=== PATIENT | female | born 1990 | race Caucasian/White ===

== ENCOUNTER 2023-05-24 08:53 | Inpatient (IN) ==
[2023-05-24] MEDS ORDERED: LIDOCAINE 1% LOCAL 20 ML VIAL INFIL PRN (09:55)
[2023-05-24] MEDS ORDERED: OXYTOCIN 30 UNITS/NSS 30 UNITS/500 ML BAG IV PRN (09:55)
[2023-05-24] MEDS ORDERED: Patient's ALLERGY Info needs ENTERED SCH (10:15)
[2023-05-24 10:44] LABS: Alanine Aminotransferase 51 U/L (7-52); Albumin Globulin Ratio 1.1 (0.9-2); Albumin Level 3.3 gm/dl (3.4-5.0); Alkaline Phosphatase 175 U/L (34-104); Anion Gap 9 (3-11); Aspartate Aminotransferase 60 U/L (13-39); BUN Creatinine Ratio 18.3 (10-20); Bilirubin Direct 0.2 mg/dl (0-0.2); Bilirubin,Total 1.2 mg/dl (0.2-1.0); Blood Urea Nitrogen 11 mg/dl (6-23); Calcium 8.8 mg/dl (8.6-10.3); Carbon Dioxide 21 mmol/L (21-32); Chloride 107 mmol/L (98-107); Est GFR (African American) 139.8 ml/min; Est GFR (Non-African American) 120.6 ml/min; Globulin 2.9 gm/dl (2.5-4.0); Glucose 72 mg/dl (70-99(Fasting)); Lactate Dehydrogenase 288 U/L (86-244); Potassium 3.5 mmol/L (3.5-5.1); Sodium 137 mmol/L (136-145); Total Protein 6.2 gm/dl (6.0-8.3); Uric Acid 9.3 mg/dl (2.6-7.2)
[2023-05-24 10:58] LABS: Hematocrit (blood only) 34.4 % (37.0-47.0); Hemoglobin 11.7 g/dl (12.0-16.0); Mean Corpuscular Hemoglobin 30.7 pg (25.0-34.0); Mean Corpuscular Volume 90.3 fL (80.0-100.0); Mean Platelet Volume 11.8 fL (9.4-12.4); Platelet Count 99 K/uL (130-400); Platelet Estimate Decreased (Normal); RDW Coefficient of Variation 15.1 % (11.5-14.5); RDW Standard Deviation 49.1 fL (36.4-46.3); Red Blood Count 3.81 M/uL (4.20-5.40); White Blood Count 8.18 K/ul (4.8-10.8)
[2023-05-24 11:17] LABS: Total Protein Urine Random 91.8 mg/dl (0-11.9)
[2023-05-24 11:23] LABS: Creatinine Urine Random 57.8 mg/dl; Protein Creatinine Ratio Urine 1.6 (0-0.2)
[2023-05-24] MEDS ORDERED: LABETALOL HCL IV 5 MG/ML 20ML IV STA (12:06)
[2023-05-24] MEDS ORDERED: MAG SULFATE 6GM BOLUS FROM BAG IV ONE (12:06)
[2023-05-24] MEDS ORDERED: LABETALOL HCL IV 5 MG/ML 20ML IV ONE (12:06)
--- NOTE | 2023-05-24 12:24 | History & Physical Report ---
Date of Service May 24, 2023 Assessment & Plan (1) Pre-eclampsia during in third trimester, antepartum: Plan: Start Magnesium Labetalol Cervidil for cervical ripening Admission and Anticipated Discharge Date Admission Date: May 24, 2023 History of Present Illness Chief Complaint: elevated blood pressure in office Primary Care Provider: Kelechi Vega MD 32 F P0000 at 37.3 weeks found to have elevated BP today in office for a routine visit and sent to L&D for evaluation. BP remains high and patient meets criteria for pre-eclampsia with sever features. Patient denies headache, visual changes, nausea or vomitting, RUQ pain or any other features. She has 1+ lower extremity edema. GBS is negative. Allergies Allergy/AdvReac Type Severity Reaction Status Date / Time No Known Allergies Allergy Unverified 05/24/23 12:13 Patient History Medical History (Updated 05/24/23 @ 12:23 by Ubaldo Shin MD) Pre-eclampsia during in third trimester, antepartum Social History Smoking Status: Never smoker Second Hand Exposure: No; Do You Dip or Chew Tobacco: No; Tobacco Cessation Education Requested by Patient: No Hx Alcohol Use: No Hx Substance Use: No Preferred Language: Turkish Communication Ability: Effective [employer] Tender Required: No Beliefs That Will Affect Care: None marital status: Current Living Situation: Spouse Other Information That Helps Us Care for You: No Feels Safe at Home: Yes Safety Concerns: Feels Safe At This Time Assistive Devices: Glasses OB History primip ACCESS ASSOC History neg Review of Systems All systems reviewed & are unremarkable except as noted in HPI & below Physical Exam Constitutional: WD/WN, vitals as above Eyes: PERRL, conjunctivae normal, anicteric sclerae Respiratory: normal respiratory effort, lungs clear to auscultation Cardiovascular: Rate/Rhythm: regular rate and regular rhythm Gastrointestinal (Abdomen): normal bowel sounds, soft, nontender, no hepatosplenomegaly Musculoskeletal: Extremities: extremities normal to inspection (+1 lower extremity edema noted) Skin: no rashes, warm and dry Neurologic: patellar DTR's 2+ bilat, sensation intact Psychiatric: A+Ox3, euthymic affect Genitourinary: no vaginal lesions, no adnexal mass OB Exam Abdomen: + fundal height and + vertex Manual OB Exam: + cervical dilation, + cervical effacement 50% and + station high OB Exam Monitor Tracing: + external FHT monitor used, + external uterine monitor used, + category I and + normal FHT variability Results & Data Vital Signs (Past 12 Hours) Vital Signs Temp Pulse Resp BP 05/24/23 12:03 77 170/97 H 05/24/23 10:20 84 161/99 H 05/24/23 10:19 85 167/101 H 05/24/23 10:00 94 H 134/80 05/24/23 09:39 89 136/89 05/24/23 09:30 36.5 C 89 16 136/89 Laboratory Results Laboratory Results - last 72 hr 05/24/23 05/24/23 09:35 10:03 WBC 8.18 RBC 3.81 L Hgb 11.7 L Hct 34.4 L MCV 90.3 MCH 30.7 MCHC 34.0 RDW Std Deviation 49.1 H RDW Coeff of Sander 15.1 H Plt Count 99 L MPV 11.8 Platelet Estimate Decreased L Sodium 137 Potassium 3.5 Chloride 107 Carbon Dioxide 21 Anion Gap 9 BUN 11 Creatinine 0.60 Est Cr Clr Drug Dosing Not Reportable Est GFR ( Amer) 139.8 Est GFR (Non-Af Amer) 120.6 BUN/Creatinine Ratio 18.3 Glucose 72 Uric Acid 9.3 H Calcium 8.8 Total Bilirubin 1.2 H Direct Bilirubin 0.2 AST 60 H ALT 51 Alkaline Phosphatase 175 H Lactate Dehydrogenase 288 H Total Protein 6.2 Albumin 3.3 L Globulin 2.9 Albumin/Globulin Ratio 1.1 Ur Random Creatinine 57.8 U Random Total Protein 91.8 H Protein/Creatinin Ratio 1.6 H Code Status & VTE Plan VTE Prophylaxis Plan VTE Prophylaxis will be ordered: Yes Monitoring External Monitor Cat 1
[2023-05-24] MEDS: LACTATED RINGER'S 1,000 ML IV PRN ×2 (12:25→22:58)
[2023-05-24] MEDS: MAGNESIUM SULFATE / WTR 40 GM/1,000 ML BAG IV SCH (12:33)
[2023-05-24] MEDS ORDERED: DINOPROSTONE 10 MG INSERT PV ONE (12:43)
--- NOTE | 2023-05-24 13:05 | Labor Progress Brief Note ---
Date of Service May 24, 2023 Assessment & Plan Admission and Anticipated Discharge Date Admission Date: May 24, 2023 Physical Exam Genitourinary: OB Exam Monitor Tracing: + external FHT monitor used, + external uterine monitor used, + category I and + normal FHT variability Cervidil 10 mg placed. BP now 142/91 Results & Data Vital Signs (Past 12 Hours) Vital Signs Temp Pulse Resp BP 05/24/23 12:52 109 H 142/91 H 05/24/23 12:35 106 H 149/89 H 05/24/23 12:24 86 149/85 H 05/24/23 12:16 77 170/97 H 05/24/23 12:14 82 137/78 05/24/23 12:03 77 170/97 H 05/24/23 10:20 84 161/99 H 05/24/23 10:19 85 167/101 H 05/24/23 10:00 94 H 134/80 05/24/23 09:39 89 136/89 05/24/23 09:30 36.5 C 89 16 136/89
[2023-05-24] MEDS ORDERED: SODIUM CHLORIDE 0.9% 250 ML IV PRN (15:14)
[2023-05-24] MEDS: ACETAMINOPHEN 325 MG TAB PO PRN ×2 (17:53→22:57)
[2023-05-25] MEDS: miSOPROStoL 50 MCG TAB PO SCH ×2 (02:00→07:10)
[2023-05-25] MEDS: MAGNESIUM SULFATE / WTR 40 GM/1,000 ML BAG IV SCH (02:05)
[2023-05-25] MEDS: ACETAMINOPHEN 325 MG TAB PO PRN ×2 (06:22→11:53)
[2023-05-25 06:32] LABS: Albumin Globulin Ratio 1.1 (0.9-2); Albumin Level 3.2 gm/dl (3.4-5.0); BUN Creatinine Ratio 15.6 (10-20); Bilirubin Direct 0.1 mg/dl (0-0.2); Bilirubin,Total 0.8 mg/dl (0.2-1.0); Calcium 7.4 mg/dl (8.6-10.3); Creatinine Clr Calc Pharmacy 138.4 ml/min; Est GFR (African American) 136.8 ml/min; Est GFR (Non-African American) 118.1 ml/min; Globulin 2.9 gm/dl (2.5-4.0); Potassium 3.4 mmol/L (3.5-5.1); Total Protein 6.1 gm/dl (6.0-8.3); Uric Acid 9.7 mg/dl (2.6-7.2)
[2023-05-25 06:44] LABS: Basophils # (auto) 0.03 K/uL (0.00-0.20); Basophils % (auto) 0.4 %; Eosinophils # (auto) 0.04 K/uL (0.00-0.50); Eosinophils % (auto) 0.5 %; Hematocrit (blood only) 34.3 % (37.0-47.0); Hemoglobin 11.6 g/dl (12.0-16.0); Immature Granulocytes # (auto) 0.43 K/uL (0.01-0.20); Immature Granulocytes % (auto) 5.4 %; Lymphocytes # (auto) 1.63 K/uL (1.20-3.40); Lymphocytes % (auto) 20.5 %; Mean Corpuscular Hemoglobin 30.6 pg (25.0-34.0); Mean Corpuscular Hgb Conc 33.8 g/dL (32.0-36.0); Mean Corpuscular Volume 90.5 fL (80.0-100.0); Mean Platelet Volume 11.6 fL (9.4-12.4); Monocytes % (auto) 6.3 %; Neutrophils # (auto) 5.31 K/uL (1.40-6.50); Neutrophils % (auto) 66.9 %; Nucleated RBC # (auto) 0.03 K/uL (0.00-0.12); Nucleated RBC % (auto) 0.4 %; Platelet Count 99 K/uL (130-400); RDW Coefficient of Variation 15.1 % (11.5-14.5); RDW Standard Deviation 49.5 fL (36.4-46.3); Red Blood Count 3.79 M/uL (4.20-5.40); White Blood Count 7.94 K/ul (4.8-10.8)
--- NOTE | 2023-05-25 08:53 | Obstetrical Progress Note ---
Date of Service May 25, 2023 Assessment & Plan Admission and Anticipated Discharge Date Admission Date: May 24, 2023 Subjective Patient is seen and examined. She was admitted yesterday by Dr. Shin for preeclampsia with severe features, received Cervidil for cervical ripening and then 2 doses of p.o. Cytotec, the last 1 was at 7:30 AM this morning. She feels mild cramping off and on, no contractions, leakage of fluid, vaginal bleeding. She reports good movements. She has headache since yesterday, it has been mild pain level is 3 out of 10. No change in her vision, no epigastric or right upper quadrant pain, no vomiting but she has been feeling nauseous. Her has been uncomplicated until yesterday, GBS negative. She was given 1 dose of IV labetalol yesterday and her blood pressures were normal after that, they started to increase this morning, plan to start p.o. labetalol twice daily. She has been on IV magnesium for seizure prophylaxis. Vaginal exam, cervix is closed, thick, firm, anterior, head is at -2 station, heart rate category 1, [place] showing mild irregular contractions, patient does not feel them. Labs are stable with low platelets at 99K, same since yesterday, liver enzymes are within normal limits. Lab Results 05/24/23 05/24/23 05/24/23 Range/Units 09:35 10:03 16:56 WBC 8.18 (4.8-10.8) K/ul RBC 3.81 L (4.20-5.40) M/uL Hgb 11.7 L (12.0-16.0) g/dl Hct 34.4 L (37.0-47.0) % MCV 90.3 (80.0-100.0) fL MCH 30.7 (25.0-34.0) pg MCHC 34.0 (32.0-36.0) g/dL RDW Std Deviation 49.1 H (36.4-46.3) fL RDW Coeff of Sander 15.1 H (11.5-14.5) % Plt Count 99 L (130-400) K/uL MPV 11.8 (9.4-12.4) fL Immature Gran % (Auto) % Neut % (Auto) % Lymph % (Auto) % [place] % (Auto) % Eos % (Auto) % Baso % (Auto) % Neut # (Auto) (1.40-6.50) K/uL Lymph # (Auto) (1.20-3.40) K/uL [place] # (Auto) (0.11-0.59) K/uL Eos # (Auto) (0.00-0.50) K/uL Baso # (Auto) (0.00-0.20) K/uL Immature Gran # (Auto) (0.01-0.20) K/uL Absolute Nucleated RBC (0.00-0.12) K/uL Nucleated RBC % (auto) % Platelet Estimate Decreased L (Normal) Sodium 137 (136-145) mmol/L Potassium 3.5 (3.5-5.1) mmol/L Chloride 107 (98-107) mmol/L Carbon Dioxide 21 (21-32) mmol/L Anion Gap 9 (3-11) BUN 11 (6-23) mg/dl Creatinine 0.60 (0.6-1.2) mg/dl Est Cr Clr Drug Dosing Not Reportable Est GFR ( Amer) 139.8 ml/min Est GFR (Non-Af Amer) 120.6 ml/min BUN/Creatinine Ratio 18.3 (10-20) Glucose 72 (70-99(Fasting)) mg/dl Uric Acid 9.3 H (2.6-7.2) mg/dl Calcium 8.8 (8.6-10.3) mg/dl Magnesium (Sulf Ther) 5.3 (4.0-8.0) mg/dL Total Bilirubin 1.2 H (0.2-1.0) mg/dl Direct Bilirubin 0.2 (0-0.2) mg/dl AST 60 H (13-39) U/L ALT 51 (7-52) U/L Alkaline Phosphatase 175 H (34-104) U/L Lactate Dehydrogenase 288 H (86-244) U/L Total Protein 6.2 (6.0-8.3) gm/dl Albumin 3.3 L (3.4-5.0) gm/dl Globulin 2.9 (2.5-4.0) gm/dl Albumin/Globulin Ratio 1.1 (0.9-2) Ur Random Creatinine 57.8 mg/dl U Random Total Protein 91.8 H (0-11.9) mg/dl Protein/Creatinin Ratio 1.6 H (0-0.2) Blood Type A Positive Antibody Screen NEGATIVE Crossmatch See Detail 05/25/23 Range/Units 05:46 WBC 7.94 (4.8-10.8) K/ul RBC 3.79 L (4.20-5.40) M/uL Hgb 11.6 L (12.0-16.0) g/dl Hct 34.3 L (37.0-47.0) % MCV 90.5 (80.0-100.0) fL MCH 30.6 (25.0-34.0) pg MCHC 33.8 (32.0-36.0) g/dL RDW Std Deviation 49.5 H (36.4-46.3) fL RDW Coeff of Sander 15.1 H (11.5-14.5) % Plt Count 99 L (130-400) K/uL MPV 11.6 (9.4-12.4) fL Immature Gran % (Auto) 5.4 % Neut % (Auto) 66.9 % Lymph % (Auto) 20.5 % [place] % (Auto) 6.3 % Eos % (Auto) 0.5 % Baso % (Auto) 0.4 % Neut # (Auto) 5.31 (1.40-6.50) K/uL Lymph # (Auto) 1.63 (1.20-3.40) K/uL [place] # (Auto) 0.50 (0.11-0.59) K/uL Eos # (Auto) 0.04 (0.00-0.50) K/uL Baso # (Auto) 0.03 (0.00-0.20) K/uL Immature Gran # (Auto) 0.43 H (0.01-0.20) K/uL Absolute Nucleated RBC 0.03 (0.00-0.12) K/uL Nucleated RBC % (auto) 0.4 % Platelet Estimate (Normal) Sodium 135 L (136-145) mmol/L Potassium 3.4 L (3.5-5.1) mmol/L Chloride 105 (98-107) mmol/L Carbon Dioxide 21 (21-32) mmol/L Anion Gap 9 (3-11) BUN 10 (6-23) mg/dl Creatinine 0.64 (0.6-1.2) mg/dl Est Cr Clr Drug Dosing 138.4 Est GFR ( Amer) 136.8 ml/min Est GFR (Non-Af Amer) 118.1 ml/min BUN/Creatinine Ratio 15.6 (10-20) Glucose 84 (70-99(Fasting)) mg/dl Uric Acid 9.7 H (2.6-7.2) mg/dl Calcium 7.4 L (8.6-10.3) mg/dl Magnesium (Sulf Ther) (4.0-8.0) mg/dL Total Bilirubin 0.8 (0.2-1.0) mg/dl Direct Bilirubin 0.1 (0-0.2) mg/dl AST 39 (13-39) U/L ALT 38 (7-52) U/L Alkaline Phosphatase 196 H (34-104) U/L Lactate Dehydrogenase 255 H (86-244) U/L Total Protein 6.1 (6.0-8.3) gm/dl Albumin 3.2 L (3.4-5.0) gm/dl Globulin 2.9 (2.5-4.0) gm/dl Albumin/Globulin Ratio 1.1 (0.9-2) Ur Random Creatinine mg/dl U Random Total Protein (0-11.9) mg/dl Protein/Creatinin Ratio (0-0.2) Blood Type Antibody Screen Crossmatch Plan to continue cervical ripening, repeat labs, ultrasound for growth [place], Discussed the findings with the patient and informed to continue with cervical ripening as long as blood pressures are stable and labs are stable. Understands there might be a need for urgent delivery via if laboratory findings gets worse or blood pressures become unstable. All questions were answered. Results & Data Vital Signs (Past 12 Hours) Vital Signs Temp Pulse Resp BP Pulse Ox 05/25/23 08:45 96 H 95 05/25/23 08:40 97 H 96 05/25/23 08:35 93 H 97 05/25/23 08:33 91 H 168/89 H 05/25/23 08:30 94 H 95 05/25/23 08:25 107 H 96 05/25/23 08:20 95 H 95 05/25/23 08:15 95 H 95 05/25/23 08:10 90 95 05/25/23 08:05 98 H 97 05/25/23 08:00 93 H 95 05/25/23 07:55 92 H 95 05/25/23 07:50 94 H 96 05/25/23 07:45 97 H 95 05/25/23 07:40 104 H 96 05/25/23 07:35 101 H 94 05/25/23 07:30 98 H 95 05/25/23 07:25 92 H 94 05/25/23 07:20 99 H 96 05/25/23 07:15 97 H 95 05/25/23 07:10 100 H 96 05/25/23 07:05 101 H 96 05/25/23 07:04 18 05/25/23 07:00 111 H 96 05/25/23 06:55 101 H 96 05/25/23 06:50 105 H 96 05/25/23 06:45 103 H 91 05/25/23 06:40 99 H 93 05/25/23 06:35 98 H 91 05/25/23 06:33 100 H 151/87 H 05/25/23 06:30 18 05/25/23 06:30 104 H 93 05/25/23 06:25 101 H 93 05/25/23 06:20 110 H 94 05/25/23 06:15 105 H 95 05/25/23 06:10 99 H 92 05/25/23 06:05 98 H 92 05/25/23 06:00 115 H 96 05/25/23 05:55 103 H 94 05/25/23 05:50 104 H 94 05/25/23 05:45 100 H 92 05/25/23 05:40 124 H 93 05/25/23 05:35 102 H 93 05/25/23 05:33 102 H 124/68 05/25/23 05:30 18 05/25/23 05:30 101 H 93 05/25/23 05:25 102 H 92 05/25/23 05:20 99 H 94 05/25/23 05:15 102 H 92 05/25/23 05:10 98 H 94 05/25/23 05:05 104 H 91 05/25/23 05:00 99 H 92 05/25/23 04:55 99 H 93 05/25/23 04:50 104 H 94 05/25/23 04:45 118 H 94 05/25/23 04:40 100 H 94 05/25/23 04:35 96 H 95 05/25/23 04:32 103 H 142/83 H 05/25/23 04:30 99 H 142/83 H 95 05/25/23 04:25 95 H 94 05/25/23 04:20 98 H 93 05/25/23 04:15 99 H 93 05/25/23 04:10 99 H 94 05/25/23 04:05 101 H 94 05/25/23 04:00 100 H 95 05/25/23 03:55 103 H 96 05/25/23 03:50 114 H 96 05/25/23 03:45 96 H 95 05/25/23 03:40 97 H 94 05/25/23 03:35 108 H 97 05/25/23 03:34 103 H 208/107 H 05/25/23 03:30 18 05/25/23 03:30 95 H 96 05/25/23 03:25 95 H 95 05/25/23 03:20 93 H 94 05/25/23 03:15 94 H 94 05/25/23 03:10 95 H 95 05/25/23 03:05 99 H 96 05/25/23 03:00 18 05/25/23 03:00 113 H 98 05/25/23 02:55 90 95 05/25/23 02:50 89 98 05/25/23 02:45 87 97 05/25/23 02:40 90 96 05/25/23 02:35 94 H 98 05/25/23 02:32 97 H 129/70 05/25/23 02:30 90 94 05/25/23 02:25 98 H 95 05/25/23 02:20 96 H 94 05/25/23 02:15 96 H 95 05/25/23 02:10 97 H 95 05/25/23 02:05 100 H 96 05/25/23 02:00 18 05/25/23 02:00 103 H 97 05/25/23 01:55 91 H 94 05/25/23 01:50 99 H 95 05/25/23 01:45 104 H 95 05/25/23 01:40 104 H 97 05/25/23 01:35 98 H 94 05/25/23 01:33 94 H 126/69 05/25/23 01:30 93 H 96 05/25/23 01:25 97 H 95 05/25/23 01:20 94 H 96 05/25/23 01:15 98 H 96 05/25/23 01:10 100 H 96 05/25/23 01:05 104 H 96 05/25/23 01:00 18 05/25/23 01:00 95 H 97 05/25/23 00:55 94 H 95 05/25/23 00:50 100 H 95 05/25/23 00:45 107 H 97 05/25/23 00:40 97 H 96 05/25/23 00:35 108 H 96 05/25/23 00:33 108 H 136/90 05/25/23 00:30 102 H 94 05/25/23 00:25 107 H 95 05/25/23 00:20 119 H 96 05/25/23 00:15 97 H 94 05/25/23 00:10 99 H 94 05/25/23 00:05 99 H 95 05/25/23 00:00 18 05/25/23 00:00 96 H 94 05/24/23 23:55 94 H 94 05/24/23 23:50 96 H 94 05/24/23 23:45 95 H 94 05/24/23 23:40 93 H 94 05/24/23 23:35 95 H 96 05/24/23 23:32 99 H 133/84 05/24/23 23:30 105 H 97 05/24/23 23:25 94 H 94 05/24/23 23:20 101 H 94 05/24/23 23:15 110 H 95 05/24/23 23:10 104 H 96 05/24/23 23:05 99 H 96 05/24/23 23:00 36.9 C 18 05/24/23 23:00 104 H 96 05/24/23 22:55 104 H 96 05/24/23 22:50 101 H 95 05/24/23 22:45 99 H 93 05/24/23 22:40 97 H 94 05/24/23 22:35 103 H 96 05/24/23 22:32 100 H 121/68 05/24/23 22:30 95 H 95 05/24/23 22:25 101 H 96 05/24/23 22:20 98 H 95 05/24/23 22:15 104 H 94 05/24/23 22:10 98 H 95 05/24/23 22:05 107 H 95 05/24/23 22:00 18 05/24/23 22:00 105 H 97 05/24/23 21:55 115 H 97 05/24/23 21:50 98 H 94 05/24/23 21:45 99 H 95 05/24/23 21:40 106 H 95 05/24/23 21:35 97 H 94 05/24/23 21:33 102 H 120/62 05/24/23 21:30 96 H 93 05/24/23 21:25 95 H 94 05/24/23 21:20 99 H 95 05/24/23 21:15 103 H 94 05/24/23 21:10 99 H 94 05/24/23 21:05 97 H 94 05/24/23 21:00 18 05/24/23 21:00 104 H 95 05/24/23 20:55 96 H 96 05/24/23 20:50 99 H 95
[2023-05-25] MEDS: LABETALOL HCL 100 MG TAB PO SCH ×2 (09:06→21:11)
[2023-05-25] MEDS ORDERED: LABETALOL HCL IV 5 MG/ML 20ML IV STA (09:37)
--- NOTE | 2023-05-25 09:53 | Obstetrical Progress Note ---
Date of Service May 25, 2023 Assessment & Plan Admission and Anticipated Discharge Date Admission Date: May 24, 2023 Subjective I was called that her blood pressures have increased. Per her nurse she has been nervous and crying due to her family history. Her biological mom soon after she had the patient, Brinda, with . 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 This makes the patient nervous and anxious if she will need a for delivery of her child. The patient has seen cardiology in 2016 with normal echocardiogram as well as during this . She has seen Dr. Parish at [facility] cardiology on December 27 and her exam and echocardiogram were within normal limits. Patient was recommended to follow-up in 5 years. Patient denies chest pain, shortness of breath. We discussed the findings again and safest route of delivery for her and the baby in details. Patient seems more relaxed now and smiling. Patient denies history of any anxiety or depression. I offered her consultation from psychiatry department here at the hospital but she declines. Plan to give her IV labetalol and continue to monitor closely. Results & Data Vital Signs (Past 12 Hours) Vital Signs Temp Pulse Resp BP Pulse Ox 05/25/23 09:45 93 H 93 05/25/23 09:40 93 H 93 05/25/23 09:36 98 H 182/107 H 05/25/23 09:35 95 H 95 05/25/23 09:30 97 H 94 05/25/23 09:25 96 H 94 05/25/23 09:20 95 H 178/100 H 91 05/25/23 09:19 108 H 242/138 H 05/25/23 09:15 93 H 94 05/25/23 09:13 94 H 181/107 H 05/25/23 09:10 93 H 92 05/25/23 09:07 93 H 190/108 H 05/25/23 09:05 91 H 92 05/25/23 09:00 93 H 94 05/25/23 08:55 91 H 94 05/25/23 08:50 94 H 95 05/25/23 08:45 96 H 95 05/25/23 08:40 97 H 96 05/25/23 08:35 93 H 97 05/25/23 08:33 91 H 168/89 H 05/25/23 08:30 94 H 95 05/25/23 08:25 107 H 96 05/25/23 08:20 95 H 95 05/25/23 08:15 95 H 95 05/25/23 08:10 90 95 05/25/23 08:05 98 H 97 05/25/23 08:00 93 H 95 05/25/23 07:55 92 H 95 05/25/23 07:50 94 H 96 05/25/23 07:45 97 H 95 05/25/23 07:40 104 H 96 05/25/23 07:35 101 H 94 05/25/23 07:30 98 H 95 05/25/23 07:25 92 H 94 05/25/23 07:20 99 H 96 05/25/23 07:15 97 H 95 05/25/23 07:10 100 H 96 05/25/23 07:05 101 H 96 05/25/23 07:04 18 05/25/23 07:00 111 H 96 05/25/23 06:55 101 H 96 05/25/23 06:50 105 H 96 05/25/23 06:45 103 H 91 05/25/23 06:40 99 H 93 05/25/23 06:35 98 H 91 05/25/23 06:33 100 H 151/87 H 05/25/23 06:30 18 05/25/23 06:30 104 H 93 05/25/23 06:25 101 H 93 05/25/23 06:20 110 H 94 05/25/23 06:15 105 H 95 05/25/23 06:10 99 H 92 05/25/23 06:05 98 H 92 05/25/23 06:00 115 H 96 05/25/23 05:55 103 H 94 05/25/23 05:50 104 H 94 05/25/23 05:45 100 H 92 05/25/23 05:40 124 H 93 05/25/23 05:35 102 H 93 05/25/23 05:33 102 H 124/68 05/25/23 05:30 18 05/25/23 05:30 101 H 93 05/25/23 05:25 102 H 92 05/25/23 05:20 99 H 94 05/25/23 05:15 102 H 92 05/25/23 05:10 98 H 94 05/25/23 05:05 104 H 91 05/25/23 05:00 99 H 92 05/25/23 04:55 99 H 93 05/25/23 04:50 104 H 94 05/25/23 04:45 118 H 94 05/25/23 04:40 100 H 94 05/25/23 04:35 96 H 95 05/25/23 04:32 103 H 142/83 H 05/25/23 04:30 99 H 142/83 H 95 05/25/23 04:25 95 H 94 05/25/23 04:20 98 H 93 05/25/23 04:15 99 H 93 05/25/23 04:10 99 H 94 05/25/23 04:05 101 H 94 05/25/23 04:00 100 H 95 05/25/23 03:55 103 H 96 05/25/23 03:50 114 H 96 05/25/23 03:45 96 H 95 05/25/23 03:40 97 H 94 05/25/23 03:35 108 H 97 05/25/23 03:34 103 H 208/107 H 05/25/23 03:30 18 05/25/23 03:30 95 H 96 05/25/23 03:25 95 H 95 05/25/23 03:20 93 H 94 05/25/23 03:15 94 H 94 05/25/23 03:10 95 H 95 05/25/23 03:05 99 H 96 05/25/23 03:00 18 05/25/23 03:00 113 H 98 05/25/23 02:55 90 95 05/25/23 02:50 89 98 05/25/23 02:45 87 97 05/25/23 02:40 90 96 05/25/23 02:35 94 H 98 05/25/23 02:32 97 H 129/70 05/25/23 02:30 90 94 05/25/23 02:25 98 H 95 05/25/23 02:20 96 H 94 05/25/23 02:15 96 H 95 05/25/23 02:10 97 H 95 05/25/23 02:05 100 H 96 05/25/23 02:00 18 05/25/23 02:00 103 H 97 05/25/23 01:55 91 H 94 05/25/23 01:50 99 H 95 05/25/23 01:45 104 H 95 05/25/23 01:40 104 H 97 05/25/23 01:35 98 H 94 05/25/23 01:33 94 H 126/69 05/25/23 01:30 93 H 96 05/25/23 01:25 97 H 95 05/25/23 01:20 94 H 96 05/25/23 01:15 98 H 96 05/25/23 01:10 100 H 96 05/25/23 01:05 104 H 96 05/25/23 01:00 18 05/25/23 01:00 95 H 97 05/25/23 00:55 94 H 95 05/25/23 00:50 100 H 95 05/25/23 00:45 107 H 97 05/25/23 00:40 97 H 96 05/25/23 00:35 108 H 96 05/25/23 00:33 108 H 136/90 05/25/23 00:30 102 H 94 05/25/23 00:25 107 H 95 05/25/23 00:20 119 H 96 05/25/23 00:15 97 H 94 05/25/23 00:10 99 H 94 05/25/23 00:05 99 H 95 05/25/23 00:00 18 05/25/23 00:00 96 H 94 05/24/23 23:55 94 H 94 05/24/23 23:50 96 H 94 05/24/23 23:45 95 H 94 05/24/23 23:40 93 H 94 05/24/23 23:35 95 H 96 05/24/23 23:32 99 H 133/84 05/24/23 23:30 105 H 97 05/24/23 23:25 94 H 94 05/24/23 23:20 101 H 94 05/24/23 23:15 110 H 95 05/24/23 23:10 104 H 96 05/24/23 23:05 99 H 96 05/24/23 23:00 36.9 C 18 05/24/23 23:00 104 H 96 05/24/23 22:55 104 H 96 05/24/23 22:50 101 H 95 05/24/23 22:45 99 H 93 05/24/23 22:40 97 H 94 05/24/23 22:35 103 H 96 05/24/23 22:32 100 H 121/68 05/24/23 22:30 95 H 95 05/24/23 22:25 101 H 96 05/24/23 22:20 98 H 95 05/24/23 22:15 104 H 94 05/24/23 22:10 98 H 95 05/24/23 22:05 107 H 95 05/24/23 22:00 18 05/24/23 22:00 105 H 97 05/24/23 21:55 115 H 97 05/24/23 21:50 98 H 94
[2023-05-25] MEDS ORDERED: BUTORPHANOL TARTRATE 1 MG/ML VIAL IV PRN (10:34)
[2023-05-25] MEDS: hydrALAZINE 10 MG TAB PO SCH (10:44)
[2023-05-25] MEDS ORDERED: miSOPROStoL 25 MCG TAB SL SCH (11:00)
--- NOTE | 2023-05-25 11:05 | Ultrasound Report ---
ULTRASOUND OBSTETRICAL LIMITED CLINICAL HISTORY: Preeclampsia. Estimation of weights. COMPARISON STUDY: No priors. FINDINGS: Real-time, grayscale and color Doppler sonography of the fetus and gravid uterus is perform ed. There is a single live intrauterine gestation with a heart rate of 121 bpm. Position is cephalic. The placenta is anterior and normal as imaged. The amniotic fluid index measures 4.65 cm, with the l argest pocket of fluid measuring 2.51 cm. Abdominal circumference measures 35.80 cm corresponding to an estimated age of 39 weeks 5 days. Head circumference measures 33.31 cm corresponding to an estimated age of 38 weeks 0 days. Femoral length measures 7.40 cm corresponding to an estimated age of 37 weeks 6 days. Biparietal diameter measures 9.58 cm corresponding to an estimated age of 39 weeks 1 day. The cumulative estimation of dates is 38 weeks 1 day +/-2 weeks 5 days. Estimated weight is 3457 g +/-519 g. IMPRESSION: 1. There is a single-live intrauterine gestation as detailed above. 2. Note that this does not constitute a dedicated anatomic scan. Dictated: 05/25/2023 10:41 AM Transcribed: 05/25/2023 11:02 AM Alonzo [id number] [email or web address] Electronically signed by: Barry Wilson M.D. 05/25/2023 11:03 AM
[2023-05-25] MEDS: LACTATED RINGER'S 1,000 ML IV PRN (11:50)
[2023-05-25 13:15] LABS: Hematocrit (blood only) 34.5 % (37.0-47.0); Hemoglobin 11.5 g/dl (12.0-16.0); Mean Corpuscular Hemoglobin 30.4 pg (25.0-34.0); Mean Corpuscular Hgb Conc 33.3 g/dL (32.0-36.0); Mean Corpuscular Volume 91.3 fL (80.0-100.0); Nucleated RBC # (auto) 0.02 K/uL (0.00-0.12); Nucleated RBC % (auto) 0.2 %; Platelet Count 94 K/uL (130-400); RDW Coefficient of Variation 15.1 % (11.5-14.5); RDW Standard Deviation 49.7 fL (36.4-46.3); Red Blood Count 3.78 M/uL (4.20-5.40); White Blood Count 8.83 K/ul (4.8-10.8)
[2023-05-25 13:37] LABS: Albumin Globulin Ratio 1.1 (0.9-2); Albumin Level 3.4 gm/dl (3.4-5.0); Bilirubin,Total 0.8 mg/dl (0.2-1.0); Calcium 7.3 mg/dl (8.6-10.3); Creatinine Clr Calc Pharmacy 128.4 ml/min; Est GFR (African American) 133.5 ml/min; Est GFR (Non-African American) 115.2 ml/min; Globulin 3.1 gm/dl (2.5-4.0); Potassium 3.3 mmol/L (3.5-5.1); Total Protein 6.5 gm/dl (6.0-8.3)
[2023-05-25] MEDS ORDERED: DEXAMETHASONE SOD INJ 4 MG/ML VIAL IV STA (13:37)
[2023-05-25] MEDS ORDERED: POTASSIUM CHLORIDE / WTR 10 MEQ/100 ML PLCT IV ONE (13:39)
[2023-05-25 13:51] LABS: Basophils # (auto) 0.04 K/uL (0.00-0.20); Basophils % (auto) 0.5 %; Eosinophils # (auto) 0.03 K/uL (0.00-0.50); Eosinophils % (auto) 0.3 %; Immature Granulocytes # (auto) 0.45 K/uL (0.01-0.20); Immature Granulocytes % (auto) 5.1 %; Lymphocytes # (auto) 1.52 K/uL (1.20-3.40); Lymphocytes % (auto) 17.2 %; Monocytes # (auto) 0.57 K/uL (0.11-0.59); Monocytes % (auto) 6.5 %; Neutrophils # (auto) 6.22 K/uL (1.40-6.50); Neutrophils % (auto) 70.4 %; Polychromasia 1+
[2023-05-25] MEDS ORDERED: dexAMETHasone 6 MG in SYRINGE 0 ML IV ONE (14:00)
[2023-05-25] MEDS ORDERED: CITRIC ACID/SODIUM CITRATE 15 ML UDC ONE (14:02)
--- NOTE | 2023-05-25 14:03 | Obstetrical Progress Note ---
Date of Service May 25, 2023 Assessment & Plan Admission and Anticipated Discharge Date Admission Date: May 24, 2023 Subjective Patient is reevaluated. She has received 3rd dose of Cytotec, no contractions, no cramping. HOOD is still mild, not worse Discussed repeat labs Platelets trending down , now 94 K, LFT's WNL Discussed the case with MFM and they recommended Csection Patient agreed with recommendations. Patient understands C section is a major surgery, with risks including but not limited to bleeding , infection, injury to surrounding organs like bowels, bladder, ureters, adhesions, scarring, wound infection, blood cloths in legs/ lungs, longer recovery. All questions were answered. She signed an informed consent. Results & Data Vital Signs (Past 12 Hours) Vital Signs Temp Pulse Resp BP Pulse Ox 05/25/23 13:57 90 93 05/25/23 13:52 96 H 157/84 H 05/25/23 13:51 98 H 98 05/25/23 13:46 84 97 05/25/23 13:41 84 97 05/25/23 13:37 81 143/83 H 05/25/23 13:36 86 96 05/25/23 13:31 91 H 96 05/25/23 13:26 88 95 05/25/23 13:22 88 153/92 H 05/25/23 13:21 92 H 96 05/25/23 13:16 86 94 05/25/23 13:11 86 96 05/25/23 13:08 88 140/88 05/25/23 13:06 92 H 97 05/25/23 13:01 89 97 05/25/23 12:56 88 94 05/25/23 12:54 88 159/95 H 05/25/23 12:51 96 H 93 05/25/23 12:46 86 96 05/25/23 12:41 87 95 05/25/23 12:37 90 134/87 05/25/23 12:36 92 H 94 05/25/23 12:31 89 97 05/25/23 12:26 85 96 05/25/23 12:23 91 H 139/90 05/25/23 12:21 93 H 97 05/25/23 12:16 87 94 05/25/23 12:11 88 94 05/25/23 12:07 87 146/94 H 05/25/23 12:06 88 94 05/25/23 12:01 97 H 97 05/25/23 11:56 90 96 05/25/23 11:52 36.7 C 93 H 17 141/90 H 05/25/23 11:51 96 H 96 05/25/23 11:46 89 96 05/25/23 11:41 90 95 05/25/23 11:37 89 141/90 H 05/25/23 11:36 94 H 93 05/25/23 11:31 85 95 05/25/23 11:26 89 96 05/25/23 11:21 90 147/89 H 95 05/25/23 11:16 85 94 05/25/23 11:11 86 95 05/25/23 11:08 84 140/90 05/25/23 11:06 91 H 94 05/25/23 11:01 86 95 05/25/23 10:56 84 94 05/25/23 10:52 86 146/90 H 05/25/23 10:51 93 H 95 05/25/23 10:46 85 94 05/25/23 10:41 87 92 05/25/23 10:38 93 H 94 05/25/23 10:37 86 140/82 05/25/23 10:36 95 H 92 05/25/23 10:31 88 92 05/25/23 10:26 86 91 05/25/23 10:22 89 163/93 H 05/25/23 10:21 90 86 L 05/25/23 10:05 92 05/25/23 10:05 90 05/25/23 10:05 89 156/92 H 05/25/23 10:01 93 H 167/98 H 05/25/23 10:00 91 H 90 05/25/23 09:55 88 145/93 H 91 05/25/23 09:50 93 H 92 05/25/23 09:45 93 H 93 05/25/23 09:40 93 H 93 05/25/23 09:36 98 H 182/107 H 05/25/23 09:35 95 H 95 05/25/23 09:30 97 H 94 05/25/23 09:25 96 H 94 05/25/23 09:20 95 H 178/100 H 91 05/25/23 09:19 108 H 242/138 H 05/25/23 09:15 93 H 94 05/25/23 09:13 94 H 181/107 H 05/25/23 09:10 93 H 92 05/25/23 09:07 93 H 190/108 H 05/25/23 09:05 91 H 92 05/25/23 09:00 93 H 94 05/25/23 08:55 91 H 94 05/25/23 08:50 94 H 95 05/25/23 08:45 96 H 95 05/25/23 08:40 97 H 96 05/25/23 08:35 93 H 97 05/25/23 08:33 91 H 168/89 H 05/25/23 08:30 94 H 95 05/25/23 08:25 107 H 96 05/25/23 08:20 95 H 95 05/25/23 08:15 95 H 95 05/25/23 08:10 90 95 05/25/23 08:05 98 H 97 05/25/23 08:00 93 H 95 05/25/23 07:55 92 H 95 05/25/23 07:50 94 H 96 05/25/23 07:45 97 H 95 05/25/23 07:40 104 H 96 05/25/23 07:35 101 H 94 05/25/23 07:30 98 H 95 05/25/23 07:25 92 H 94 05/25/23 07:20 99 H 96 05/25/23 07:15 97 H 95 05/25/23 07:10 100 H 96 05/25/23 07:05 101 H 96 05/25/23 07:04 18 05/25/23 07:00 111 H 96 05/25/23 06:55 101 H 96 05/25/23 06:50 105 H 96 05/25/23 06:45 103 H 91 05/25/23 06:40 99 H 93 05/25/23 06:35 98 H 91 05/25/23 06:33 100 H 151/87 H 05/25/23 06:30 18 05/25/23 06:30 104 H 93 05/25/23 06:25 101 H 93 05/25/23 06:20 110 H 94 05/25/23 06:15 105 H 95 05/25/23 06:10 99 H 92 05/25/23 06:05 98 H 92 05/25/23 06:00 115 H 96 05/25/23 05:55 103 H 94 05/25/23 05:50 104 H 94 05/25/23 05:45 100 H 92 05/25/23 05:40 124 H 93 05/25/23 05:35 102 H 93 05/25/23 05:33 102 H 124/68 05/25/23 05:30 18 05/25/23 05:30 101 H 93 05/25/23 05:25 102 H 92 05/25/23 05:20 99 H 94 05/25/23 05:15 102 H 92 05/25/23 05:10 98 H 94 05/25/23 05:05 104 H 91 05/25/23 05:00 99 H 92 05/25/23 04:55 99 H 93 05/25/23 04:50 104 H 94 05/25/23 04:45 118 H 94 05/25/23 04:40 100 H 94 05/25/23 04:35 96 H 95 05/25/23 04:32 103 H 142/83 H 05/25/23 04:30 99 H 142/83 H 95 05/25/23 04:25 95 H 94 05/25/23 04:20 98 H 93 05/25/23 04:15 99 H 93 05/25/23 04:10 99 H 94 05/25/23 04:05 101 H 94 05/25/23 04:00 100 H 95 05/25/23 03:55 103 H 96 05/25/23 03:50 114 H 96 05/25/23 03:45 96 H 95 05/25/23 03:40 97 H 94 05/25/23 03:35 108 H 97 05/25/23 03:34 103 H 208/107 H 05/25/23 03:30 18 05/25/23 03:30 95 H 96 05/25/23 03:25 95 H 95 05/25/23 03:20 93 H 94 05/25/23 03:15 94 H 94 05/25/23 03:10 95 H 95 05/25/23 03:05 99 H 96 05/25/23 03:00 18 05/25/23 03:00 113 H 98 05/25/23 02:55 90 95 05/25/23 02:50 89 98 05/25/23 02:45 87 97 05/25/23 02:40 90 96 05/25/23 02:35 94 H 98 05/25/23 02:32 97 H 129/70 05/25/23 02:30 90 94 05/25/23 02:25 98 H 95 05/25/23 02:20 96 H 94 05/25/23 02:15 96 H 95 05/25/23 02:10 97 H 95 05/25/23 02:05 100 H 96
[2023-05-25] MEDS ORDERED: ceFAZolin 2000MG 2,000 MG/15 ML SYR IV ONE (14:15)
[2023-05-25] MEDS ORDERED: diphenhydrAMINE 50 MG/ML VIAL IV PRN (14:38)
[2023-05-25] MEDS ORDERED: NALOXONE HCL 1 MG in SODIUM CHLORIDE 0.9% 1,000 ML IV PRN (14:38)
[2023-05-25] MEDS ORDERED: ONDANSETRON INJ 2 MG/ML 2 ML VIAL IV PRN ×2 (14:38→16:14)
[2023-05-25] MEDS ORDERED: KETOROLAC 30 MG/ML VIAL IV PRN (14:38)
[2023-05-25] MEDS ORDERED: NALOXONE HCL 0.08 MG in SYRINGE 1.8 ML IV PRN (14:38)
[2023-05-25] MEDS ORDERED: ATROPINE SULFATE 0.1 MG/ML 10ML SYR IV PRN (14:38)
[2023-05-25] MEDS ORDERED: NALOXONE HCL 0.4 MG/1 ML VIAL/CARP IV PRN (14:38)
[2023-05-25] MEDS ORDERED: MEPERIDINE HCL 25 MG/ML CARP/VIAL IV PRN (14:38)
[2023-05-25] MEDS ORDERED: NALBUPHINE HCL 5 MG in SYRINGE 0 ML IV PRN (14:38)
[2023-05-25] MEDS ORDERED: PROMETHAZINE HCL 6.25 MG in SODIUM CHLORIDE 0.9% 50 ML IV PRN (14:38)
[2023-05-25] MEDS ORDERED: LACTATED RINGER'S 500 ML IV PRN (14:38)
[2023-05-25] MEDS ORDERED: MoRPHine SULFATE PF 1 MG/ML 10 ML AMP/VIAL INT SPINAL ONE (14:38)
[2023-05-25] MEDS ORDERED: HYDROmorphone INJ 0.5 MG/0.5 ML SYR IV PRN (14:38)
[2023-05-25] MEDS ORDERED: MoRPHine SULFATE 2 MG/ML CARP IV PRN (14:38)
[2023-05-25] MEDS ORDERED: ePHEDrine sulfate 50 MG/ML AMP IV PRN ×2 (14:38)
--- NOTE | 2023-05-25 14:38 | Anesthesiology Consultation ---
Date of Service May 25, 2023 Assessment & Plan Chart Review Chart Review: Acceptable Risk for Surgery and Patient NOT seen in Pre Admission Testing Consults Requested none ASA ASA3 Proposed Anesthesia Anesthesia Type: Spinal Risk / Benefits Reviewed With: PT / POA / Parent / Guardian, Accepts Plan and Informed Consent Obtained History Height/Weight Height: 5 ft 4 in Weight: 91.626 kg Allergies Allergy/AdvReac Type Severity Reaction Status Date / Time No Known Allergies Allergy Verified 05/24/23 19:08 Medications Home Medications Medication Instructions Recorded Confirmed Last Taken cetirizine 10 mg tablet (Zyrtec) 10 mg PO DAILY 05/24/23 05/24/23 1 Day Ago ~05/23/23 vit no.95-ferrous 1 tab PO DAILY 05/24/23 05/24/23 1 Day Ago fumarate 28 mg-folic acid 800 mcg ~05/23/23 tablet () Active Medications Generic Name Dose Route Start Last Admin Trade Name Freq PRN Reason Stop Dose Admin Acetaminophen 650 mg 05/24/23 17:34 05/25/23 11:53 Acetaminophen 325 Mg Tab PO 06/23/23 17:33 650 mg Q4H PRN Administration Headache or Pain Hydralazine HCl 10 mg 05/25/23 10:45 05/25/23 10:44 Hydralazine 10 Mg Tab PO 06/24/23 10:44 10 mg BID MALINDA Administration Lactated Ringer's 1,000 mls @ 75 mls/hr 05/24/23 09:55 05/25/23 11:50 Lr IV 05/26/23 09:54 75 mls/hr .[id number] PRN Administration L&D Protocol Protocol Magnesium Sulfate 40 gm in 1,000 mls @ 25 mls/hr 05/24/23 12:15 05/25/23 06:58 Magnesium Sulfate / Wtr IV 06/23/23 12:14 50 mls/hr .Q24H MALINDA Infusion Labetalol HCl 100 mg 05/25/23 08:35 05/25/23 09:06 Labetalol Hcl 100 Mg Tab PO 06/24/23 08:34 100 mg BID MALINDA Administration Misoprostol 25 mcg 05/25/23 11:00 05/25/23 11:50 Misoprostol 25 Mcg Tab SL 06/24/23 10:59 25 mcg Q4H MALINDA Administration Past Medical History Medical History (Updated 05/24/23 @ 19:08 by Erin Tapia RN) Dermatographism Migraine aura, persistent Raynaud phenomenon Anxiety ADHD Anemia Pre-eclampsia during in third trimester, antepartum Exercise / Class Metabolic Activity II 4-5 Yardwork/Stairs/Walk up hill Past Family History Family History (Updated 05/24/23 @ 19:05 by Erin Tapia RN) Father Diabetes Mother Cardiac aneurysm Past Anesthesia History No Hx of Anesthesia Complications and No Family Hx of Anesthesia Complications History of PONV No Hx of PONV and No Hx of Motion Sickness Social History Smoking Status: Never smoker Do You Dip or Chew Tobacco: No Hx Alcohol Use: No Hx Substance Use: No substance use type: does not use Physical Exam Vital Signs Last Vital Signs Temp 36.7 C 05/25/23 11:52 Pulse 88 05/25/23 14:23 Resp 17 05/25/23 11:52 BP 135/89 05/25/23 14:23 Pulse Ox 96 05/25/23 14:17 ENMT Mouth: no dentition abnormality Thyromental Distance: > or= 3.5 Finger Breadths Mallampati Class: II Neck normal visual inspection Respiratory normal respiratory effort Auscultation: lungs clear to auscultation bilaterally Cardiovascular Rate/Rhythm: regular rate and regular rhythm Psychiatric Orientation: alert Testing Laboratory Results 05/25/23 12:43 05/25/23 12:43 Blood Type A Positive 05/24/23 10:03 Antibody Screen NEGATIVE 05/24/23 10:03
[2023-05-25] MEDS ORDERED: DC INTRASPINAL MORPHINE SCH (14:45)
[2023-05-25] MEDS ORDERED: NO NARCOTICS OR SEDATIVES SCH (14:45)
[2023-05-25] MEDS ORDERED: SODIUM CHLORIDE 0.9% 1,000 ML IV SCH (14:45)
[2023-05-25] MEDS ORDERED: MoRPHine SULFATE PF 1 MG/ML 10 ML AMP/VIAL ONE (15:02)
[2023-05-25 15:45] LABS: Fibrinogen 473 mg/dl (184-400); INR 0.8 (0.9-1.1); Partial Thromboplastin Time 26.8 Seconds (21.0-31.0); Prothrombin Time 9.3 Seconds (9.0-12.0)
[2023-05-25] MEDS ORDERED: DIPHTHER/TETAN/PERTUS Vaccine (Tdap, Adol/Adult) 0.5mL IM ONE (16:14)
[2023-05-25] MEDS ORDERED: BENZOCAINE 20% SPRY 85 APPLN/85 GM CAN EXT PRN (16:14)
[2023-05-25] MEDS ORDERED: SENNA 8.6 MG TAB PO PRN (16:14)
[2023-05-25] MEDS ORDERED: HYDROCORTISONE ACETATE 25 MG SUPP PR PRN (16:14)
[2023-05-25] MEDS ORDERED: OXYTOCIN 20 UNITS in LACTATED RINGER'S 1,000 ML IV SCH (16:15)
[2023-05-25] MEDS ORDERED: ACETAMINOPHEN 1,000 MG/100 ML VIAL IV PRN (16:19)
[2023-05-25] MEDS ORDERED: PHENYLEPHRINE 100MCG/ML 5ML SYR ONE (16:20)
[2023-05-25] MEDS ORDERED: ONDANSETRON INJ 2 MG/ML 2 ML VIAL ONE (16:20)
[2023-05-25] MEDS ORDERED: OXYTOCIN 10 UNITS/ML VIAL ONE (16:20)
--- NOTE | 2023-05-25 16:48 | Operative Report ---
Post Operative Report Pre & Post Diagnosis Operation Date: 05/25/23 14:00 <No data on this case meets the specified criteria> I identified the patient and participated in the time-out.: Yes Procedure Operation Date: 05/25/23 14:00 Actual Procedures p Primary Low Transverse Section in LD - Hillary Guzman MD Surgeon Hillary Guzman MD Glass Carrier CAROL Aaron Estimated Blood Loss 600 Findings Consistent with Post-Op Diagnosis Baby was a viable male infant delivered in cephalic presentation at 1520 8 PM, Apgars 8/9, weight is 3322 gr. Maternal findings, normal uterus, fallopian tubes and ovaries. Fluids 1200 ml LR Specimens Placenta Drains Sidhu: 100 ml clear urine Anesthesia Type Spinal Complications none Disposition Accompanied Patient To Recovery: Yes Indications 32-year-old G1, P0 at 37 weeks and 4 days of gestation admitted yesterday for preeclampsia with severe features, on IV magnesium sulfate for seizure prophyla xis, status post cervical ripening agents for Cervidil and 3 doses of p.o. Cytotec, unfavorable cervix, remote from delivery, worsening thrombocytopenia. Description of Procedure Patient was taken to operating room where a spinal anesthesia was given without difficulty. She was placed in dorsal supine position with a leftward tilt. She was prepared and draped in usual sterile fashion. A financial skin incision was made and carried through to the underlying layer of fascia with the Bovie. Fascia was incised in the midline and incision was extended laterally with the help of Kitchen scissors. Then the upper aspect of the fascial incision was grasped with 2 Lilliana clamps elevated the underlying rectus muscles were dissected off sharply with Kitchen scissors. Same thing was done on the lower incision. Then the muscles were in the midline, peritoneum was identified grasped with 2 pickups and entered sharply with Metzenbaum scissors. Peritoneal incision was extended superior and inferiorly with good visualization of the bladder. The bladder blade was inserted. Vesicouterine peritoneum was identified, grasped with pickups and entered sharply with Metzenbaum scissors, bladder flap was created digitally and bladder blade was reinserted. Uterus was incised in transverse fashion, incision was extended laterally with our appendage scissors, membranes were ruptured and clear fluid was obtained. Baby head was delivered difficulty, followed by shoulders without faculty. Mouth and nose were suctioned there was dried on the field. The cord was clamped times and cut. Then the infant was handed off to the pediatric team with Dr Aguirre. Then the placenta was delivered manually as intact and complete. Uterus was externalized and cleared of all clots and debris's. Uterine incision was repaired with 0 Vicryl in a running locked fashion, second umbricating layer was placed with the same suture in running locked fashion. Excellent hemostasis achieved. There were oozing parts superior to the incision those are covered with Kelechi powder and Gelfoam to prevent further oozing and they were hemostatic. Cul-de-sac and the pelvis was irrigated with warm normal saline and suctioned. Uterus was returned to the abdomen, the incision and the the sites were checked to be hemostatic again. Parietal peritoneum was reapproximated with 3-0 Vicryl in a running fashion and the muscles were reapproximated in the same suture in a running fashion. All of the fascia and rectus muscles were hemostatic. Rectus fascia was donato pproximated with 0 Vicryl starting from both corners meeting in the midline. Subcuticular fat tissue was brought together with 2-0 Vicryl in a running fashion, skin was closed with 4-0 Monocryl in a subcuticular cuticular fashion. The mom and baby tolerated procedure well. Sponge needle instrument count was correct x3. No complications happened, I was present during whole procedure. My first assistant manager was needed for retraction, hemostasis and aid during delivery of infant I attest to the content of the Intraoperative Record and any orders documented therein. Any exceptions are noted below.
--- NOTE | 2023-05-25 17:38 | Anesthesiology Progress Note ---
Date of Service May 25, 2023 Anesthesia Post Procedure Vital Signs Vital Signs: Temp Pulse Resp BP Pulse Ox 05/25/23 17:37 68 84 L 05/25/23 17:35 63 97 05/25/23 17:33 75 140/78 05/25/23 17:30 70 99 05/25/23 17:25 62 99 05/25/23 17:23 71 130/63 05/25/23 17:20 73 96 05/25/23 17:15 69 92 05/25/23 17:12 81 129/82 05/25/23 17:10 79 98 05/25/23 17:05 98 05/25/23 17:05 75 05/25/23 17:05 68 128/71 05/25/23 17:00 70 93 05/25/23 16:55 74 100 05/25/23 16:52 71 05/25/23 16:52 72 117/59 L 78 L 05/25/23 16:50 79 96 05/25/23 16:45 85 98 05/25/23 16:42 69 107/62 05/25/23 16:40 76 98 05/25/23 16:35 75 98 05/25/23 16:30 36.4 C L 17 05/25/23 16:30 68 102/62 93 05/25/23 14:53 93 H 149/83 H 05/25/23 14:37 92 H 140/95 05/25/23 14:23 88 135/89 05/25/23 14:17 88 96 05/25/23 14:12 87 98 05/25/23 14:07 89 149/94 H 95 05/25/23 14:02 88 97 05/25/23 13:57 90 93 05/25/23 13:52 96 H 157/84 H 05/25/23 13:51 98 H 98 05/25/23 13:46 84 97 05/25/23 13:41 84 97 05/25/23 13:37 81 143/83 H 05/25/23 13:36 86 96 05/25/23 13:31 91 H 96 05/25/23 13:26 88 95 05/25/23 13:22 88 153/92 H 05/25/23 13:21 92 H 96 05/25/23 13:16 86 94 05/25/23 13:11 86 96 05/25/23 13:08 88 140/88 05/25/23 13:06 92 H 97 05/25/23 13:01 89 97 05/25/23 12:56 88 94 05/25/23 12:54 88 159/95 H 05/25/23 12:51 96 H 93 05/25/23 12:46 86 96 05/25/23 12:41 87 95 05/25/23 12:37 90 134/87 05/25/23 12:36 92 H 94 05/25/23 12:31 89 97 05/25/23 12:26 85 96 05/25/23 12:23 91 H 139/90 05/25/23 12:21 93 H 97 05/25/23 12:16 87 94 05/25/23 12:11 88 94 05/25/23 12:07 87 146/94 H 05/25/23 12:06 88 94 05/25/23 12:01 97 H 97 05/25/23 11:56 90 96 05/25/23 11:52 36.7 C 93 H 17 141/90 H 05/25/23 11:51 96 H 96 05/25/23 11:46 89 96 05/25/23 11:41 90 95 05/25/23 11:37 89 141/90 H 05/25/23 11:36 94 H 93 05/25/23 11:31 85 95 05/25/23 11:26 89 96 05/25/23 11:21 90 147/89 H 95 05/25/23 11:16 85 94 05/25/23 11:11 86 95 05/25/23 11:08 84 140/90 05/25/23 11:06 91 H 94 05/25/23 11:01 86 95 05/25/23 10:56 84 94 05/25/23 10:52 86 146/90 H 05/25/23 10:51 93 H 95 05/25/23 10:46 85 94 05/25/23 10:41 87 92 05/25/23 10:38 93 H 94 05/25/23 10:37 86 140/82 05/25/23 10:36 95 H 92 05/25/23 10:31 88 92 05/25/23 10:26 86 91 11/09/23 10:22 89 163/93 H 11/09/23 10:21 90 86 L 05/25/23 10:05 92 05/25/23 10:05 90 05/25/23 10:05 89 156/92 H 05/25/23 10:01 93 H 167/98 H 05/25/23 10:00 91 H 90 05/25/23 09:55 88 145/93 H 91 05/25/23 09:50 93 H 92 05/25/23 09:45 93 H 93 05/25/23 09:40 93 H 93 05/25/23 09:36 98 H 182/107 H 05/25/23 09:35 95 H 95 05/25/23 09:30 97 H 94 05/25/23 09:25 96 H 94 05/25/23 09:20 95 H 178/100 H 91 05/25/23 09:19 108 H 242/138 H 05/25/23 09:15 93 H 94 05/25/23 09:13 94 H 181/107 H 05/25/23 09:10 93 H 92 05/25/23 09:07 93 H 190/108 H 05/25/23 09:05 91 H 92 05/25/23 09:00 93 H 94 05/25/23 08:55 91 H 94 05/25/23 08:50 94 H 95 05/25/23 08:45 96 H 95 05/25/23 08:40 97 H 96 05/25/23 08:35 93 H 97 05/25/23 08:33 91 H 168/89 H 05/25/23 08:30 94 H 95 05/25/23 08:25 107 H 96 05/25/23 08:20 95 H 95 05/25/23 08:15 95 H 95 05/25/23 08:10 90 95 05/25/23 08:05 98 H 97 05/25/23 08:00 93 H 95 05/25/23 07:55 92 H 95 05/25/23 07:50 94 H 96 05/25/23 07:45 97 H 95 05/25/23 07:40 104 H 96 05/25/23 07:35 101 H 94 05/25/23 07:30 98 H 95 05/25/23 07:25 92 H 94 05/25/23 07:20 99 H 96 05/25/23 07:15 97 H 95 05/25/23 07:10 100 H 96 05/25/23 07:05 101 H 96 05/25/23 07:04 18 05/25/23 07:00 111 H 96 05/25/23 06:55 101 H 96 05/25/23 06:50 105 H 96 05/25/23 06:45 103 H 91 05/25/23 06:40 99 H 93 05/25/23 06:35 98 H 91 05/25/23 06:33 100 H 151/87 H 05/25/23 06:30 18 05/25/23 06:30 104 H 93 05/25/23 06:25 101 H 93 05/25/23 06:20 110 H 94 05/25/23 06:15 105 H 95 05/25/23 06:10 99 H 92 05/25/23 06:05 98 H 92 05/25/23 06:00 115 H 96 05/25/23 05:55 103 H 94 05/25/23 05:50 104 H 94 05/25/23 05:45 100 H 92 05/25/23 05:40 124 H 93 05/25/23 05:35 102 H 93 05/25/23 05:33 102 H 124/68 05/25/23 05:30 18 05/25/23 05:30 101 H 93 05/25/23 05:25 102 H 92 05/25/23 05:20 99 H 94 05/25/23 05:15 102 H 92 05/25/23 05:10 98 H 94 05/25/23 05:05 104 H 91 05/25/23 05:00 99 H 92 05/25/23 04:55 99 H 93 05/25/23 04:50 104 H 94 05/25/23 04:45 118 H 94 05/25/23 04:40 100 H 94 05/25/23 04:35 96 H 95 05/25/23 04:32 103 H 142/83 H 05/25/23 04:30 99 H 142/83 H 95 05/25/23 04:25 95 H 94 05/25/23 04:20 98 H 93 05/25/23 04:15 99 H 93 05/25/23 04:10 99 H 94 05/25/23 04:05 101 H 94 05/25/23 04:00 100 H 95 05/25/23 03:55 103 H 96 05/25/23 03:50 114 H 96 05/25/23 03:45 96 H 95 05/25/23 03:40 97 H 94 05/25/23 03:35 108 H 97 05/25/23 03:34 103 H 208/107 H 05/25/23 03:30 18 05/25/23 03:30 95 H 96 05/25/23 03:25 95 H 95 05/25/23 03:20 93 H 94 05/25/23 03:15 94 H 94 05/25/23 03:10 95 H 95 05/25/23 03:05 99 H 96 05/25/23 03:00 18 05/25/23 03:00 113 H 98 05/25/23 02:55 90 95 05/25/23 02:50 89 98 05/25/23 02:45 87 97 05/25/23 02:40 90 96 05/25/23 02:35 94 H 98 05/25/23 02:32 97 H 129/70 05/25/23 02:30 90 94 05/25/23 02:25 98 H 95 05/25/23 02:20 96 H 94 05/25/23 02:15 96 H 95 05/25/23 02:10 97 H 95 05/25/23 02:05 100 H 96 05/25/23 02:00 18 05/25/23 02:00 103 H 97 05/25/23 01:55 91 H 94 05/25/23 01:50 99 H 95 05/25/23 01:45 104 H 95 05/25/23 01:40 104 H 97 05/25/23 01:35 98 H 94 05/25/23 01:33 94 H 126/69 05/25/23 01:30 93 H 96 05/25/23 01:25 97 H 95 05/25/23 01:20 94 H 96 05/25/23 01:15 98 H 96 05/25/23 01:10 100 H 96 05/25/23 01:05 104 H 96 05/25/23 01:00 18 05/25/23 01:00 95 H 97 05/25/23 00:55 94 H 95 05/25/23 00:50 100 H 95 05/25/23 00:45 107 H 97 05/25/23 00:40 97 H 96 05/25/23 00:35 108 H 96 05/25/23 00:33 108 H 136/90 05/25/23 00:30 102 H 94 05/25/23 00:25 107 H 95 05/25/23 00:20 119 H 96 05/25/23 00:15 97 H 94 05/25/23 00:10 99 H 94 05/25/23 00:05 99 H 95 05/25/23 00:00 18 05/25/23 00:00 96 H 94 05/24/23 23:55 94 H 94 05/24/23 23:50 96 H 94 05/24/23 23:45 95 H 94 05/24/23 23:40 93 H 94 05/24/23 23:35 95 H 96 05/24/23 23:32 99 H 133/84 05/24/23 23:30 105 H 97 05/24/23 23:25 94 H 94 05/24/23 23:20 101 H 94 05/24/23 23:15 110 H 95 05/24/23 23:10 104 H 96 05/24/23 23:05 99 H 96 05/24/23 23:00 36.9 C 18 05/24/23 23:00 104 H 96 05/24/23 22:55 104 H 96 05/24/23 22:50 101 H 95 05/24/23 22:45 99 H 93 05/24/23 22:40 97 H 94 05/24/23 22:35 103 H 96 05/24/23 22:32 100 H 121/68 05/24/23 22:30 95 H 95 05/24/23 22:25 101 H 96 05/24/23 22:20 98 H 95 05/24/23 22:15 104 H 94 05/24/23 22:10 98 H 95 05/24/23 22:05 107 H 95 05/24/23 22:00 18 05/24/23 22:00 105 H 97 05/24/23 21:55 115 H 97 05/24/23 21:50 98 H 94 05/24/23 21:45 99 H 95 05/24/23 21:40 106 H 95 05/24/23 21:35 97 H 94 05/24/23 21:33 102 H 120/62 05/24/23 21:30 96 H 93 05/24/23 21:25 95 H 94 05/24/23 21:20 99 H 95 05/24/23 21:15 103 H 94 05/24/23 21:10 99 H 94 05/24/23 21:05 97 H 94 05/24/23 21:00 18 05/24/23 21:00 104 H 95 05/24/23 20:55 96 H 96 05/24/23 20:50 99 H 95 05/24/23 20:45 108 H 95 05/24/23 20:40 105 H 96 05/24/23 20:35 99 H 97 05/24/23 20:30 95 H 95 05/24/23 20:25 96 H 94 05/24/23 20:20 98 H 94 05/24/23 20:15 95 H 94 05/24/23 20:10 94 H 95 05/24/23 20:05 103 H 96 05/24/23 20:04 100 H 139/87 05/24/23 20:01 18 05/24/23 20:01 18 05/24/23 19:34 96 H 143/92 H 05/24/23 19:10 36.9 C 18 05/24/23 18:32 92 H 137/85 Transfer of Care Handoff Completed per policy Notes Mental Status: alert / awake / arousable Nausea / Vomiting: adequately controlled Pain: adequately controlled Airway Patency, RR, SpO2: stable & adequate BP & HR: stable & adequate Hydration State: stable & adequate Neuraxial Anesthesia: was administered and sensory block is resolving Anesthetic Complications: no major complications apparent and Pt Satisfied with anesthetic care
--- NOTE | 2023-05-25 17:49 | Obstetrical Progress Note ---
Date of Service May 25, 2023 Assessment & Plan Admission and Anticipated Discharge Date Admission Date: May 24, 2023 Subjective Postop check Patient is seen and examined Feels well, no complaints HOOD is gone since she had the baby Pain is under control with meds No CP/ SOB/ Dizziness/ N&V/ VB/ Leg pain Explained about the surgery and findings Vital Signs Height Weight Body Mass Index Blood Pressure Temperature Pulse Rate Respiratory Rate 5 ft 4 in 91.626 kg 34.7 140/78 36.4 C L 69 17 05/25/23 14:38 05/25/23 14:38 05/24/23 09:30 05/25/23 17:33 05/25/23 16:30 05/25/23 17:45 05/25/23 16:30 Pulse Oximetry 99 05/25/23 17:45 AP: 32 yo female s/p Primary CS for worsening t. penia, preeclampsia with severe features, remote from delivery , pod#0 VSS Afebrile doing well Continue to monitor closely Continue with antihypertensive meds,IV Magnesium for 24 hours Results & Data Vital Signs (Past 12 Hours) Vital Signs Temp Pulse Resp BP Pulse Ox 05/25/23 17:40 66 100 05/25/23 17:37 68 84 L 05/25/23 17:35 63 97 05/25/23 17:33 75 140/78 05/25/23 17:30 70 99 05/25/23 17:25 62 99 05/25/23 17:23 71 130/63 05/25/23 17:20 73 96 05/25/23 17:15 69 92 05/25/23 17:12 81 129/82 05/25/23 17:10 79 98 05/25/23 17:05 98 05/25/23 17:05 75 05/25/23 17:05 68 128/71 05/25/23 17:00 70 93 05/25/23 16:55 74 100 05/25/23 16:52 71 05/25/23 16:52 72 117/59 L 78 L 05/25/23 16:50 79 96 05/25/23 16:45 85 98 05/25/23 16:42 69 107/62 05/25/23 16:40 76 98 05/25/23 16:35 75 98 05/25/23 16:30 36.4 C L 17 05/25/23 16:30 68 102/62 93 05/25/23 14:53 93 H 149/83 H 05/25/23 14:37 92 H 140/95 05/25/23 14:23 88 135/89 05/25/23 14:17 88 96 05/25/23 14:12 87 98 05/25/23 14:07 89 149/94 H 95 05/25/23 14:02 88 97 05/25/23 13:57 90 93 05/25/23 13:52 96 H 157/84 H 05/25/23 13:51 98 H 98 05/25/23 13:46 84 97 05/25/23 13:41 84 97 05/25/23 13:37 81 143/83 H 05/25/23 13:36 86 96 05/25/23 13:31 91 H 96 05/25/23 13:26 88 95 05/25/23 13:22 88 153/92 H 05/25/23 13:21 92 H 96 05/25/23 13:16 86 94 05/25/23 13:11 86 96 05/25/23 13:08 88 140/88 05/25/23 13:06 92 H 97 05/25/23 13:01 89 97 05/25/23 12:56 88 94 05/25/23 12:54 88 159/95 H 05/25/23 12:51 96 H 93 05/25/23 12:46 86 96 05/25/23 12:41 87 95 05/25/23 12:37 90 134/87 05/25/23 12:36 92 H 94 05/25/23 12:31 89 97 05/25/23 12:26 85 96 05/25/23 12:23 91 H 139/90 05/25/23 12:21 93 H 97 05/25/23 12:16 87 94 05/25/23 12:11 88 94 05/25/23 12:07 87 146/94 H 05/25/23 12:06 88 94 05/25/23 12:01 97 H 97 05/25/23 11:56 90 96 05/25/23 11:52 36.7 C 93 H 17 141/90 H 05/25/23 11:51 96 H 96 05/25/23 11:46 89 96 05/25/23 11:41 90 95 05/25/23 11:37 89 141/90 H 05/25/23 11:36 94 H 93 05/25/23 11:31 85 95 05/25/23 11:26 89 96 05/25/23 11:21 90 147/89 H 95 05/25/23 11:16 85 94 05/25/23 11:11 86 95 05/25/23 11:08 84 140/90 05/25/23 11:06 91 H 94 05/25/23 11:01 86 95 05/25/23 10:56 84 94 05/25/23 10:52 86 146/90 H 05/25/23 10:51 93 H 95 05/25/23 10:46 85 94 05/25/23 10:41 87 92 05/25/23 10:38 93 H 94 05/25/23 10:37 86 140/82 05/25/23 10:36 95 H 92 05/25/23 10:31 88 92 05/25/23 10:26 86 91 05/25/23 10:22 89 163/93 H 05/25/23 10:21 90 86 L 05/25/23 10:05 92 05/25/23 10:05 90 05/25/23 10:05 89 156/92 H 05/25/23 10:01 93 H 167/98 H 05/25/23 10:00 91 H 90 05/25/23 09:55 88 145/93 H 91 05/25/23 09:50 93 H 92 05/25/23 09:45 93 H 93 05/25/23 09:40 93 H 93 05/25/23 09:36 98 H 182/107 H 05/25/23 09:35 95 H 95 05/25/23 09:30 97 H 94 05/25/23 09:25 96 H 94 05/25/23 09:20 95 H 178/100 H 91 05/25/23 09:19 108 H 242/138 H 05/25/23 09:15 93 H 94 05/25/23 09:13 94 H 181/107 H 05/25/23 09:10 93 H 92 05/25/23 09:07 93 H 190/108 H 05/25/23 09:05 91 H 92 05/25/23 09:00 93 H 94 05/25/23 08:55 91 H 94 05/25/23 08:50 94 H 95 05/25/23 08:45 96 H 95 05/25/23 08:40 97 H 96 05/25/23 08:35 93 H 97 05/25/23 08:33 91 H 168/89 H 05/25/23 08:30 94 H 95 05/25/23 08:25 107 H 96 05/25/23 08:20 95 H 95 05/25/23 08:15 95 H 95 05/25/23 08:10 90 95 05/25/23 08:05 98 H 97 05/25/23 08:00 93 H 95 05/25/23 07:55 92 H 95 05/25/23 07:50 94 H 96 05/25/23 07:45 97 H 95 05/25/23 07:40 104 H 96 05/25/23 07:35 101 H 94 05/25/23 07:30 98 H 95 05/25/23 07:25 92 H 94 05/25/23 07:20 99 H 96 05/25/23 07:15 97 H 95 05/25/23 07:10 100 H 96 05/25/23 07:05 101 H 96 05/25/23 07:04 18 05/25/23 07:00 111 H 96 05/25/23 06:55 101 H 96 05/25/23 06:50 105 H 96 05/25/23 06:45 103 H 91 05/25/23 06:40 99 H 93 05/25/23 06:35 98 H 91 05/25/23 06:33 100 H 151/87 H 05/25/23 06:30 18 05/25/23 06:30 104 H 93 05/25/23 06:25 101 H 93 05/25/23 06:20 110 H 94 05/25/23 06:15 105 H 95 05/25/23 06:10 99 H 92 05/25/23 06:05 98 H 92 05/25/23 06:00 115 H 96 05/25/23 05:55 103 H 94 05/25/23 05:50 104 H 94
[2023-05-25 20:20] LABS: Albumin Globulin Ratio 1.1 (0.9-2); Albumin Level 3.2 gm/dl (3.4-5.0); BUN Creatinine Ratio 15.2 (10-20); Bilirubin,Total 0.6 mg/dl (0.2-1.0); Calcium 6.7 mg/dl (8.6-10.3); Creatinine Clr Calc Pharmacy 134.2 ml/min; Est GFR (African American) 135.5 ml/min; Est GFR (Non-African American) 116.9 ml/min; Globulin 2.8 gm/dl (2.5-4.0); Magnesium Therapeutic L&D Only 5.8 mg/dL (4.0-8.0)
[2023-05-25 20:22] LABS: Basophils # (auto) 0.02 K/uL (0.00-0.20); Basophils % (auto) 0.2 %; Eosinophils # (auto) 0.01 K/uL (0.00-0.50); Eosinophils % (auto) 0.1 %; Hematocrit (blood only) 32.7 % (37.0-47.0); Hemoglobin 10.9 g/dl (12.0-16.0); Immature Granulocytes # (auto) 0.35 K/uL (0.01-0.20); Immature Granulocytes % (auto) 2.9 %; Lymphocytes # (auto) 1.19 K/uL (1.20-3.40); Lymphocytes % (auto) 9.9 %; Mean Corpuscular Hemoglobin 30.8 pg (25.0-34.0); Mean Corpuscular Hgb Conc 33.3 g/dL (32.0-36.0); Mean Corpuscular Volume 92.4 fL (80.0-100.0); Mean Platelet Volume 12.2 fL (9.4-12.4); Monocytes # (auto) 0.34 K/uL (0.11-0.59); Monocytes % (auto) 2.8 %; Neutrophils # (auto) 10.11 K/uL (1.40-6.50); Neutrophils % (auto) 84.1 %; Nucleated RBC # (auto) 0.02 K/uL (0.00-0.12); Nucleated RBC % (auto) 0.2 %; Platelet Count 108 K/uL (130-400); RDW Coefficient of Variation 14.9 % (11.5-14.5); RDW Standard Deviation 50.3 fL (36.4-46.3); Red Blood Count 3.54 M/uL (4.20-5.40); White Blood Count 12.02 K/ul (4.8-10.8)
[2023-05-25] MEDS: SIMETHICONE 80 MG CHEW PO SCH (22:06)
[2023-05-25] MEDS: DOCUSATE SODIUM 100 MG CAP PO SCH (22:06)
[2023-05-26] MEDS: MAGNESIUM SULFATE / WTR 40 GM/1,000 ML BAG IV SCH (02:31)
[2023-05-26 06:37] LABS: Basophils # (auto) 0.01 K/uL (0.00-0.20); Basophils % (auto) 0.1 %; Hematocrit (blood only) 27.4 % (37.0-47.0); Hemoglobin 9.1 g/dl (12.0-16.0); Immature Granulocytes # (auto) 0.31 K/uL (0.01-0.20); Immature Granulocytes % (auto) 2.6 %; Lymphocytes # (auto) 1.78 K/uL (1.20-3.40); Mean Corpuscular Hemoglobin 30.1 pg (25.0-34.0); Mean Corpuscular Hgb Conc 33.2 g/dL (32.0-36.0); Mean Corpuscular Volume 90.7 fL (80.0-100.0); Monocytes % (auto) 6.8 %; Neutrophils # (auto) 8.94 K/uL (1.40-6.50); Neutrophils % (auto) 75.5 %; Nucleated RBC # (auto) 0.02 K/uL (0.00-0.12); Nucleated RBC % (auto) 0.2 %; Platelet Count 105 K/uL (130-400); RDW Coefficient of Variation 15.2 % (11.5-14.5); Red Blood Count 3.02 M/uL (4.20-5.40); White Blood Count 11.84 K/ul (4.8-10.8)
[2023-05-26 06:44] LABS: Albumin Globulin Ratio 1.1 (0.9-2); Albumin Level 2.7 gm/dl (3.4-5.0); BUN Creatinine Ratio 17.2 (10-20); Bilirubin,Total 0.5 mg/dl (0.2-1.0); Calcium 6.7 mg/dl (8.6-10.3); Creatinine Clr Calc Pharmacy 138.4 ml/min; Est GFR (African American) 136.8 ml/min; Est GFR (Non-African American) 118.1 ml/min; Globulin 2.4 gm/dl (2.5-4.0); Potassium 3.9 mmol/L (3.5-5.1); Total Protein 5.1 gm/dl (6.0-8.3)
[2023-05-26] MEDS: hydrALAZINE 10 MG TAB PO SCH (06:51)
[2023-05-26] MEDS: LABETALOL HCL 100 MG TAB PO SCH (08:08)
[2023-05-26] MEDS: SIMETHICONE 80 MG CHEW PO SCH ×5 (08:09→21:22)
[2023-05-26] MEDS: DOCUSATE SODIUM 100 MG CAP PO SCH ×2 (08:15→21:22)
[2023-05-26] MEDS: FERROUS SULFATE 325 MG TAB PO SCH (08:15)
[2023-05-26] MEDS: PRENATAL VITAMIN 1 TAB PO SCH (08:15)
[2023-05-26] MEDS: LACTATED RINGER'S 1,000 ML IV SCH (08:37)
[2023-05-26] MEDS ORDERED: diphenhydrAMINE 50 MG/ML VIAL IV PRN (08:39)
[2023-05-26] MEDS ORDERED: MEPERIDINE HCL 50 MG/ML CARP IV PRN (08:39)
[2023-05-26] MEDS ORDERED: diphenhydrAMINE Capsule 25 MG CAP PO PRN (08:39)
[2023-05-26] MEDS ORDERED: PROMETHAZINE HCL 25 MG in SODIUM CHLORIDE 0.9% 50 ML IV PRN (08:39)
[2023-05-26] MEDS: NIFEdipine EXTENDED REL 30 MG TABCR PO SCH (08:54)
--- NOTE | 2023-05-26 09:14 | Obstetrical Progress Note ---
Date of Service May 26, 2023 Assessment & Plan (1) Normal course: Continue magnesium sulfate for 24 hours postdelivery. Adequate urine output, no signs or symptoms of mag toxicity. Repeat labs 12 hours from the last labs and daily after that Stop labetalol and hydralazine, and plan for nifedipine 30 mg extended release daily. Explained the reasoning to patient at his it is more efficacious at at preventing readmission rate for preeclampsia versus labetalol. She is agreeable to nifedipine daily Patient voiced her understanding and agreement with the plan. All questions were answered in the room Subjective Voiding: sorto catheter in place Passing Gas:: Yes Diet Tolerance:: clear liquids Lochia:: Small Feeding Type:: bottle feeding Doing well in bed at this time patient doing well in bed at this time, denies any shortness of breath, chest pain, headache or blurry vision. States the headache resolved after delivery. No other complaints at this time Physical Exam Constitutional WD/WN, vitals as above Respiratory normal respiratory effort, lungs clear to auscultation Cardiovascular RRR, no murmur, no edema Gastrointestinal (Abdomen) normal bowel sounds, soft, nontender, no hepatosplenomegaly Incision clean and dry and covered with bandage Neurologic 2+ DTRs Results & Data Vital Signs (Past 12 Hours) Vital Signs Temp Pulse Pulse Resp BP BP Pulse Ox 05/26/23 09:08 79 96 05/26/23 09:02 70 128/79 05/26/23 09:00 20 99 05/26/23 09:00 20 05/26/23 09:00 20 05/26/23 08:58 75 99 05/26/23 08:48 69 94 05/26/23 08:38 72 93 05/26/23 08:28 76 97 05/26/23 08:18 77 97 05/26/23 08:08 77 95 05/26/23 08:02 76 121/77 05/26/23 08:00 20 95 05/26/23 08:00 20 05/26/23 07:58 74 95 05/26/23 07:48 73 95 05/26/23 07:38 74 95 05/26/23 07:30 20 98 05/26/23 07:30 20 05/26/23 07:30 36.9 C 80 20 109/73 98 05/26/23 07:28 80 98 05/26/23 07:19 82 85 L 05/26/23 07:18 79 97 05/26/23 07:08 70 96 05/26/23 07:07 72 109/73 05/26/23 06:58 71 94 05/26/23 06:48 74 95 05/26/23 06:38 76 96 05/26/23 06:28 74 97 05/26/23 06:18 75 96 05/26/23 06:08 71 93 05/26/23 06:07 69 106/65 05/26/23 05:58 77 94 05/26/23 05:57 18 05/26/23 05:48 78 93 05/26/23 05:38 76 92 05/26/23 05:28 74 92 05/26/23 05:18 73 93 05/26/23 05:15 18 05/26/23 05:08 74 92 05/26/23 05:07 74 109/67 05/26/23 04:58 72 92 05/26/23 04:48 69 91 05/26/23 04:38 69 93 05/26/23 04:28 75 92 05/26/23 04:18 72 95 05/26/23 04:15 05/26/23 04:15 18 05/26/23 04:08 73 95 05/26/23 04:07 73 135/79 05/26/23 03:58 75 97 05/26/23 03:48 75 98 05/26/23 03:38 66 93 05/26/23 03:28 74 97 05/26/23 03:18 67 94 05/26/23 03:16 98 05/26/23 03:15 36.9 C 18 05/26/23 03:08 91 H 99 05/26/23 03:07 85 145/75 H 05/26/23 02:58 70 96 05/26/23 02:48 68 96 05/26/23 02:38 67 98 05/26/23 02:30 97 05/26/23 02:30 16 05/26/23 02:28 82 98 05/26/23 02:18 69 98 05/26/23 02:08 71 96 05/26/23 02:07 72 118/78 05/26/23 01:58 70 95 05/26/23 01:48 67 97 05/26/23 01:38 69 95 05/26/23 01:30 16 05/26/23 01:28 72 96 05/26/23 01:18 70 96 05/26/23 01:08 68 95 05/26/23 01:07 65 124/75 05/26/23 00:58 66 95 05/26/23 00:48 67 95 05/26/23 00:38 66 96 05/26/23 00:30 18 05/26/23 00:28 73 93 05/26/23 00:18 66 94 05/26/23 00:08 70 95 05/26/23 00:07 67 129/78 05/26/23 00:01 94 05/25/23 23:58 94 05/25/23 23:58 67 05/25/23 23:48 89 L 05/25/23 23:48 71 05/25/23 23:35 87 L 05/25/23 23:35 67 05/25/23 23:30 18 05/25/23 23:30 96 05/25/23 23:30 74 05/25/23 23:29 86 L 05/25/23 23:29 74 05/25/23 23:25 88 L 05/25/23 23:25 70 05/25/23 23:20 87 L 05/25/23 23:20 80 05/25/23 23:15 87 L 05/25/23 23:15 79 05/25/23 23:10 90 05/25/23 23:10 70 05/25/23 23:07 73 05/25/23 23:07 125/76 05/25/23 23:05 89 L 05/25/23 23:05 76 05/25/23 23:00 89 L 05/25/23 23:00 71 05/25/23 22:55 88 L 05/25/23 22:55 70 05/25/23 22:55 87 L 05/25/23 22:55 72 05/25/23 22:50 87 L 05/25/23 22:50 71 05/25/23 22:49 87 L 05/25/23 22:49 73 05/25/23 22:45 87 L 05/25/23 22:45 71 05/25/23 22:44 87 L 05/25/23 22:44 71 05/25/23 22:40 88 L 05/25/23 22:40 70 05/25/23 22:38 87 L 05/25/23 22:38 69 05/25/23 22:35 88 L 05/25/23 22:35 72 05/25/23 22:33 36.5 C 18 05/25/23 22:33 87 L 05/25/23 22:33 71 05/25/23 22:30 88 L 05/25/23 22:30 69 05/25/23 22:27 87 L 05/25/23 22:27 68 05/25/23 22:25 86 L 05/25/23 22:25 69 05/25/23 22:22 87 L 05/25/23 22:22 70 05/25/23 22:20 86 L 05/25/23 22:20 70 05/25/23 22:16 87 L 05/25/23 22:16 69 05/25/23 22:15 87 L 05/25/23 22:15 69 05/25/23 22:10 89 L 05/25/23 22:10 70 05/25/23 22:07 86 L 05/25/23 22:07 69 05/25/23 22:07 131/82 05/25/23 22:05 91 05/25/23 22:05 67 05/25/23 22:02 85 L 05/25/23 22:02 69 05/25/23 22:00 92 05/25/23 22:00 67 05/25/23 21:56 86 L 05/25/23 21:56 75 05/25/23 21:55 91 05/25/23 21:55 73 05/25/23 21:50 95 05/25/23 21:50 84 05/25/23 21:45 93 05/25/23 21:45 80 05/25/23 21:43 87 L 05/25/23 21:43 66 05/25/23 21:40 87 L 05/25/23 21:40 69 05/25/23 21:37 86 L 05/25/23 21:37 67 05/25/23 21:35 93 05/25/23 21:35 91 H 05/25/23 21:30 85 L 05/25/23 21:30 74 05/25/23 21:25 87 L 05/25/23 21:25 71 05/25/23 21:20 85 L 05/25/23 21:20 68 05/25/23 21:15 18 05/25/23 21:15 92 05/25/23 21:15 77 O2 Del Method O2 Flow Rate 05/26/23 09:08 05/26/23 09:02 05/26/23 09:00 05/26/23 09:00 05/26/23 09:00 05/26/23 08:58 05/26/23 08:48 05/26/23 08:38 05/26/23 08:28 05/26/23 08:18 05/26/23 08:08 05/26/23 08:02 05/26/23 08:00 05/26/23 08:00 05/26/23 07:58 05/26/23 07:48 05/26/23 07:38 05/26/23 07:30 05/26/23 07:30 05/26/23 07:30 Room Air 05/26/23 07:28 05/26/23 07:19 05/26/23 07:18 05/26/23 07:08 05/26/23 07:07 05/26/23 06:58 05/26/23 06:48 05/26/23 06:38 05/26/23 06:28 05/26/23 06:18 05/26/23 06:08 05/26/23 06:07 05/26/23 05:58 05/26/23 05:57 05/26/23 05:48 05/26/23 05:38 05/26/23 05:28 05/26/23 05:18 05/26/23 05:15 05/26/23 05:08 05/26/23 05:07 05/26/23 04:58 05/26/23 04:48 05/26/23 04:38 05/26/23 04:28 05/26/23 04:18 05/26/23 04:15 Room Air 05/26/23 04:15 05/26/23 04:08 05/26/23 04:07 05/26/23 03:58 05/26/23 03:48 05/26/23 03:38 05/26/23 03:28 05/26/23 03:18 05/26/23 03:16 Non-rebreather 1 05/26/23 03:15 05/26/23 03:08 05/26/23 03:07 05/26/23 02:58 05/26/23 02:48 05/26/23 02:38 05/26/23 02:30 Non-rebreather 2 05/26/23 02:30 05/26/23 02:28 05/26/23 02:18 05/26/23 02:08 05/26/23 02:07 05/26/23 01:58 05/26/23 01:48 05/26/23 01:38 05/26/23 01:30 05/26/23 01:28 05/26/23 01:18 05/26/23 01:08 05/26/23 01:07 05/26/23 00:58 05/26/23 00:48 05/26/23 00:38 05/26/23 00:30 05/26/23 00:28 05/26/23 00:18 05/26/23 00:08 05/26/23 00:07 05/26/23 00:01 Nasal Cannula 5 05/25/23 23:58 05/25/23 23:58 05/25/23 23:48 05/25/23 23:48 05/25/23 23:35 05/25/23 23:35 05/25/23 23:30 05/25/23 23:30 05/25/23 23:30 05/25/23 23:29 05/25/23 23:29 05/25/23 23:25 05/25/23 23:25 05/25/23 23:20 05/25/23 23:20 05/25/23 23:15 05/25/23 23:15 05/25/23 23:10 05/25/23 23:10 05/25/23 23:07 05/25/23 23:07 05/25/23 23:05 05/25/23 23:05 05/25/23 23:00 05/25/23 23:00 05/25/23 22:55 05/25/23 22:55 05/25/23 22:55 05/25/23 22:55 05/25/23 22:50 05/25/23 22:50 05/25/23 22:49 05/25/23 22:49 05/25/23 22:45 05/25/23 22:45 05/25/23 22:44 05/25/23 22:44 05/25/23 22:40 05/25/23 22:40 05/25/23 22:38 05/25/23 22:38 05/25/23 22:35 05/25/23 22:35 05/25/23 22:33 05/25/23 22:33 05/25/23 22:33 05/25/23 22:30 05/25/23 22:30 05/25/23 22:27 05/25/23 22:27 05/25/23 22:25 05/25/23 22:25 05/25/23 22:22 05/25/23 22:22 05/25/23 22:20 05/25/23 22:20 05/25/23 22:16 05/25/23 22:16 05/25/23 22:15 05/25/23 22:15 05/25/23 22:10 05/25/23 22:10 05/25/23 22:07 05/25/23 22:07 05/25/23 22:07 05/25/23 22:05 05/25/23 22:05 05/25/23 22:02 05/25/23 22:02 05/25/23 22:00 05/25/23 22:00 05/25/23 21:56 05/25/23 21:56 05/25/23 21:55 05/25/23 21:55 05/25/23 21:50 05/25/23 21:50 05/25/23 21:45 05/25/23 21:45 05/25/23 21:43 05/25/23 21:43 05/25/23 21:40 05/25/23 21:40 05/25/23 21:37 05/25/23 21:37 05/25/23 21:35 05/25/23 21:35 05/25/23 21:30 05/25/23 21:30 05/25/23 21:25 05/25/23 21:25 05/25/23 21:20 05/25/23 21:20 05/25/23 21:15 05/25/23 21:15 05/25/23 21:15 Laboratory Results Laboratory Results WBC 11.84 K/ul (4.8-10.8) H 05/26/23 05:58 RBC 3.02 M/uL (4.20-5.40) L 05/26/23 05:58 Hgb 9.1 g/dl (12.0-16.0) L 05/26/23 05:58 Hct 27.4 % (37.0-47.0) L 05/26/23 05:58 MCV 90.7 fL (80.0-100.0) 05/26/23 05:58 MCH 30.1 pg (25.0-34.0) 05/26/23 05:58 MCHC 33.2 g/dL (32.0-36.0) 05/26/23 05:58 RDW Std Deviation 50.0 fL (36.4-46.3) H 05/26/23 05:58 RDW Coeff of Sander 15.2 % (11.5-14.5) H 05/26/23 05:58 Plt Count 105 K/uL (130-400) L 05/26/23 05:58 MPV 12.0 fL (9.4-12.4) 05/26/23 05:58 Immature Gran % (Auto) 2.6 % 05/26/23 05:58 Neut % (Auto) 75.5 % 05/26/23 05:58 Lymph % (Auto) 15.0 % 05/26/23 05:58 [place] % (Auto) 6.8 % 05/26/23 05:58 Eos % (Auto) 0.0 % 05/26/23 05:58 Baso % (Auto) 0.1 % 05/26/23 05:58 Neut # (Auto) 8.94 K/uL (1.40-6.50) H 05/26/23 05:58 Lymph # (Auto) 1.78 K/uL (1.20-3.40) 05/26/23 05:58 [place] # (Auto) 0.80 K/uL (0.11-0.59) H 05/26/23 05:58 Eos # (Auto) 0.00 K/uL (0.00-0.50) 05/26/23 05:58 Baso # (Auto) 0.01 K/uL (0.00-0.20) 05/26/23 05:58 Immature Gran # (Auto) 0.31 K/uL (0.01-0.20) H 05/26/23 05:58 Absolute Nucleated RBC 0.02 K/uL (0.00-0.12) 05/26/23 05:58 Nucleated RBC % (auto) 0.2 % 05/26/23 05:58 Platelet Estimate Decreased (Normal) L 05/24/23 10:03 Polychromasia 1+ 05/25/23 12:43 PT 9.3 Seconds (9.0-12.0) 05/25/23 14:38 INR 0.8 (0.9-1.1) L 05/25/23 14:38 APTT 26.8 Seconds (21.0-31.0) 05/25/23 14:38 PTT Ratio 1.0 05/25/23 14:38 Fibrinogen 473 mg/dl (184-400) H 05/25/23 14:38 Sodium 133 mmol/L (136-145) L 05/26/23 05:58 Potassium 3.9 mmol/L (3.5-5.1) 05/26/23 05:58 Chloride 104 mmol/L (98-107) 05/26/23 05:58 Carbon Dioxide 24 mmol/L (21-32) 05/26/23 05:58 Anion Gap 5 (3-11) 05/26/23 05:58 BUN 11 mg/dl (6-23) 05/26/23 05:58 Creatinine 0.64 mg/dl (0.6-1.2) 05/26/23 05:58 Est Cr Clr Drug Dosing 138.4 ml/min 05/26/23 05:58 Est GFR ( Amer) 136.8 ml/min 05/26/23 05:58 Est GFR (Non-Af Amer) 118.1 ml/min 05/26/23 05:58 BUN/Creatinine Ratio 17.2 (10-20) 05/26/23 05:58 Glucose 95 mg/dl (70-99(Fasting)) 05/26/23 05:58 Uric Acid 9.7 mg/dl (2.6-7.2) H 05/25/23 05:46 Calcium 6.7 mg/dl (8.6-10.3) L 05/26/23 05:58 Magnesium (Sulf Ther) 5.8 mg/dL (4.0-8.0) 05/25/23 19:47 Total Bilirubin 0.5 mg/dl (0.2-1.0) 05/26/23 05:58 Direct Bilirubin 0.1 mg/dl (0-0.2) 05/25/23 05:46 AST 26 U/L (13-39) 05/26/23 05:58 ALT 22 U/L (7-52) 05/26/23 05:58 Alkaline Phosphatase 151 U/L (34-104) H 05/26/23 05:58 Lactate Dehydrogenase 255 U/L (86-244) H 05/25/23 05:46 Total Protein 5.1 gm/dl (6.0-8.3) L 05/26/23 05:58 Albumin 2.7 gm/dl (3.4-5.0) L 05/26/23 05:58 Globulin 2.4 gm/dl (2.5-4.0) L 05/26/23 05:58 Albumin/Globulin Ratio 1.1 (0.9-2) 05/26/23 05:58 Ur Random Creatinine 57.8 mg/dl 05/24/23 09:35 U Random Total Protein 91.8 mg/dl (0-11.9) H 05/24/23 09:35 Protein/Creatinin Ratio 1.6 (0-0.2) H 05/24/23 09:35 Blood Type A Positive 05/24/23 10:03 Antibody Screen NEGATIVE 05/24/23 10:03 Crossmatch See Detail 05/24/23 10:03 Impressions Obstetrics Ultrasound 05/25/23 08:54 ULTRASOUND OBSTETRICAL LIMITED CLINICAL HISTORY: Preeclampsia. Estimation of weights. COMPARISON STUDY: No priors. FINDINGS: Real-time, grayscale and color Doppler sonography of the fetus and gravid uterus is performed. There is a single live intrauterine gestation with a heart rate of 121 bpm. Position is cephalic. The placenta is anterior and normal as imaged. The amniotic fluid index measures 4.65 cm, with the largest pocket of fluid measuring 2.51 cm. Abdominal circumference measures 35.80 cm corresponding to an estimated age of 39 weeks 5 days. Head circumference measures 33.31 cm corresponding to an estimated age of 38 weeks 0 days. Femoral length measures 7.40 cm corresponding to an estimated age of 37 weeks 6 days. Biparietal diameter measures 9.58 cm corresponding to an estimated age of 39 weeks 1 day. The cumulative estimation of dates is 38 weeks 1 day +/-2 weeks 5 days. Estimated weight is 3457 g +/-519 g. IMPRESSION: 1. There is a single-live intrauterine gestation as detailed above. 2. Note that this does not constitute a dedicated anatomic scan. Dictated: 05/25/2023 10:41 AM Transcribed: 05/25/2023 11:02 AM [facility] [id number] [email or web address] Electronically signed by: Barry Wilson M.D. 05/25/2023 11:03 AM
[2023-05-26] MEDS ORDERED: Nursing to Pharmacy Communication SCH (11:30)
[2023-05-26 18:06] LABS: Basophils # (auto) 0.03 K/uL (0.00-0.20); Basophils % (auto) 0.3 %; Eosinophils # (auto) 0.03 K/uL (0.00-0.50); Eosinophils % (auto) 0.3 %; Hematocrit (blood only) 28.2 % (37.0-47.0); Hemoglobin 9.4 g/dl (12.0-16.0); Immature Granulocytes # (auto) 0.25 K/uL (0.01-0.20); Immature Granulocytes % (auto) 2.1 %; Lymphocytes # (auto) 2.21 K/uL (1.20-3.40); Lymphocytes % (auto) 18.5 %; Mean Corpuscular Hemoglobin 30.6 pg (25.0-34.0); Mean Corpuscular Hgb Conc 33.3 g/dL (32.0-36.0); Mean Corpuscular Volume 91.9 fL (80.0-100.0); Mean Platelet Volume 11.8 fL (9.4-12.4); Monocytes # (auto) 0.96 K/uL (0.11-0.59); Monocytes % (auto) 8.1 %; Neutrophils # (auto) 8.44 K/uL (1.40-6.50); Neutrophils % (auto) 70.7 %; Nucleated RBC # (auto) 0.02 K/uL (0.00-0.12); Nucleated RBC % (auto) 0.2 %; Platelet Count 142 K/uL (130-400); RDW Coefficient of Variation 15.7 % (11.5-14.5); RDW Standard Deviation 51.5 fL (36.4-46.3); Red Blood Count 3.07 M/uL (4.20-5.40); White Blood Count 11.92 K/ul (4.8-10.8)
[2023-05-26 18:16] LABS: Albumin Globulin Ratio 1.2 (0.9-2); Albumin Level 2.9 gm/dl (3.4-5.0); BUN Creatinine Ratio 14.3 (10-20); Bilirubin,Total 0.5 mg/dl (0.2-1.0); Creatinine Clr Calc Pharmacy 126.5 ml/min; Est GFR (African American) 132.9 ml/min; Est GFR (Non-African American) 114.6 ml/min; Globulin 2.5 gm/dl (2.5-4.0); Potassium 3.9 mmol/L (3.5-5.1); Total Protein 5.4 gm/dl (6.0-8.3)
[2023-05-26] MEDS: BUTALBITAL/ACETAMIN/CAFFEINE TAB PO PRN (18:31)
[2023-05-26] MEDS ORDERED: bisacodyL 5 MG TABEC PO SCH (20:00)
[2023-05-26] MEDS: oxyCODONE/ACETAMINOPHEN 5mg/325mg TAB PO PRN (22:31)
[2023-05-27] MEDS: oxyCODONE/ACETAMINOPHEN 5mg/325mg TAB PO PRN ×2 (02:08→08:46)
[2023-05-27 06:40] LABS: Basophils # (auto) 0.02 K/uL (0.00-0.20); Basophils % (auto) 0.2 %; Eosinophils # (auto) 0.06 K/uL (0.00-0.50); Eosinophils % (auto) 0.5 %; Hematocrit (blood only) 27.1 % (37.0-47.0); Immature Granulocytes % (auto) 2.6 %; Lymphocytes # (auto) 2.41 K/uL (1.20-3.40); Lymphocytes % (auto) 20.7 %; Mean Corpuscular Hemoglobin 30.8 pg (25.0-34.0); Mean Corpuscular Hgb Conc 33.2 g/dL (32.0-36.0); Mean Corpuscular Volume 92.8 fL (80.0-100.0); Mean Platelet Volume 11.1 fL (9.4-12.4); Monocytes # (auto) 0.93 K/uL (0.11-0.59); Neutrophils # (auto) 7.95 K/uL (1.40-6.50); Nucleated RBC # (auto) 0.02 K/uL (0.00-0.12); Nucleated RBC % (auto) 0.2 %; Platelet Count 165 K/uL (130-400); RDW Coefficient of Variation 15.9 % (11.5-14.5); RDW Standard Deviation 53.1 fL (36.4-46.3); Red Blood Count 2.92 M/uL (4.20-5.40); White Blood Count 11.67 K/ul (4.8-10.8)
[2023-05-27 07:02] LABS: Albumin Globulin Ratio 1.1 (0.9-2); Albumin Level 2.8 gm/dl (3.4-5.0); BUN Creatinine Ratio 15.6 (10-20); Bilirubin,Total 0.5 mg/dl (0.2-1.0); Calcium 7.6 mg/dl (8.6-10.3); Creatinine Clr Calc Pharmacy 138.4 ml/min; Est GFR (African American) 136.8 ml/min; Est GFR (Non-African American) 118.1 ml/min; Globulin 2.5 gm/dl (2.5-4.0); Potassium 3.7 mmol/L (3.5-5.1); Total Protein 5.3 gm/dl (6.0-8.3)
[2023-05-27] MEDS: PRENATAL VITAMIN 1 TAB PO SCH (08:46)
[2023-05-27] MEDS: FERROUS SULFATE 325 MG TAB PO SCH (08:46)
[2023-05-27] MEDS: DOCUSATE SODIUM 100 MG CAP PO SCH ×2 (08:46→21:12)
[2023-05-27] MEDS: SIMETHICONE 80 MG CHEW PO SCH ×4 (08:46→21:12)
--- NOTE | 2023-05-27 09:41 | Obstetrical Progress Note ---
Date of Service May 27, 2023 Assessment & Plan (1) delivery delivered: POD #2 preeclampsia off Mg and doing well Improved labs Pt wishes to be discharged home Results & Data Vital Signs (Past 12 Hours) Vital Signs Temp Pulse Resp BP Pulse Ox O2 Del Method 05/27/23 07:35 36.6 C 84 18 137/85 100 Room Air 05/27/23 04:15 87 149/81 H 05/27/23 00:15 37.0 C 84 18 131/79 Room Air
[2023-05-27] MEDS: NIFEdipine EXTENDED REL 30 MG TABCR PO SCH (10:41)
[2023-05-27] MEDS: BUTALBITAL/ACETAMIN/CAFFEINE TAB PO PRN ×2 (10:58→18:57)
[2023-05-27] MEDS ORDERED: bisacodyL 10 MG SUPP PR PRN (16:15)
[2023-05-27] MEDS ORDERED: PROPRANOLOL HCL 20 MG TAB PO STA (16:54)
[2023-05-27] MEDS: MAGNESIUM SULFATE / WTR 40 GM/1,000 ML BAG IV SCH (18:53)
[2023-05-28] MEDS: PRENATAL VITAMIN 1 TAB PO SCH (07:33)
[2023-05-28] MEDS: DOCUSATE SODIUM 100 MG CAP PO SCH ×2 (07:33→20:35)
[2023-05-28] MEDS: PROPRANOLOL HCL 20 MG TAB PO SCH (07:34)
[2023-05-28] MEDS: FERROUS SULFATE 325 MG TAB PO SCH (07:34)
[2023-05-28] MEDS: SIMETHICONE 80 MG CHEW PO SCH ×4 (07:34→20:34)
[2023-05-28] MEDS: oxyCODONE/ACETAMINOPHEN 5mg/325mg TAB PO PRN (07:38)
[2023-05-28 08:08] LABS: Basophils # (auto) 0.05 K/uL (0.00-0.20); Basophils % (auto) 0.4 %; Eosinophils # (auto) 0.08 K/uL (0.00-0.50); Eosinophils % (auto) 0.6 %; Hematocrit (blood only) 32.2 % (37.0-47.0); Hemoglobin 10.7 g/dl (12.0-16.0); Immature Granulocytes # (auto) 0.34 K/uL (0.01-0.20); Immature Granulocytes % (auto) 2.5 %; Lymphocytes # (auto) 2.55 K/uL (1.20-3.40); Lymphocytes % (auto) 18.8 %; Mean Corpuscular Hemoglobin 30.3 pg (25.0-34.0); Mean Corpuscular Hgb Conc 33.2 g/dL (32.0-36.0); Mean Corpuscular Volume 91.2 fL (80.0-100.0); Monocytes # (auto) 0.92 K/uL (0.11-0.59); Monocytes % (auto) 6.8 %; Neutrophils # (auto) 9.65 K/uL (1.40-6.50); Neutrophils % (auto) 70.9 %; Nucleated RBC # (auto) 0.05 K/uL (0.00-0.12); Nucleated RBC % (auto) 0.4 %; Platelet Count 253 K/uL (130-400); RDW Coefficient of Variation 15.8 % (11.5-14.5); RDW Standard Deviation 51.4 fL (36.4-46.3); Red Blood Count 3.53 M/uL (4.20-5.40); White Blood Count 13.59 K/ul (4.8-10.8)
[2023-05-28 09:01] LABS: Albumin Level 3.5 gm/dl (3.4-5.0); Bilirubin,Total 0.6 mg/dl (0.2-1.0); Calcium 9.3 mg/dl (8.6-10.3); Potassium 3.8 mmol/L (3.5-5.1)
[2023-05-28 09:24] LABS: Albumin Globulin Ratio 1.1 (0.9-2); BUN Creatinine Ratio 14.5 (10-20); Est GFR (African American) 143.8 ml/min; Est GFR (Non-African American) 124.1 ml/min; Globulin 3.2 gm/dl (2.5-4.0); Total Protein 6.7 gm/dl (6.0-8.3)
--- NOTE | 2023-05-28 10:43 | Obstetrical Progress Note ---
Date of Service May 28, 2023 Assessment & Plan (1) delivery delivered: POD #3 Pt doing well s/p c/sec and Gest HTN Migraines improved on propranolol Elevated LFT this AM repeat lab in PM Physical Exam Constitutional WD/WN, vitals as above Eyes PERRL, conjunctivae normal, anicteric sclerae ENMT external ear and nose normal, oropharynx normal Neck trachea midline, no thyromegaly Respiratory normal respiratory effort, lungs clear to auscultation Cardiovascular RRR, no murmur, no edema Chest (Breasts) normal inspection/palpation of breasts Gastrointestinal (Abdomen) normal bowel sounds, soft, nontender, no hepatosplenomegaly Musculoskeletal no cyanosis or clubbing, extremities motor strength 5/5 Skin + incision (Incision clean,dry and intact) Neurologic patellar DTR's 2+ bilat, sensation intact Psychiatric A+Ox3, euthymic affect Genitourinary no vaginal lesions, no adnexal mass Lymphatic no cervical or axillary lymphadenopathy Results & Data Vital Signs (Past 12 Hours) Vital Signs Temp Pulse Pulse Resp BP BP Pulse Ox 05/28/23 09:48 137/84 05/28/23 07:30 36.6 C 85 18 155/84 H 93 05/28/23 04:34 36.7 C 70 18 133/87 96 05/28/23 00:44 36.9 C 90 18 141/88 H 95 O2 Del Method 05/28/23 09:48 05/28/23 07:30 Room Air 05/28/23 04:34 Room Air 05/28/23 00:44 Room Air
[2023-05-28 12:48] LABS: Albumin Globulin Ratio 1.1 (0.9-2); Albumin Level 3.3 gm/dl (3.4-5.0); BUN Creatinine Ratio 13.4 (10-20); Bilirubin,Total 0.5 mg/dl (0.2-1.0); Calcium 9.2 mg/dl (8.6-10.3); Creatinine Clr Calc Pharmacy 132.2 ml/min; Est GFR (African American) 134.8 ml/min; Est GFR (Non-African American) 116.3 ml/min; Globulin 2.9 gm/dl (2.5-4.0); Potassium 3.9 mmol/L (3.5-5.1); Total Protein 6.2 gm/dl (6.0-8.3)
[2023-05-28 14:27] LABS: Basophils # (auto) 0.04 K/uL (0.00-0.20); Basophils % (auto) 0.3 %; Eosinophils # (auto) 0.11 K/uL (0.00-0.50); Eosinophils % (auto) 0.7 %; Hematocrit (blood only) 31.7 % (37.0-47.0); Hemoglobin 10.4 g/dl (12.0-16.0); Immature Granulocytes # (auto) 0.32 K/uL (0.01-0.20); Immature Granulocytes % (auto) 2.1 %; Lymphocytes # (auto) 2.95 K/uL (1.20-3.40); Lymphocytes % (auto) 19.8 %; Mean Corpuscular Hemoglobin 30.2 pg (25.0-34.0); Mean Corpuscular Hgb Conc 32.8 g/dL (32.0-36.0); Mean Corpuscular Volume 92.2 fL (80.0-100.0); Mean Platelet Volume 10.5 fL (9.4-12.4); Monocytes # (auto) 1.18 K/uL (0.11-0.59); Monocytes % (auto) 7.9 %; Neutrophils # (auto) 10.29 K/uL (1.40-6.50); Neutrophils % (auto) 69.2 %; Nucleated RBC # (auto) 0.06 K/uL (0.00-0.12); Nucleated RBC % (auto) 0.4 %; Platelet Count 252 K/uL (130-400); RDW Coefficient of Variation 15.8 % (11.5-14.5); RDW Standard Deviation 51.8 fL (36.4-46.3); Red Blood Count 3.44 M/uL (4.20-5.40); White Blood Count 14.89 K/ul (4.8-10.8)
[2023-05-28 14:32] LABS: Uric Acid 9.6 mg/dl (2.6-7.2)
--- OUTSIDE RECORDS SUMMARY | 2023-05-28 14:46 | External Medical Summary | Summary of Care ---
Author Name Unknown Organization [facility] Address [address] [place] [address] Phone [phone] Care Team Providers Care Investigator Cash Shortage Name Role Phone Kelechi Vega MD Primary Care Provide r Reason for Visit * Reason Comments Return Visit Encounter Details Date Type Department Care Team (Late st Contact Info) Description 05/10/2023 8:15 AM EDT Office Visit Gynecology/Obstetric s [facility] [address] [place] [address] Siobhan Duenas CRNP [address] [place] [address] Supervision of high-risk , unspecified trimester*; Family history of aneurysm; Family history of spina bifida; History of migraine during ; Antepartum anemia complicating Allergies No known active allergiesdocumented as of this encounter (statuses as of 05/10/2023) Medications Medication Sig Dispensed Refills Start Date End Date Status 28-0.8 MG Oral Tablet Take by mouth. 0 Active Cetirizine HCl 10 MG Oral Tablet Take 1 Tablet by mouth in the morning. 0 Active Vitron-C 65-125 MG Oral Tablet (Iron-Vitamin C 65-125 mg per tab) Take 1 Tablet by mouth in the morning and 1 Tablet before bedtime. 60 Tablet 3 03/15/2023 Active Additional Information Patient not taking.Reported on 05/10/2023 documented as of this encounter (statuses as of 05/10/2023) Active Problems Problem Noted Date Diagnosed Date Antepartum anemia complicating 023 Overview: Iron infusions Iron deficiency anemia 04/18/2023 Supervision of high-risk , unspecified trimester 11/02/2022 Last Assessment & Plan: Reassured patient that all visualized anatomy appears normal. EFW at 91%ile, but dating accurate/appropriate. Fluid appropriate for gestational age. Family history of aneurysm 11/02/2022 Overview: Pt's mother had cardiac aneurysm, shortly after childbirth Last Assessment & Plan: S/p Cardiology visit on 12/28/22. Echo being updated and then further imaging pending those results. Also met with genetics and patient may consider cardiogenetics referral for additional information. Family history of spina bifida 11/02/2022 Overview: FOB's sister Last Assessment & Plan: S/p consultation with genetics. Declined MSAFP screen. 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 Migraine headache with aura 08/28/2013 Raynaud phenomenon 08/28/2013 ADHD (attention deficit hyperactivity disorder) Estimated Date of Delivery Comme nts Yes 06/11/2023 Based on last me nstrual period of 09/04/2022 documented as of this encounter (statuses as of 05/10/2023) Immunizations Name Administration Dates Next Due COVID-19 mRNA, LNP-s, No Pre serve, 2-Dose Series (Pfizer) 08/17/2021,07/27/2021 HIB PRP-T, 4 dose (ActHib) 07/13/1992,,02/14/1991,12/13 HPV Vaccine, 4-Valent 06/01/2007,01/29/2007,05/03/2007 Hep A - Hepatitis A (ped/ado le, 1-18 Yrs) 06/01/2007,11/22/2006 Hepatitis B, 0-19 yrs 05/19/1998,12/23/1997,04/03/1998 MMR - Measles/Mumps/Rubella Vaccine 11/12/1997,1 08/02/1991 Meningococcal Conjugate Vacc ine (Menactra/Menveo) 11/22/2006 OPV - Polio Virus Vaccine (Oral) 996,06/02/1992,02/14/1991,12/13 TDAP (age 10 and older)(Boostrix) 2022,02/08/2018,12/10/1995,06/02,05/02/1991,02/14/1991,1990 TDAP (age 11 and older)(Adacel) 11/22/2006 documented as of this encounter Social History Tobacco Use Types Packs/Day Years Used Date Smoking Tobacco: Never Smokeless Tobacco: Never Alcohol Use Standard Drinks/Week Comments No 0 (1 standard drink = 0.6 oz pur e alcohol) PHQ-2 Answer Date Recorded PHQ-2 Score 0 04/29/2020 Hunger Vital Sign Answer Date Recorded Within the past 12 months, y ou worried that your food would run out before you got the money to buy more. Never true 10/18/19 23 Within the past 12 months, t he food you bought just didn't last and you didn't have money to get more. Never true 10/17/2022 [place] Depression Scale Answer Date Recorded [place] Depression Scale Total 1 05/10/2023 The thought of harming myself has occurred to me . Never 05/10/2023 Estimated Date of Delivery Comme nts Yes 06/11/2023 Based on last me nstrual period of 09/04/2022 Sex and Gender Information Value Date Recorded Sex Assigned at Female 10/17/2022 8:48 PM EDT Gender Identity Female 10/17/2022 8:48 PM EDT Sexual Orientation Straight 10/17/2022 8: 48 PM EDT Job Start Date Occupation Industry Not on file Not on file Not on file documented as of this encounter Last Filed Vital Signs Vital Sign Reading Time Taken Comments Blood Pressure 122/80 05/10/2023 8:15 AM EDT Pulse - - Temperature - - Respiratory Rate - - Oxygen Saturation - - Inhaled Oxygen Concentration - - Weight 91.8 kg (202 lb 6.4 oz) 05/10/2023 8:15 A M EDT Height 162.6 cm (5' 4") 05/10/2023 8:15 AM EDT Body Mass Index 34.74 05/10/2023 8:15 AM EDT documented in this encounter Progress Notes * FATOU Evasn - 05/10/2023 8:48 AM EDT 35w3d No concerns. Baby moving well. No contractions, bleeding, or LOF. GBS next week. FATOU Evans * Nadege Diggs LPN - 05/10/2023 8:24 AM EDT 35w3d Pt denies any concerns. documented in this encounter Plan of Treatment Upcoming Encounters Date Type Department Care Team (Late st Contact Info) Description 05/12/2023 9:00 AM EDT Hem/Onc Treatment Hematology/Oncology Treatment, [place] [address] [place] [address] [place], Chair 10 Hem Onc [address] [place] [address] 05/16/2023 8:15 AM EDT Office Visit Gynecology[facility]stetrics [facility] [place] [address] Siobhan Duenas CRNP [address] [place] [address] 05/16/2023 9:45 AM EDT Pharmacy Pharmacy, [place] [address] [place] [address] Clinic, [place] [address] [place] [address] 05/24/2023 8:00 AM EST Office Visit Gynecology/Obstetrics [facility] [address] [place] [address] Siobhan Duenas CRNP [address] [place] [address] 05/31/2023 8:00 AM EST Office Visit Gynecology/Obstetrics [facility] [address] [place] [address] Siobhan Duenas CRNP [address] [place] [address] 06/07/2023 8:00 AM EST Office Visit Gynecology/Obstetrics [facility] [address] [place] [address] Siobhan Duenas CRNP [address] [place] [address] 06/14/2023 10:30 AM EST Office Visit Gynecology/Obstetrics [facility] [address] [place] [address] Siobhan Duenas CRNP [address] [place] [address] Health Maintenance Due Date Last Done Comments Depression Screening 04/29/2021 04/29/2020 COVID-19 Vaccine ( season) 2023 08/17/2021, 07/27/2021 Influenza Vaccine (FLU shot) (#1) 2023 Pap Smear 11/02/2025 11/02/2022, 02/2018, 04/06/2015, Additional history exists Cervical Cancer Screening 11/03/2027 HPV/Co-Test 11/03/2027 11/02/2022 DTaP,Tdap,and Td Vaccines (4 - Td or Tdap) 03/30/2033 03/30/2023, 02/08/2018, 11/22/2006, Additional history exists Hepatitis B Completed 05/19/1998, 03/1998, 11/12/1997 MENINGOCOCCAL (MENACTRA/MENVEO) Completed 11/22/2006 GARDASIL-HPV IMMUNIZATION SERIES Completed 06/01/2007, 01/29/2007, 11/22/2006 Pneumococcal Vaccine: Pediatrics (0 to 5 Years) and At-Risk Patients (6 to 64 Years) Aged Out No longer eligible based on patient's age to complete this topic documented as of this encounter Medical Devices Not on filedocumented as of this encounter Visit Diagnoses Diagnosis Supervision of high-risk , unspecified trimester- Primary Family history of aneurysm Family history of other condition Family history of spina bifida Family history of congenital anomalies History of migraine during Supervision of other high-risk Antepartum anemia complicating Anemia, antepartum documented in this encounter Care Teams Investigator Cash Shortage Relationship Specialty Start Date End Date Kelechi Vega MD [address] [place] [address] [place] [address] PCP - General Family Medicine 12/28/22 documented as of this encounter
--- OUTSIDE RECORDS SUMMARY | 2023-05-28 14:46 | External Medical Summary | Summary of Care ---
Author Name Unknown Organization [facility] Address [address] [place] [address] Phone [phone] Care Team Providers Care Deckhand Oyster Dredge Name Role Phone Kelechi Vega MD Primary Care Provide r Reason for Visit * Reason Comments Return Visit Encounter Details Date Type Department Care Team (Late st Contact Info) Description 05/10/2023 8:15 AM EDT Office Visit Gynecology/Obstetric s [facility] [address] [place] [address] Siobhan Duenas CRNP [address] [place] [address] Supervision of high-risk , unspecified trimester*; Family [...] money to get more. Never true 10/17/2022 [place] Depression Scale Answer Date Recorded [place] Depression Scale Total 1 05/10/2023 The thought [...] in this encounter Progress Notes * FATOU Evans - 05/10/2023 8:48 AM EDT 35w3d No concerns. Baby moving well. No contractions, bleeding, or LOF. GBS next week. FATOU Evans * Nadege Diggs LPN - 05/10/2023 8:24 AM EDT 35w3d Pt denies any concerns. documented in this encounter Plan of Treatment Upcoming Encounters Date Type Department Care Team (Late st Contact Info) Description 05/12/2023 9:00 AM EDT Hem/Onc Treatment Hematology/Oncology Treatment, [place] [address] [place] [address] [place], Chair 10 Hem Onc [address] [place] [address] 05/16/2023 8:15 AM EDT Office Visit Gynecology[facility]stetrics [facility] [place] [address] Siobhan Duenas CRNP [address] [place] [address] 05/16/2023 9:45 AM EDT Pharmacy Pharmacy, [place] [address] [place] [address] Clinic, [place] [address] [place] [address] 05/24/2023 8:00 AM EST Office Visit Gynecology/Obstetrics [facility] [address] [place] [address] Siobhan Duenas CRNP [address] [place] [address] 05/31/2023 8:00 AM EST Office Visit Gynecology/Obstetrics [facility] [address] [place] [address] Siobhan Duenas CRNP [address] [place] [address] 06/07/2023 8:00 AM EST Office Visit Gynecology/Obstetrics [facility] [address] [place] [address] Siobhan Duenas CRNP [address] [place] [address] 06/14/2023 10:30 AM EST Office Visit Gynecology/Obstetrics [facility] [address] [place] [address] Siobhan Duenas CRNP [address] [place] [address] Health Maintenance Due Date Last Done Comments [...] antepartum documented in this encounter Care Teams Deckhand Oyster Dredge Relationship Specialty Start Date End Date Kelechi Vega MD [address] [place] [address] [place] [address] PCP - General Family Medicine 12/28/22 documented as of this encounter
--- OUTSIDE RECORDS SUMMARY | 2023-05-28 14:46 | External Medical Summary | Summary of Care ---
Author Name Unknown Organization [facility] Address [address] [place] [address] Phone [phone] Care Team Providers Care Public Administration Teacher Name Role Phone Kelechi Vega MD Primary Care Provide r Reason for Visit * Reason Comments Infusion Venofer 07/19 Encounter Details Date Type Department Care Team Description 04/28/2023 Hem/Onc Treatment Hematology/Oncology Treatment, [place] [address] [place] [id number] [place], Chair 10 Hem Onc [facility] [address] [place] [address] Iron deficiency anemia, unspecified iron deficiency anemia type* Allergies No known active allergiesdocumented as of this encounter (statuses as of 04/28/2023) Medications Medication Sig Dispensed Refills Start Date [...] before bedtime. 60 Tablet 3 03/15/2023 Active documented as of this encounter (statuses as of 04/28/2023) Active Problems Problem Noted Date Iron deficiency anemia 04/18/2023 Supervision of high-risk , unsp ecified trimester 11/02/2022 Last Assessment & Plan: Reassured [...] additional information. Family history of spina bifida Overview: FOB's sister Last Assessment & Plan: S/p consultation with genetics. Declined MSAFP screen. 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 Migraine headache with aura 08/28/2013 Raynaud phenomenon 08/28/2013 ADHD (attention deficit hyperactivity di sorder) Estimated Date of Delivery Comme nts Yes 06/11/2023 Based on last me nstrual period of 09/04/2022 documented as of this encounter (statuses as of 04/28/2023) Immunizations Name Administration Dates Next Due COVID-19 mRNA, LNP-s, No Pre serve, 2-Dose Series (Pfizer) 08/17/2021,07/27/2021 HIB PRP-T, 4 dose (ActHib) 07/13/1992,,02/14/1991,12/13 HPV Vaccine, 4-Valent 06/01/2007,01/29/2007,0503/2007 Hep A - Hepatitis A (ped/ado le, 1-18 Yrs) 06/01/2007,11/22/2006 Hepatitis B, 0-19 yrs 05/19/1998,12/23/1997,10/16 MMR - Measles/Mumps/Rubella Vaccine 11/12/1997,1 08/02/1991 Meningococcal [...] drink = 0.6 oz pur e alcohol) Food Insecurity Answer Date Recorded Within the past 12 months, y ou worried that your food would run out before you got money to buy more. Never true 10/18/2022 Within the past 12 months, t he food you bought just didn't last and you didn't have money to get more. Never true 10/18/2022 Estimated Date of Delivery Comme nts Yes 06/11/2023 Based on last me nstrual period of 09/04/2022 Sex Assigned at Date Recorded Female 10/17/2022 8:48 PM E DT Job Start Date Occupation Industry Not on file Not on file Not on file documented as of this encounter Last Filed Vital Signs Vital Sign Reading Time Taken Comments Blood Pressure 134/89 04/28/2023 9:48 AM EDT Pulse 88 04/28/2023 9:48 AM EDT Temperature 37.1 C (98.7 F) 04/28/2023 9:48 AM ED T Respiratory Rate 18 04/28/2023 9:48 AM EDT Oxygen Saturation 97% 04/28/2023 9:48 AM EDT Inhaled Oxygen Concentration - - Weight - - Height - - Body Mass Index - - documented in this encounter Nursing Notes * America Wooten LPN - 04/28/2023 9:49 AM EDT 0930: Chair 6. Pt arrived for Venofer 07/19 infusion. PIV in RFA. Pt tolerated well. VSS. No complaints at this time. 1108: Pt tolerated Venofer infusion well. PIV removed intact. Pt to return in one week. Discharged in stable condition. documented in this encounter Plan of Treatment Upcoming Encounters Date Type Specialty Care Team Description 05/02/2023 Pharmacy Pharmacy Clinic, [place] [address] [place] [address] 05/05/2023 Hem/Onc Treatment Hematology Oncology [place], Chair 4 Hem Onc [address] [facility] [address] 05/10/2023 Office Visit Gynecology Obstetrics Siobhan Duenas CRNP [address] [place] [address] 05/12/2023 Hem/Onc Treatment Hematology Oncology [place], Chair 10 Hem Onc [address] [place] [address] 05/16/2023 Office Visit Gynecology Obstetrics Siobhan Duenas CRNP [address] [place] [address] 05/24/2023 Office Visit Gynecology Obstetrics Siobhan Duenas CRNP [address] [place] [address] 05/31/2023 Office Visit Gynecology Obstetrics Siobhan Duenas CRNP [address] [place] [address] 06/07/2023 Office Visit Gynecology Obstetrics Siobhan Duenas CRNP [address] [place] [address] 06/14/2023 Office Visit Gynecology Obstetrics Siobhan Duenas CRNP [address] [place] [address] Health Maintenance Due Date Last Done Comments [...] as of this encounter Visit Diagnoses Diagnosis Iron deficiency anemia, unspecified iron deficiency anemia type- Primary documented in this encounter Administered Medications Active Administered Medications - up to 3 most recent administrations Medication Order MAR Action Action Date Dose Rate Site diphenhydrAMINE (Benadryl) inj 50 mg 50 mg, IV Push, ONCE PRN Other, Hypersensitivity Reaction, Starting on Mon04/28/23 at 0933, Until 04/29/23 at 0932, For 24 hours EPINEPHrine 1 MG/ML inj 0.3 mg 0.3 mg, Intramuscular, ONCE PRN Other, Hypersensitivity Reaction or Anaphylaxis, Starting on Mon04/28/23 at 0933, Until 04/29/23 at 0932, For 24 hours hEParin 100 UNIT/ML Lock Flush inj 500 Units 500 Units (5 mL), IV Lock, PRN Other, IV Flush, Starting on Mon04/28/23 at 0933, Until 04/29/23 at 0932, For 24 hours, Do not flush if lock, PICC, or central line not in place; IV infusing or unable to flush. Hydrocortisone Sod Suc (PF) (Solu-Cortef) inj 100 mg 100 mg, IV Push, ONCE PRN Other, Hypersensitivity Reaction, Starting on Mon04/28/23 at 0933, Until 04/29/23 at 0932, For 24 hours NSS infusion 500 mL, Intravenous, at 50 mL/hr, CONTINUOUS, Starting on Mon04/28/23 at 1045, Until Mon04/28/23 at 2044 Start Infusion 04/28/2023 9:33 AM EDT 500 mL 50 mL/hr oxygen GAS Inhalation, OXYGEN, First dose on Mon04/28/23 at 1015, Until Discontinued, Device/Managed by: Low Flow Device, Goal SPO2 (%): 91-95, Starting Device: Nasal Cannula, Inital Flow Rate (LPM): 2, Lowest Support: Nasal Cannula: Flow 0-6 LPM. Titrate up/down by 1 LPM., Higher Support: Non-Rebreather (NRB) Mask: Minimum of 10 LPM. Titrate to maintain bag inflation., Titration Interval: Q2 minutes and as needed., Notify Provider: For sudden DECREASE in resting SPO2 to less than 85% and when escalating delivery device. sodium chloride 0.9 % flush central line 10 mL 10 mL, IV Push, PRN Other, IV Flush, Starting on Mon04/28/23 at 0933, Until 04/29/23 at 0932, For 24 hours, Do not flush if lock, PICC, or central line not in place; IV infusing or unable to flush. Inactive Administered Medications - up to 3 most recent administrations Medication Order MAR Action Action Date Dose Rate Site Iron Sucrose (Venofer) 300 mg in NSS 250 mL ivpb 300 mg, IV Piggyback, ONCE, 1 dose, On Mon04/28/23 at 1115, Administer over 90 Minutes Start Infusion 04/28/2023 9:33 AM EDT 300 mg 166.67 mL/hr documented in this encounter Care Teams Public Administration Teacher Relationship Specialty Start Date End Date Kelechi Vega MD [address] [place] [address] [place] [address] PCP - General Family Medicine 12/28/22 documented as of this encounter
--- OUTSIDE RECORDS SUMMARY | 2023-05-28 14:46 | External Medical Summary | Summary of Care ---
Author Name Unknown Organization [facility] Address [address] [place] [address] Phone [phone] Care Team Providers Care Newspaper Inserter Name Role Phone Kelechi Vega MD Primary Care Provide r Reason for Visit * Reason Onset Date Comments Anemia Follow-Up 05/02/2023 Encounter Details Date Type Department Care Team Description 05/02/2023 Pharmacy Pharmacy, [place] [address] [place] [address] Clinic, [place] [address] [place] [address] Iron deficiency anemia, unspecified iron deficiency anemia type* Allergies No known active allergiesdocumented as of this encounter (statuses as of 05/02/2023) Medications Medication Sig Dispensed Refills Start Date [...] as of this encounter (statuses as of 05/02/2023) Active Problems Problem Noted Date Iron deficiency [...] as of this encounter (statuses as of 05/02/2023) Immunizations Name Administration Dates Next Due COVID-19 [...] on file documented as of this encounter Progress Notes * Diana Billy RPh - 05/02/2023 9:18 AM EDT Patient received first dose of Venofer 300 mg x 3 repletion series on 04/28 and appeared to have tolerated it without issue. Next scheduled: 05/05 Scheduled to be completed: 05/12 GA: 34w2d Estimated Date of Delivery: 06/11/23 Follow-up after completion of series to ensure all doses are administered prior to delivery. Anemia Clinic will continue to follow. Thank you for allowing us to participate in the care of thispatient. Thanks, Diana Billy RPh Clinical Pharmacist 05/02/2023 9:18 AM documented in this encounter Plan of Treatment Upcoming Encounters Date Type Specialty Care Team Description 05/05/2023 Hem/Onc Treatment Hematology Oncology [place], Chair 4 Hem Onc Scen[address] [facility], [place] [address] 05/10/2023 Office Visit Gynecology Obstetrics Siobhan Duenas CRNP [address] [place] [address] 05/12/2023 Hem/Onc Treatment Hematology Oncology [place], Chair 10 Hem Onc [address] [facility] [address] 05/16/2023 Office Visit Gynecology Obstetrics Siobhan Duenas CRNP [address] [place] [address] 05/16/2023 Pharmacy [facility] [id number] 05/24/2023 Office Visit Gynecology Obstetrics Siobhan Duenas CRNP [address] [place] [address] 05/31/2023 Office Visit Gynecology Obstetrics Siobhan Duenas CRNP [address] [place] [address] 06/07/2023 Office Visit Gynecology Obstetrics Siobhan Duenas CRNP [address] [place] [address] 06/14/2023 Office Visit Gynecology Obstetrics Siobhan Duenas CRNP [address] [place] [address] Health Maintenance Due Date Last Done Comments Depression Screening 04/29/2021 04/29/2020 COVID-19 Vaccine (3 2022-24 season) 2023 08/17/2021, 07/27/2021 Influenza Vaccine (FLU [...] anemia type- Primary documented in this encounter Care Teams Newspaper Inserter Relationship Specialty Start Date End Date Kelechi Vega MD [address] [place] [address] [place] [address] PCP - General Family Medicine 12/28/22 documented as of this encounter
--- OUTSIDE RECORDS SUMMARY | 2023-05-28 14:46 | External Medical Summary | Summary of Care ---
Author Name Unknown Organization [facility] Address [address] [place] [address] Phone [phone] Care Team Providers Care Director Of Exhibits Name Role Phone Kelechi Vega MD Primary Care Provide r Reason for Visit * Reason Comments Infusion Venofer 2/3 Encounter Details Date Type Department Care Team Description 05/05/2023 Hem/Onc Treatment Hematology/Oncology Treatment, [place] [address] [place] [address] [place], Chair 4 Hem Onc [facility] [address] [place] [address] Iron deficiency anemia, unspecified iron deficiency anemia type* Allergies No known active allergiesdocumented as of this encounter (statuses as of 05/05/2023) Medications Medication Sig Dispensed Refills Start Date [...] as of this encounter (statuses as of 05/05/2023) Active Problems Problem Noted Date Antepartum anemia complicating 05/03/2023 Overview: Iron infusions Iron deficiency anemia 04/18/2023 [...] as of this encounter (statuses as of 05/05/2023) Immunizations Name Administration Dates Next Due COVID-19 mRNA, LNP-s, No Pre serve, 2-Dose Series (Pfizer) 08/17/2021,07/27/2021 HIB PRP-T, 4 dose (ActHib) 07/13/1992,,02/14/1991,12/13 HPV Vaccine, 4-Valent 06/01/2007,01/29/2007,03/2007 Hep A - Hepatitis A (ped/ado le, [...] Sign Reading Time Taken Comments Blood Pressure 137/95 05/05/2023 8:30 AM EDT Pulse 75 05/05/2023 8:30 AM EDT Temperature 36.3 C (97.3 F) 05/05/2023 8:30 AM ED T Respiratory Rate 14 05/05/2023 8:30 AM EDT Oxygen Saturation 98% 05/05/2023 8:30 AM EDT Inhaled Oxygen Concentration - - Weight - - Height - - Body Mass Index - - documented in this encounter Nursing Notes * Anu Vuong, RN - 05/05/2023 10:29 AM EDT Chair 6 Pt here for venofer 2/3. No complaints. States she pedro first infusion well but has not noticed improvement in anemia symptoms. Safety and Risk for Injury Patient will remain free from injury. Ensure appropriate safety devices are available. Provide and maintain safe environment. Goals: Patient will remain free from injury. Possible barriers to meeting goals: ambulation with IV pole Stability of the patient: Moderately stable - low risk of patient condition declining or worsening Summary regarding today's goals: Met: pt without injury during treatment today Pt tolerated venofer infusion well. No complaints. Discharged in stable condition. documented in this encounter Plan of Treatment Upcoming Encounters Date Type Specialty Care Team Description 05/10/2023 Office Visit Gynecology Obstetrics Siobhan Duenas CRNP [address] [place] [address] 05/12/2023 Hem/Onc Treatment Hematology Oncology [place], Chair 10 Hem Onc [place] [address] [place] [address] 05/16/2023 Office Visit Gynecology Siobhan Link CRNP [address] [place] [address] 05/16/2023 Pharmacy Pharmacy Clinic, [address] [address] 05/24/2023 Office Visit Gynecology Siobhan Link CRNP [address] [place] [address] 05/31/2023 Office Visit Gynecology Siobhan Link CRNP [address] [place] [address] 06/07/2023 Office Visit Gynecology Siobhan Link CRNP [address] [place] [address] 06/14/2023 Office Visit Gynecology Siobhan Link CRNP [address] [address] Health Maintenance Due Date Last Done Comments Depression Screening 04/29/2021 04/29/2020 COVID-19 Vaccine (3 - 2022-24 season) 2023 08/17/2021, 07/27/2021 Influenza Vaccine [...] ONCE PRN Other, Hypersensitivity Reaction, Starting on Mon05/05/23 at 0849, Until 05/06/23 at 0848, For 24 hours EPINEPHrine 1 MG/ML inj 0.3 mg 0.3 mg, Intramuscular, ONCE PRN Other, Hypersensitivity Reaction or Anaphylaxis, Starting on Mon05/05/23 at 0849, Until 05/06/23 at 0848, For 24 hours hEParin 100 UNIT/ML Lock Flush inj 500 Units 500 Units (5 mL), IV Lock, PRN Other, IV Flush, Starting on Mon05/05/23 at 0849, Until 05/06/23 at 0848, For 24 hours, Do not flush if lock, PICC, or central line not in place; IV infusing or unable to flush. Hydrocortisone Sod Suc (PF) (Solu-Cortef) inj 100 mg 100 mg, IV Push, ONCE PRN Other, Hypersensitivity Reaction, Starting on Mon05/05/23 at 0849, Until 05/06/23 at 0848, For 24 hours NSS infusion 500 mL, Intravenous, at 50 mL/hr, CONTINUOUS, Starting on Mon05/05/23 at 1000, Until Mon05/05/23 at 1959 Start Infusion 05/05/2023 8:45 AM EDT 500 mL 50 mL/hr oxygen GAS Inhalation, OXYGEN, First dose on Mon05/05/23 at 0930, Until Discontinued, Device/Managed by: Low Flow Device, [...] Push, PRN Other, IV Flush, Starting on Mon05/05/23 at 0849, Until 05/06/23 at 0848, For 24 hours, Do not flush if lock, PICC, or central line not in place; IV infusing or unable to flush. Inactive Administered Medications - up to 3 most recent administrations Medication Order MAR Action Action Date Dose Rate Site Iron Sucrose (Venofer) 300 mg in NSS 250 mL ivpb 300 mg, IV Piggyback, ONCE, 1 dose, On Mon05/05/23 at 1030, Administer over 90 Minutes Start Infusion 05/05/2023 8:50 AM EDT 300 mg 166.67 mL/hr documented in this encounter Care Teams Director Of Exhibits Relationship Specialty Start Date End Date Kelechi Vega MD [address] [place] [address] [place] [address] PCP - General Family Medicine 12/28/22 documented as of this encounter
--- OUTSIDE RECORDS SUMMARY | 2023-05-28 14:46 | External Medical Summary | Summary of Care ---
Author Name Unknown Organization [facility] Address [address] [place] [address] Phone [phone] Care Team Providers Care Seam Stayer Name Role Phone Kelechi Vega MD Primary Care Provide r Encounter Details Date Type Department Care Team (Late st Contact Info) Description 05/10/2023 Telephone [facility] [address] [facility] [place] [address] Siobhan Duenas CRNP [address] [facility] [place] [address] Allergies No known active allergiesdocumented as of [...] money to get more. Never true 10/17/2022 [place] Depression Scale Answer Date Recorded [place] Depression Scale Total 1 05/10/2023 The thought [...] on file documented as of this encounter Miscellaneous Notes * Telephone Encounter - Nadege Diggs LPN - 05/10/2023 11:41 AM EDT FMLA forms signed by provider, placed on [employer]'s desk. documented in this encounter Plan of Treatment Upcoming Encounters Date Type Department Care Team (Late st Contact Info) Description 05/12/2023 9:00 AM EDT Hem/Onc Treatment Hematology/Oncology Treatment, [place] [address] [place] [address] [place], Chair 10 Hem Onc [place] [address] [place] [address] 05/16/2023 8:15 AM EDT Office Visit Gynecology/Obstetrics [facility] [place] [address] [place] [address] Siobhan Duenas CRNP [address] [place] [address] 05/16/2023 9:45 AM EDT Pharmacy Pharmacy, [address] [id number] Clinic, [place] [address] [place] [address] 05/24/2023 8:00 AM EST Office Visit Gynecology/Obstetrics [facility] [address] [place] [address] Siobhan Duenas CRNP [address] [place] [address] 05/31/2023 8:00 AM EST Office Visit Gynecology/Obstetrics [facility] [address] [place] [address] Siobhan Duenas CRNP [address] [place] [address] 06/07/2023 8:00 AM EST Office Visit Gynecology/Obstetrics [facility] [address] [place] [address] Siobhan Duenas CRNP [address] [place] [address] 06/14/2023 10:30 AM EST Office [facility] [address] [place] [address] Siobhan Duenas CRNP [address] [place] [address] Health Maintenance Due Date Last Done Comments [...] Not on filedocumented as of this encounter Care Teams Seam Stayer Relationship Specialty Start Date End Date Kelechi Vega MD [address] [place] [address] [place] [address] PCP - General Family Medicine 12/28/22 documented as of this encounter
--- OUTSIDE RECORDS SUMMARY | 2023-05-28 14:46 | External Medical Summary | Summary of Care ---
Author Name Unknown Organization [facility] Address [address] [place] [address] Phone [phone] Care Team Providers Care Job Service Specialist Name Role Phone Kelechi Vega MD Primary Care Provide r Reason for Visit * Reason Comments Return Visit Encounter Details Date Type Department Care Team (Late st Contact Info) Description 05/16/2023 8:15 AM EDT Office Visit Gynecology/Obstetric s [facility] [place] [address] [place] [address] Siobhan Duenas CRNP [address] [place] [address] Supervision of high-risk , unspecified trimester*; Family history of aneurysm; Family history of spina bifida; History of migraine during ; Antepartum anemia complicating Allergies No known active allergiesdocumented as of this encounter (statuses as of 05/16/2023) Medications Medication Sig Dispensed Refills Start Date [...] as of this encounter (statuses as of 05/16/2023) Active Problems Problem Noted Date Diagnosed Date [...] as of this encounter (statuses as of 05/16/2023) Immunizations Name Administration Dates Next Due COVID-19 [...] money to get more. Never true 10/17/2022 [place] Depression Scale Answer Date Recorded [place] Depression Scale Total 1 05/10/2023 The thought [...] Sign Reading Time Taken Comments Blood Pressure 114/62 05/16/2023 8:10 AM EDT Pulse - - Temperature - - Respiratory Rate - - Oxygen Saturation - - Inhaled Oxygen Concentration - - Weight 92.1 kg (203 lb) 05/16/2023 8:10 AM EDT Height 162.6 cm (5' 4") 05/16/2023 8:10 AM EDT Body Mass Index 34.84 05/16/2023 8:10 AM EDT documented in this encounter Progress Notes * Siobhan Duenas CRNP - 05/16/2023 8:23 AM EDT 36w2d Complaints: none Feeling well overall. Good FM. No contractions, bleeding, or LOF. GBS today. Patient Services Technician Documentation Provider requested fuel pilot engineer. Name of fuel pilot engineer: FATOU Howe * Genna Garcia LPN - 05/16/2023 8:10 AM EDT 36w2d Needs gbs today documented in this encounter Plan of Treatment Upcoming Encounters Date Type Department Care Team (Late st Contact Info) Description 05/16/2023 10:00 AM EDT Pharmacy Pharmacy, [place] [address] [place] [address] [facility], [place] [address] [place] [address] 05/24/2023 8:00 AM EST Office Visit Gynecology/Obstetrics [facility] [address] [facility] [address] Siobhan Duenas CRNP [address] [place] [address] 05/31/2023 8:00 AM EST Office Visit Gynecology/Obstetrics [facility] [address] [place] [address] Siobhan Duenas CRNP [address] [place] [address] 06/07/2023 8:00 AM EST Office Visit Gynecology/Obstetrics [facility] [address] [facility] [place], [place] [address] Siobhan Duenas CRNP [address] [place] [address] 06/14/2023 10:30 AM EST Office Visit Gynecology/Obstetrics [facility] [address] [place] [address] Siobhan Duenas CRNP [address] [place] [address] Pending Results Name Type Priority Associated Diagnoses Date /Time GROUP B STREP CULTURE/PCR Lab Routine Supervision of high-risk , unspecified trimester 05/16/2023 8:27 AM EDT Scheduled Orders Name Type Priority Associated Diagnoses Orde r Schedule GROUP B STREP CULTURE/PCR Lab Routine Supervision of high-risk , unspecified trimester Expected: 05/16/2023, Expires: 05/16/2024 Health Maintenance Due Date Last Done Comments [...] antepartum documented in this encounter Care Teams Job Service Specialist Relationship Specialty Start Date End Date Kelechi Vega MD [address] [place] [address] [place] [phone] PCP - General Family Medicine 12/28/22 documented as of this encounter
--- OUTSIDE RECORDS SUMMARY | 2023-05-28 14:46 | External Medical Summary | Summary of Care ---
Author Name Unknown Organization [facility] Address [address] [place] [address] Phone [phone] Care Team Providers Care Design Painter Name Role Phone Kelechi Vega MD Primary Care Provide r Reason for Visit * Reason Comments Return Visit Encounter Details Date Type Department Care Team Description 04/26/2023 Office Visit Gynecology/Obstetrics [facility] [address] [place] [address] Siobhan Duenas CRNP [address] [facility] [place] [address] Supervision of high-risk , unspecified trimester*; Family history of aneurysm; Family history of spina bifida; History of migraine during ; Antepartum anemia complicating Allergies No known active allergiesdocumented as of this encounter (statuses as of 05/03/2023) Medications Medication Sig Dispensed Refills Start Date [...] as of this encounter (statuses as of 05/03/2023) Active Problems Problem Noted Date Antepartum anemia [...] as of this encounter (statuses as of 05/03/2023) Immunizations Name Administration Dates Next Due COVID-19 mRNA, LNP-s, No Pre serve, 2-Dose Series (Pfizer) 08/17/2021,07/27/2021 HIB PRP-T, 4 dose (ActHib) 07/13/1992,,02/14/1991,12/13 HPV Vaccine, 4-Valent 06/01/2007,01/29/2007,050 03/2007 Hep A - Hepatitis A (ped/ado le, [...] Sign Reading Time Taken Comments Blood Pressure 110/80 04/26/2023 8:08 AM EDT Pulse - - Temperature - - Respiratory Rate - - Oxygen Saturation - - Inhaled Oxygen Concentration - - Weight 91.4 kg (201 lb 9.6 oz) 04/26/2023 8:08 A M EDT Height 162.6 cm (5' 4") 04/26/2023 8:08 AM EDT Body Mass Index 34.6 04/26/2023 8:08 AM EDT documented in this encounter Progress Notes * FATOU Evans - 04/26/2023 8:31 AM EDT 33w3d Some edema. Starting iron infusions for related anemia later this week, hoping this will help with fatigue. Baby is moving well. No contractions, bleeding, or LOF. FATOU Evans * Nadege Diggs LPN - 04/26/2023 8:16 AM EDT 33w3d Pt denies any concerns, labor instructions given. documented in this encounter Plan of Treatment Upcoming Encounters Date Type Specialty Care Team Description 05/05/2023 Hem/Onc Treatment Hematology Oncology [place], Chair 4 Hem Onc [address] [place] [address] 05/10/2023 Office Visit Gynecology Obstetrics Siobhan Duenas CRNP [address] [place] [address] 05/12/2023 Hem/Onc Treatment Hematology Oncology [place], Chair 10 Hem Onc [address] [place] [address] 05/16/2023 Office Visit Gynecology Obstetrics Siobhan Duenas CRNP [address] [place] [address] 05/16/2023 Pharmacy Pharmacy Clinic, An[place] [address] [place] [address] 05/24/2023 Office Visit Gynecology Obstetrics Siobhan Duenas CRNP [address] [place] [address] 05/31/2023 Office Visit Gynecology Obstetrics Siobhan Duenas CRNP [address] [place] [address] 06/07/2023 Office Visit Gynecology Obstetrics Siobhan Duenas CRNP [address] [place] [address] 06/14/2023 Office Visit Gynecology Obstetrics Siobhna Duenas CRNP [address] [place] [address] Health Maintenance Due Date Last Done Comments Depression Screening 04/29/2021 04/29/2020 COVID-19 Vaccine (2022-24 season) 2023 08/17/2021, 07/27/2021 Influenza Vaccine (FLU [...] antepartum documented in this encounter Care Teams Design Painter Relationship Specialty Start Date End Date Kelechi Vega MD [address] [place] [address] [place] [phone] PCP - General Family Medicine 12/28/22 documented as of this encounter
--- OUTSIDE RECORDS SUMMARY | 2023-05-28 14:46 | External Medical Summary | Summary of Care ---
Author Name Unknown Organization [facility] Address [address] [place] [address] Phone [phone] Care Team Providers Care Certified Medical Technician Assistant Name Role Phone Kelechi Vega MD Primary Care Provide r Reason for Visit * Reason Comments Return Visit Encounter Details Date Type Department Care Team (Late st Contact Info) Description 05/24/2023 8:00 AM EST Office Visit Gynecology/Obstetric s [facility] [place] [address] [place] [address] Siobhan Duenas CRNP [address] [facility] [place] [address] Supervision of high-risk , unspecified trimester*; Family history of aneurysm; Family history of spina bifida; History of migraine during ; Antepartum anemia complicating Allergies No known active allergiesdocumented as of this encounter (statuses as of 05/24/2023) Medications Medication Sig Dispensed Refills Start Date [...] as of this encounter (statuses as of 05/24/2023) Active Problems Problem Noted Date Diagnosed Date [...] as of this encounter (statuses as of 05/24/2023) Immunizations Name Administration Dates Next Due COVID-19 [...] money to get more. Never true 10/17/2022 [place] Depression Scale Answer Date Recorded [place] Depression Scale Total 1 05/10/2023 The thought [...] Sign Reading Time Taken Comments Blood Pressure 142/98 05/24/2023 7:52 AM EST Pulse - - Temperature - - Respiratory Rate - - Oxygen Saturation - - Inhaled Oxygen Concentration - - Weight 91.9 kg (202 lb 9.6 oz) 05/24/2023 7:52 A M EST Height 162.6 cm (5' 4") 05/24/2023 7:52 AM EST Body Mass Index 34.78 05/24/2023 7:52 AM EST documented in this encounter Progress Notes * Siobhan Duenas CRNP - 05/24/2023 8:23 AM EST 37w3d Reports headaches with visual changes for the past week. +3 proteinuria. Elevated BP 142/98. Intermittent contractions over the weekend, nothing regular. Baby is active. Denies bleeding or LOF. Dr. Shin [facility] FATOU [place] * Nadege Diggs LPN - 05/24/2023 7:57 AM EST 37w3d Pt denies any concerns. Pt reports last week she started getting blurry vision, HOOD follow, reports she takes tylenol and sleeps, relief with this. documented in this encounter Plan of Treatment Upcoming Encounters Date Type Department Care Team (Late st Contact Info) Description 05/31/2023 8:00 AM EST Office Visit Gynecology/Obstetrics [facility] [address] [facility] [place] [address] Siobhan Duenas CRNP [address] [place] [address] 06/07/2023 8:00 AM EST Office Visit Gynecology/Obstetrics [facility] [address] [place] [address] Siobhan Duenas CRNP [address] [place] [address] 06/14/2023 10:30 AM EST Office Visit Gynecology/Obstetrics [facility] [address] [place] [address] Siobhan Duenas CRNP [address] [place] [address] Health Maintenance Due Date Last Done Comments [...] antepartum documented in this encounter Care Teams Certified Medical Technician Assistant Relationship Specialty Start Date End Date Kelechi Vega MD [address] [place] [address] [place] [address] PCP - General Family Medicine 12/28/22 documented as of this encounter
--- OUTSIDE RECORDS SUMMARY | 2023-05-28 14:46 | External Medical Summary | Summary of Care ---
Author Name Unknown Organization [facility] Address [address] [place] [address] Phone [phone] Care Team Providers Care Beam Worker Name Role Phone Kelechi Vega MD Primary Care Provide r Reason for Visit * Reason Comments Return Visit Encounter Details Date Type Department Care Team (Late st Contact Info) Description 05/16/2023 8:15 AM EDT Office Visit Gynecology/Obstetric s [facility] [place] [address] [place] [address] Siobhan Duenas CRNP [address] [place] [address] Supervision of high-risk , unspecified trimester*; Family [...] money to get more. Never true 10/17/2022 [place] Depression Scale Answer Date Recorded [place] Depression Scale Total 1 05/10/2023 The thought [...] No contractions, bleeding, or LOF. GBS today. Associate Professor Of Education Documentation Provider requested airbrush painter. Name of airbrush painter: FATOU Howe * Genna Garcia LPN - 05/16/2023 8:10 AM EDT 36w2d Needs gbs today documented in this encounter Plan of Treatment Upcoming Encounters Date Type Department Care Team (Late st Contact Info) Description 05/16/2023 10:00 AM EDT Pharmacy Pharmacy, [place] [address] [place] [address] [facility], [place] [address] [place] [address] 05/24/2023 8:00 AM EST Office Visit Gynecology/Obstetrics [facility] [address] [facility] [address] Siobhan Duenas CRNP [address] [place] [address] 05/31/2023 8:00 AM EST Office Visit Gynecology/Obstetrics [facility] [address] [place] [address] Siobhan Duenas CRNP [address] [place] [address] 06/07/2023 8:00 AM EST Office Visit Gynecology/Obstetrics [facility] [address] [facility] [place], [place] [address] Siobhan Duenas CRNP [address] [place] [address] 06/14/2023 10:30 AM EST Office Visit Gynecology/Obstetrics [facility] [address] [place] [address] Siobhan Duenas CRNP [address] [place] [address] Pending Results Name Type Priority Associated Diagnoses [...] antepartum documented in this encounter Care Teams Beam Worker Relationship Specialty Start Date End Date Kelechi Vega MD [address] [place] [address] [place] [phone] PCP - General Family Medicine 12/28/22 documented as of this encounter
--- OUTSIDE RECORDS SUMMARY | 2023-05-28 14:46 | External Medical Summary | Summary of Care ---
Author Name Unknown Organization [facility] Address [address] [place] [address] Phone [phone] Care Team Providers Care Supervisor Body Assembly Name Role Phone Kelechi Vega MD Primary Care Provide r Reason for Visit * Reason Comments Infusion Venofer 09/16 Encounter Details Date Type Department Care Team (Latest Contact Info) Description 05/12/2023 9:00 AM EDT Hem/Onc Treatment Hematology/Oncology Treatment, [address] [address] [place], Chair [address] Hem On[address] [address] Iron deficiency anemia, unspecified iron deficiency anemia type* Allergies No known active allergiesdocumented as of this encounter (statuses as of 05/12/2023) Medications Medication Sig Dispensed Refills Start Date [...] as of this encounter (statuses as of 05/12/2023) Active Problems Problem Noted Date Diagnosed Date [...] as of this encounter (statuses as of 05/12/2023) Immunizations Name Administration Dates Next Due COVID-19 [...] money to get more. Never true 10/17/2022 [place] Depression Scale Answer Date Recorded [place] Depression Scale Total 1 05/10/2023 The thought [...] Sign Reading Time Taken Comments Blood Pressure 140/89 05/12/2023 9:11 AM EDT Pulse 92 05/12/2023 9:11 AM EDT Temperature 36.6 C (97.8 F) 05/12/2023 9:11 AM ED T Respiratory Rate 18 05/12/2023 9:11 AM EDT Oxygen Saturation 97% 05/12/2023 9:11 AM EDT Inhaled Oxygen Concentration - - Weight 91.6 kg (202 lb) 05/12/2023 9:11 AM EDT Height - - Body Mass Index 34.67 05/10/2023 8:15 AM EDT documented in this encounter Nursing Notes * America Wooten LPN - 05/12/2023 9:11 AM EDT 0905: Chair 9. Pt arrived for Venofer infusion. PIV in L metacarpal. Pt tolerated well. VSS. No complaints at this time. 1045: Pt tolerated Venofer infusion. PIV removed intact. Pt to follow up with MD. Discharged in stable condition. documented in this encounter Plan of Treatment Upcoming Encounters Date Type Department Care Team (Late st Contact Info) Description 05/16/2023 8:15 AM EDT Office Visit Gynecology/Obstetrics [facility] [address] [address] Siobhan Duenas CRNP [address] [place] [address] 05/16/2023 9:45 AM EDT Pharmacy Pharmacy, [place] [address] [place] [address] Clinic, [place] [address] [place] [address] 05/24/2023 8:00 AM EST Office Visit Gynecology/Obstetrics [facility] [address] [place] [address] Siobhan Duenas CRNP [address] [place] [address] 05/31/2023 8:00 AM EST Office Visit Gynecology/Obstetrics [facility] [address] [place] [address] Siobhan Duenas CRNP [address] [place] [address] 06/07/2023 8:00 AM EST Office Visit Gynecology/Obstetrics [facility] [address] [place], [place] [address] Siobhan Duenas CRNP [address] [place] [address] 06/14/2023 10:30 AM EST Office Visit Gynecology/Obstetrics [facility] [address] [place] [address] Siobhan Duenas CRNP [address] [place] [address] Health Maintenance Due Date Last Done Comments [...] ONCE PRN Other, Hypersensitivity Reaction, Starting on Mon05/12/23 at 0909, Until 05/13/23 at 0908, For 24 hours EPINEPHrine 1 MG/ML inj 0.3 mg 0.3 mg, Intramuscular, ONCE PRN Other, Hypersensitivity Reaction or Anaphylaxis, Starting on Mon05/12/23 at 0909, Until 05/13/23 at 0908, For 24 hours hEParin 100 UNIT/ML Lock Flush inj 500 Units 500 Units (5 mL), IV Lock, PRN Other, IV Flush, Starting on Mon05/12/23 at 0909, Until Mon05/13/23 at 0908, For 24 hours, Do not flush if lock, PICC, or central line not in place; IV infusing or unable to flush. Hydrocortisone Sod Suc (PF) (Solu-Cortef) inj 100 mg 100 mg, IV Push, ONCE PRN Other, Hypersensitivity Reaction, Starting on Mon05/12/23 at 0909, Until 05/13/23 at 0908, For 24 hours NSS infusion 500 mL, Intravenous, at 50 mL/hr, CONTINUOUS, Starting on Mon05/12/23 at 1015, Until Mon05/12/23 at 2013 Start Infusion 05/12/2023 9:09 AM EDT 500 mL 50 mL/hr oxygen GAS Inhalation, OXYGEN, First dose on Mon05/12/23 at 0945, Until Discontinued, Device/Managed by: Low Flow Device, [...] Push, PRN Other, IV Flush, Starting on Mon05/12/23 at 0909, Until 05/13/23 at 0908, For 24 hours, Do not flush if lock, PICC, or central line not in place; IV infusing or unable to flush. Inactive Administered Medications - up to 3 most recent administrations Medication Order MAR Action Action Date Dose Rate Site Iron Sucrose (Venofer) 300 mg in NSS 250 mL ivpb 300 mg, IV Piggyback, ONCE, 1 dose, On Mon05/12/23 at 1045, Administer over 90 Minutes Start Infusion 05/12/2023 9:09 AM EDT 300 mg 166.67 mL/hr documented in this encounter Care Teams Supervisor Body Assembly Relationship Specialty Start Date End Date Kelechi Vega MD [address] [place] [address] [place] [address] PCP - General Family Medicine 12/28/22 documented as of this encounter
--- OUTSIDE RECORDS SUMMARY | 2023-05-28 14:46 | External Medical Summary | Summary of Care ---
Author Name Unknown Organization [facility] Address [address] [place] [address] Phone [phone] Care Team Providers Care Manager Export Name Role Phone Kelechi Vega MD Primary Care Provide r Reason for Visit * Reason Comments Return Visit Encounter Details Date Type Department Care Team Description 04/26/2023 Office Visit Gynecology/Obstetrics [facility] [address] [place] [address] Siobhan Duenas CRNP [address] [facility] [place] [address] Supervision of high-risk , unspecified trimester*; Family history of aneurysm; Family history of spina bifida; History of migraine during Allergies No known active allergiesdocumented as of this encounter (statuses as of 04/26/2023) Medications Medication Sig Dispensed Refills Start Date [...] as of this encounter (statuses as of 04/26/2023) Active Problems Problem Noted Date Iron deficiency [...] as of this encounter (statuses as of 04/26/2023) Immunizations Name Administration Dates Next Due COVID-19 [...] EDT 33w3d Some edema. Starting iron infusions later this week, hoping this will help with fatigue. Baby is moving well. No contractions, bleeding, or LOF. FATOU Evans * Nadege Diggs LPN - 04/26/2023 8:16 AM EDT 33w3d Pt denies any concerns, labor instructions given. documented in this encounter Plan of Treatment Upcoming Encounters Date Type Specialty Care Team Description 04/26/2023 Pharmacy Pharmacy Clinic, [facility] [address] [place] [address] 04/28/2023 Hem/Onc Treatment Hematology Oncology [place], Chair 10 Hem Onc [address] [place] [address] 05/05/2023 Hem/Onc Treatment Hematology Oncology [place], Chair 4 Hem Onc Sc[address] [place] [address] 05/10/2023 Office Visit Gynecology Obstetrics Siobhan Duenas CRNP [address] [place] [address] 05/12/2023 Hem/Onc Treatment Hematology Oncology [place], Chair 10 Hem Onc [address] [place] [address] 05/16/2023 Office Visit Gynecology Obstetrics Siobhan Duenas CRNP [address] [place] [address] 05/24/2023 Office Visit Gynecology Obstetrics Siobhan Duenas CRNP [address] [place] [address] 05/31/2023 Office Visit Gynecology Obstetrics Siobhan Duenas CRNP [address] [place] [address] 06/07/2023 Office Visit Gynecology Obstetrics Siobhan Duenas CRNP [address] [address] 06/14/2023 Office Visit Gynecology Obstetrics Siobhan Duenas CRNP [address] [address] Health Maintenance Due Date Last Done Comments [...] of migraine during Supervision of other high-risk documented in this encounter Care Teams Manager Export Relationship Specialty Start Date End Date Kelechi Vega MD [address] [place] [address] [place] [address] PCP - General Family Medicine 12/28/22 documented as of this encounter
--- OUTSIDE RECORDS SUMMARY | 2023-05-28 14:46 | External Medical Summary ---
Author Name Unknown Address Unknown Organization K01:[facility] [place] [address] [facility] [address] Laboratory Report Ordering Provider Test Date Status YUMIKO JOSHUA 05/16/2023 08:27:50 Final Observation Date Value Abnormality Reference (Units ) Status Streptococcus agalactiae DNA [Presence] in Specimen by BETH with probe detection 05/16/2023 08:27:50 Negative Negative Final No Group B Streptococcus det ected by culture-enhanced PCR (amplified probe).
The collection of vaginal/rectal swab specimen combinations (FDA approved specimen type) is optimal for the detection of Group B Streptococcus. Single source collection (vaginal only or rectal only) or alternate specimen sources may lead to false negative results. Performing Location [facility] [place] [address] [facility] [address]
--- OUTSIDE RECORDS SUMMARY | 2023-05-28 14:46 | External Medical Summary | Summary of Care ---
Author Name Unknown Organization [facility] Address [address] [place] [address] Phone [phone] Care Team Providers Care Circular Ripsaw Operator Name Role Phone Kelechi Vega MD Primary Care Provide r Reason for Visit * Reason Onset Date Comments Anemia Follow-Up 05/16/2023 Encounter Details Date Type Department Care Team (Late st Contact Info) Description 05/16/2023 10:00 AM EDT Pharmacy Pharmacy, [place] [address] [place], [place] [id number] Clinic, [facility] [address] [place], [place] [id number] Iron deficiency anemia, unspecified iron deficiency anemia [...] money to get more. Never true 10/17/2022 [place] Depression Scale Answer Date Recorded [place] Depression Scale Total 1 05/10/2023 The thought [...] of this encounter Progress Notes * Diana Billy, [facility] - 05/16/2023 10:17 AM EDT Patient Phone Numbers Call to patient. Patient received Venofer 300 mg x 3 on 04/28, 05/05 and 05/12. Patient reports tolerating Venofer infusions went good. GA: 36w2d Estimated Date of Delivery: 06/11/23 Given proximity to patient's due date, will not repeat any additional lab work. Anemia Clinic will sign off. Thank you for allowing us to participate in the care of this patient. Thanks, Diana Billy [facility] Clinical Pharmacist 05/16/2023 10:17 AM documented in this encounter Plan of Treatment Upcoming Encounters Date Type Department Care Team (Late st Contact Info) Description 05/24/2023 8:00 AM EST Office Visit Gynecology/Obstetrics [facility] [address] [place] [address] Siobhan Duenas CRNP [address] [place] [address] 05/31/2023 8:00 AM EST Office Visit Gynecology/Obstetrics [facility] [address] [place] [address] Siobhan Duenas CRNP [address] [place] [address] 06/07/2023 8:00 AM EST Office Visit Gynecology/Obstetrics [facility] [address] [place] [address] Siobhan Duenas CRNP [address] [place] [address] 06/14/2023 10:30 AM EST Office Visit Gynecology/Obstetrics [facility] [address] [place] [address] Siobhan Duenas CRNP [address] [place] [address] Health Maintenance Due Date Last Done Comments Depression Screening 04/29/2021 04/29/2020 COVID-19 Vaccine (3 - 2023-24 season) 2023 08/17/2021, 07/27/2021 Influenza Vaccine (FLU shot) (#1) 2023 Pap Smear 11/02/2025 11/02/2022, 1002/2018, 04/06/2015, Additional history exists Cervical Cancer Screening [...] Primary documented in this encounter Care Teams Circular Ripsaw Operator Relationship Specialty Start Date End Date Kelechi Vega MD [address] [place] [address] [place] [address] PCP - General Family Medicine 12/28/22 documented as of this encounter
--- OUTSIDE RECORDS SUMMARY | 2023-05-28 14:47 | External Medical Summary ---
Author Name Unknown Address Unknown Organization K0G:LABORATORY [place] [address] - [address] [place] [address] Laboratory Report Ordering Provider Test Date Status ARUNA JAIMESROSSANA 03/21/2023 08:21:48 Final Based on ACOG guideline, ges tational diabetes mellitus is diagnosed when any of the following is met:
Fasting is greater than or equal to 95 mg/dL
1 hour is greater than or equal to 180 mg/dL
2 hour is greater than or equal to 155 mg/dL
3 hour is greater than or equal to 140 mg/dL Observation Date Value Abnormality Reference (Units ) Status Glucose, fasting 03/21/2023 08:21:48 86 70- 94 (mg/dL) Final Performing Location [facility]ORY [facility] [place] [address] - [address] [place] [address]
--- OUTSIDE RECORDS SUMMARY | 2023-05-28 14:47 | External Medical Summary ---
Author Name Unknown Address Unknown Organization [facility] [address] [place] [address] Laboratory Report Ordering Provider Test Date Status NILTON JAIMES 03/21/2023 09:24:53 Final Observation Date Value Abnormality Reference (Units ) Status Glucose [Mass/volume] in Serum or Plasma --1 hour post dose glucose 03/21/2023 09:24:53 174 70-179 (mg/dL) Final Performing [facility] - [address] [place] [address]
--- OUTSIDE RECORDS SUMMARY | 2023-05-28 14:47 | External Medical Summary ---
Author Name Unknown Address Unknown Organization K0G:[facility]ATORY [place] [address] - [address] [place] [address] Laboratory Report Ordering Provider Test Date Status DANI TUCKER 04/12/2023 08:35:37 Final Observation Date Value Abnormality Reference (Units ) Status WBC, Total 04/12/2023 08:35:37 10.43 4.00-10.8 0 (K/uL) Final RBC 04/12/2023 08:35:37 3.46 3.85-5.15 (M/uL) Final Hemoglobin 04/12/2023 08:35:37 10.6 Below low normal 12 .0-15.3 (g/dL) Final HCT 04/12/2023 08:35:37 32.1 Below low normal 36. 0-45.2 (%) Final MCV 04/12/2023 08:35:37 92.8 81.5-97.5 (fL) Final MCH 04/12/2023 08:35:37 30.6 27.0-34.0 (pg) Final MCHC 04/12/2023 08:35:37 33.0 32.0-36.0 (g/dL) Final RDW 04/12/2023 08:35:37 14.8 11.5-15.5 (%) Final Platelets 04/12/2023 08:35:37 247 140-400 (K /uL) Final MPV 04/12/2023 08:35:37 10.4 6.6-11.1 ( fL) Final Performing Location [facility] - [address] [place] [address]
--- OUTSIDE RECORDS SUMMARY | 2023-05-28 14:47 | External Medical Summary | Summary of Care ---
Author Name Unknown Organization [facility] Address [address] [place] [address] Phone [phone] Care Team Providers Care Teacher Home Therapy Name Role Phone Kelechi Vega MD Primary Care Provide r Reason for Visit * Reason Comments Outpatient Testing Encounter Details Date Type Department Care Team Description 04/12/2023 Laboratory Laboratory, [facility] [address] [place] [id number] [facility] [address] [place] [address] Antepartum anemia complicating Allergies No known active allergiesdocumented as of this encounter (statuses as of 04/12/2023) Medications Medication Sig Dispensed Refills Start Date [...] as of this encounter (statuses as of 04/12/2023) Active Problems Problem Noted Date Supervision of high-risk , unsp ecified trimester [...] as of this encounter (statuses as of 04/12/2023) Immunizations Name Administration Dates Next Due COVID-19 mRNA, LNP-s, No Pre serve, 2-Dose Series ([employer]) 08/17/2021,07/27/2021 HIB PRP-T, 4 dose (ActHib) 07/13/1992,,02/14/1991,12/13 [...] on file documented as of this encounter Plan of Treatment Upcoming Encounters Date Type Specialty Care Team Description 04/26/2023 Office Visit Gynecology Obstetrics Siobhan Duenas CRNP [address] [place] [address] 05/10/2023 Office Visit Gynecology Obstetrics Siobhan Duenas CRNP [address] [place] [address] 05/16/2023 Office Visit Gynecology Obstetrics Siobhan Duenas CRNP [address] [place] [address] 05/24/2023 Office Visit Gynecology Obstetrics Siobhan Duenas CRNP [address] [place] [address] 05/31/2023 Office Visit Gynecology Obstetrics TimoSiobhan santana FATOU [address] [place] [address] 06/07/2023 Office Visit Gynecology Obstetrics YulissaSiobhan FATOU [address] [place] [address] 06/14/2023 Office Visit Gynecology Obstetrics YulissaSiobhan FATOU [address] [place] [address] Pending Results Name Type Priority Associated Diagnoses Date /Time CBC Lab Routine Antepartum anemia complicating 04/12/2023 8:35 AM EDT Health Maintenance Due Date Last Done Comments Depression Screening 04/29/2021 04/29/2020 COVID-19 Vaccine (3 - Pfizer series) 10/12/2021 08/17/2021, 07/27/2021 Influenza Vaccine (FLU shot) (#1) [...] as of this encounter Visit Diagnoses Diagnosis Antepartum anemia complicating Anemia, antepartum documented in this encounter Care Teams Teacher Home Therapy Relationship Specialty Start Date End Date Kelechi Vega MD [address] [place] [address] [place] [address] PCP - General Family Medicine 12/28/22 documented as of this encounter
--- OUTSIDE RECORDS SUMMARY | 2023-05-28 14:47 | External Medical Summary | Summary of Care ---
Author Name Unknown Organization [facility] Address [address] [place] [address] Phone [phone] Care Team Providers Care Software Test Technician Name Role Phone Kelechi Vega MD Primary Care Provide r Reason for Referral * Evaluate & Treat - Unlimited Visits (Within 10 days (routine)) - Pending Review Specialty Diagnoses / Procedures Referred By Manish canales Referred To Contact Pharmacist / Pharmacy Diagnoses WILLY (iron deficiency anemia) Agnieszka Pinzon PA-C [address] [place] [address] Referral ID Status Reason Start Date Expiration Date Visits Requested Visits Authorized [id number] Pending Review Specialty Services Required 04/13/2023 99 99 Question Answer Referral Priority Within 10 days (routine) Department: Specialist Specialty: microfilm equipment inspector Reason for Referral: Anemia Comments Pharmacist Medication Therapy Management: Iron deficiency anemia Salvatore Brown RN Reason for Visit * Reason Onset Date Comments Blood Management Program 04/13/2023 Encounter Details Date Type Department Care Team Description 04/13/2023 Telephone Patient Blood Management, [place] [address] [place] [address] Agnieszka Pinzon PA-C [address] [place] [address] Blood Management Program Allergies No known active allergiesdocumented as of this encounter (statuses as of 04/18/2023) Medications Medication Sig Dispensed Refills Start Date [...] as of this encounter (statuses as of 04/18/2023) Active Problems Problem Noted Date Iron deficiency [...] additional information. Family history of spina bifida 3 Overview: FOB's sister Last Assessment & Plan: S/p consultation with genetics. Declined MSAFP screen. 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 Migraine headache with aura 08/28/2013 Raynaud phenomenon 08/28/2013 ADHD (attention deficit hyperactivity di sorder) Estimated Date of Delivery Comme nts Yes 06/11/2023 Based on last me nstrual period of 09/04/2022 documented as of this encounter (statuses as of 04/18/2023) Immunizations Name Administration Dates Next Due COVID-19 mRNA, LNP-s, No Pre serve, 2-Dose Series ([employer]) 08/17/2021,07/27/2021 HIB PRP-T, 4 dose (ActHib) 07/13/1992,,02/14/1991,12/13 [...] encounter Miscellaneous Notes * Telephone Encounter - Yina Ingram LPN - 04/18/2023 4:11 PM EDT Order received for Venofer 300mg IV weekly x 3 doses [place] created and routed to anemia clinic for signature Prior auth is not needed, patient can be scheduled once plan is signed * Telephone Encounter - Salvatore Brown RN - 04/13/2023 3:27 PM EDT Recommend IV iron per OB MTM protocol. Patient agreeable, prefers infusion at [facility]. documented in this encounter Plan of Treatment Upcoming Encounters Date Type Specialty Care Team Description 04/26/2023 Office Visit Gynecology Obstetrics Siobhan Duenas CRNP [address] [place] [address] 04/26/2023 Pharmacy Pharmacy Clinic, [facility] [address] [place] [address] 05/10/2023 Office Visit Gynecology Obstetrics Siobhan Duenas CRNP [address] [place] [address] 05/16/2023 Office Visit Gynecology Obstetrics Siobhan Duenas CRNP [address] [place] [address] 05/24/2023 Office Visit Gynecology Obstetrics Siobhan Duenas CRNP [address] [place] [address] 05/31/2023 Office Visit Gynecology Obstetrics Siobhan Duenas CRNP [address] [place] [address] 06/07/2023 Office Visit Gynecology Obstetrics Siobhan Duenas CRNP [address] [place] [address] 06/14/2023 Office Visit Gynecology Obstetrics Siobhan Duenas CRNP [address] [place] [address] Scheduled Referrals Name Type Priority Associated Diagnoses Orde r Schedule PHARMACIST MEDS THERAPY MGMT REFERRAL OP Referral Within 10 days (routine) WILLY (iron deficiency anemia) Ordered: 04/13/2023 Health Maintenance Due Date Last Done Comments Depression Screening 04/29/2021 04/29/2020 COVID-19 Vaccine (2022- season) 2023 08/17/2021, 07/27/2021 Influenza Vaccine (FLU [...] as of this encounter Visit Diagnoses Diagnosis WILLY (iron deficiency anemia)- Primary Iron deficiency anemia, unspecified documented in this encounter Care Teams Software Test Technician Relationship Specialty Start Date End Date Kelechi Vega MD [address] [place] [address] [place] [address] PCP - General Family Medicine 12/28/22 documented as of this encounter
--- OUTSIDE RECORDS SUMMARY | 2023-05-28 14:47 | External Medical Summary | Summary of Care ---
Author Name Unknown Organization [facility] Address [address] [place] [address] Phone [phone] Care Team Providers Care Residential Worker Name Role Phone Kelechi Vega MD Primary Care Provide r Reason for Referral * Evaluate & Treat - Unlimited Visits (Within 10 days (routine)) - Pending Review Specialty Diagnoses / Procedures Referred By Manish canales Referred To Contact Pharmacist / Pharmacy Diagnoses WILLY (iron deficiency anemia) Agnieszka Pinzon PA-C [address] [place] [address] Referral ID Status Reason Start Date Expiration Date Visits Requested Visits Authorized [id number] Pending Review Specialty Services Required 04/13/2023 99 99 Question Answer Referral Priority Within 10 days (routine) Department: Specialist Specialty: city marshal Reason for Referral: Anemia Comments Pharmacist Medication Therapy Management: Iron deficiency anemia Salvatore Brown RN Reason for Visit * Reason Onset Date Comments Blood Management Program 04/13/2023 Encounter Details Date Type Department Care Team Description 04/13/2023 Telephone Patient Blood Management, [place] [address] [place] [address] Agnieszka Pinzon PA-C [address] [place] [address] Blood Management Program Allergies No known active allergiesdocumented as of this encounter (statuses as of 04/20/2023) Medications Medication Sig Dispensed Refills Start Date [...] as of this encounter (statuses as of 04/20/2023) Active Problems Problem Noted Date Iron deficiency [...] as of this encounter (statuses as of 04/20/2023) Immunizations Name Administration Dates Next Due COVID-19 mRNA, LNP-s, No Pre serve, 2-Dose Series (Spectraseis) 08/17/2021,07/27/2021 HIB PRP-T, 4 dose (ActHib) 07/13/1992,,02/14/1991,12/13 [...] Telephone Encounter - Yina Ingram LPN - 04/20/2023 8:22 AM EDT Plan is signed Scheduling: Please contact patient to schedule on 503 schedule, 2 hr appointment for "Venofer /3" (Agnieszka Pinzon). Thank you! * Telephone Encounter - Yina Ingram LPN - 04/18/2023 4:11 PM EDT Order received for Venofer 300mg IV weekly x 3 doses Trumann created and routed to anemia clinic for signature Prior auth is not needed, patient can be scheduled once plan is signed * Telephone Encounter - Salvatore Brown RN - 04/13/2023 3:27 PM EDT Recommend IV iron per OB MTM protocol. Patient agreeable, prefers infusion at [facility]. documented in this encounter Plan of Treatment Upcoming Encounters Date Type Specialty Care Team Description 04/26/2023 Office Visit Gynecology Obstetrics Siobhan Duenas CRNP [address] [place] [address] 04/26/2023 Pharmacy Pharmacy Clinic, Anemia [address] [place] [address] 05/10/2023 Office Visit Gynecology Obstetrics Siobhan Duenas CRNP [address] [place] [address] 05/16/2023 Office Visit Gynecology Obstetrics Siobhan Duenas CRNP [address] [place] [address] 05/24/2023 Office Visit Gynecology Obstetrics Siobhan Duenas CRNP [address] [place] [address] 05/31/2023 Office Visit Gynecology Obstetrics Siobhan Duenas CRNP [address] [place] [address] 06/07/2023 Office Visit Gynecology Obstetrics Siobhan Duenas CRNP [address] [place] [address] 06/14/2023 Office Visit Gynecology Obstetrics Siobhan Duenas CRNP [address] [place] [address] Scheduled Referrals Name Type Priority Associated Diagnoses [...] unspecified documented in this encounter Care Teams Residential Worker Relationship Specialty Start Date End Date Kelechi Vega MD [address] [place] [address] [place] [address] PCP - General Family Medicine 12/28/22 documented as of this encounter
--- OUTSIDE RECORDS SUMMARY | 2023-05-28 14:47 | External Medical Summary | Summary of Care ---
Author Name Unknown Organization [facility] Address [address] [place] [address] Phone [phone] Care Team Providers Care Tie Presser Name Role Phone Kelechi Vega MD Primary Care Provide r Reason for Visit * Reason Onset Date Comments Test Results 03/15/2023 Encounter Details Date Type Department Care Team Description 03/15/2023 Telephone Gynecology/Obstetrics [facility] [address] [facility] [place] [address] Estefania Martin CRNP [address] [facility] [place] [place] [address] Test Results Allergies No known active allergiesdocumented as of this encounter (statuses as of 03/15/2023) Medications Medication Sig Dispensed Refills Start Date [...] as of this encounter (statuses as of 03/15/2023) Active Problems Problem Noted Date Supervision of [...] as of this encounter (statuses as of 03/15/2023) Immunizations Name Administration Dates Next Due COVID-19 mRNA, LNP-s, No Pre serve, 2-Dose Series (Pfizer) 08/17/2021,07/27/2021 HIB 4 dose (Acthib) 07/13/1992,,02/14/1991,12/13 HPV Vaccine, 4-Valent 06/01/2007,01/29/2007,0503/2007 Hep A - Hepatitis A (ped/ado le, 1-18 Yrs) 06/01/2007,11/22/2006 Hepatitis B, 0-19 yrs 05/19/1998,12/23/1997,10/16 MMR - Measles/Mumps/Rubella Vaccine 11/12/1997,1 08/02/1991 Meningococcal Conjugate Vacc ine (Menactra/Menveo) 11/22/2006 OPV - Polio Virus Vaccine (Oral) 996,06/02/1992,02/14/1991,12/13 TDAP (age 10 and older)(Boostrix) 2017,12/10/1995,06/02/1992,05/02,02/14/1991,1990 TDAP (age 11 and older)(Adacel) 11/22/2006 documented [...] encounter Miscellaneous Notes * Telephone Encounter - FATOU Elmore - 03/15/2023 7:58 AM EDT Please schedule pt for 3 hr glucose test. FTAOU Gustafson documented in this encounter Plan of Treatment Upcoming Encounters Date Type Specialty Care Team Description 03/30/2023 Office Visit Gynecology Obstetrics Agnieszka Pinzon PA-C [address] [place] [address] 04/12/2023 Office Visit Gynecology Obstetrics Siobhan Duenas CRNP [address] [place] [address] 04/26/2023 Office Visit Gynecology Obstetrics Siobhan Duenas CRNP [address] [place] [address] 05/10/2023 Office Visit Gynecology Obstetrics Siobhan Duenas CRNP [address] [place] [address] 05/16/2023 Office Visit Gynecology Obstetrics Siobhan Duenas CRNP [address] [place] [address] 05/24/2023 Office Visit Gynecology Obstetrics Siobhan Duenas CRNP [address] [place] [address] 05/31/2023 Office Visit Gynecology Obstetrics Siobhan Duenas CRNP [address] [place] [address] 06/07/2023 Office Visit Gynecology Obstetrics Siobhan Duenas CRNP [address] [place] [address] 06/14/2023 Office Visit Gynecology Obstetrics Siobhan Duenas CRNP [address] [place] [address] Scheduled Orders Name Type Priority Associated Diagnoses Orde r Schedule GESTATIONAL GLUCOSE TOLERANCE, 3 HOUR Lab Routine Glucose intolerance of Expected: 03/15/2023 (Approximate), Expires: 03/15/2024 Health Maintenance Due Date Last Done Comments Depression Screening, Annual for Pts 12 and Over 04/29/2021 04/29/2020 COVID-19 Vaccine (3 - Pfizer series) 10/12/2021 08/17/2021, 07/27/2021 Influenza Vaccine (FLU shot) (#1) 2023 Pap Smear 11/02/2025 11/02/2022, 10/0 02/2018, 04/06/2015, Additional history exists Cervical Cancer Screening 11/03/2027 HPV/Co-Test 11/03/2027 11/02/2022 DTaP,Tdap,and Td Vaccines (3 - Td or Tdap) 02/09/2028 02/08/2018, 11/22/2006, 12/10/1995, Additional history exists Hepatitis B Completed 05/19/1998, 03/1998, 11/12/1997 MENINGOCOCCAL (MENACTRA/MENVEO) Completed 11/22/2006 GARDASIL-HPV IMMUNIZATION SERIES Completed 06/01/2007, 01/29/2007, 11/22/2006 Hepatitis C Screening Completed 11/02/2022 , 11/02/2022, 11/02/2022 Pneumococcal Vaccine: Pediatrics (0 to 5 Years) and At-Risk Patients (6 to 64 Years) Aged Out No longer eligible based on patient's age to complete this topic documented as of this encounter Medical Devices Not on filedocumented as of this encounter Visit Diagnoses Diagnosis Glucose intolerance of - Primary Abnormal maternal glucose tolerance, complicating , childbirth, or the puerperium, unspecified as to episode of care documented in this encounter Care Teams Tie Presser Relationship Specialty Start Date End Date Kelechi Vega MD [address] [place] [address] [place] [address] PCP - General Family Medicine 12/28/22 documented as of this encounter
--- OUTSIDE RECORDS SUMMARY | 2023-05-28 14:47 | External Medical Summary | Summary of Care ---
Author Name Unknown Organization [facility] Address [address] [place] [address] Phone [phone] Care Team Providers Care Systems Spec Name Role Phone Kelechi Vega MD Primary Care Provide r Reason for Visit * Reason Comments Return Visit Encounter Details Date Type Department Care Team Description 04/12/2023 Office Visit Gynecology/Obstetrics [facility] [address] [place] [address] Siobhan Duenas CRNP [address] [place] [address] Supervision of high-risk , unspecified trimester*; Family [...] 1-18 Yrs) 06/01/2007,11/22/2006 Hepatitis B, 0-19 yrs 05/19/1998,12/23/1997,2 03/1998 MMR - Measles/Mumps/Rubella Vaccine 11/12/1997,1 08/02/1991 Meningococcal [...] Sign Reading Time Taken Comments Blood Pressure 100/70 04/12/2023 8:06 AM EDT Pulse - - Temperature - - Respiratory Rate - - Oxygen Saturation - - Inhaled Oxygen Concentration - - Weight 87.8 kg (193 lb 9.6 oz) 04/12/2023 8:06 A M EDT Height 162.6 cm (5' 4") 04/12/2023 8:06 AM EDT Body Mass Index 33.23 04/12/2023 8:06 AM EDT documented in this encounter Progress Notes * FATOU Evans - 04/12/2023 8:30 AM EDT 31w3d No concerns. Good FM. No bleeding or contractions. Taking PNV and iron, repeat CBC today. Discussed PP contraception, likely leaning toward OCP. FATOU Evans * Nadege Diggs LPN - 04/12/2023 8:16 AM EDT 31w3d Pt denies any concerns, completing cbc today documented in this encounter Plan of Treatment Upcoming Encounters Date Type Specialty Care Team Description 04/12/2023 Laboratory Laboratory [facility] [address] [place] [address] Antepartum anemia complicating 04/26/2023 Office Visit Gynecology Obstetrics Siobhan Duenas CRNP [address] [place] [address] 05/10/2023 Office Visit Gynecology Obstetrics Siobhan Duenas CRNP [address] [place] [address] 05/16/2023 Office Visit Gynecology Obstetrics Siobhan Duenas CRNP [address] [place] [address] 05/24/2023 Office Visit Gynecology Obstetrics Siobhan Duenas CRNP [address] [place] [address] 05/31/2023 Office Visit Gynecology Obstetrics Siobhan Duenas CRNP [address] [place] [address] 06/07/2023 Office Visit Gynecology Obstetrics Siobhan Duenas CRNP [address] [place] [address] 06/14/2023 Office Visit Gynecology Obstetrics Siobhan Duenas CRNP [address] [place] [address] Health Maintenance Due Date Last Done Comments [...] antepartum documented in this encounter Care Teams Systems Spec Relationship Specialty Start Date End Date Kelechi Vega MD [address] [place] [address] [place] [address] PCP - General Family Medicine 12/28/22 documented as of this encounter
--- OUTSIDE RECORDS SUMMARY | 2023-05-28 14:47 | External Medical Summary | Summary of Care ---
Author Name Unknown Organization [facility] Address [address] [place] [address] Phone [phone] Care Team Providers Care Auditor Appraiser Name Role Phone Kelechi Vega MD Primary Care Provide r Encounter Details Date Type Department Care Team Description 04/18/2023 Orders Only Gynecology/Obstetrics [facility] [address] [place] [address] Agnieszka Pinzon PA-C [address] [place] [address] Iron deficiency anemia, unspecified iron deficiency anemia [...] of 04/18/2023) Active Problems Problem Noted Date Supervision of [...] Encounters Date Type Specialty Care Team Description 04/18/2023 Pharmacy Pharmacy Clinic, Anemia [address] [place] [address] Iron deficiency anemia, unspecified iron deficiency anemia type* 04/26/2023 Office Visit Gynecology Obstetrics Siobhan Duenas CRNP [address] [place] [address] 04/26/2023 Pharmacy Pharmacy Clinic, An[place] [address] [place] [address] 05/10/2023 Office Visit Gynecology Obstetrics Siobhan Duenas CRNP [address] [place] [address] 05/16/2023 Office Visit Gynecology Obstetrics Siobhan Duenas CRNP [address] [place] [address] 05/24/2023 Office Visit Gynecology Obstetrics Siobhan Duenas CRNP [address] [place] [address] 05/31/2023 Office Visit Gynecology Obstetrics Siobhan Duenas CRNP [address] [place] [address] 06/07/2023 Office Visit Gynecology Obstetrics Siobhan Duenas CRNP [address] [place] [address] 06/14/2023 Office Visit Gynecology Obstetrics Siobhan Duenas CRNP [address] [place] [address] Health Maintenance Due Date Last Done Comments [...] anemia, unspecified iron deficiency anemia type- Primary Iron deficiency anemia, unspecified iron deficiency anemia type- Primary documented in this encounter Care Teams Auditor Appraiser Relationship Specialty Start Date End Date Kelechi Vega MD [address] [place] [address] [place] [address] PCP - General Family Medicine 12/28/22 documented as of this encounter
--- OUTSIDE RECORDS SUMMARY | 2023-05-28 14:47 | External Medical Summary | Summary of Care ---
Author Name Unknown Organization [facility] Address [address] [place] [address] Phone [phone] Care Team Providers Care Hollow Core Door Frame Assembler Name Role Phone Kelechi Vega MD Primary Care Provide r Reason for Referral * (Within 10 days (routine)) Specialty Diagnoses / Procedures Referred By Manish canales Referred To Contact Agnieszka Pinzon PA-C [address] [place] [address] Referral ID Status Reason Start Date Expiration Date Visits Re quested Visits Authorized Question Answer Referral Priority Within 10 days (routine) Encounter Details Date Type Department Care Team Description 04/13/2023 Telephone Gynecology/Obstetrics [facility] [address] [place] [address] Agnieszka Pinzon PA-C [address] [facility] [place] [address] Allergies No known active allergiesdocumented as of this encounter (statuses as of 04/13/2023) Medications Medication Sig Dispensed Refills Start Date [...] as of this encounter (statuses as of 04/13/2023) Active Problems Problem Noted Date Supervision of [...] as of this encounter (statuses as of 04/13/2023) Immunizations Name Administration Dates Next Due COVID-19 [...] encounter Miscellaneous Notes * Telephone Encounter - Hazel Archer LPN - 04/13/2023 1:23 PM EDT Pt calling back and message below reviewed. Pt verbalized understanding and in agreement for blood management referral. * Telephone Encounter - Mirna Holder LPN - 04/13/2023 1:13 PM EDT left message for patient to call office * Telephone Encounter - Agnieszka Pinzon PA-C - 04/13/2023 1:05 PM EDT Most recent labs showed hemoglobin improved from last check but still below 11. Has she been takingher oral iron as prescribed (twice daily)? If yes, then would recommend blood management referral. Please route back to me and I can place referral. Agnieszka Pinzon PA-C documented in this encounter Plan of Treatment Upcoming Encounters Date Type Specialty Care Team Description 04/26/2023 Office Visit Gynecology Obstetrics Siobhan Duenas CRNP [address] [place] [address] 05/10/2023 Office Visit Gynecology Obstetrics Siobhan Duenas CRNP [address] [place] [address] 05/16/2023 Office Visit Gynecology Obstetrics Siobhan Duenas CRNP [address] [place] [address] 05/24/2023 Office Visit Gynecology Obstetrics Siobhan Duenas CRNP [address] [place] [address] 05/31/2023 Office Visit Gynecology Obstetrics Siobhan Duenas CRNP [address] [place] [address] 06/07/2023 Office Visit Gynecology Obstetrics Siobhan Duenas CRNP [address] [place] [address] 06/14/2023 Office Visit Gynecology Obstetrics Siobhan Duenas CRNP [address] [place] [address] Scheduled Referrals Name Type Priority Associated Diagnoses Orde r Schedule BLOOD MANAGEMENT REFERRAL Referral Within 10 days (routine) Anemia during in third trimester Ordered: 04/13/2023 Health Maintenance Due Date Last [...] as of this encounter Visit Diagnoses Diagnosis Anemia during in third trimester- Primary documented in this encounter Care Teams Hollow Core Door Frame Assembler Relationship Specialty Start Date End Date Kelechi Vega MD [address] [place] [address] [place] [address] PCP - General Family Medicine 12/28/22 documented as of this encounter
--- OUTSIDE RECORDS SUMMARY | 2023-05-28 14:47 | External Medical Summary | Summary of Care ---
Author Name Unknown Organization [facility] Address [address] [place] [address] Phone [phone] Care Team Providers Care Electrophonic Engineer Name Role Phone Kelechi Vega MD Primary Care Provide r Reason for Visit * Reason Onset Date Comments Test Results 03/15/2023 Encounter Details Date Type Department Care Team Description 03/15/2023 Telephone Gynecology/Obstetrics [facility] [address] [facility] [place] [address] Estefania Martin CRNP [address] [place] [address] Test Results Allergies No known active allergiesdocumented [...] encounter Miscellaneous Notes * Telephone Encounter - AMALIA Odonnell - 03/15/2023 2:55 PM EDT Apt scheduled * Telephone Encounter - FATOU Elmore - 03/15/2023 7:58 AM EDT Please schedule pt for 3 hr glucose test. FATOU Gustafson documented in this encounter Plan of Treatment Upcoming Encounters Date Type Specialty Care Team Description 03/21/2023 Laboratory Laboratory [facility] [address] [place] [address] 03/30/2023 Office Visit Gynecology Obstetrics Agnieszka Pinzon PA-C [address] [place] [address] 04/12/2023 Office Visit Gynecology Obstetrics Yulissa FATOU Shepherd [address] [place] [address] 04/26/2023 Office Visit Gynecology Obstetrics Yulissa FATOU Shepherd [address] [place], [place] [address] 05/10/2023 Office Visit Gynecology Obstetrics Yulissa FATOU Shepherd [address] [place] [address] 05/16/2023 Office Visit Gynecology Obstetrics Yulissa FATOU Shepherd [address] [place], [place] [address] 05/24/2023 Office Visit Gynecology Obstetrics Yulissa FATOU Shepherd [address] [place], [place] [address] 05/31/2023 Office Visit Gynecology Obstetrics Yulissa FATOU Shepherd [address] [place] [address] 06/07/2023 Office Visit Gynecology Obstetrics Yulissa FATOU Shepherd [address] [place] [address] 06/14/2023 Office Visit Gynecology Obstetrics Yulissa FATOU Shepherd [address] [place] [address] Scheduled Orders Name Type Priority Associated Diagnoses [...] care documented in this encounter Care Teams Electrophonic Engineer Relationship Specialty Start Date End Date Kelechi Vega MD [address] [place] [address] [place] [address] PCP - General Family Medicine 12/28/22 documented as of this encounter
--- OUTSIDE RECORDS SUMMARY | 2023-05-28 14:47 | External Medical Summary | Summary of Care ---
Author Name Unknown Organization [facility] Address [address] [place] [address] Phone [phone] Care Team Providers Care Driver Merchandiser Name Role Phone Kelechi Vega MD Primary Care Provide r Reason for Visit * Reason Onset Date Comments Anemia Follow-Up 04/18/2023 * Evaluate & Treat - Unlimited Visits (Within 10 days (routine)) - Pending Review Specialty Diagnoses / Procedures Referred By Contamparo t Referred To Contact Pharmacist / Pharmacy Diagnoses WILLY (iron deficiency anemia) Agnieszka Pinzon PA-C [address] [place] [address] Referral ID Status Reason Start Date Expiration Date Visits Requested Visits Authorized [id number] Pending Review Specialty Services Required 04/13/2023 99 99 Encounter Details Date Type Department Care Team Description 04/18/2023 Pharmacy Pharmacy, [place] [address] [place], [place] [id number] Clinic, Anemia [address] [place] [address] Iron deficiency anemia, unspecified iron deficiency anemia [...] Progress Notes * Diana Billy, [facility] - 04/18/2023 1:58 PM EDT Patient referred by Agnieszka Pinzon PA-C for evaluation of anemia by the Anemia Clinic. Called patient to introduce role/clinic and to review labs from 03/14 and 04/12. LMOVM. Hgb: 10.6 g/dL TSAT: 13 % Ferritin: 22 ng/mL GA: 32w2d Estimated Date of Delivery: 06/11/23 Hgb is below target range for the third trimester. Iron studies below target range. Per chart reivew, patient is taking Vitron C twice daily and appears to be tolerating it well. Patient qualifies for IV iron repletion. Tentative Plan: Venofer 300 mg IV weekly x 3 doses at SP. Orders need to placed and routed to appropriate parties if patient agreeable to intervention. Follow-up labs (CBCD, ferritin, iron screen, retic panel, B12, and FA) to be scheduled 4-6 weeks after iron repletion completed if appropriate prior to delivery. Anemia Clinic will continue to follow. Thank you for allowing us to participate in the care of thispatient. Thanks, Diana Billy [facility] Clinical Pharmacist 04/18/2023 2:00 PM documented in this encounter Plan of Treatment Upcoming Encounters Date Type Specialty Care Team Description 04/26/2023 Office Visit Gynecology Obstetrics Siobhan Duenas CRNP [address] [place] [address] 04/26/2023 Pharmacy Pharmacy Clinic, Anemia [address] [place] [address] 05/10/2023 Office Visit Gynecology Obstetrics Siobhan Duenas CRNP [address] [place] [address] 05/16/2023 Office Visit Gynecology Obstetrics Siobhan Duenas CRNP [address] [place] [address] 05/24/2023 Office Visit Gynecology Obstetrics Siobhan Duenas CRNP [address] [place] [address] 05/31/2023 Office Visit Gynecology Obstetrics Siobhan Duenas CRNP [address] [place] [address] 06/07/2023 Office Visit Gynecology Obstetrics Siobhan Duenas CRNP [address] [place] [address] 06/14/2023 Office Visit Gynecology Obstetrics Siobhan Duenas CRNP [address] [place] [address] Scheduled Referrals Name Type Priority Associated Diagnoses [...] Primary documented in this encounter Care Teams Driver Merchandiser Relationship Specialty Start Date End Date Kelechi Vega MD [address] [place] [address] [place] [id number] PCP - General Family Medicine 12/28/22 documented as of this encounter
--- OUTSIDE RECORDS SUMMARY | 2023-05-28 14:47 | External Medical Summary | Summary of Care ---
Author Name Unknown Organization [facility] Address [address] [place] [address] Phone [phone] Care Team Providers Care Cherry Dipper Name Role Phone Kelechi Vega MD Primary Care Provide r Reason for Visit * Reason Onset Date Comments Anemia Follow-Up 04/18/2023 * Evaluate & Treat - Unlimited Visits (Within 10 days (routine)) - Pending Review Specialty Diagnoses / Procedures Referred By Contamparo t Referred To Contact Pharmacist / Pharmacy Diagnoses WILLY (iron deficiency anemia) Agnieszka Pinzon PA-C [address] [place] [address] Referral ID Status Reason Start Date Expiration Date Visits Requested Visits Authorized [id number] Pending Review Specialty Services Required 04/13/2023 99 99 Encounter Details Date Type Department Care Team Description 04/18/2023 Pharmacy Pharmacy, [place] [address] [place], [place] [id number] Clinic, Anemia [address] [place] [address] Iron deficiency anemia, unspecified iron deficiency anemia [...] as of this encounter Progress Notes * Drew Rushing, LTAC, located within [facility] - 04/18/2023 1:58 PM EDT Patient referred by Agnieszka Pinzon PA-C for evaluation of anemia by the Anemia Clinic. Called patient to introduce role/clinic and to review labs from 03/14 and 04/12. Hgb: 10.6 g/dL TSAT: 13 % Ferritin: 22 ng/mL GA: 32w2d Estimated Date of Delivery: 06/11/23 Hgb is below target range for the third trimester. Iron studies below target range. Patient reportsfeeling a little tired. Per chart reivew, patient is taking Vitron C twice daily and appears to be tolerating it well. Patient qualifies for IV iron repletion. Plan: Venofer 300 mg IV weekly x 3 doses at SP. Orders placed and routed to appropriate parties. Patient agreeable to intervention. Follow-up labs (CBCD, ferritin, iron screen, retic panel, B12, and FA) to be scheduled 4-6 weeks after iron repletion completed if appropriate prior to delivery. Anemia Clinic will continue to follow. Thank you for allowing us to participate in the care of thispatient. Thanks, Drew Rushing RP Clinical Pharmacist 04/18/2023 2:00 PM documented in this encounter Miscellaneous Notes * Addendum Note - Drew Rushing RPh - 04/18/2023 3:16 PM EDTAddended by: DREW RUSHING on: 04/18/2023 03:16 PM Modules accepted: Orders documented in this encounter Plan of Treatment Upcoming Encounters Date Type Specialty Care Team Description 04/26/2023 Office Visit Gynecology Obstetrics Siobhan Duenas CRNP [address] [place] [address] 04/26/2023 Pharmacy Pharmacy Clinic, [place] [address] [place] [address] 05/10/2023 Office Visit Gynecology Obstetrics Siobhan Duenas CRNP [address] [place] [address] 05/16/2023 Office Visit Gynecology Obstetrics Siobhan Duenas CRNP [address] [place] [address] 05/24/2023 Office Visit Gynecology Obstetrics TimoSiobhan santanaFATOU [address] [place], [place] [address] 05/31/2023 Office Visit Gynecology Obstetrics YulissaKatiedy RamsesFATOU [address] [place], [place] [address] 06/07/2023 Office Visit Gynecology Obstetrics YulissaKatiedy RamsesFATOU [address] [place], [place] [address] 06/14/2023 Office Visit Gynecology Obstetrics YulissaKatieFATOU [place] [address] [place], [place] [address] Scheduled Referrals Name Type Priority Associated Diagnoses [...] Primary documented in this encounter Care Teams Cherry Dipper Relationship Specialty Start Date End Date Kelechi Vega MD [address] [place] [address] [place] [address] PCP - General Family Medicine 12/28/22 documented as of this encounter
--- OUTSIDE RECORDS SUMMARY | 2023-05-28 14:47 | External Medical Summary | Summary of Care ---
Author Name Unknown Organization [facility] Address [address] [place] [address] Phone [phone] Care Team Providers Care Pain Management Nurse Practitioner Name Role Phone Kelechi Vega MD Primary Care Provide r Reason for Referral * Evaluate & Treat - Unlimited Visits (Within 10 days (routine)) - Pending Review Specialty Diagnoses / Procedures Referred By Manish canales Referred To Contact Pharmacist / Pharmacy Diagnoses WILLY (iron deficiency anemia) Agnieszka Pinzon PA-C [address] [place] [address] Referral ID Status Reason Start Date Expiration Date Visits Requested Visits Authorized [id number] Pending Review Specialty Services Required 04/13/2023 99 99 Question Answer Referral Priority Within 10 days (routine) Department: Specialist Specialty: anesthesiologist attending Reason for Referral: Anemia Comments Pharmacist Medication Therapy Management: Iron deficiency anemia Salvatore Brown RN Reason for Visit * Reason Onset Date Comments Blood Management Program 04/13/2023 Encounter Details Date Type Department Care Team Description 04/13/2023 Telephone Patient Blood Management, [place] [address] [place] [address] Agnieszka Pinzon PA-C [address] [place] [address] Blood Management Program Allergies No known active [...] mRNA, LNP-s, No Pre serve, 2-Dose Series (FRAMED) 08/17/2021,07/27/2021 HIB PRP-T, 4 dose (ActHib) 07/13/1992,,02/14/1991,12/13 [...] Miscellaneous Notes * Telephone Encounter - AMALIA Toney - 04/20/2023 9:28 AM EDT Patient returned call and is scheduled for venofer for 04/28. * Telephone Encounter - AMALIA Toney - 04/20/2023 8:56 AM EDT Called and lmom for patient. * Telephone Encounter - Yina Ingram LPN - 04/20/2023 8:22 AM EDT Plan is signed Scheduling: Please contact patient to schedule on 503 schedule, 2 hr appointment for "Venofer 07/19" (Agnieszka Pinzon). Thank you! * Telephone Encounter - Yina Ingram LPN - 04/18/2023 4:11 PM EDT Order received for Venofer 300mg IV weekly x 3 doses [place] created and routed to anemia clinic for signature Prior auth is not needed, patient can be scheduled once plan is signed * Telephone Encounter - Salvatore Brown RN - 04/13/2023 3:27 PM EDT Recommend IV iron per OB MTM protocol. Patient agreeable, prefers infusion at [facility]. documented in this encounter Plan of Treatment Upcoming Encounters Date Type Specialty Care Team Description 04/26/2023 Office Visit Gynecology Obstetrics Siobhan Duenas CRNP [address] [place] [address] 04/26/2023 Pharmacy Pharmacy Clinic, [place] [address] [facility] [place] [address] 04/28/2023 Hem/Onc Treatment [facility] [place], Chair [address] [place], [place] [address] 05/05/2023 Hem/Onc Treatment [facility] [place], Chair 4 Hem Onc Scenery [address] [facility] [facility] [address] 05/10/2023 Office Visit Gynecology Obstetrics Siobhan Duenas CRNP [address] [place] [address] 05/12/2023 Hem/Onc Treatment [facility] [place], Chair [address] Hem On[address] [place] [address] 05/16/2023 Office Visit Gynecology Obstetrics Siobhan Duenas CRNP [address] [place] [address] 05/24/2023 Office Visit Gynecology Obstetrics Siobhan Duenas CRNP [address] [place] [address] 05/31/2023 Office Visit Gynecology Obstetrics Siobhan Duenas CRNP [address] [place] [address] 06/07/2023 Office Visit Gynecology Obstetrics Siobhan Duenas CRNP [address] [place] [address] 06/14/2023 Office Visit Gynecology Obstetrics Siobhan Duenas CRNP [address] [place] [address] Scheduled Referrals Name Type Priority Associated Diagnoses [...] unspecified documented in this encounter Care Teams Pain Management Nurse Practitioner Relationship Specialty Start Date End Date Kelechi Vega MD [address] [place] [address] [place] [address] PCP - General Family Medicine 12/28/22 documented as of this encounter
--- OUTSIDE RECORDS SUMMARY | 2023-05-28 14:47 | External Medical Summary | Summary of Care ---
Author Name Unknown Organization [facility] Address [address] [place] [address] Phone [phone] Care Team Providers Care Commutator Operator Name Role Phone Kelechi Vega MD Primary Care Provide r Encounter Details Date Type Department Care Team Description 04/19/2023 Orders Only Pharmacy, [place] [address] [place], [place] [phone] [facility]jandro SchulerSS[facility] [address] [place] [address] Allergies No known active allergiesdocumented as of this encounter (statuses as of 04/19/2023) Medications Medication Sig Dispensed Refills Start Date [...] as of this encounter (statuses as of 04/19/2023) Active Problems Problem Noted Date Iron deficiency [...] as of this encounter (statuses as of 04/19/2023) Immunizations Name Administration Dates Next Due COVID-19 [...] Obstetrics Siobhan Duenas CRNP [address] [place] [address] 04/26/2023 Pharmacy Pharmacy Clinic, [address] [address] 05/10/2023 Office Visit Gynecology Obstetrics Siobhan Duenas CRNP [address] [place] [address] 05/16/2023 Office Visit Gynecology Obstetrics Siobhan Duenas CRNP [address] [place] [address] 05/24/2023 Office Visit Gynecology Obstetrics Siobhan Duenas CRNP [address] [place] [address] 05/31/2023 Office Visit Gynecology Obstetrics Siobhan Duenas CRNP [address] [place] [address] 06/07/2023 Office Visit Gynecology Obstetrics Siobhan Duenas CRNP [address] [place] [address] 06/14/2023 Office Visit Gynecology Obstetrics Siobhan Duenas CRNP [address] [place] [address] Health Maintenance Due Date Last Done Comments [...] filedocumented as of this encounter Care Teams Commutator Operator Relationship Specialty Start Date End Date Kelechi Vega MD [address] [place] [address] [place] [phone] PCP - General Family Medicine 12/28/22 documented as of this encounter
--- OUTSIDE RECORDS SUMMARY | 2023-05-28 14:47 | External Medical Summary ---
Author Name Unknown Address Unknown Organization [facility] [place] [address] Laboratory Report Ordering Provider Test Date Status FIONANILTON 03/21/2023 10:23:28 Final Observation Date Value Abnormality Reference (Units ) Status Glucose, 2-hr post glucose challenge 03/21/2023 10:23:28 135 70-154 (mg/dL) Final Performing Location [facility] [place] [address]
--- OUTSIDE RECORDS SUMMARY | 2023-05-28 14:47 | External Medical Summary | Summary of Care ---
Author Name Unknown Organization [facility] Address [address] [place] [address] Phone [phone] Care Team Providers Care Veneer Splicer Name Role Phone eKlechi Vega MD Primary Care Provide r Reason for Visit * Reason Comments Outpatient Testing Encounter Details Date Type Department Care Team Description 03/14/2023 Laboratory Laboratory, [facility] [address] [place] [phone] [facility] [address] [place] [address] Supervision of high-risk , unspecified trimester Allergies No known active allergiesdocumented as of this encounter (statuses as of 03/14/2023) Medications Medication Sig Dispensed Refills Start Date End Date Status 28-0.8 MG Oral Tablet Take by mouth. 0 Active Cetirizine HCl 10 MG Oral Tablet Take 1 Tablet by mouth in the morning. 0 Active documented as of this encounter (statuses as of 03/14/2023) Active Problems Problem Noted Date Supervision of [...] as of this encounter (statuses as of 03/14/2023) Immunizations Name Administration Dates Next Due COVID-19 mRNA, LNP-s, No Pre serve, 2-Dose Series (Pfizer) 08/17/2021,07/27/2021 HIB 4 dose (Acthib) 07/13/1992, 1,02/14/1991,12/13 HPV Vaccine, 4-Valent 06/01/2007,01/29/2007,0503/2007 Hep A - [...] Gynecology Obstetrics Agnieszka Pinzon PA-C [address] [place] [address] 04/12/2023 Office Visit Gynecology Obstetrics Siobhan Duenas CRNP [address] [place] [address] 04/26/2023 Office Visit Gynecology Obstetrics Siobhan Duenas CRNP [address] [place] [address] 05/10/2023 Office Visit Gynecology Obstetrics Siobhan Duenas CRNP [address] [place] [address] 05/16/2023 Office Visit Gynecology Obstetrics Siobhan Duenas CRNP [address] [place] [address] 05/24/2023 Office Visit Gynecology Obstetrics YulissaKatiedy RamsesFATOU [address] [place] [address] 05/31/2023 Office Visit Gynecology Obstetrics YulissaKatiedy RamsesFATOU [address] [place] [address] 06/07/2023 Office Visit Gynecology Obstetrics Siobhan Duenas CRNP [address] [place] [address] 06/14/2023 Office Visit Gynecology [place] [address] Pending Results Name Type Priority Associated Diagnoses Date /Time CBC WITH WBC DIFFERENTIAL AND ANEMIA REFLEX WORKUP Lab Routine Supervision of high-risk , unspecified trimester 03/14/2023 9:09 AM EDT SYPHILIS ANTIBODY SCREEN WITH REFLEX TO RPR Lab Routine Supervision of high-risk , unspecified trimester 03/14/2023 9:09 AM EDT 50-G GESTATIONAL GLUCOSE, 1 HOUR Lab Routine Supervision of high-risk , unspecified trimester 03/14/2023 9:09 AM EDT ANEMIA CBC Lab Routine Supervision of high-risk , unspecified trimester 03/14/2023 9:09 AM EDT DIFFERENTIAL, AUTOMATED Lab Routine Supervision of high-risk , unspecified trimester 03/14/2023 9:09 AM EDT ANEMIA REFLEX CHEMISTRY HOLD Lab Routine Supervision of high-risk , unspecified trimester 03/14/2023 9:09 AM EDT SYPHILIS ANTIBODY SCREEN Lab Routine Supervision of high-risk , unspecified trimester 03/14/2023 9:09 AM EDT Health Maintenance Due Date Last [...] Diagnoses Diagnosis Supervision of high-risk , unspecified trimester documented in this encounter Care Teams Veneer Splicer Relationship Specialty Start Date End Date Kelechi Vega MD [address] [place] [address] [place] [address] PCP - General Family Medicine 12/28/22 documented as of this encounter
--- OUTSIDE RECORDS SUMMARY | 2023-05-28 14:47 | External Medical Summary | Summary of Care ---
Author Name Unknown Organization [facility] Address [address] [place] [address] Phone [phone] Care Team Providers Care Medical Writer Name Role Phone Kelechi Vega MD Primary Care Provide r Reason for Visit * Reason Onset Date Comments Anemia Follow-Up 04/18/2023 * Evaluate & Treat - Unlimited Visits (Within 10 days (routine)) - Pending Review Specialty Diagnoses / Procedures Referred By Contamparo t Referred To Contact Pharmacist / Pharmacy Diagnoses WILLY (iron deficiency anemia) Agnieszka Pinzon PA-C [address] [facility] [address] Referral ID Status Reason Start Date Expiration Date Visits Requested Visits Authorized [id number] Pending Review Specialty Services Required 04/13/2023 99 99 Encounter Details Date Type Department Care Team Description 04/18/2023 Pharmacy Pharmacy, [place] [address] [place], [place] [phone] Clinic, Anemia [address] [place] [address] Iron deficiency anemia, unspecified iron deficiency anemia [...] this encounter Progress Notes * Diana Billy, [facility] - 04/18/2023 1:58 PM EDT Patient referred [...] the care of thispatient. Thanks, Diana Billy [facility] Clinical Pharmacist 04/18/2023 2:00 PM documented in this encounter Plan of Treatment Upcoming Encounters Date Type Specialty Care Team Description 04/26/2023 Office Visit Gynecology Obstetrics Siobhan Duenas CRNP [address] [place] [address] 04/26/2023 Pharmacy Pharmacy Clinic, Anemia [address] [place] [address] 05/10/2023 Office Visit Gynecology Obstetrics Siobhan Duenas CRNP [address] [place] [address] 05/16/2023 Office Visit Gynecology Obstetrics Siobhan Duenas CRNP [address] [place] [address] 05/24/2023 Office Visit Gynecology Obstetrics Siobhan Duenas CRNP [address] [place] [address] 05/31/2023 Office Visit Gynecology Obstetrics Siobhan Duenas CRNP [address] [place] [address] 06/07/2023 Office Visit Gynecology Obstetrics Siobhan Duenas CRNP [address] [place] [address] 06/14/2023 Office Visit Gynecology Obstetrics Siobhan Duenas CRNP [address] [place] [address] Scheduled Referrals Name Type Priority Associated Diagnoses [...] Primary documented in this encounter Care Teams Medical Writer Relationship Specialty Start Date End Date Kelechi Vega MD [address] [place] [address] [place] [phone] PCP - General Family Medicine 12/28/22 documented as of this encounter
--- OUTSIDE RECORDS SUMMARY | 2023-05-28 14:47 | External Medical Summary | Summary of Care ---
Author Name Unknown Organization [facility] Address [address] [place] [address] Phone [phone] Care Team Providers Care Grain Origination Specialist Name Role Phone Kelechi Vega MD Primary Care Provide r Reason for Visit * Reason Comments Blood Management Program Encounter Details Date Type Department Care Team Description 04/13/2023 Documentation Patient Blood Management, [place] [address] [place] [address] Salvatore Brown RN Allergies No known active allergiesdocumented as of [...] as of this encounter Progress Notes * Salvatore Brown RN - 04/13/2023 3:25 PM EDT REFERRAL - Patient Blood Management Name: Brinda Toussaint REQUESTING SERVICE: Rhea BARR REASON FOR REFERRAL: new evaluation outpatient, anemia in [place]: 06/11/23 Anemia Evaluation: Latest Reference Range & Units 03/14/23 09:09 04/12/23 08:35 HGB 12.0 - 15.3 g/dL 10.2 (L) 10.6 (L) HCT 36.0 - 45.2 % 33.2 (L) 32.1 (L) Iron 33 - 151 ug/dL 71 Iron Binding Capacity 250 - 425 ug/dL 529 (H) Transferrin Saturation Percent 15 - 55 % 13 (L) Ferritin 13 - 150 ng/mL 22 Vitamin B12 232 - 1,245 pg/mL 242 Folic Acid >4.5 ng/mL >20.0 Immature Reticuloctye Fraction 2.5 - 20.6 % 34.7 (H) Reticulocyte Hemoglobin 29.7 - 37.4 pg 33.0 (L): Data is abnormally low (H): Data is abnormally high Current Patient Medications: Medications that may impair hemostasis: None Medications that may impair iron absorption: None Patient Refused Blood Transfusion? (e.g. Anglican): no Possible Contributing Factors: iron deficiency Treatment Recommendations: HGB did not improve on oral iron. Agreeable to IV iron. Will submit OB MTM. Thank you for allowing Blood Management to participate in the care of this patient. documented in this encounter Plan of Treatment Upcoming Encounters Date Type Specialty Care Team Description 04/26/2023 Office Visit Gynecology Obstetrics Siobhan Duenas CRNP [address] [place] [address] 05/10/2023 Office Visit Gynecology Obstetrics Siobhan Duenas CRNP [address] [place], [place] [address] 05/16/2023 Office Visit Gynecology Obstetrics Siobhan Duenas CRNP [address] [place], [place] [address] 05/24/2023 Office Visit Gynecology Obstetrics Siobhan Duenas CRNP [address] [place] [address] 05/31/2023 Office Visit Gynecology Obstetrics Siobhan Duenas CRNP [address] [place] [address] 06/07/2023 Office Visit Gynecology Obstetrics Siobhan Duenas CRNP [address] [place] [address] 06/14/2023 Office Visit Gynecology Obstetrics Siobhan Duenas CRNP [address] [place] [address] Health Maintenance Due Date Last Done Comments [...] filedocumented as of this encounter Care Teams Grain Origination Specialist Relationship Specialty Start Date End Date Kelechi Vega MD [address] [place] [address] [place] [phone] PCP - General Family Medicine 12/28/22 documented as of this encounter
--- OUTSIDE RECORDS SUMMARY | 2023-05-28 14:47 | External Medical Summary | Summary of Care ---
Author Name Unknown Organization [facility] Address [address] [place] [address] Phone [phone] Care Team Providers Care Rubber Factory Worker Name Role Phone Kelechi Vega MD Primary Care Provide r Reason for Visit * Reason Comments Outpatient Testing Encounter Details Date Type Department Care Team Description 03/21/2023 Laboratory Laboratory, [facility] [address] [place] [phone] [facility] [address] [place] [address] Glucose intolerance of Allergies No known active allergiesdocumented as of this encounter (statuses as of 03/21/2023) Medications Medication Sig Dispensed Refills Start Date [...] as of this encounter (statuses as of 03/21/2023) Active Problems Problem Noted Date Supervision of [...] as of this encounter (statuses as of 03/21/2023) Immunizations Name Administration Dates Next Due COVID-19 mRNA, LNP-s, No Pre serve, 2-Dose Series (Pfizer) 08/17/2021,07/27/2021 HIB 4 dose (Acthib) 07/13/1992, 1,02/14/1991,12/13 HPV Vaccine, 4-Valent 06/01/2007,01/29/2007,03/2007 Hep A - [...] Pinzon PA-C [address] [place] [address] 04/12/2023 Office Visit Gynecology Obstetrics Siobhan Duenas CRNP [address] [place] [address] 04/26/2023 Office Visit Gynecology Obstetrics Siobhan Duenas CRNP [address] [place] [address] 05/10/2023 Office Visit Gynecology Obstetrics Siobhan Duenas CRNP [address] [place] [address] 05/16/2023 Office Visit Gynecology Obstetrics Siobhan Duenas CRNP [address] [place] [address] 05/24/2023 Office Visit Gynecology Obstetrics Siobhan Duenas CRNP [address] [place] [address] 05/31/2023 Office Visit Gynecology Obstetrics Siobhan Duenas CRNP [address] [place] [address] 06/07/2023 Office Visit Gynecology Obstetrics Siobhan Duenas CRNP [address] [place] [address] 06/14/2023 Office Visit Gynecology Obstetrics Siobhan Duenas CRNP [address] [place] [address] Pending Results Name Type Priority Associated Diagnoses Date /Time GESTATIONAL GLUCOSE TOLERANCE, 3 HOUR Lab Routine Glucose intolerance of 03/21/2023 8:21 AM EDT 100-G GESTATIONAL GLUCOSE, 3 HOUR Lab Routine Glucose intolerance of 03/21/2023 11:24 AM EDT Health Maintenance Due Date Last [...] Not on filedocumented as of this encounter Procedures Procedure Name Priority Date/Time Associated Diagnosis Comments 100-G GESTATIONAL GLUCOSE, 2 HOUR Routine 03/21/2023 10:23 AM EDT Glucose intolerance of 100-G GESTATIONAL GLUCOSE, 1 HOUR Routine 03/21/2023 9:24 AM EDT Glucose intolerance of 100-G GESTATIONAL GLUCOSE, FASTING Routine 03/21/2023 8:21 AM EDT Glucose intolerance of documented in this encounter Results * 100-G GESTATIONAL GLUCOSE, 2 HOUR (03/21/2023 10:23 AM EDT) 100-g Gestational Glucose, 2 Hour 135 70 - 154 mg/dL 03/21/2023 11:12 AM EDT [facility] [place] 57-10 Blood Venous blood specimen / Unknown Venipuncture / Unknown 03/21/2023 10:23 AM EDT 03/21/2023 10:23 AM EDT Estefania LAINEZ [facility] [place] 57-10 [address] [facility] [place] [address] * 100-G GESTATIONAL GLUCOSE, 1 HOUR (03/21/2023 9:24 AM EDT) 100-g Gestational Glucose, 1 Hour 174 70 - 179 mg/dL 03/21/2023 10:21 AM EDT [facility] [place] 57-10 Blood Venous blood specimen / Unknown Venipuncture / Unknown 03/21/2023 9:24 AM EDT 03/21/2023 9:24 AM EDT Estefania Fowler Mario LAINEZ LAB BLOOD [facility] [place] 57-[address] [place] [address] * 100-G GESTATIONAL GLUCOSE, FASTING (03/21/2023 8:21 AM EDT) [facility] 100-g Gestational Glucose, Fasting 86 70 - 94 mg/dL 03/21/2023 9:10 AM EDT [facility] [place] [place] 57-10 Blood Venous blood specimen / Unknown Venipuncture / Unknown 03/21/2023 8:21 AM EDT 03/21/2023 8:21 AM EDT Narrative [facility] 57-10 - 03/21/2023 9:10 AM EDT Based on ACOG guideline, gestational diabetes mellitus is diagnosed when any of the following is met: Fasting is greater than or equal to 95 mg/dL 1 hour is greater than or equal to 180 mg/dL 2 hour is greater than or equal to 155 mg/dL 3 hour is greater than or equal to 140 mg/dL Estefania Greentamica LAINEZ [facility] 57-10 [address] [place] [address] documented in this encounter Visit Diagnoses Diagnosis Glucose intolerance of Abnormal maternal glucose tolerance, complicating , childbirth, or the puerperium, unspecified as to episode of care documented in this encounter Care Teams Rubber Factory Worker Relationship Specialty Start Date End Date Kelechi Vega MD [address] [place] [address] [place] [address] PCP - General Family Medicine 12/28/22 documented as of this encounter
--- OUTSIDE RECORDS SUMMARY | 2023-05-28 14:47 | External Medical Summary | Summary of Care ---
Author Name Unknown Organization [facility] Address [address] [place] [address] Phone [phone] Care Team Providers Care Splitting Machine Feeder Name Role Phone Kelechi Vega MD Primary Care Provide r Reason for Visit * Reason Comments Return Visit Encounter Details Date Type Department Care Team Description 03/30/2023 Office Visit Gynecology/Obstetrics [facility] [address] [place] [address] Agnieszka Pinzon PA-C [address] [place] [address] 29 weeks gestation of *; Need for wvcveyqfdc-qqagcip-jqh tussis (Tdap) vaccine; Supervision of high-risk , unspecified trimester; Family history of aneurysm; Family history of spina bifida; History of migraine during ; Antepartum anemia complicating Allergies No known active allergiesdocumented as of this encounter (statuses as of 03/30/2023) Medications Medication Sig Dispensed Refills Start Date [...] as of this encounter (statuses as of 03/30/2023) Active Problems Problem Noted Date Supervision of [...] as of this encounter (statuses as of 03/30/2023) Immunizations Name Administration Dates Next Due COVID-19 [...] Sign Reading Time Taken Comments Blood Pressure 110/62 03/30/2023 2:11 PM EDT Pulse - - Temperature - - Respiratory Rate - - Oxygen Saturation - - Inhaled Oxygen Concentration - - Weight 85.4 kg (188 lb 3.2 oz) 03/30/2023 2:11 P M EDT Height 162.6 cm (5' 4") 03/30/2023 2:11 PM EDT Body Mass Index 32.3 03/30/2023 2:11 PM EDT documented in this encounter Progress Notes * Agnieszka Pinzon PA-C - 03/30/2023 2:15 PM EDT 29w4d First time seeing patient. Counseled on Tdap recommendation, patient accepts. Counseled on recommendation for flu vaccine, pt declines. Repeat CBC with next visit, order placed. Pt aware. On oral iron BID. Passed 3 hour gtt. Denies bleeding/leaking/contractions. Pt did have questions about this FKC. Reviewed FKC, call if <10 movement in 2 hr. States read paperwork from last time and thought she was suppose to get 10 movement all at once. She states was doing incorrectly. No concerns for decreased movement, reports he is definitely moving. Advised do kick counts later today, again if any concern <10 movement/2 hrs call right away. She was given triage number as stated didn't have. RTC in 2 weeks Agnieszka Pinzon PA-C * Nadege Diggs LPN - 03/30/2023 2:14 PM EDT 29w4d Pt denies any concerns. Desires tdap today. documented in this encounter Nursing Notes * Nadege Diggs LPN - 03/30/2023 3:13 PM EDT Patient here for tdap injection. Patient doing well no complaints. Injection given IM as ordered. Patient tolerated well. Patient to follow up as directed. Patient instructed to call if any complications. Patient verbalized understanding of instructions given. Injection site: Left Deltoid Medication Source: Dispensed stock medication documented in this encounter Plan of Treatment Upcoming Encounters Date Type Specialty Care Team Description 04/12/2023 Office Visit Gynecology Obstetrics Siobhan Duenas CRNP [address] [place] [address] 04/26/2023 Office Visit Gynecology Obstetrics Siobhan Duenas CRNP [address] [place] [address] 05/10/2023 [facility] [address] [place] [address] 05/16/2023 Office Visit Gynecology Obstetrics [place] FATOU Shepherd [address] [place] [address] 05/24/2023 Office Visit Gynecology Obstetrics Siobhan Duenas CRNP [address] [place] [address] 05/31/2023 Office Visit Gynecology Obstetrics Siobhan Duenas CRNP [address] [place] [address] 06/07/2023 Office Visit Gynecology Obstetrics Siobhan Duenas CRNP [address] [place] [address] 06/14/2023 Office Visit Gynecology Obstetrics Yulissa FATOU Shepherd [address] [place] [address] Scheduled Orders Name Type Priority Associated Diagnoses Orde r Schedule CBC Lab Routine Antepartum anemia complicating Expected: 04/13/2023, Expires: 03/30/2024 Health Maintenance Due Date Last Done Comments [...] as of this encounter Visit Diagnoses Diagnosis 29 weeks gestation of - Primary state, incidental Need for yjeyvgpqgf-ernqpaz-eehmjlqpp (Tdap) vaccine Need for prophylactic vaccination with combined ioumaymjgv-kcledqb-feuapjcvk (DTP) vaccine Supervision of high-risk , unspecified trimester Family history of aneurysm Family history of other condition Family history of spina bifida Family history of congenital anomalies History of migraine during Supervision of other high-risk Antepartum anemia complicating Anemia, antepartum documented in this encounter Care Teams Splitting Machine Feeder Relationship Specialty Start Date End Date Kelechi Vega MD [address] [place] [address] [place] [address] PCP - General Family Medicine 12/28/22 documented as of this encounter
--- OUTSIDE RECORDS SUMMARY | 2023-05-28 14:47 | External Medical Summary | Summary of Care ---
Author Name Unknown Organization [facility] Address [address] [place] [address] Phone [phone] Care Team Providers Care Aircraft Delivery Checker Name Role Phone Kelechi Vega MD Primary Care Provide r Encounter Details Date Type Department Care Team Description 04/18/2023 Orders Only Hematology/Oncology [facility] [address] [place] [address] Agnieszka Pinzon PA-C [address] [place] [address] Allergies No known active allergiesdocumented as of [...] Obstetrics Siobhan Duenas CRNP [address] [place] [address] 04/26/2023 Pharmacy Pharmacy Clinic, [address] [address] 05/10/2023 Office Visit Gynecology Obstetrics Siobhan Duenas CRNP [address] [place] [address] 05/16/2023 Office Visit Gynecology Obstetrics Siobhan Duenas CRNP [address] [place] [address] 05/24/2023 Office Visit Gynecology Obstetrics Siobhan Duenas CRNP [address] [place] [address] 05/31/2023 Office Visit Gynecology Obstetrics Siobhan Duenas CRNP [address] [place] [address] 06/07/2023 Office Visit Gynecology Obstetrics Siobhan Duenas CRNP [address] [place] [address] 06/14/2023 Office Visit Gynecology Obstetrics Siobhan Duenas CRNP [address] [place] [address] Health Maintenance Due Date Last Done Comments [...] filedocumented as of this encounter Care Teams Aircraft Delivery Checker Relationship Specialty Start Date End Date Kelechi Vega MD [address] [place] [address] [place] [address] PCP - General Family Medicine 12/28/22 documented as of this encounter
--- OUTSIDE RECORDS SUMMARY | 2023-05-28 14:47 | External Medical Summary | Summary of Care ---
Author Name Unknown Organization [facility] Address [address] [place] [address] Phone [phone] Care Team Providers Care Pantograph Setter Name Role Phone Kelechi Vega MD Primary Care Provide r Reason for Referral * Evaluate & Treat - Unlimited Visits (Within 10 days (routine)) - Pending Review Specialty Diagnoses / Procedures Referred By Manish canales Referred To Contact Pharmacist / Pharmacy Diagnoses WILLY (iron deficiency anemia) Agnieszka Pinzon PA-C [address] [place] [address] Referral ID Status Reason Start Date Expiration Date Visits Requested Visits Authorized [id number] Pending Review Specialty Services Required 04/13/2023 99 99 Question Answer Referral Priority Within 10 days (routine) Department: Specialist Specialty: milk deliverer Reason for Referral: Anemia Comments Pharmacist Medication Therapy Management: Iron deficiency anemia Salvatore Brown RN Reason for Visit * Reason Onset Date Comments Blood Management Program 04/13/2023 Encounter Details Date Type Department Care Team Description 04/13/2023 Telephone Patient Blood Management, [place] [address] [place] [address] Agnieszka Pinzon PA-C [address] [place] [address] Blood Management Program Allergies No known active [...] mRNA, LNP-s, No Pre serve, 2-Dose Series (Dealdrive) 08/17/2021,07/27/2021 HIB PRP-T, 4 dose (ActHib) 07/13/1992,,02/14/1991,12/13 [...] Venofer 300mg IV weekly x 3 doses [place] created and routed to anemia clinic for signature Prior auth is not needed, patient can be scheduled once plan is signed * Telephone Encounter - Salvatore Brown RN - 04/13/2023 3:27 PM EDT Recommend IV iron per OB MTM protocol. Patient agreeable, prefers infusion at [facility]. documented in this encounter Plan of Treatment Upcoming Encounters Date Type Specialty Care Team Description 04/26/2023 Office Visit Gynecology Obstetrics Soibhan Duenas CRNP [address] [place] [address] 04/26/2023 Pharmacy Pharmacy Clinic, Anemia [address] [place] [address] 05/10/2023 Office Visit Gynecology Obstetrics Siobhan Duenas CRNP [address] [place] [address] 05/16/2023 Office Visit Gynecology Obstetrics Siobhan Duenas CRNP [address] [place] [address] 05/24/2023 Office Visit Gynecology Obstetrics Siobhan Duenas CRNP [address] [place] [address] 05/31/2023 Office Visit Gynecology Obstetrics Siobhan Duenas CRNP [address] [place] [address] 06/07/2023 Office Visit Gynecology Obstetrics Siobhan Duenas CRNP [address] [place] [address] 06/14/2023 Office Visit Gynecology Obstetrics Siobhan Duenas CRNP [address] [place] [address] Scheduled Referrals Name Type Priority Associated Diagnoses [...] unspecified documented in this encounter Care Teams Pantograph Setter Relationship Specialty Start Date End Date Kelechi Vega MD [address] [place] [address] [place] [address] PCP - General Family Medicine 12/28/22 documented as of this encounter
--- OUTSIDE RECORDS SUMMARY | 2023-05-28 14:47 | External Medical Summary | Summary of Care ---
Author Name Unknown Organization [facility] Address [address] [place] [address] Phone [phone] Care Team Providers Care Deal Architect Name Role Phone Kelechi Vega MD Primary Care Provide r Reason for Referral * Evaluate & Treat - Unlimited Visits (Within 10 days (routine)) - Pending Review Specialty Diagnoses / Procedures Referred By Manish canales Referred To Contact Pharmacist / Pharmacy Diagnoses WILLY (iron deficiency anemia) Agnieszka Pinzon PA-C [address] [place] [address] Referral ID Status Reason Start Date Expiration Date Visits Requested Visits Authorized [id number] Pending Review Specialty Services Required 04/13/2023 99 99 Question Answer Referral Priority Within 10 days (routine) Department: Specialist Specialty: non destructive tester Reason for Referral: Anemia Comments Pharmacist Medication Therapy Management: Iron deficiency anemia Salvatore Brown RN Reason for Visit * Reason Onset Date Comments Blood Management Program 04/13/2023 Encounter Details Date Type Department Care Team Description 04/13/2023 Telephone Patient Blood Management, [place] [address] [place] [address] Agnieszka Pinzon PA-C [address] [place] [address] Blood Management Program Allergies No known active [...] mRNA, LNP-s, No Pre serve, 2-Dose Series (myinfoQ) 08/17/2021,07/27/2021 HIB PRP-T, 4 dose (ActHib) 07/13/1992,,02/14/1991,12/13 [...] Venofer 300mg IV weekly x 3 doses [place] created and routed to anemia clinic for signature Prior auth is not needed, patient can be scheduled once plan is signed * Telephone Encounter - Salvatore Brown RN - 04/13/2023 3:27 PM EDT Recommend IV iron per OB MTM protocol. Patient agreeable, prefers infusion at [facility]. documented in this encounter Plan of Treatment Upcoming Encounters Date Type Specialty Care Team Description 04/26/2023 Office Visit Gynecology Obstetrics Siobhan Duenas CRNP [address] [place] [address] 04/26/2023 Pharmacy Pharmacy Clinic, An[facility] [address] [place] [address] 05/10/2023 Office Visit Gynecology Obstetrics Siobhan Duenas CRNP [address] [place] [address] 05/16/2023 Office Visit Gynecology Obstetrics Siobhan Duenas CRNP [address] [place] [address] 05/24/2023 Office Visit Gynecology Obstetrics Siobhan Duenas CRNP [address] [place] [address] 05/31/2023 Office Visit Gynecology Obstetrics Siobhan Duenas CRNP [address] [place] [address] 06/07/2023 Office Visit Gynecology Obstetrics Siobhan Duenas CRNP [address] [place] [address] 06/14/2023 Office Visit Gynecology Obstetrics Siobhan Duenas CRNP [address] [place] [address] Scheduled Referrals Name Type Priority Associated Diagnoses [...] unspecified documented in this encounter Care Teams Deal Architect Relationship Specialty Start Date End Date Kelechi Vega MD [address] [place] [address] [place] [address] PCP - General Family Medicine 12/28/22 documented as of this encounter
--- OUTSIDE RECORDS SUMMARY | 2023-05-28 14:48 | External Medical Summary | Summary of Care ---
Author Name Unknown Organization [facility] Address [address] [place] [address] Phone [phone] Care Team Providers Care Stitchdown Toe Former Name Role Phone Unavailable Primary Care Provider Unavailabl e Reason for Visit * Reason Comments Return Visit Encounter Details Date Type Department Care Team Description 11/30/2022 Office Visit Gynecology/Obstetrics Terese Isabel [address] [place] [address] Siobhan Duenas CRNP [address] [place] [address] Supervision of high-risk , unspecified trimester*; Family history of aneurysm; Family history of spina bifida; History of migraine during Allergies No known active allergiesdocumented as of this encounter (statuses as of 11/30/2022) Medications Medication Sig Dispensed Refills Start Date End Date Status 28-0.8 MG Oral Tablet Take by mouth. 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 Migraine headache with aura 08/28/2013 Raynaud phenomenon 08/28/2013 ADHD (attention deficit hyperactivity di sorder) Estimated Date of Delivery Comme nts Yes 06/11/2023 Based on last me nstrual period of 09/04/2022 documented as of this encounter (statuses as of 11/30/2022) Immunizations Name Administration Dates Next Due COVID-19 [...] Sign Reading Time Taken Comments Blood Pressure 108/66 11/30/2022 8:02 AM EDT Pulse - - Temperature - - Respiratory Rate - - Oxygen Saturation - - Inhaled Oxygen Concentration - - Weight 76.6 kg (168 lb 12.8 oz) 11/30/2022 8:02 AM EDT Height - - Body Mass Index 28.97 11/02/2022 9:23 AM EDT documented in this encounter Progress Notes * FATOU Evans - 11/30/2022 8:09 AM EDT 12w3d No nausea, feeling tired. Declines genetics. Met with genetic counselor. FATOU Evans documented in this encounter Nursing Notes * Hazel Archer LPN - 11/30/2022 8:03 AM EDT 12w3d Denies vaginal bleeding/rom Absent movement Declines genetic testing documented in this encounter Plan of Treatment Upcoming Encounters Date Type Specialty Care Team Description 12/20/2022 Office Visit Cardiology Guanakito Parish MD [address] [place] [address] 12/28/2022 Office Visit Gynecology Obstetrics Siobhan Duenas CRNP [address] [place] [address] 01/16/2023 Office Visit Maternal Medicine Compa Okeefe MD [address] [place] [facility] [place] [address] 01/16/2023 Imaging Radiology Health Maintenance Due Date Last Done Comments Depression Screening, Annual for Pts 12 and Over 04/29/2021 04/29/2020 COVID-19 Vaccine (3 - Booster for Pfizer series) 10/12/2021 08/17/2021, 07/27/2021 Influenza Vaccine (FLU shot) (Season Ended) 2023 Pap Smear 11/03/2027 11/02/2022, 02/2018, 04/06/2015, Additional history exists DTaP,Tdap,and Td Vaccines (3 - Td or Tdap) 02/09/2028 02/08/2018, 11/22/2006, 12/10/1995, Additional history exists Hepatitis B Completed 05/19/1998, 03/1998, 11/12/1997 MENINGOCOCCAL (MENACTRA/MENVEO) Completed 11/22/2006 GARDASIL-HPV IMMUNIZATION SERIES Completed 06/01/2007, 01/29/2007, 11/22/2006 Hepatitis C Screening Completed 11/02/2022 Pneumococcal Vaccine: Pediatrics (0 to 5 [...]
--- OUTSIDE RECORDS SUMMARY | 2023-05-28 14:48 | External Medical Summary ---
Author Name Unknown Address Unknown Organization [facility] [address] [place] [address] Laboratory Report Ordering Provider Test Date Status FIONANILTON 03/14/2023 09:09:33 Final Observation Date Value Abnormality Reference (Units ) Status Ferritin 03/14/2023 09:09:33 22 13-150 (ng /mL) Final Performing Location [facility] [address] [place] [address]
--- OUTSIDE RECORDS SUMMARY | 2023-05-28 14:48 | External Medical Summary | Summary of Care ---
Author Name Unknown Organization [facility] Address [address] [place] [address] Phone [phone] Care Team Providers Care Embedded Linux Developer Name Role Phone Kelechi Vega MD Primary Care Provide r Reason for Visit * Evaluate & Treat - Unlimited Visits (Within 10 days (routine)) - Pending Review Specialty Diagnoses / Procedures Referred By Manish canales Referred To Contact Obstetrics/Gynecology / Maternal Medicine Diagnoses High-risk in first trimester Family history of aneurysm Family history of spina bifida Estefania Martin CRNP [address] [place] [address] Referral ID Status Reason Start Date Expiration Date Visits Requested Visits Authorized [id number] Pending Review Specialty Services Required 11/02/[phone] Encounter Details Date Type Department Care Team Description 01/16/2023 Office Visit Account Support Manager Obstetrics Maternal Medicine, [facility] [address] [place] [address] Compa Okeefe MD [address] [place] [address] History of migraine during *; Family history of spina bifida; Family history of aneurysm; Supervision of high-risk , unspecified trimester Allergies No known active allergiesdocumented as of this encounter (statuses as of 01/16/2023) Medications Medication Sig Dispensed Refills Start Date End Date Status 28-0.8 MG Oral Tablet Take by mouth. 0 Active Cetirizine HCl 10 MG Oral Tablet (ZyrTEC Allergy) Take 1 Tablet by mouth in the morning. 0 Active documented as of this encounter (statuses as of 01/16/2023) Active Problems Problem Noted Date Supervision of [...] as of this encounter (statuses as of 01/16/2023) Immunizations Name Administration Dates Next Due COVID-19 [...] as of this encounter Progress Notes * Lo Kelly DO - 01/16/2023 7:33 AM EDT MATERNAL MEDICINE VISIT Brinda Toussaint is at 19w1d who presents to [facility] for an ultrasound and follow-up of her high risk . REVIEW OF SYSTEMS: reports movement: no PHYSICAL EXAM: Constitutional: pleasant, well-developed, well nourished General: pleasant, alert and oriented Neuro: mood and affect normal, alert and oriented, no acute distress She is being seen today by Maternal- Medicine for the following reasons: Problem List Items Addressed This Visit Other Supervision of high-risk , unspecified trimester Reassured patient that all visualized anatomy appears normal. EFW at 91%ile, but dating accurate/appropriate. Fluid appropriate for gestational age. Family history of aneurysm S/p Cardiology visit on 12/28/22. Echo being updated and then further imaging pending those results.Also met with genetics and patient may consider cardiogenetics referral for additional information. Family history of spina bifida S/p consultation with genetics. Declined MSAFP screen. History of migraine during - Primary We reviewed today's ultrasound findings. (For full report, please refer to ultrasound report provided separately). Ms. Toussaint's questions were answered to her satisfaction. RECOMMENDATIONS: No further follow up with MFM indicated at this time. Thank you for allowing us to participate in the care of this patient. Please call with any questions. CC: Dr. Sary Kelly, 01/16/2023 7:33 AM I have discussed the patient's management with the medical trainee and agree with the note. Please refer to the documented findings and plan of care. This patient's visit today consisted of an evaluation and a diagnostic. I was present and confirmed the findings of the history and exam. I have reviewed the interpretation of the diagnostic study. I reviewed the ultrasound with the patient. At this point, there is no clinical indication for return. Compa Okeefe MD 01/16/2023 9:02 AM Compa Okeefe MD documented in this encounter Miscellaneous Notes * Assessment & Plan Note - Lo Kelly DO - 01/16/2023 8:48 AM EDTAssociated Problem(s): Supervision of high-risk , unspecified trimester Reassured patient that all visualized anatomy appears normal. EFW at 91%ile, but dating accurate/appropriate. Fluid appropriate for gestational age. * Assessment & Plan Note - Lo Kelly DO - 01/16/2023 7:31 AM EDTAssociated Problem(s): Family history of aneurysm S/p Cardiology visit on 12/28/22. Echo being updated and then further imaging pending those results.Also met with genetics and patient may consider cardiogenetics referral for additional information. * Assessment & Plan Note - Lo Kelly DO - 01/16/2023 7:31 AM EDTAssociated Problem(s): Family history of spina bifida S/p consultation with genetics. Declined MSAFP screen. documented in this encounter Plan of Treatment Upcoming Encounters Date Type Specialty Care Team Description 01/27/2023 Office Visit Gynecology Obstetrics Backer, FATOU Iqbal [address] [facility] [place] [address] 01/31/2023 Cardiac Studies Cardiac Studies Scheduled Referrals Name Type Priority Associated Diagnoses Orde r Schedule MATERNAL MEDICINE REFERRAL OP Referral Within 10 days (routine) High-risk in first trimester Family history of aneurysm Family history of spina bifida Ordered: 11/02/2022 Health Maintenance Due Date Last Done Comments Depression Screening, Annual for Pts 12 and Over 04/29/2021 04/29/2020 COVID-19 Vaccine (3 - Pfizer series) 10/12/2021 08/17/2021, 07/27/2021 Influenza Vaccine (FLU shot) (#1) 2023 Pap Smear 11/03/2027 11/02/2022, 02/2018, 04/06/2015, [...] as of this encounter Visit Diagnoses Diagnosis History of migraine during - Primary Supervision of other high-risk Family history of spina bifida Family history of congenital anomalies Family history of aneurysm Family history of other condition Supervision of high-risk , unspecified trimester documented in this encounter Care Teams Embedded Linux Developer Relationship Specialty Start Date End Date Kelechi Vega MD [address] [place] [address] [place] [address] PCP - General Family Medicine 12/28/22 documented as of this encounter
--- OUTSIDE RECORDS SUMMARY | 2023-05-28 14:48 | External Medical Summary | Summary of Care ---
Author Name Unknown Organization [facility] Address [address] [place] [address] Phone [phone] Care Team Providers Care Archaeologist Name Role Phone Kelechi Vega MD Primary Care Provide r Reason for Visit * Reason Comments Return Visit Encounter Details Date Type Department Care Team Description 02/28/2023 Office Visit Gynecology/Obstetrics [facility] [address] [place] [address] Estefania Martin CRNP [address] [place] [address] Supervision of high-risk , unspecified trimester*; Family history of aneurysm; Family history of spina bifida; History of migraine during Allergies No known active allergiesdocumented as of this encounter (statuses as of 02/28/2023) Medications Medication Sig Dispensed Refills Start Date End Date Status 28-0.8 MG Oral Tablet Take by mouth. 0 Active Cetirizine HCl 10 MG Oral Tablet Take 1 Tablet by mouth in the morning. 0 Active documented as of this encounter (statuses as of 02/28/2023) Active Problems Problem Noted Date Supervision of [...] as of this encounter (statuses as of 02/28/2023) Immunizations Name Administration Dates Next Due COVID-19 [...] Sign Reading Time Taken Comments Blood Pressure 112/70 02/28/2023 8:23 AM EDT Pulse - - Temperature - - Respiratory Rate - - Oxygen Saturation - - Inhaled Oxygen Concentration - - Weight 82.1 kg (181 lb) 02/28/2023 8:23 AM EDT Height - - Body Mass Index 31.07 01/27/2023 8:34 AM EDT documented in this encounter Progress Notes * FATOU Elmore - 02/28/2023 8:22 AM EDT Doing well. Had cardio testing: normal echo and aortic measurements. Baby's grandparents present today. Feeling some movement. No bleeding/cramping. Discussed [facility]. Labs & Tdap for next visit discussed. Return in 2 weeks. FATOU Gustafson documented in this encounter Plan of Treatment Upcoming Encounters Date Type Specialty Care Team Description 03/14/2023 Office Visit Gynecology Obstetrics Siobhan Duenas CRNP [address] [place] [address] Scheduled Orders Name Type Priority Associated Diagnoses Orde r Schedule CBC WITH WBC DIFFERENTIAL AND ANEMIA REFLEX WORKUP Lab Routine Supervision of high-risk , unspecified trimester Expected: 03/14/2023 (Approximate), Expires: 02/29/2024 SYPHILIS ANTIBODY SCREEN WITH REFLEX TO RPR Lab Routine Supervision of high-risk , unspecified trimester Expected: 03/14/2023 (Approximate), Expires: 02/29/2024 50-G GESTATIONAL GLUCOSE, 1 HOUR Lab Routine Supervision of high-risk , unspecified trimester Expected: 03/14/2023 (Approximate), Expires: 02/29/2024 Health Maintenance Due Date Last Done Comments [...] high-risk documented in this encounter Care Teams Archaeologist Relationship Specialty Start Date End Date Kelechi Vega MD [address] [place] [address] [place] [address] PCP - General Family Medicine 12/28/22 documented as of this encounter
--- OUTSIDE RECORDS SUMMARY | 2023-05-28 14:48 | External Medical Summary | Summary of Care ---
Author Name Unknown Organization [facility] Address [address] [place] [address] Phone [phone] Care Team Providers Care Director Cloud Transformation Name Role Phone Kelechi Vega MD Primary Care Provide r Reason for Visit * Reason Comments Return Visit Encounter Details Date Type Department Care Team Description 01/27/2023 Office Visit Gynecology/Obstetrics [facility] [address] [place] [address] Estefania Martin CRNP [address] [place] [address] Supervision of high-risk , unspecified trimester*; Family history of aneurysm; Family history of spina bifida; History of migraine during Allergies No known active allergiesdocumented as of this encounter (statuses as of 01/27/2023) Medications Medication Sig Dispensed Refills Start Date End Date Status 28-0.8 MG Oral Tablet Take by mouth. 0 Active Cetirizine HCl 10 MG Oral Tablet Take 1 Tablet by mouth in the morning. 0 Active documented as of this encounter (statuses as of 01/27/2023) Active Problems Problem Noted Date Supervision of [...] as of this encounter (statuses as of 01/27/2023) Immunizations Name Administration Dates Next Due COVID-19 [...] Sign Reading Time Taken Comments Blood Pressure 108/64 01/27/2023 8:34 AM EDT Pulse - - Temperature - - Respiratory Rate - - Oxygen Saturation - - Inhaled Oxygen Concentration - - Weight 79.4 kg (175 lb) 01/27/2023 8:34 AM EDT Height 162.6 cm (5' 4") 01/27/2023 8:34 AM EDT Body Mass Index 30.04 01/27/2023 8:34 AM EDT documented in this encounter Progress Notes * FATOU Elmore - 01/27/2023 8:40 AM EDT 20w5d No concerns today. Denies cramping/bleeding. Not feeling movement yet - discussed anterior placentaand movement patterns in 2nd trimester. Completed anatomy scan and visit with MFM. Saw cardiology last month, planning for repeat echo nextweek. Met with genetics, declined screening. Return in 4 weeks. FATOU Gustafson documented in this encounter Nursing Notes * Kathy Leon LPN - 01/27/2023 8:40 AM EDT 20w5d Echo scheduled 01/31/23. Denies concerns. documented in this encounter Plan of Treatment Upcoming Encounters Date Type Specialty Care Team Description 01/31/2023 Cardiac Studies Cardiac Studies 02/28/2023 Office Visit Gynecology Obstetrics Backer, FATOU Iqbal [address] [place] [address] Health Maintenance Due Date Last Done Comments [...] high-risk documented in this encounter Care Teams Director Cloud Transformation Relationship Specialty Start Date End Date Kelechi Vega MD [address] [place] [address] [place] [address] PCP - General Family Medicine 12/28/22 documented as of this encounter
--- OUTSIDE RECORDS SUMMARY | 2023-05-28 14:48 | External Medical Summary ---
Author Name Unknown Address Unknown Organization [id number]:[facility] [place] - [address] [place] [address] Laboratory Report Ordering Provider Test Date Status NILTON JAIMES 03/14/2023 09:09:33 Final Observation Date Value Abnormality Reference (Units ) Status Vitamin B12 03/14/2023 09:09:33 [phone] (pg/mL) Final Performing Location [facility] - [address] [place] [address]
--- OUTSIDE RECORDS SUMMARY | 2023-05-28 14:48 | External Medical Summary ---
Author Name Unknown Address Unknown Organization [id number]:[facility] [place] [place] [address] [place] [facility] [place] [address] Laboratory Report Ordering Provider Test Date Status FIONABACKER 03/14/2023 09:09:33 Final Observation Date Value Abnormality Reference (Units ) Status SYNC LEUKOCYTES IN BLOOD BY AUTOMATED COUNT 03/14/2023 09:09:33 9.19 4.00-10.80 (K/uL) Final Segs 03/14/2023 09:09:33 73.4 40.0-75.0 (%) Final Lymphs % 03/14/2023 09:09:33 20.0 18.0-42.0 (%) Final Monos 03/14/2023 09:09:33 3.9 1.0-11.0 (%) Final Eosinophils 03/14/2023 09:09:33 1.0 0.0-6.0 (%) Final Basos 03/14/2023 09:09:33 0.2 0.0-2.0 (%) Final Immature Granulocyte, Percent 03/14/2023 09:09:33 1.5 0.0-2.0 (%) Final Absolute Segs 03/14/2023 09:09:33 6.74 1.80-7.70 (K/uL) Final Lymphs, absolute 03/14/2023 09:09:33 1.84 1.00-4.80 (K/ul) Final Monos, Abs 03/14/2023 09:09:33 0.36 0.00-1.10 (K/uL) Final Eos, Abs 03/14/2023 09:09:33 0.09 0.00-0.70 (K/uL) Final Basos, Abs 03/14/2023 09:09:33 0.02 0.00-0.20 (K/uL) Final Immature Granulocytes, Number 03/14/2023 09:09:33 0.14 0.00-0.20 (K/uL) Final Performing Location [facility] [place] [place] [address] [facility] [address]
--- OUTSIDE RECORDS SUMMARY | 2023-05-28 14:48 | External Medical Summary | Summary of Care ---
Author Name Unknown Organization [facility] Address [address] [place] [address] Phone [phone] Care Team Providers Care Pocket Marker Name Role Phone Unavailable Primary Care Provider Unavailabl e Reason for Visit * Reason Comments eRx-Medication Refill Encounter Details Date Type Department Care Team Description 12/07/2022 Refill Family Medicine [address] [phone] Kelechi Vega MD [address] [place] [address] [place] [address] Migraine with aura and without status migrainosus, not intractable Allergies No known active allergiesdocumented as of this encounter (statuses as of 12/07/2022) Medications Medication Sig Dispensed Refills Start Date End Date Status 28-0.8 MG Oral Tablet Take by mouth. 0 Active documented as of this encounter (statuses as of 12/07/2022) Active Problems Problem Noted Date Supervision of [...] as of this encounter (statuses as of 12/07/2022) Immunizations Name Administration Dates Next Due COVID-19 [...] encounter Miscellaneous Notes * Telephone Encounter - Oxana Duran [facility] - 12/07/2022 1:21 PM EDT Refused Prescriptions: Disp Refills Propranolol HCl 20 MG Oral Tablet (Inderal)180 Ta*1 Sig: TAKE 1TABLET BY MOUTH IN THE MORNING AND BEFORE BEDTIMERefused By: OXANA DURAN for Refusal: Course of treatment complete * Telephone Encounter - Oxana Duran [facility] - 12/07/2022 1:17 PM EDT Call placed to patient to clarify request. Patient is not taking propranolol. Refill request denied. Thank you, Oxana Duran, PharmD Clinical Pharmacist Telepharmacy 12/07/22 1:21 PM [phone] documented in this encounter Plan of Treatment Upcoming Encounters Date Type Specialty Care Team Description 12/20/2022 Office Visit Cardiology Guanakito Parish MD [address] [place] [address] 12/28/2022 Office Visit Gynecology Obstetrics Siobhan Duenas CRNP [address] [place] [address] 01/16/2023 Office Visit Maternal Medicine Compa Okeefe MD [address] [place] [address] 01/16/2023 Imaging Radiology Health Maintenance Due Date [...] as of this encounter Visit Diagnoses Diagnosis Migraine with aura and without status migrainosus, not intractable Migraine with aura, without mention of intractable migraine without mention of status migrainosus documented in this encounter
--- OUTSIDE RECORDS SUMMARY | 2023-05-28 14:48 | External Medical Summary ---
Author Name Unknown Address Unknown Organization K01:[facility]ATORY [facility] - [address] [facility] [address] Laboratory Report Ordering Provider Test Date Status ARUNA JAIMESROSSANA 03/14/2023 09:09:33 Final Observation Date Value Abnormality Reference (Units ) Status Treponema pallidum Ab [Presence] in Serum by Immunoassay 03/14/2023 09:09:33 Nonreactive Nonreactive Final No serologic evidence of syp hilis. No additional testing clinicially indicated at this time. Consider repeat testing in 2-4 weeks if acute or primary syphilis is suspected. Performing Location [facility] - [address] [place] [address]
--- OUTSIDE RECORDS SUMMARY | 2023-05-28 14:48 | External Medical Summary | Summary of Care ---
Author Name Unknown Organization [facility] Address [address] [place] [address] Phone [phone] Care Team Providers Care Senior Web Applications Developer Name Role Phone Kelechi Vega MD Primary Care Provide r Reason for Visit * Evaluate & Treat - Unlimited Visits (Within 10 days (routine)) - Pending Review Specialty Diagnoses / Procedures Referred By Manish canales Referred To Contact Obstetrics/Gynecology / Maternal Medicine Diagnoses High-risk in first trimester Family history of aneurysm Family history of spina bifida Estefania Martin CRNP [address] [place] [address] Referral ID Status Reason Start Date Expiration Date Visits Requested Visits Authorized [id number] Pending Review Specialty Services Required 11/02/[phone] Encounter Details Date Type Department Care Team Description 01/16/2023 Office Visit Church Musician Obstetrics Maternal Medicine, [place] [address] [place] [address] Compa Okeefe MD [address] [place] [address] History of migraine during *; Family history [...] Toussaint is at 19w1d who presents to [facility] for an ultrasound and follow-up of [...] Visit Gynecology Obstetrics Backer, FATOU Iqbal [address] [facility] [place] [address] 01/31/2023 Cardiac Studies Cardiac Studies Scheduled Referrals [...] trimester documented in this encounter Care Teams Senior Web Applications Developer Relationship Specialty Start Date End Date Kelechi Vega MD [address] [place] [address] [place] [address] PCP - General Family Medicine 12/28/22 documented as of this encounter
--- OUTSIDE RECORDS SUMMARY | 2023-05-28 14:48 | External Medical Summary ---
Author Name Unknown Address Unknown Organization [id number]:LAB[facility]ATORY [facility] [place] - [address] [place] [address] Laboratory Report Ordering Provider Test Date Status NILTON JAIMES 03/14/2023 09:09:33 Final Observation Date Value Abnormality Reference (Units ) Status Retic, % (auto) 03/14/2023 09:09:33 2.99 Above high normal 0.80-1.90 (%) Final Reticulocytes, Absolute 03/14/2023 09:09:33 101.4 Above high normal 31.3-100.1 (K/uL) Final Reticulocyte fraction, immature 03/14/2023 09:09:33 34.7 Above high normal 2.5-20.6 (%) Final Reticulocyte HGB 03/14/2023 09:09:33 33.0 29.7-37.4 (pg) Final Performing Location LAB[facility]ORY [facility] [place] - [address] [place] [address]
--- OUTSIDE RECORDS SUMMARY | 2023-05-28 14:48 | External Medical Summary | Summary of Care ---
Author Name Unknown Organization [facility] Address [address] [place] [address] Phone [phone] Care Team Providers Care Strategic Alliances Manager Name Role Phone Unavailable Primary Care Provider Unavailabl e Reason for Visit * Reason Comments Substance Addiction Coordinator Return Encounter Details Date Type Department Care Team Description 12/28/2022 Office Visit Gynecology/Obstetrics Terese Isabel [address] [place] [address] Siobhan Duenas CRNP [address] [place] [address] Supervision of high-risk , unspecified trimester*; Family history of aneurysm; Family history of spina bifida; History of migraine during Allergies No known active allergiesdocumented as of this encounter (statuses as of 12/28/2022) Medications Medication Sig Dispensed Refills Start Date End Date Status 28-0.8 MG Oral Tablet Take by mouth. 0 Active documented as of this encounter (statuses as of 12/28/2022) Active Problems Problem Noted Date Supervision of [...] as of this encounter (statuses as of 12/28/2022) Immunizations Name Administration Dates Next Due COVID-19 [...] Reading Time Taken Comments Blood Pressure 112/70 12/28/2022 9:18 AM EDT Pulse - - Temperature - - Respiratory Rate - - Oxygen Saturation - - Inhaled Oxygen Concentration - - Weight 77 kg (169 lb 12.8 oz) 12/28/2022 9:18 AM EDT Height 162.6 cm (5' 4") 12/28/2022 9:18 AM EDT Body Mass Index 29.15 12/28/2022 9:18 AM EDT documented in this encounter Progress Notes * FATOU Evans - 12/28/2022 9:27 AM EDT 16w3d Complaints: none Feeling much better. More energy, no n/v. No contractions, bleeding, or LOF. Has cardiology appt today. Has anatomy u/s scheduled with M. FATOU Evans documented in this encounter Nursing Notes * CRISTIAN Arshad - 12/28/2022 9:20 AM EDT 16w3d Pt denies any concerns, anatomy u/s with mfm 01/16/23 documented in this encounter Plan of Treatment Upcoming Encounters Date Type Specialty Care Team Description 12/28/2022 Office Visit Cardiology Guanakito Parish MD [address] [place] [address] Cardiology Consultation 01/16/2023 Office Visit Maternal Medicine Compa Okeefe MD [address] [facility] [place] [address] 01/16/2023 Imaging Radiology 01/27/2023 Office Visit Gynecology Obstetrics Backer, FATOU Iqbal [address] [place] [address] Health Maintenance Due Date Last Done Comments [...]
--- OUTSIDE RECORDS SUMMARY | 2023-05-28 14:48 | External Medical Summary ---
Author Name Unknown Address Unknown Organization K01:[facility]ATORY [facility] [place] - [address] [place] [id number] Laboratory Report Ordering Provider Test Date Status FIONANILTON 03/14/2023 09:09:33 Final Observation Date Value Abnormality Reference (Units ) Status Folic Acid 03/14/2023 09:09:33 >20.0 >4.5 (ng/ mL) Final Performing Location [facility] - [address] [place] [id number]
--- OUTSIDE RECORDS SUMMARY | 2023-05-28 14:48 | External Medical Summary ---
Author Name Unknown Address Unknown Organization [id number]:LAB[facility]ORY [facility] [place] - [address] [facility] [address] Laboratory Report Ordering Provider Test Date Status FIONABACKER 03/14/2023 09:09:33 Final Observation Date Value Abnormality Reference (Units ) Status WBC, Total 03/14/2023 09:09:33 9.19 4.00-10.8 0 (K/uL) Final RBC 03/14/2023 09:09:33 3.44 3.85-5.15 (M/uL) Final Hemoglobin 03/14/2023 09:09:33 10.2 Below low normal 12 .0-15.3 (g/dL) Final Anemia reflex testing trigge rs on a HGB < 12.0 for Females and HGB < 13.0 for Males in accordance with the WHO Anemia Guidelines
Anemia reflex testing triggers on a HGB < 12.0 for Females and HGB < 13.0 for Males in accordance with the WHO Anemia Guidelines HCT 03/14/2023 09:09:33 33.2 Below low normal 36. 0-45.2 (%) Final MCV 03/14/2023 09:09:33 96.5 81.5-97.5 (fL) Final MCH 03/14/2023 09:09:33 29.7 27.0-34.0 (pg) Final MCHC 03/14/2023 09:09:33 30.7 32.0-36.0 (g/dL) Final RDW 03/14/2023 09:09:33 14.4 11.5-15.5 (%) Final Platelets 03/14/2023 09:09:33 310 140-400 (K /uL) Final MPV 03/14/2023 09:09:33 10.5 6.6-11.1 ( fL) Final Nucleated erythrocytes/100 leukocytes [Ratio] in Blood by Automated count 03/14/2023 09:09:33 0 <=0 (/100 WBCs) Final Performing Location LABORATORY [facility] [place] - [address] [facility] [address]
--- OUTSIDE RECORDS SUMMARY | 2023-05-28 14:48 | External Medical Summary ---
Author Name Unknown Address Unknown Organization K01:[facility]ORY [facility] [place] - [facility] [address] [place] [address] Laboratory Report Ordering Provider Test Date Status FIONANILTON 03/14/2023 09:09:33 Final Observation Date Value Abnormality Reference (Units ) Status Creatinine 03/14/2023 09:09:33 0.5 0.5-1.0 (mg/dL) Final Glomerular filtration rate/1.73 sq M.predicted [Volume Rate/Area] in Serum, Plasma or Blood by Creatinine-based formula (CKD-EPI) 03/14/2023 09:09:33 >90 >=60 (mL/min) Final eGFR is calculated based on the CKD-EPI 2020 equation Performing Location LAB[facility]ATORY [facility] - [facility] [address] [place] [address]
--- OUTSIDE RECORDS SUMMARY | 2023-05-28 14:48 | External Medical Summary ---
Author Name Unknown Address Unknown Organization K01:[facility] [place] - [address] [place] [address] Laboratory Report Ordering Provider Test Date Status NILTON JAIMES 03/14/2023 09:09:33 Final Observation Date Value Abnormality Reference (Units ) Status Glucose [Moles/volume] in Serum or Plasma --1 hour post 50 g glucose PO 03/14/2023 09:09:33 168 Above high normal 70-129 (mg/dL) Final Performing Location [facility] [place] - [address] [place] [address]
--- OUTSIDE RECORDS SUMMARY | 2023-05-28 14:48 | External Medical Summary | Summary of Care ---
Author Name Unknown Organization [facility] Address [address] [place] [address] Phone [phone] Care Team Providers Care Vp Project Name Role Phone Bruna Vega MD Primary Care Provide r Reason for Referral * Precert (Within 10 days (routine)) - Pending Review Specialty Diagnoses / Procedures Referred By Contac t Referred To Contact Cardiac Studies Diagnoses Family history of aneurysm Procedures ECHO, COMPLETE (2D), TRANS-THORACIC Guanakito Parish MD [address] [place] [address] Referral ID Status Reason Start Date Expiration Date Visits Requested Visits Authorized [id number] Pending Review Precert 01/27/2023 999 999 Reason for Visit * Reason Comments NEW PATIENT Fhx aortic aneurysm in mother. States maternal grandfather also had an aneurysm. Denies any cardiac complaints or concerns at this time. * Evaluate & Treat - Unlimited Visits (Within 10 days (routine)) - Pending Review Specialty Diagnoses / Procedures Referred By Contact Referred To Contact Cardiovascular Medicine / Cardiology Diagnoses Family history of aneurysm Estefania Martin CRNP [address] [place] [address] Referral ID Status Reason Start Date Expiration Date Visits Requested Visits Authorized [id number] Pending Review Specialty Services Required 11/02/2022 999 999 Encounter Details Date Type Department Care Team Description 12/28/2022 Office Visit Cardiology, [facility] [address] [place] [address] Guanakito Parsih MD [address] [place] [address] Family history of aneurysm* Allergies No known active allergiesdocumented as of [...] after childbirth Family history of spina bifida 3 Overview: FOB's sister History of migraine during [...] Date Smoking Tobacco: Never Smokeless Tobacco: Never Tobacco Cessation:Counseling Given: Not Answered Alcohol Use Standard Drinks/Week Comments No 0 [...] Sign Reading Time Taken Comments Blood Pressure 114/74 12/28/2022 9:53 AM EDT Pulse 84 12/28/2022 9:53 AM EDT Temperature - - Respiratory Rate 16 12/28/2022 9:53 AM EDT Oxygen Saturation 100% 12/28/2022 9:53 AM EDT Inhaled Oxygen Concentration - - Weight 77 kg (169 lb 12.1 oz) 12/28/2022 9:53 AM EDT Height - - Body Mass Index 29.14 12/28/2022 9:18 AM EDT documented in this encounter Progress Notes * Guanakito Parish MD - 12/28/2022 10:00 AM EDT Cardiology Consultation [facility] 12/27/2022 Reason for Consultation: Familial history of aortic aneurysm Provider Requesting Consultation: FATOU Elmore PCP: BRUNA VEGA [address] [place] [address] [place] [id number] History of Present Illness: Brinda Toussaint is a 32 year old year old female without prior cardiac disease is underlying issues include chronic migraine headaches. Patient presents now at 16 weeks' gestation 1st due to concerns of familial history of thoracic aortic aneurysm. Patient notes biologic mother shortly after her immediately post discharge to home developingsevere back pain and shortness of breath. Patient suffered acute sudden or rest in the emergency room with findings of thoracic aorta question tamponade. Maternal grandfather possibly with similar findings with limited data available. Patient with prior screening echocardiogram in 2016 Prior cerebral MRI with migraines without abnormality per patient report No cardiac complaints A Complete Review of Systems is as stated above or negative. 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 Occupational Exposure No Hobby Hazards No Sleep Concern No Stress Concern Yes Weight Concern No Special Diet No Back Care Not Asked Exercise Not Asked Bike Helmet Not Asked Seat Belt Yes Self-Exams Not Asked Social History Narrative Not on file Social Determinants of Health Financial Resource Strain: Not on file Food Insecurity: No Food Insecurity Worried About Running Out of Food in the Last Year: Never true Ran Out of Food in the Last Year: Never true Transportation Needs: Not on file Physical Activity: Not on file Stress: Not on file Social Connections: Not on file Intimate Partner Violence: Not on file Housing Stability: Not on file Allergies: Patient has no known allergies. Medications: Current Outpatient Medications Medication Sig Dispense Refill 28-0.8 MG Oral Tablet Take by mouth. Cetirizine HCl 10 MG Oral Tablet (ZyrTEC Allergy) Take 1 Tablet by mouth in the morning. No current facility-administered medications for this visit. OBJECTIVE/PHYSICAL EXAMINATION: BP 114/74 (BP Site: Left Arm, BP Position: Sitting, BP Cuff Size: Large) | Pulse 84 | Resp 16 | Wt 77 kg (169 lb 12.1 oz) | LMP 09/04/2022 | SpO2 100% | BMI 29.14 kg/m | BSA 1.86 m General: Age-appropriate in no acute distress Head: normocephalic, no masses, lesions, tenderness or abnormalities Eyes: conjunctiva are pink and non-injected, sclera clear Throat: clear Nares: without discharge Neck: supple, no adenopathy, normal jugular venous pulse, no hepatojugular reflux, no carotid bruits Chest: normal shape and normal respiratory effort Lungs: clear to auscultation and percussion Cardiac Exam: - regular rate & rhythm, no murmur, gallop or rub - normal S-1, normal S-2 Abdomen: abdomen soft, non-tender, no abnormal masses, no hepatosplenomegaly, no abdominal bruit, no femoral bruit Musculoskeletal: no gait disturbance, no joint inflammation, no deforming arthritis Extremities: no edema, no cyanosis, pulses intact 2+/4 Neuro: grossly normal exam Data: EKG December 28, 2022 Normal sinus rhythm with normal tracing at 73 beats per minute Lipid Panel Results: Results for orders placed or performed in visit on 02/10/22 LIPID PANEL WITH DIRECT LDL IF TG IS HIGH Result Value Ref Range Triglycerides 153 <=174 mg/dL Cholesterol 204 (H) <200 mg/dL HDL Cholesterol 36 (L) >49 mg/dL Non-HDL Cholesterol 168 (H) <=159 mg/dL LDL Cholesterol 137 (H) <=129 mg/dL IMPRESSION: 32 year old year old female Referred for evaluation with familial history of thoracic aorta aneurysm with acute sudden inmother from possible dissection versus rupture immediately Prior echocardiogram normal without bicuspid aortic valve 2016 no aneurysm No history of hypertension or profound dyslipidemia Patient asymptomatic RECOMMENDATIONS/PLAN: Discussed screening in detail with patient Echocardiogram be ordered. Depending on finding may consider MRI or CT scan in the future to ascertain distal vessel concerns Suggested consideration of my code screening If echocardiogram negative would suggest 5 year interval screening Patient advised to call with any questions or concerns and to report to the ER with any and all emergencies. Disposition: Return p.r.n. with studies to be reviewed in the interim Guanakito Parish MD Cardiology, [address] [address] documented in this encounter Nursing Notes * Kristen Ward CMA - 12/28/2022 9:53 AM EDT Chief Complaint Patient presents with NEW PATIENT Fhx aortic aneurysm in mother. States maternal grandfather also had an aneurysm. Denies any cardiaccomplaints or concerns at this time. Examination Room: 14 Name: Brinda Toussaint Date of : (1990). Reason for Visit: New patient Interim Hospitalization(s): none Problems/Concerns: denies Chest Pain/SOB: denies [facility] Discussed: Not applicable [facility] is a way you can talk to your provider online through e-mail. Would you like to sign up? I can activate it for you? ALREADY ACTIVE Patient was instructed to not get up on the exam table until directed and assisted by their provider; patient is to remain seated in the chair/ wheelchair/ exam table for fall prevention and safety reasons. Patient is aware to have assistance to step down off exam table with personnel. Patient voiced full comprehension of instructions. documented in this encounter Plan of Treatment Upcoming Encounters Date Type Specialty Care Team Description 01/16/2023 Office Visit Maternal Medicine Bringman, Compa Pichardo MD [address] [facility] [place] [address] 01/16/2023 Imaging Radiology 01/27/2023 Office Visit Gynecology Obstetrics Backer, FATOU Iqbal [address] [place] [address] 01/31/2023 Cardiac Studies Cardiac Studies Scheduled Orders Name Type Priority Associated Diagnoses Orde r Schedule EKG EKG Routine Family history of aneurysm Ordered: 12/28/2022 ECHO, COMPLETE (2D), TRANS-THORACIC Echocardiology Routine Family history of aneurysm Expected: 01/27/2023 (Approximate), Expires: 01/27/2025 Health Maintenance Due Date Last Done Comments [...] as of this encounter Visit Diagnoses Diagnosis Family history of aneurysm- Primary Family history of other condition documented in this encounter Care Teams Vp Project Relationship Specialty Start Date End Date Bruna Vega MD [address] [place] [address] [place] [address] PCP - General Family Medicine 12/28/22 documented as of this encounter"
[2023-05-28] MEDS ORDERED: MAG SULFATE 4GM BOLUS FROM BAG IV ONE (15:28)
--- NOTE | 2023-05-28 15:28 | Obstetrical Progress Note ---
Date of Service May 28, 2023 Assessment & Plan (1) Pre-eclampsia during in third trimester, antepartum: Plan: Pt seen this AM for discharge On propranolol for HTN and migraines LFT was elevated, repeat labs show continues elevation Plan RTC to L&D for magnesium treatment, seizure prophylaxis and labs Admission and Anticipated Discharge Date Admission Date: May 24, 2023 Results & Data Vital Signs (Past 12 Hours) Vital Signs Temp Pulse Pulse Resp BP Pulse Ox O2 Del Method 05/28/23 12:27 37.1 C 69 18 129/85 93 05/28/23 12:00 37.1 C 69 129/85 05/28/23 09:48 137/84 05/28/23 07:30 36.6 C 85 18 155/84 H 93 Room Air 05/28/23 04:34 36.7 C 70 18 133/87 96 Room Air
[2023-05-28] MEDS ORDERED: LIDOCAINE 2% JELLY 5 ML TUBE EXT ONE (15:49)
[2023-05-28] MEDS: LACTATED RINGER'S 1,000 ML IV SCH ×3 (16:01→16:15)
[2023-05-28] MEDS: MAGNESIUM SULFATE / WTR 40 GM/1,000 ML BAG IV SCH (16:39)
[2023-05-28 20:46] LABS: Basophils # (auto) 0.03 K/uL (0.00-0.20); Basophils % (auto) 0.2 %; Eosinophils # (auto) 0.16 K/uL (0.00-0.50); Eosinophils % (auto) 1.2 %; Hematocrit (blood only) 31.2 % (37.0-47.0); Hemoglobin 10.5 g/dl (12.0-16.0); Immature Granulocytes # (auto) 0.23 K/uL (0.01-0.20); Immature Granulocytes % (auto) 1.7 %; Lymphocytes # (auto) 2.95 K/uL (1.20-3.40); Lymphocytes % (auto) 22.3 %; Mean Corpuscular Hemoglobin 30.8 pg (25.0-34.0); Mean Corpuscular Hgb Conc 33.7 g/dL (32.0-36.0); Mean Corpuscular Volume 91.5 fL (80.0-100.0); Mean Platelet Volume 10.2 fL (9.4-12.4); Monocytes # (auto) 0.93 K/uL (0.11-0.59); Neutrophils # (auto) 8.95 K/uL (1.40-6.50); Neutrophils % (auto) 67.6 %; Nucleated RBC # (auto) 0.06 K/uL (0.00-0.12); Nucleated RBC % (auto) 0.5 %; Platelet Count 260 K/uL (130-400); RDW Coefficient of Variation 15.8 % (11.5-14.5); RDW Standard Deviation 51.6 fL (36.4-46.3); Red Blood Count 3.41 M/uL (4.20-5.40); White Blood Count 13.25 K/ul (4.8-10.8)
[2023-05-28 21:32] LABS: Albumin Globulin Ratio 1.1 (0.9-2); Albumin Level 3.4 gm/dl (3.4-5.0); BUN Creatinine Ratio 15.7 (10-20); Bilirubin,Total 0.6 mg/dl (0.2-1.0); Calcium 8.2 mg/dl (8.6-10.3); Creatinine Clr Calc Pharmacy 173.7 ml/min; Est GFR (African American) 147.5 ml/min; Est GFR (Non-African American) 127.2 ml/min; Potassium 3.6 mmol/L (3.5-5.1); Total Protein 6.4 gm/dl (6.0-8.3)
--- NOTE | 2023-05-28 23:06 | Progress Note ---
Date of Service May 28, 2023 Assessment & Plan (1) Elevated liver enzymes: Plan: pt continues to have elevated Liver enzymes denies headache, SOB RUQ pain Julian stable on propranolol Pt on Magnesium sulphate Admission and Anticipated Discharge Date Admission Date: May 24, 2023 Results & Data Vital Signs (Past 12 Hours) Vital Signs Temp Pulse Pulse Resp BP BP Pulse Ox 05/28/23 23:03 80 93 05/28/23 22:58 80 92 05/28/23 22:53 78 94 05/28/23 22:48 78 94 05/28/23 22:43 78 93 05/28/23 22:38 73 96 05/28/23 22:33 79 94 05/28/23 22:28 95 H 93 05/28/23 22:23 101 H 93 05/28/23 22:18 86 93 05/28/23 22:15 16 05/28/23 22:15 83 132/72 05/28/23 22:13 87 94 05/28/23 22:08 91 H 93 05/28/23 22:03 96 H 92 05/28/23 21:58 100 H 93 05/28/23 21:53 104 H 94 05/28/23 21:51 91 H 94 05/28/23 21:48 85 96 05/28/23 21:43 78 97 05/28/23 21:38 79 100 05/28/23 21:33 83 97 05/28/23 21:28 77 97 05/28/23 21:23 74 98 05/28/23 21:18 77 97 05/28/23 21:15 16 05/28/23 21:15 77 149/71 H 05/28/23 21:13 80 97 05/28/23 21:08 75 98 05/28/23 21:03 77 97 05/28/23 20:58 78 99 05/28/23 20:53 83 100 05/28/23 20:48 84 97 05/28/23 20:43 90 97 05/28/23 20:38 101 H 98 05/28/23 20:37 102 H 91 05/28/23 20:33 88 97 05/28/23 20:28 82 97 05/28/23 20:23 81 96 05/28/23 20:18 81 96 05/28/23 20:16 100 H 94 05/28/23 20:15 16 05/28/23 20:15 86 135/74 05/28/23 20:13 81 98 05/28/23 20:08 83 96 05/28/23 20:03 76 97 05/28/23 19:58 80 96 05/28/23 19:53 79 96 05/28/23 19:48 77 97 05/28/23 19:43 77 97 05/28/23 19:38 93 H 96 05/28/23 19:33 81 98 05/28/23 19:28 81 99 05/28/23 19:23 95 H 96 05/28/23 19:18 77 99 05/28/23 19:15 36.7 C 16 05/28/23 19:15 16 05/28/23 19:15 81 141/79 H 05/28/23 19:13 81 94 05/28/23 19:08 100 05/28/23 19:08 82 05/28/23 19:08 84 90 05/28/23 19:03 88 100 05/28/23 18:58 77 98 05/28/23 18:53 80 98 05/28/23 18:48 83 99 05/28/23 18:43 78 98 05/28/23 18:38 81 100 05/28/23 18:33 79 98 05/28/23 18:28 81 99 05/28/23 18:23 79 100 05/28/23 18:18 81 100 05/28/23 18:15 16 05/28/23 18:15 78 139/74 05/28/23 18:13 87 100 05/28/23 18:08 90 99 05/28/23 18:03 82 97 05/28/23 18:01 73 137/70 05/28/23 17:58 77 95 05/28/23 17:53 75 96 05/28/23 17:48 69 96 05/28/23 17:46 74 139/69 05/28/23 17:43 76 98 05/28/23 17:38 74 97 05/28/23 17:33 71 98 05/28/23 17:31 72 146/73 H 91 05/28/23 17:28 74 98 05/28/23 17:23 70 100 05/28/23 17:18 76 100 05/28/23 17:16 72 154/70 H 05/28/23 17:15 70 16 100 05/28/23 17:15 16 05/28/23 17:13 72 98 05/28/23 17:08 87 100 05/28/23 17:03 84 100 05/28/23 17:01 69 156/78 H 05/28/23 17:00 16 05/28/23 16:58 82 98 05/28/23 16:55 92 H 94 05/28/23 16:53 75 100 05/28/23 16:48 72 100 05/28/23 16:47 74 153/66 H 05/28/23 16:45 18 05/28/23 16:43 79 97 05/28/23 16:40 94 H 148/68 H 05/28/23 16:38 76 97 05/28/23 16:33 75 98 05/28/23 16:30 16 05/28/23 16:28 77 100 05/28/23 16:25 68 158/86 H 05/28/23 16:23 79 96 05/28/23 16:18 79 100 05/28/23 16:15 05/28/23 16:15 36.6 C 69 16 152/81 H 100 05/28/23 16:14 65 152/81 H 05/28/23 16:13 70 100 05/28/23 16:12 85 90 05/28/23 16:08 71 100 05/28/23 12:27 37.1 C 69 18 129/85 93 05/28/23 12:00 37.1 C 69 129/85 O2 Del Method 05/28/23 23:03 05/28/23 22:58 05/28/23 22:53 05/28/23 22:48 05/28/23 22:43 05/28/23 22:38 05/28/23 22:33 05/28/23 22:28 05/28/23 22:23 05/28/23 22:18 05/28/23 22:15 05/28/23 22:15 05/28/23 22:13 05/28/23 22:08 05/28/23 22:03 05/28/23 21:58 05/28/23 21:53 05/28/23 21:51 05/28/23 21:48 05/28/23 21:43 05/28/23 21:38 05/28/23 21:33 05/28/23 21:28 05/28/23 21:23 05/28/23 21:18 05/28/23 21:15 05/28/23 21:15 05/28/23 21:13 05/28/23 21:08 05/28/23 21:03 05/28/23 20:58 05/28/23 20:53 05/28/23 20:48 05/28/23 20:43 05/28/23 20:38 05/28/23 20:37 05/28/23 20:33 05/28/23 20:28 05/28/23 20:23 05/28/23 20:18 05/28/23 20:16 05/28/23 20:15 05/28/23 20:15 05/28/23 20:13 05/28/23 20:08 05/28/23 20:03 05/28/23 19:58 05/28/23 19:53 05/28/23 19:48 05/28/23 19:43 05/28/23 19:38 05/28/23 19:33 05/28/23 19:28 05/28/23 19:23 05/28/23 19:18 05/28/23 19:15 05/28/23 19:15 05/28/23 19:15 05/28/23 19:13 05/28/23 19:08 05/28/23 19:08 05/28/23 19:08 05/28/23 19:03 05/28/23 18:58 05/28/23 18:53 05/28/23 18:48 05/28/23 18:43 05/28/23 18:38 05/28/23 18:33 05/28/23 18:28 05/28/23 18:23 05/28/23 18:18 05/28/23 18:15 05/28/23 18:15 05/28/23 18:13 05/28/23 18:08 05/28/23 18:03 05/28/23 18:01 05/28/23 17:58 05/28/23 17:53 05/28/23 17:48 05/28/23 17:46 05/28/23 17:43 05/28/23 17:38 05/28/23 17:33 05/28/23 17:31 05/28/23 17:28 05/28/23 17:23 05/28/23 17:18 05/28/23 17:16 05/28/23 17:15 05/28/23 17:15 05/28/23 17:13 05/28/23 17:08 05/28/23 17:03 05/28/23 17:01 05/28/23 17:00 05/28/23 16:58 05/28/23 16:55 05/28/23 16:53 05/28/23 16:48 05/28/23 16:47 05/28/23 16:45 05/28/23 16:43 05/28/23 16:40 05/28/23 16:38 05/28/23 16:33 05/28/23 16:30 05/28/23 16:28 05/28/23 16:25 05/28/23 16:23 05/28/23 16:18 05/28/23 16:15 Room Air 05/28/23 16:15 Room Air 05/28/23 16:14 05/28/23 16:13 05/28/23 16:12 05/28/23 16:08 05/28/23 12:27 05/28/23 12:00
--- NOTE | 2023-05-28 23:55 | Consultation ---
Date of Consultation May 28, 2023 Assessment & Plan (1) Elevated liver enzymes: 32-year-old female with past med significant for Raynaud's phenomenon migraines, iron deficiency anemia, ADHD, anxiety, preeclampsia with severe features during third-trimester had C-sections on may 25 and AST, ALT and alkaline phosphatase are trending up Elevated liver enzymes Had preeclampsia third trimester On propranolol and magnesium Seems doing okay and currently hemodynamically stable Total bilirubin 0.6. Direct bili was 0.1. AST 111, ALT88, Alk phosp 158 LDH 357 hb stable at 10.5 platelets 260 creatinine stable at 0.5 uric acid 9.6 fibrinogen on 05/25 is 473. Questionable HELLP but platelets are ok and LDH <600. Fatty liver of ? but fibrinogen level > 300 and kidney function ok we can follow liver US and closely monitor Liver US showing diffuse fatty liver GI consulted and appreciate inputs Close follow labs. History of Present Illness Reason for Consultation: Elevated liver enzymes Attending Physician: Ubaldo Shin MD History of Present Illness 32-year-old female with past med significant for Raynaud's phenomenon migraines, iron deficiency anemia, ADHD, anxiety, preeclampsia with severe features during third-trimester had C-sections on may 25 and AST, ALT and alkaline phosphatase are trending up . Patient current resting comfortably. Denies abdominal pain. No fevers. No chest pain or shortness of breath. No nausea. Currently no headache. Vision is okay. No cough. No swelling in the legs. Moving bowels okay. Hemodynamically stable. Past medical history. As mentioned above Past surgical history. Family history. Father has diabetes, hyperlipidemia,. Mother had heart disorder. Maternal grandfather had heart disorder. Social history. No smoking. No alcohol use. No drug use. Allergies Allergy/AdvReac Type Severity Reaction Status Date / Time No Known Allergies Allergy Verified 05/24/23 19:08 Home Medications Medication Instructions Recorded Confirmed Type cetirizine 10 mg tablet (Zyrtec) 10 mg PO DAILY 05/24/23 05/24/23 History vit no.95-ferrous 1 tab PO DAILY 05/24/23 05/24/23 History fumarate 28 mg-folic acid 800 mcg tablet () docusate sodium 100 mg capsule 100 mg PO DAILY@ #60 caps 05/27/23 Rx ferrous sulfate 325 mg (65 mg 325 mg PO DAILY@08 #60 tabs 05/27/23 Rx iron) tablet,delayed release ibuprofen 600 mg tablet 600 mg PO Q8H #30 tabs 05/27/23 Rx nifedipine 30 mg tablet,extended 30 mg PO QAM #60 tabs 05/27/23 Rx release 24 hr (Procardia XL) oxycodone-acetaminophen 5 mg-325 1 tab PO Q4H #24 tabs 05/27/23 Rx mg tablet (Percocet) Patient History Medical History (Updated 05/28/23 @ 23:04 by Wil Mace MD) Dermatographism Migraine aura, persistent Raynaud phenomenon Anxiety ADHD Anemia Pre-eclampsia during in third trimester, antepartum Family History (Updated 05/24/23 @ 19:05 by Erin Tapia RN) Father Diabetes Mother Cardiac aneurysm Social History Smoking Status: Never smoker Second Hand Exposure: No; Do You Dip or Chew Tobacco: No; Tobacco Cessation Education Requested by Patient: No Hx Alcohol Use: No Hx Substance Use: No Preferred Language: French Communication Ability: Effective 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 Lungs- clear to auscultation no wheezing or crackles Heart- regular rhythm; no murmur, no gallop. Abdomen- normal bowel sounds, soft, nontender, no distension. Extremities- no pretibial edema. Neuro- alert, oriented x 3; EOMI; no facial palsy; no dysarthria; moves extremities. Skin- warm & dry Results & Data Vital Signs (Past 12 Hours) Vital Signs Temp Pulse Pulse Resp BP BP Pulse Ox 05/28/23 23:48 93 H 98 05/28/23 23:43 80 95 05/28/23 23:38 86 94 05/28/23 23:33 80 93 05/28/23 23:28 78 93 05/28/23 23:23 74 93 05/28/23 23:18 75 94 05/28/23 23:15 16 05/28/23 23:15 16 05/28/23 23:15 77 130/71 05/28/23 23:13 81 96 05/28/23 23:08 79 94 05/28/23 23:03 80 93 05/28/23 22:58 80 92 05/28/23 22:53 78 94 05/28/23 22:48 78 94 05/28/23 22:43 78 93 05/28/23 22:38 73 96 05/28/23 22:33 79 94 05/28/23 22:28 95 H 93 05/28/23 22:23 101 H 93 05/28/23 22:18 86 93 05/28/23 22:15 16 05/28/23 22:15 83 132/72 05/28/23 22:13 87 94 05/28/23 22:08 91 H 93 05/28/23 22:03 96 H 92 05/28/23 21:58 100 H 93 05/28/23 21:53 104 H 94 05/28/23 21:51 91 H 94 05/28/23 21:48 85 96 05/28/23 21:43 78 97 05/28/23 21:38 79 100 05/28/23 21:33 83 97 05/28/23 21:28 77 97 05/28/23 21:23 74 98 05/28/23 21:18 77 97 05/28/23 21:15 16 05/28/23 21:15 77 149/71 H 05/28/23 21:13 80 97 05/28/23 21:08 75 98 05/28/23 21:03 77 97 05/28/23 20:58 78 99 05/28/23 20:53 83 100 05/28/23 20:48 84 97 05/28/23 20:43 90 97 05/28/23 20:38 101 H 98 05/28/23 20:37 102 H 91 05/28/23 20:33 88 97 05/28/23 20:28 82 97 05/28/23 20:23 81 96 05/28/23 20:18 81 96 05/28/23 20:16 100 H 94 05/28/23 20:15 16 05/28/23 20:15 86 135/74 05/28/23 20:13 81 98 05/28/23 20:08 83 96 05/28/23 20:03 76 97 05/28/23 19:58 80 96 05/28/23 19:53 79 96 05/28/23 19:48 77 97 05/28/23 19:43 77 97 05/28/23 19:38 93 H 96 05/28/23 19:33 81 98 05/28/23 19:28 81 99 05/28/23 19:23 95 H 96 05/28/23 19:18 77 99 05/28/23 19:15 36.7 C 16 05/28/23 19:15 16 05/28/23 19:15 81 141/79 H 05/28/23 19:13 81 94 05/28/23 19:08 100 05/28/23 19:08 82 05/28/23 19:08 84 90 05/28/23 19:03 88 100 05/28/23 18:58 77 98 05/28/23 18:53 80 98 05/28/23 18:48 83 99 05/28/23 18:43 78 98 05/28/23 18:38 81 100 05/28/23 18:33 79 98 05/28/23 18:28 81 99 05/28/23 18:23 79 100 05/28/23 18:18 81 100 05/28/23 18:15 16 05/28/23 18:15 78 139/74 05/28/23 18:13 87 100 05/28/23 18:08 90 99 05/28/23 18:03 82 97 05/28/23 18:01 73 137/70 05/28/23 17:58 77 95 05/28/23 17:53 75 96 05/28/23 17:48 69 96 05/28/23 17:46 74 139/69 05/28/23 17:43 76 98 05/28/23 17:38 74 97 05/28/23 17:33 71 98 05/28/23 17:31 72 146/73 H 91 05/28/23 17:28 74 98 05/28/23 17:23 70 100 05/28/23 17:18 76 100 05/28/23 17:16 72 154/70 H 05/28/23 17:15 70 16 100 05/28/23 17:15 16 05/28/23 17:13 72 98 05/28/23 17:08 87 100 05/28/23 17:03 84 100 05/28/23 17:01 69 156/78 H 05/28/23 17:00 16 05/28/23 16:58 82 98 05/28/23 16:55 92 H 94 05/28/23 16:53 75 100 05/28/23 16:48 72 100 05/28/23 16:47 74 153/66 H 05/28/23 16:45 18 05/28/23 16:43 79 97 05/28/23 16:40 94 H 148/68 H 05/28/23 16:38 76 97 05/28/23 16:33 75 98 05/28/23 16:30 16 05/28/23 16:28 77 100 05/28/23 16:25 68 158/86 H 05/28/23 16:23 79 96 05/28/23 16:18 79 100 05/28/23 16:15 05/28/23 16:15 36.6 C 69 16 152/81 H 100 05/28/23 16:14 65 152/81 H 05/28/23 16:13 70 100 05/28/23 16:12 85 90 05/28/23 16:08 71 100 05/28/23 12:27 37.1 C 69 18 129/85 93 05/28/23 12:00 37.1 C 69 129/85 O2 Del Method 05/28/23 23:48 05/28/23 23:43 05/28/23 23:38 05/28/23 23:33 05/28/23 23:28 05/28/23 23:23 05/28/23 23:18 05/28/23 23:15 05/28/23 23:15 05/28/23 23:15 05/28/23 23:13 05/28/23 23:08 05/28/23 23:03 05/28/23 22:58 05/28/23 22:53 05/28/23 22:48 05/28/23 22:43 05/28/23 22:38 05/28/23 22:33 05/28/23 22:28 05/28/23 22:23 05/28/23 22:18 05/28/23 22:15 05/28/23 22:15 05/28/23 22:13 05/28/23 22:08 05/28/23 22:03 05/28/23 21:58 05/28/23 21:53 05/28/23 21:51 05/28/23 21:48 05/28/23 21:43 05/28/23 21:38 05/28/23 21:33 05/28/23 21:28 05/28/23 21:23 05/28/23 21:18 05/28/23 21:15 05/28/23 21:15 05/28/23 21:13 05/28/23 21:08 05/28/23 21:03 05/28/23 20:58 05/28/23 20:53 05/28/23 20:48 05/28/23 20:43 05/28/23 20:38 05/28/23 20:37 05/28/23 20:33 05/28/23 20:28 05/28/23 20:23 05/28/23 20:18 05/28/23 20:16 05/28/23 20:15 05/28/23 20:15 05/28/23 20:13 05/28/23 20:08 05/28/23 20:03 05/28/23 19:58 05/28/23 19:53 05/28/23 19:48 05/28/23 19:43 05/28/23 19:38 05/28/23 19:33 05/28/23 19:28 05/28/23 19:23 05/28/23 19:18 05/28/23 19:15 05/28/23 19:15 05/28/23 19:15 05/28/23 19:13 05/28/23 19:08 05/28/23 19:08 05/28/23 19:08 05/28/23 19:03 05/28/23 18:58 05/28/23 18:53 05/28/23 18:48 05/28/23 18:43 05/28/23 18:38 05/28/23 18:33 05/28/23 18:28 05/28/23 18:23 05/28/23 18:18 05/28/23 18:15 05/28/23 18:15 05/28/23 18:13 05/28/23 18:08 05/28/23 18:03 05/28/23 18:01 05/28/23 17:58 05/28/23 17:53 05/28/23 17:48 05/28/23 17:46 05/28/23 17:43 05/28/23 17:38 05/28/23 17:33 05/28/23 17:31 05/28/23 17:28 05/28/23 17:23 05/28/23 17:18 05/28/23 17:16 05/28/23 17:15 05/28/23 17:15 05/28/23 17:13 05/28/23 17:08 05/28/23 17:03 05/28/23 17:01 05/28/23 17:00 05/28/23 16:58 05/28/23 16:55 05/28/23 16:53 05/28/23 16:48 05/28/23 16:47 05/28/23 16:45 05/28/23 16:43 05/28/23 16:40 05/28/23 16:38 05/28/23 16:33 05/28/23 16:30 05/28/23 16:28 05/28/23 16:25 05/28/23 16:23 05/28/23 16:18 05/28/23 16:15 Room Air 05/28/23 16:15 Room Air 05/28/23 16:14 05/28/23 16:13 05/28/23 16:12 05/28/23 16:08 05/28/23 12:27 05/28/23 12:00 Diagnostic Findings Laboratory Results WBC 13.25 K/ul (4.8-10.8) H 05/28/23 20:32 RBC 3.41 M/uL (4.20-5.40) L 05/28/23 20:32 Hgb 10.5 g/dl (12.0-16.0) L 05/28/23 20:32 Hct 31.2 % (37.0-47.0) L 05/28/23 20: MCV 91.5 fL (80.0-100.0) 05/28/23 20: MCH 30.8 pg (25.0-34.0) 05/28/23 20: MCHC 33.7 g/dL (32.0-36.0) 05/28/23 20: RDW Std Deviation 51.6 fL (36.4-46.3) H 05/28/23 20: RDW Coeff of Sander 15.8 % (11.5-14.5) H 05/28/23 20: Plt Count 260 K/uL (130-400) 05/28/23 20: MPV 10.2 fL (9.4-12.4) 05/28/23 20: Immature Gran % (Auto) 1.7 % 05/28/23 20: Neut % (Auto) 67.6 % 05/28/23: Lymph % (Auto) 22.3 % 05/28/23 20: Edmunds % (Auto) 7.0 % 05/28/23 20: Eos % (Auto) 1.2 % 05/28/23 20: Baso % (Auto) 0.2 % 05/28/23: Neut # (Auto) 8.95 K/uL (1.40-6.50) H 05/28/23 20: Lymph # (Auto) 2.95 K/uL (1.20-3.40) 05/28/23 20: Edmunds # (Auto) 0.93 K/uL (0.11-0.59) H 05/28/23 20: Eos # (Auto) 0.16 K/uL (0.00-0.50) 05/28/23 20: Baso # (Auto) 0.03 K/uL (0.00-0.20) 05/28/23 20: Immature Gran # (Auto) 0.23 K/uL (0.01-0.20) H 05/28/23 20: Absolute Nucleated RBC 0.06 K/uL (0.00-0.12) 05/28/23 20: Nucleated RBC % (auto) 0.5 % 05/28/23 20:32 Platelet Estimate Decreased (Normal) L 05/24/23 10:03 Polychromasia 1+ 05/25/23 12:43 PT 9.3 Seconds (9.0-12.0) 05/25/23 14:38 INR 0.8 (0.9-1.1) L 05/25/23 14:38 APTT 26.8 Seconds (21.0-31.0) 05/25/23 14:38 PTT Ratio 1.0 05/25/23 14:38 Fibrinogen 473 mg/dl (184-400) H 05/25/23 14:38 Sodium 135 mmol/L (136-145) L 05/28/23 20:54 Potassium 3.6 mmol/L (3.5-5.1) 05/28/23 20:54 Chloride 102 mmol/L (98-107) 05/28/23 20:54 Carbon Dioxide 21 mmol/L (21-32) 05/28/23 20:54 Anion Gap 12 (3-11) H 05/28/23 20:54 BUN 8 mg/dl (6-23) 05/28/23 20:54 Creatinine 0.51 mg/dl (0.6-1.2) L 05/28/23 20:54 Est Cr Clr Drug Dosing 173.7 ml/min 05/28/23 20:54 Est GFR ( Amer) 147.5 ml/min 05/28/23 20:54 Est GFR (Non-Af Amer) 127.2 ml/min 05/28/23 20:54 BUN/Creatinine Ratio 15.7 (10-20) 05/28/23 20:54 Glucose 72 mg/dl (70-99(Fasting)) 05/28/23 20:54 Uric Acid Cancelled 05/28/23 14:04 Calcium 8.2 mg/dl (8.6-10.3) L 05/28/23 20:54 Magnesium (Sulf Ther) 5.8 mg/dL (4.0-8.0) 05/25/23 19:47 Total Bilirubin 0.6 mg/dl (0.2-1.0) 05/28/23 20:54 Direct Bilirubin 0.1 mg/dl (0-0.2) 05/25/23 05:46 AST 111 U/L (13-39) H 05/28/23 20:54 ALT 88 U/L (7-52) H 05/28/23 20:54 Alkaline Phosphatase 158 U/L (34-104) H 05/28/23 20:54 Lactate Dehydrogenase Cancelled 05/28/23 14:04 Total Protein 6.4 gm/dl (6.0-8.3) 05/28/23 20:54 Albumin 3.4 gm/dl (3.4-5.0) 05/28/23 20:54 Globulin 3.0 gm/dl (2.5-4.0) 05/28/23 20:54 Albumin/Globulin Ratio 1.1 (0.9-2) 05/28/23 20:54 Ur Random Creatinine 57.8 mg/dl 05/24/23 09:35 U Random Total Protein 91.8 mg/dl (0-11.9) H 05/24/23 09:35 Protein/Creatinin Ratio 1.6 (0-0.2) H 05/24/23 09:35 Blood Type A Positive 05/24/23 10:03 Antibody Screen NEGATIVE 05/24/23 10:03 Crossmatch See Detail 05/24/23 10:03 Impressions Obstetrics Ultrasound 05/25/23 08:54 ULTRASOUND OBSTETRICAL LIMITED CLINICAL HISTORY: Preeclampsia. Estimation of weights. COMPARISON STUDY: No priors. FINDINGS: Real-time, grayscale and color Doppler sonography of the fetus and gravid uterus is performed. There is a single live intrauterine gestation with a heart rate of 121 bpm. Position is cephalic. The placenta is anterior and normal as imaged. The amniotic fluid index measures 4.65 cm, with the largest pocket of fluid measuring 2.51 cm. Abdominal circumference measures 35.80 cm corresponding to an estimated age of 39 weeks 5 days. Head circumference measures 33.31 cm corresponding to an estimated age of 38 weeks 0 days. Femoral length measures 7.40 cm corresponding to an estimated age of 37 weeks 6 days. Biparietal diameter measures 9.58 cm corresponding to an estimated age of 39 weeks 1 day. The cumulative estimation of dates is 38 weeks 1 day +/-2 weeks 5 days. Estimated weight is 3457 g +/-519 g. IMPRESSION: 1. There is a single-live intrauterine gestation as detailed above. 2. Note that this does not constitute a dedicated anatomic scan. Dictated: 05/25/2023 10:41 AM Transcribed: 05/25/2023 11:02 AM Alon[facility] [id number] [email or web address] Electronically signed by: Barry Wilson M.D. 05/25/2023 11:03 AM
[2023-05-29 00:10] LABS: Albumin Level 3.3 gm/dl (3.4-5.0); Bilirubin Direct 0.1 mg/dl (0-0.2); Bilirubin,Total 0.5 mg/dl (0.2-1.0); Total Protein 6.5 gm/dl (6.0-8.3)
--- NOTE | 2023-05-29 03:21 | Ultrasound Report ---
Exam(s): US LIVER EXAM: US Abdomen Limited CLINICAL HISTORY: Reason for exam: elevated lft. TECHNIQUE: Real-time ultrasound of the abdomen with image documentation. COMPARISON: None. FINDINGS: Liver: The liver measures 14.8 cm. There is diffuse fatty infiltration throughout the liver. Gallbladder: The gallbladder wall measures 2 mm. No gallstones or sludge. Common bile duct: The common bile duct measures 4 mm. Pancreas: The pancreas is obscured. Kidneys: The right kidney is partially obscured by gas artifact and measures 9.2 cm. No hydronephrosis . Bowel: Exam is limited due to gas artifact in the bowel and body habitus. Free fluid: No free fluid. IMPRESSION: 1. Diffuse fatty liver. No gallstones or signs of acute cholecystitis. 2. Remainder of the right upper quadrant ultrasound unremarkable. Electronically signed by: Jesica Womack MD 05/29/23 03:20 AM
[2023-05-29] MEDS: LACTATED RINGER'S 1,000 ML IV SCH (05:01)
[2023-05-29 06:20] LABS: Basophils # (auto) 0.03 K/uL (0.00-0.20); Basophils % (auto) 0.3 %; Eosinophils # (auto) 0.21 K/uL (0.00-0.50); Hematocrit (blood only) 33.3 % (37.0-47.0); Hemoglobin 11.2 g/dl (12.0-16.0); Immature Granulocytes # (auto) 0.16 K/uL (0.01-0.20); Immature Granulocytes % (auto) 1.5 %; Lymphocytes % (auto) 20.1 %; Mean Corpuscular Hgb Conc 33.6 g/dL (32.0-36.0); Mean Corpuscular Volume 92.2 fL (80.0-100.0); Mean Platelet Volume 9.9 fL (9.4-12.4); Monocytes # (auto) 0.66 K/uL (0.11-0.59); Monocytes % (auto) 6.3 %; Neutrophils # (auto) 7.31 K/uL (1.40-6.50); Neutrophils % (auto) 69.8 %; Nucleated RBC # (auto) 0.03 K/uL (0.00-0.12); Nucleated RBC % (auto) 0.3 %; Platelet Count 270 K/uL (130-400); RDW Coefficient of Variation 15.8 % (11.5-14.5); Red Blood Count 3.61 M/uL (4.20-5.40); White Blood Count 10.47 K/ul (4.8-10.8)
[2023-05-29 06:28] LABS: Albumin Globulin Ratio 1.1 (0.9-2); Albumin Level 3.3 gm/dl (3.4-5.0); BUN Creatinine Ratio 15.7 (10-20); Bilirubin,Total 0.5 mg/dl (0.2-1.0); Calcium 7.1 mg/dl (8.6-10.3); Creatinine Clr Calc Pharmacy 173.7 ml/min; Est GFR (African American) 147.5 ml/min; Est GFR (Non-African American) 127.2 ml/min; Potassium 3.6 mmol/L (3.5-5.1); Total Protein 6.3 gm/dl (6.0-8.3)
[2023-05-29] MEDS ORDERED: bisacodyL 10 MG SUPP PR PRN (07:34)
--- NOTE | 2023-05-29 09:17 | Gastrointestinal Consultation ---
Date of Consultation May 29, 2023 Assessment & Plan (1) Elevated liver enzymes: 32 year old female POD #4 , history of pre-eclampsia - GI asked to evaluate for elevated LFTs. Prior to delivery she had a lot platelet count, normal INR but rising transaminases. Her plt count is improving, however, persistent elevation of her transaminases. Imaging shows fatty liver. DDX discussed including HELLP syndrome, acute fatty liver in vs other. Recommend CT w/ contrast Recommend daily coagulation studies, LFTs Check CPK and LDH Continue supportive measures for now In the event of rising coagulation studies, liver function tests or change in her clinical status, discussed elevation at a tertiary center. Thank you for allowing us to participate in the care of this patient. Please call with any acute changes, questions or concerns. Please see addendum below with additional recommendation from my supervising physician. Supervising Physician Co-Signing Physician Notes Evaluated the patient. We was consulted for question of hellp syndrome. Patient is recently after having undergone a when she presented with. Overall she notes that she is feeling quite well today aside from postoperative discomfort. She denies any nausea vomiting fevers chills or sweats. There is no family history of medical problems with obstetrical issues. Imaging did indicate fatty infiltration of the liver Impression; 32-year-old female with syndrome for which she does not. Improvement of her platelet count over the last 48 hours. Her liver enzymes also notable for an improvement of the bilirubin. This time we would recommend supportive care in addition to lab monitoring Recommendations Continue to monitor labs closely recommend a CMP, CBC PT/INR daily CPK today Daily LDH CT of the liver with IV contrast Should patient have significant change in her associated enzymes such as jaundice develop mental status changes or coagulopathy she will need to be referred to a tertiary center with transplant capabilities. History of Present Illness Reason for Consultation: elevated LFTs Requesting Physician: Aleida Attending Physician: Uabldo Shin MD History of Present Illness 32 year old female POD #4 , history of pre-eclampsia - GI asked to evaluate for elevated LFTs. Pt was seen and evaluated. Family, , nurse present in room. Notes from GI standpoint she is feeling well. Denies abd pain, nausea, vomiting. Tolerating PO intake. Denies ETOH abuse history Denies previous drug use No personal history of liver disease No family history of liver disease No previous abdominal surgery history PLT 99 --> 108 --> 270 INR 0.8 Tbili 0.5 AST 57 --> 121 ALT 56 --> 105 ALKP 219 --> 154 ABD US 2022: Diffuse fatty liver. No gallstones or signs of acute cholecystitis. Remainder of the right upper quadrant ultrasound unremarkable. Allergies Allergy/AdvReac Type Severity Reaction Status Date / Time No Known Allergies Allergy Verified 05/24/23 19:08 Home Medications Medication Instructions Recorded Confirmed Type cetirizine 10 mg tablet (Zyrtec) 10 mg PO DAILY 05/24/23 05/24/23 History vit no.95-ferrous 1 tab PO DAILY 05/24/23 05/24/23 History fumarate 28 mg-folic acid 800 mcg tablet () docusate sodium 100 mg capsule 100 mg PO DAILY@, #60 caps 05/27/23 Rx ferrous sulfate 325 mg (65 mg 325 mg PO DAILY@08 #60 tabs 05/27/23 Rx iron) tablet,delayed release ibuprofen 600 mg tablet 600 mg PO Q8H #30 tabs 05/27/23 Rx nifedipine 30 mg tablet,extended 30 mg PO QAM #60 tabs 05/27/23 Rx release 24 hr (Procardia XL) oxycodone-acetaminophen 5 mg-325 1 tab PO Q4H #24 tabs 05/27/23 Rx mg tablet (Percocet) Patient History Medical History (Updated 05/28/23 @ 23:04 by Wil Mace MD) Dermatographism Migraine aura, persistent Raynaud phenomenon Anxiety ADHD Anemia Pre-eclampsia during in third trimester, antepartum Family History (Updated 05/24/23 @ 19:05 by Erin Tapia RN) Father Diabetes Mother Cardiac aneurysm Social History Smoking Status: Never smoker Second Hand Exposure: No; Do You Dip or Chew Tobacco: No; Tobacco Cessation Education Requested by Patient: No Hx Alcohol Use: No Hx Substance Use: No Preferred Language: Panamanian Communication Ability: Effective Hot Stick Worker Required: No Beliefs That Will Affect Care: None marital status: Current Living Situation: Spouse Other Information That Helps Us Care for You: No Feels Safe at Home: Yes Safety Concerns: Feels Safe At This Time Assistive Devices: Glasses Review of Systems Review of Systems: All systems reviewed & are unremarkable except as noted in HPI & below Physical Exam Constitutional: WD/WN, vitals as above Respiratory: normal respiratory effort, lungs clear to auscultation Cardiovascular: Rate/Rhythm: regular rate and regular rhythm Heart Sounds: normal S1 Gastrointestinal (Abdomen): normal bowel sounds, soft, nontender, no hepatosplenomegaly Skin: no rashes, warm and dry Results & Data Vital Signs (Past 12 Hours) Vital Signs Temp Pulse Resp BP Pulse Ox O2 Del Method 05/29/23 09:07 98 H 100 05/29/23 09:02 98 H 99 05/29/23 08:57 98 H 98 05/29/23 08:52 97 H 98 05/29/23 08:28 94 H 100 05/29/23 08:23 92 H 100 05/29/23 08:18 97 05/29/23 08:18 87 05/29/23 08:18 85 146/68 H 05/29/23 08:13 90 100 05/29/23 08:08 97 H 100 05/29/23 08:04 97 H 85 L 05/29/23 08:03 96 H 99 05/29/23 07:58 91 H 100 05/29/23 07:53 96 H 100 05/29/23 07:48 99 H 100 05/29/23 07:43 89 100 05/29/23 07:38 89 100 05/29/23 07:33 93 H 100 05/29/23 07:30 36.6 C 18 100 Room Air 05/29/23 07:28 90 98 05/29/23 07:23 93 H 98 05/29/23 07:18 94 H 99 05/29/23 07:15 18 05/29/23 07:13 96 H 100 05/29/23 07:08 98 H 100 05/29/23 07:03 91 H 100 05/29/23 06:58 90 98 05/29/23 06:53 89 100 05/29/23 06:48 88 98 05/29/23 06:47 99 H 89 L 05/29/23 06:43 98 H 98 05/29/23 06:41 94 H 87 L 05/29/23 06:40 18 05/29/23 06:38 81 96 05/29/23 06:33 85 95 05/29/23 06:28 78 97 05/29/23 06:23 81 95 05/29/23 06:18 82 96 05/29/23 06:15 97 H 129/71 05/29/23 06:13 81 96 05/29/23 06:08 79 95 05/29/23 06:03 84 94 05/29/23 05:58 90 97 05/29/23 05:53 86 92 05/29/23 05:48 87 93 05/29/23 05:43 90 93 05/29/23 05:38 98 H 93 05/29/23 05:33 96 H 93 05/29/23 05:28 96 H 92 05/29/23 05:23 91 H 94 05/29/23 05:18 89 94 05/29/23 05:15 16 05/29/23 05:15 76 128/65 05/29/23 05:13 85 95 05/29/23 05:08 80 95 05/29/23 05:03 16 05/29/23 05:03 88 93 05/29/23 04:58 83 93 05/29/23 04:53 86 94 05/29/23 04:48 84 93 05/29/23 04:43 86 93 05/29/23 04:38 83 93 05/29/23 04:33 86 92 05/29/23 04:28 85 94 05/29/23 04:23 89 92 05/29/23 04:18 94 H 92 05/29/23 04:15 18 05/29/23 04:15 94 H 130/72 05/29/23 04:13 97 H 91 05/29/23 04:10 95 H 90 05/29/23 04:08 97 H 91 05/29/23 04:03 93 H 92 05/29/23 03:58 96 H 92 05/29/23 03:53 92 H 91 05/29/23 03:50 86 90 05/29/23 03:48 96 H 91 05/29/23 03:45 88 89 L 05/29/23 03:43 87 91 05/29/23 03:38 83 93 05/29/23 03:33 82 93 05/29/23 03:28 101 H 97 05/29/23 03:23 83 93 05/29/23 03:18 83 93 05/29/23 03:15 16 05/29/23 03:15 77 130/69 05/29/23 03:13 85 93 05/29/23 03:08 79 93 05/29/23 03:03 77 94 05/29/23 02:58 79 95 05/29/23 02:53 81 93 05/29/23 02:48 89 98 05/29/23 02:43 84 96 05/29/23 02:40 99 H 86 L 05/29/23 02:38 103 H 99 05/29/23 02:33 90 97 05/29/23 02:28 91 H 98 05/29/23 02:23 87 97 05/29/23 02:18 87 97 05/29/23 02:15 16 05/29/23 02:15 98 H 144/80 H 87 L 05/29/23 02:13 94 H 93 05/29/23 02:08 95 H 94 05/29/23 02:03 100 H 92 05/29/23 01:58 97 H 93 05/29/23 01:53 84 95 05/29/23 01:48 81 96 05/29/23 01:43 80 96 05/29/23 01:38 82 94 05/29/23 01:33 79 94 05/29/23 01:28 79 95 05/29/23 01:23 77 94 05/29/23 01:18 80 93 05/29/23 01:15 16 05/29/23 01:15 116 H 139/76 05/29/23 01:13 86 93 05/29/23 01:08 84 93 05/29/23 01:03 89 91 05/29/23 00:58 85 94 05/29/23 00:53 91 H 92 05/29/23 00:49 97 H 90 05/29/23 00:48 93 H 91 05/29/23 00:43 93 H 91 05/29/23 00:38 102 H 91 05/29/23 00:33 94 H 92 05/29/23 00:28 86 92 05/29/23 00:23 82 91 05/29/23 00:18 81 93 05/29/23 00:15 16 05/29/23 00:15 75 124/74 05/29/23 00:13 75 94 05/29/23 00:08 80 94 11/13/23 00:03 83 95 05/28/23 23:58 81 93 05/28/23 23:53 81 93 05/28/23 23:48 93 H 98 05/28/23 23:43 80 95 05/28/23 23:38 86 94 05/28/23 23:33 80 93 05/28/23 23:28 78 93 05/28/23 23:23 74 93 05/28/23 23:18 75 94 05/28/23 23:15 16 05/28/23 23:15 16 05/28/23 23:15 77 130/71 05/28/23 23:13 81 96 05/28/23 23:08 79 94 05/28/23 23:03 80 93 05/28/23 22:58 80 92 05/28/23 22:53 78 94 05/28/23 22:48 78 94 05/28/23 22:43 78 93 05/28/23 22:38 73 96 05/28/23 22:33 79 94 05/28/23 22:28 95 H 93 05/28/23 22:23 101 H 93 05/28/23 22:18 86 93 05/28/23 22:15 16 05/28/23 22:15 83 132/72 05/28/23 22:13 87 94 05/28/23 22:08 91 H 93 05/28/23 22:03 96 H 92 05/28/23 21:58 100 H 93 05/28/23 21:53 104 H 94 05/28/23 21:51 91 H 94 05/28/23 21:48 85 96 05/28/23 21:43 78 97 05/28/23 21:38 79 100 05/28/23 21:33 83 97 05/28/23 21:28 77 97 05/28/23 21:23 74 98 05/28/23 21:18 77 97 05/28/23 21:15 16 05/28/23 21:15 77 149/71 H 05/28/23 21:13 80 97 Laboratory Results 05/29/23 05/28/23 05/28/23 Range/Units 05:55 23:43 23:42 WBC 10.47 (4.8-10.8) K/ul RBC 3.61 L (4.20-5.40) M/uL Hgb 11.2 L (12.0-16.0) g/dl Hct 33.3 L (37.0-47.0) % MCV 92.2 (80.0-100.0) fL MCH 31.0 (25.0-34.0) pg MCHC 33.6 (32.0-36.0) g/dL RDW Std Deviation 52.0 H (36.4-46.3) fL RDW Coeff of Sander 15.8 H (11.5-14.5) % Plt Count 270 (130-400) K/uL MPV 9.9 (9.4-12.4) fL Immature Gran % (Auto) 1.5 % Neut % (Auto) 69.8 % Lymph % (Auto) 20.1 % [place] % (Auto) 6.3 % Eos % (Auto) 2.0 % Baso % (Auto) 0.3 % Neut # (Auto) 7.31 H (1.40-6.50) K/uL Lymph # (Auto) 2.10 (1.20-3.40) K/uL [place] # (Auto) 0.66 H (0.11-0.59) K/uL Eos # (Auto) 0.21 (0.00-0.50) K/uL Baso # (Auto) 0.03 (0.00-0.20) K/uL Immature Gran # (Auto) 0.16 (0.01-0.20) K/uL Absolute Nucleated RBC 0.03 (0.00-0.12) K/uL Nucleated RBC % (auto) 0.3 % Sodium 135 L (136-145) mmol/L Potassium 3.6 (3.5-5.1) mmol/L Chloride 101 (98-107) mmol/L Carbon Dioxide 23 (21-32) mmol/L Anion Gap 11 (3-11) BUN 8 (6-23) mg/dl Creatinine 0.51 L (0.6-1.2) mg/dl Est Cr Clr Drug Dosing 173.7 ml/min Est GFR ( Amer) 147.5 ml/min Est GFR (Non-Af Amer) 127.2 ml/min BUN/Creatinine Ratio 15.7 (10-20) Glucose 71 (70-99(Fasting)) mg/dl Uric Acid (2.6-7.2) mg/dl Calcium 7.1 L (8.6-10.3) mg/dl Total Bilirubin 0.5 0.5 (0.2-1.0) mg/dl Direct Bilirubin 0.1 (0-0.2) mg/dl AST 121 H 117 H (13-39) U/L ALT 105 H 96 H (7-52) U/L Alkaline Phosphatase 154 H 158 H (34-104) U/L Lactate Dehydrogenase (86-244) U/L Total Protein 6.3 6.5 (6.0-8.3) gm/dl Albumin 3.3 L 3.3 L (3.4-5.0) gm/dl Globulin 3.0 (2.5-4.0) gm/dl Albumin/Globulin Ratio 1.1 (0.9-2) CMV IgM Ab Pending CMV IgG Ab/TORCH Pending EBV Capsid Ag IgG Ab Pending EBV Capsid Ag IgM Ab Pending EBV EA Restrict+Diffuse Pending EBV Nuclear Antigen Ab Pending EBV Antibody Interp Pending 05/28/23 05/28/23 05/28/23 Range/Units 20:54 20:32 14:04 WBC 13.25 H 14.89 H (4.8-10.8) K/ul RBC 3.41 L 3.44 L (4.20-5.40) M/uL Hgb 10.5 L 10.4 L (12.0-16.0) g/dl Hct 31.2 L 31.7 L (37.0-47.0) % MCV 91.5 92.2 (80.0-100.0) fL MCH 30.8 30.2 (25.0-34.0) pg MCHC 33.7 32.8 (32.0-36.0) g/dL RDW Std Deviation 51.6 H 51.8 H (36.4-46.3) fL RDW Coeff of Sander 15.8 H 15.8 H (11.5-14.5) % Plt Count 260 252 (130-400) K/uL MPV 10.2 10.5 (9.4-12.4) fL Immature Gran % (Auto) 1.7 2.1 % Neut % (Auto) 67.6 69.2 % Lymph % (Auto) 22.3 19.8 % [place] % (Auto) 7.0 7.9 % Eos % (Auto) 1.2 0.7 % Baso % (Auto) 0.2 0.3 % Neut # (Auto) 8.95 H 10.29 H (1.40-6.50) K/uL Lymph # (Auto) 2.95 2.95 (1.20-3.40) K/uL [place] # (Auto) 0.93 H 1.18 H (0.11-0.59) K/uL Eos # (Auto) 0.16 0.11 (0.00-0.50) K/uL Baso # (Auto) 0.03 0.04 (0.00-0.20) K/uL Immature Gran # (Auto) 0.23 H 0.32 H (0.01-0.20) K/uL Absolute Nucleated RBC 0.06 0.06 (0.00-0.12) K/uL Nucleated RBC % (auto) 0.5 0.4 % Sodium 135 L (136-145) mmol/L Potassium 3.6 (3.5-5.1) mmol/L Chloride 102 (98-107) mmol/L Carbon Dioxide 21 (21-32) mmol/L Anion Gap 12 H (3-11) BUN 8 (6-23) mg/dl Creatinine 0.51 L (0.6-1.2) mg/dl Est Cr Clr Drug Dosing 173.7 ml/min Est GFR ( Amer) 147.5 ml/min Est GFR (Non-Af Amer) 127.2 ml/min BUN/Creatinine Ratio 15.7 (10-20) Glucose 72 (70-99(Fasting)) mg/dl Uric Acid Cancelled (2.6-7.2) mg/dl Calcium 8.2 L (8.6-10.3) mg/dl Total Bilirubin 0.6 (0.2-1.0) mg/dl Direct Bilirubin (0-0.2) mg/dl AST 111 H (13-39) U/L ALT 88 H (7-52) U/L Alkaline Phosphatase 158 H (34-104) U/L Lactate Dehydrogenase Cancelled (86-244) U/L Total Protein 6.4 (6.0-8.3) gm/dl Albumin 3.4 (3.4-5.0) gm/dl Globulin 3.0 (2.5-4.0) gm/dl Albumin/Globulin Ratio 1.1 (0.9-2) CMV IgM Ab CMV IgG Ab/TORCH EBV Capsid Ag IgG Ab EBV Capsid Ag IgM Ab EBV EA Restrict+Diffuse EBV Nuclear Antigen Ab EBV Antibody Interp 05/28/23 05/28/23 Range/Units 12:18 07:31 WBC (4.8-10.8) K/ul RBC (4.20-5.40) M/uL Hgb (12.0-16.0) g/dl Hct (37.0-47.0) % MCV (80.0-100.0) fL MCH (25.0-34.0) pg MCHC (32.0-36.0) g/dL RDW Std Deviation (36.4-46.3) fL RDW Coeff of Sander (11.5-14.5) % Plt Count (130-400) K/uL MPV (9.4-12.4) fL Immature Gran % (Auto) % Neut % (Auto) % Lymph % (Auto) % [place] % (Auto) % Eos % (Auto) % Baso % (Auto) % Neut # (Auto) (1.40-6.50) K/uL Lymph # (Auto) (1.20-3.40) K/uL [place] # (Auto) (0.11-0.59) K/uL Eos # (Auto) (0.00-0.50) K/uL Baso # (Auto) (0.00-0.20) K/uL Immature Gran # (Auto) (0.01-0.20) K/uL Absolute Nucleated RBC (0.00-0.12) K/uL Nucleated RBC % (auto) % Sodium 138 (136-145) mmol/L Potassium 3.9 (3.5-5.1) mmol/L Chloride 105 (98-107) mmol/L Carbon Dioxide 25 (21-32) mmol/L Anion Gap 8 (3-11) BUN 9 8 (6-23) mg/dl Creatinine 0.67 0.55 L (0.6-1.2) mg/dl Est Cr Clr Drug Dosing 132.2 161.0 ml/min Est GFR ( Amer) 134.8 143.8 ml/min Est GFR (Non-Af Amer) 116.3 124.1 ml/min BUN/Creatinine Ratio 13.4 14.5 (10-20) Glucose 75 71 (70-99(Fasting)) mg/dl Uric Acid 9.6 H (2.6-7.2) mg/dl Calcium 9.2 (8.6-10.3) mg/dl Total Bilirubin 0.5 (0.2-1.0) mg/dl Direct Bilirubin (0-0.2) mg/dl AST 76 H 57 H (13-39) U/L ALT 56 H 42 (7-52) U/L Alkaline Phosphatase 156 H 168 H (34-104) U/L Lactate Dehydrogenase 357 H (86-244) U/L Total Protein 6.2 6.7 D (6.0-8.3) gm/dl Albumin 3.3 L (3.4-5.0) gm/dl Globulin 2.9 3.2 (2.5-4.0) gm/dl Albumin/Globulin Ratio 1.1 1.1 (0.9-2) CMV IgM Ab CMV IgG Ab/TORCH EBV Capsid Ag IgG Ab EBV Capsid Ag IgM Ab EBV EA Restrict+Diffuse EBV Nuclear Antigen Ab EBV Antibody Interp
[2023-05-29] MEDS: PROPRANOLOL HCL 20 MG TAB PO SCH (09:18)
[2023-05-29] MEDS: DOCUSATE SODIUM 100 MG CAP PO SCH ×2 (09:18→20:21)
[2023-05-29] MEDS: MAGNESIUM SULFATE / WTR 40 GM/1,000 ML BAG IV SCH (09:48)
[2023-05-29] MEDS ORDERED: OPTIRAY 320 100ml IV ONE (11:18)
[2023-05-29] MEDS: PRENATAL VITAMIN 1 TAB PO SCH (11:41)
[2023-05-29] MEDS: FERROUS SULFATE 325 MG TAB PO SCH (11:42)
[2023-05-29] MEDS: SIMETHICONE 80 MG CHEW PO SCH ×4 (11:43→20:21)
--- NOTE | 2023-05-29 15:48 | Obstetrical Progress Note ---
Date of Service May 29, 2023 Subjective Ambulation: limited ambulation Voiding: sorto catheter in place Passing Gas:: Yes Diet Tolerance:: regular diet Lochia:: Small Feeding Type:: breast feeding Current Pain Level(1-10): 0 doing well. no headache or visual changes Physical Exam Constitutional WD/WN, vitals as above Gastrointestinal (Abdomen) Inspection/Auscultation: + abdominal surgical incision Musculoskeletal Extremities: extremities normal to inspection Skin no rashes, warm and dry Neurologic patellar DTR's 2+ bilat, sensation intact Psychiatric A+Ox3, euthymic affect Results & Data Vital Signs (Past 12 Hours) Vital Signs Temp Pulse Resp BP Pulse Ox O2 Del Method 05/29/23 15:44 81 142/79 H 05/29/23 15:41 78 99 05/29/23 15:36 81 97 05/29/23 15:33 90 93 05/29/23 15:31 85 97 05/29/23 15:30 18 05/29/23 15:26 75 98 05/29/23 15:21 73 98 05/29/23 15:16 76 97 05/29/23 15:11 76 99 05/29/23 15:06 77 97 05/29/23 15:01 84 95 05/29/23 14:56 94 05/29/23 14:56 73 05/29/23 14:56 76 94 05/29/23 14:51 72 97 05/29/23 14:47 77 94 05/29/23 14:46 74 96 05/29/23 14:44 73 115/67 05/29/23 14:41 74 96 05/29/23 14:37 78 94 05/29/23 14:36 82 95 05/29/23 14:31 95 05/29/23 14:31 82 05/29/23 14:31 80 94 05/29/23 14:30 20 05/29/23 14:26 76 95 05/29/23 14:23 86 93 05/29/23 14:21 78 96 05/29/23 14:16 76 95 05/29/23 14:11 76 96 05/29/23 14:07 81 94 05/29/23 14:06 77 95 05/29/23 14:01 78 96 05/29/23 13:56 77 97 05/29/23 13:54 78 92 05/29/23 13:51 79 98 05/29/23 13:47 79 94 05/29/23 13:46 79 97 05/29/23 13:44 77 114/69 05/29/23 13:41 78 96 05/29/23 13:36 86 98 05/29/23 13:31 88 98 05/29/23 13:30 18 05/29/23 13:26 93 H 98 05/29/23 13:21 80 95 05/29/23 13:17 82 94 05/29/23 13:16 81 95 05/29/23 13:11 82 97 05/29/23 13:07 82 122/67 05/29/23 13:06 84 97 05/29/23 12:49 84 97 05/29/23 12:44 86 98 05/29/23 12:39 87 100 05/29/23 12:34 88 99 05/29/23 12:30 20 05/29/23 12:29 92 H 99 05/29/23 12:24 89 99 05/29/23 12:20 92 H 90 05/29/23 12:19 91 H 96 05/29/23 12:06 79 99 05/29/23 12:01 75 99 05/29/23 11:56 77 100 05/29/23 11:51 81 100 05/29/23 11:46 87 99 05/29/23 11:41 80 98 05/29/23 11:36 36.5 C 84 20 120/55 L 89 L 05/29/23 11:35 20 05/29/23 10:52 87 127/90 05/29/23 10:47 78 96 05/29/23 10:42 78 97 05/29/23 10:37 81 97 05/29/23 10:32 77 96 05/29/23 10:30 20 05/29/23 10:30 20 05/29/23 10:30 20 Room Air 05/29/23 10:27 79 98 05/29/23 10:22 77 98 05/29/23 10:17 78 96 05/29/23 10:15 75 134/77 05/29/23 10:12 79 97 05/29/23 10:07 77 99 05/29/23 10:02 76 98 05/29/23 09:57 75 99 05/29/23 09:52 83 97 05/29/23 09:47 87 96 05/29/23 09:42 84 98 05/29/23 09:37 85 100 05/29/23 09:32 82 99 05/29/23 09:27 82 100 05/29/23 09:22 90 100 05/29/23 09:17 102 H 100 05/29/23 09:16 96 H 121/72 05/29/23 09:12 92 H 99 05/29/23 09:07 98 H 100 05/29/23 09:02 98 H 99 05/29/23 08:57 98 H 98 05/29/23 08:52 97 H 98 05/29/23 08:30 18 05/29/23 08:28 94 H 100 05/29/23 08:23 92 H 100 05/29/23 08:18 97 05/29/23 08:18 87 05/29/23 08:18 85 146/68 H 05/29/23 08:13 90 100 05/29/23 08:08 97 H 100 05/29/23 08:04 97 H 85 L 05/29/23 08:03 96 H 99 05/29/23 07:58 91 H 100 05/29/23 07:53 96 H 100 05/29/23 07:48 99 H 100 05/29/23 07:43 89 100 05/29/23 07:38 89 100 05/29/23 07:33 93 H 100 05/29/23 07:30 36.6 C 18 100 Room Air 05/29/23 07:28 90 98 05/29/23 07:23 93 H 98 05/29/23 07:18 94 H 99 05/29/23 07:15 18 05/29/23 07:13 96 H 100 05/29/23 07:08 98 H 100 05/29/23 07:03 91 H 100 05/29/23 06:58 90 98 05/29/23 06:53 89 100 05/29/23 06:48 88 98 05/29/23 06:47 99 H 89 L 05/29/23 06:43 98 H 98 05/29/23 06:41 94 H 87 L 05/29/23 06:40 18 05/29/23 06:38 81 96 05/29/23 06:33 85 95 05/29/23 06:28 78 97 05/29/23 06:23 81 95 05/29/23 06:18 82 96 05/29/23 06:15 97 H 129/71 05/29/23 06:13 81 96 05/29/23 06:08 79 95 05/29/23 06:03 84 94 05/29/23 05:58 90 97 05/29/23 05:53 86 92 05/29/23 05:48 87 93 05/29/23 05:43 90 93 05/29/23 05:38 98 H 93 05/29/23 05:33 96 H 93 05/29/23 05:28 96 H 92 05/29/23 05:23 91 H 94 05/29/23 05:18 89 94 05/29/23 05:15 16 05/29/23 05:15 76 128/65 05/29/23 05:13 85 95 05/29/23 05:08 80 95 05/29/23 05:03 16 05/29/23 05:03 88 93 05/29/23 04:58 83 93 05/29/23 04:53 86 94 05/29/23 04:48 84 93 05/29/23 04:43 86 93 05/29/23 04:38 83 93 05/29/23 04:33 86 92 05/29/23 04:28 85 94 05/29/23 04:23 89 92 05/29/23 04:18 94 H 92 05/29/23 04:15 18 05/29/23 04:15 94 H 130/72 05/29/23 04:13 97 H 91 05/29/23 04:10 95 H 90 05/29/23 04:08 97 H 91 05/29/23 04:03 93 H 92 05/29/23 03:58 96 H 92 05/29/23 03:53 92 H 91 05/29/23 03:50 86 90 05/29/23 03:48 96 H 91 Laboratory Results Laboratory Results - last 72 hr 05/24/23 05/26/23 05/27/23 10:03 17:22 06:16 WBC 11.92 H 11.67 H RBC 3.07 L 2.92 L Hgb 9.4 L 9.0 L Hct 28.2 L 27.1 L MCV 91.9 92.8 MCH 30.6 30.8 MCHC 33.3 33.2 RDW Std Deviation 51.5 H 53.1 H RDW Coeff of [place]ander 15.7 H 15.9 H Plt Count 142 165 MPV 11.8 11.1 Immature Gran % (Auto) 2.1 2.6 Neut % (Auto) 70.7 68.0 Lymph % (Auto) 18.5 20.7 [place] % (Auto) 8.1 8.0 Eos % (Auto) 0.3 0.5 Baso % (Auto) 0.3 0.2 Neut # (Auto) 8.44 H 7.95 H Lymph # (Auto) 2.21 2.41 [place] # (Auto) 0.96 H 0.93 H Eos # (Auto) 0.03 0.06 Baso # (Auto) 0.03 0.02 Immature Gran # (Auto) 0.25 H 0.30 H Absolute Nucleated RBC 0.02 0.02 Nucleated RBC % (auto) 0.2 0.2 Sodium 137 139 Potassium 3.9 3.7 Chloride 105 107 Carbon Dioxide 26 26 Anion Gap 6 6 BUN 10 10 Creatinine 0.70 0.64 Est Cr Clr Drug Dosing 126.5 138.4 Est GFR ( Amer) 132.9 136.8 Est GFR (Non-Af Amer) 114.6 118.1 BUN/Creatinine Ratio 14.3 15.6 Glucose 80 75 Uric Acid Calcium 7.0 L 7.6 L Total Bilirubin 0.5 0.5 Direct Bilirubin AST 25 24 ALT 20 19 Alkaline Phosphatase 150 H 141 H Lactate Dehydrogenase Total Protein 5.4 L 5.3 L Albumin 2.9 L 2.8 L Globulin 2.5 2.5 Albumin/Globulin Ratio 1.2 1.1 Crossmatch See Detail 05/28/23 05/28/23 05/28/23 07:31 12:18 14:04 WBC 13.59 H 14.89 H RBC 3.53 L 3.44 L Hgb 10.7 L 10.4 L Hct 32.2 L 31.7 L MCV 91.2 92.2 MCH 30.3 30.2 MCHC 33.2 32.8 RDW Std Deviation 51.4 H 51.8 H RDW Coeff of Sander 15.8 H 15.8 H Plt Count 253 D 252 MPV 11.0 10.5 Immature Gran % (Auto) 2.5 2.1 Neut % (Auto) 70.9 69.2 Lymph % (Auto) 18.8 19.8 Hickman % (Auto) 6.8 7.9 Eos % (Auto) 0.6 0.7 Baso % (Auto) 0.4 0.3 Neut # (Auto) 9.65 H 10.29 H Lymph # (Auto) 2.55 2.95 Hickman # (Auto) 0.92 H 1.18 H Eos # (Auto) 0.08 0.11 Baso # (Auto) 0.05 0.04 Immature Gran # (Auto) 0.34 H 0.32 H Absolute Nucleated RBC 0.05 0.06 Nucleated RBC % (auto) 0.4 0.4 Sodium 140 138 Potassium 3.8 3.9 Chloride 106 105 Carbon Dioxide 26 25 Anion Gap 8 8 BUN 8 9 Creatinine 0.55 L 0.67 Est Cr Clr Drug Dosing 161.0 132.2 Est GFR ( Amer) 143.8 134.8 Est GFR (Non-Af Amer) 124.1 116.3 BUN/Creatinine Ratio 14.5 13.4 Glucose 71 75 Uric Acid 9.6 H Cancelled Calcium 9.3 9.2 Total Bilirubin 0.6 0.5 Direct Bilirubin AST 57 H 76 H ALT 42 56 H Alkaline Phosphatase 168 H 156 H Lactate Dehydrogenase 357 H Cancelled Total Protein 6.7 D 6.2 Albumin 3.5 3.3 L Globulin 3.2 2.9 Albumin/Globulin Ratio 1.1 1.1 Crossmatch 05/28/23 05/28/23 05/28/23 20:32 20:54 23:43 WBC 13.25 H RBC 3.41 L Hgb 10.5 L Hct 31.2 L MCV 91.5 MCH 30.8 MCHC 33.7 RDW Std Deviation 51.6 H RDW Coeff of Sander 15.8 H Plt Count 260 MPV 10.2 Immature Gran % (Auto) 1.7 Neut % (Auto) 67.6 Lymph % (Auto) 22.3 Hickman % (Auto) 7.0 Eos % (Auto) 1.2 Baso % (Auto) 0.2 Neut # (Auto) 8.95 H Lymph # (Auto) 2.95 Hickman # (Auto) 0.93 H Eos # (Auto) 0.16 Baso # (Auto) 0.03 Immature Gran # (Auto) 0.23 H Absolute Nucleated RBC 0.06 Nucleated RBC % (auto) 0.5 Sodium 135 L Potassium 3.6 Chloride 102 Carbon Dioxide 21 Anion Gap 12 H BUN 8 Creatinine 0.51 L Est Cr Clr Drug Dosing 173.7 Est GFR ( Amer) 147.5 Est GFR (Non-Af Amer) 127.2 BUN/Creatinine Ratio 15.7 Glucose 72 Uric Acid Calcium 8.2 L Total Bilirubin 0.6 0.5 Direct Bilirubin 0.1 AST 111 H 117 H ALT 88 H 96 H Alkaline Phosphatase 158 H 158 H Lactate Dehydrogenase Total Protein 6.4 6.5 Albumin 3.4 3.3 L Globulin 3.0 Albumin/Globulin Ratio 1.1 Crossmatch 05/29/23 05:55 WBC 10.47 RBC 3.61 L Hgb 11.2 L Hct 33.3 L MCV 92.2 MCH 31.0 MCHC 33.6 RDW Std Deviation 52.0 H RDW Coeff of Sander 15.8 H Plt Count 270 MPV 9.9 Immature Gran % (Auto) 1.5 Neut % (Auto) 69.8 Lymph % (Auto) 20.1 Hickman % (Auto) 6.3 Eos % (Auto) 2.0 Baso % (Auto) 0.3 Neut # (Auto) 7.31 H Lymph # (Auto) 2.10 Hickman # (Auto) 0.66 H Eos # (Auto) 0.21 Baso # (Auto) 0.03 Immature Gran # (Auto) 0.16 Absolute Nucleated RBC 0.03 Nucleated RBC % (auto) 0.3 Sodium 135 L Potassium 3.6 Chloride 101 Carbon Dioxide 23 Anion Gap 11 BUN 8 Creatinine 0.51 L Est Cr Clr Drug Dosing 173.7 Est GFR ( Amer) 147.5 Est GFR (Non-Af Amer) 127.2 BUN/Creatinine Ratio 15.7 Glucose 71 Uric Acid Calcium 7.1 L Total Bilirubin 0.5 Direct Bilirubin AST 121 H ALT 105 H Alkaline Phosphatase 154 H Lactate Dehydrogenase Total Protein 6.3 Albumin 3.3 L Globulin 3.0 Albumin/Globulin Ratio 1.[address] scan liver pending results
--- NOTE | 2023-05-29 16:02 | CT Scan Report ---
CT liver w con HISTORY: 32 years-old Female post- ,elevated LFTs, rule out buddchiari Acutely elevated LFTs. COMPARISON: Ultrasound of the liver of same day. TECHNIQUE: Multiple axial CT images of the liver were obtained of 92 mL Optiray 320 utilizing arteria l and portal venous phases of postcontrast imaging. A dose lowering technique was used consistent wit h the principals jack GAMINO. FINDINGS: Clear lung bases. No free air. Unremarkable spleen, pancreas and adrenal glands. Mildly distended gal lbladder. No biliary ductal dilation. Liver measures up to 16.5 cm in length. Equivocal changes of mi ld hepatic steatosis. No hepatic mass or marginal nodularity. There is patency of the hepatic and por debbie veins. No ascites. No hydronephrosis. There is a punctate nonobstructing calculus of the superior pole right kidney. The re is no hydronephrosis. Partially imaged enlarged uterus. The aorta and IVC appear unrema rkable. No lymphadenopathy. No bowel obstruction or bowel wall thickening. Diastases recti with proba ble small umbilical hernia is surrounded by subcutaneous edema. No acute fracture is identified. Mild lumbar levoscoliosis. IMPRESSION: 1. Patency of the hepatic and portal veins. 2. Mildly distended gallbladder. 3. Right nephrolithiasis. ACT 112: Negative or not required by law. The above report was generated using voice recognition software. It may contain grammatical, syntax o r spelling errors. Dictated: 05/29/2023 11:44 AM Transcribed: 05/29/2023 11:54 AM Alonzo [id number] [email or web address] Electronically signed by: Nguyễn Berumen M.D. 05/29/2023 4:01 PM
[2023-05-29] MEDS: IBUPROFEN 600 MG TAB PO PRN (22:49)
--- NOTE | 2023-05-30 02:33 | Hospitalist Progress Note ---
Date of Service May 29, 2023 Assessment & Plan (1) Elevated liver enzymes: Plan: 32-year-old female with PMHx significant for Raynaud's phenomenon, migraines, iron deficiency anemia, ADHD, anxiety, preeclampsia with severe features during third-trimester with recent delivery on 05/25 and concerning elevation of LFTs. Elevated liver enzymes , s/p delivery on 05/25 Had preeclampsia third trimester with severe features- On magnesium, propranolol Questionable HELLP, Fatty liver of , Budd Chiari vs other US liver and CT liver suggestive of a fatty liver, no suggestion of Budd Chiari on CT liver (patent hepatic and portal veins) GI consulted, appreciate recs -continue to monitor labs -consider transfer to tertiary care center with significant change in enzymes or develops jaundice, mental status changes or coagulopathy Continue to trend LFTs, PT/INR, CPK and LDH with AM labs s/p delivery via Preeclampsia care per primary OB team Continue other home medications as ordered. DVT prophylaxis: ambulation as tolerated Diet: regular Dispo: pending with further lab monitoring CODE STATUS: Full code Thank you for this consultation. We will follow the patient with you during their hospital stay. You can reach a member of the [facility] Hospitalist Team 06/02 via the hospitalist role on tiger text. Admission and Anticipated Discharge Date Admission Date: May 24, 2023 Subjective Pt seen with at bedside. Had just returned from having CT abd completed. Denied acute concerns. Denied N/V, abdominal pain (even with recent ) or change to bowel habits. States tolerating food. Review of Systems Review of Systems: All systems reviewed & are unremarkable except as noted in Subjective Physical Exam Physical Exam: General: Alert, oriented. No acute distress Skin: No noted rashes or bruises Psych: Appropriate mood and affect Neuro: No gross deficits HEENT: NC/AT Chest: Nontender to palpation. CV: RRR, Normal s1, s2. No murmurs appreciated Resp: Breath sounds clear bilaterally, no increased effort of breathing. No crackles/rhonchi/rales. Abdomen: Soft, nontender in RUQ Results & Data Results & Data Vital Signs (Past 12 Hours) Vital Signs Temp Pulse Resp BP Pulse Ox O2 Del Method 05/29/23 09:37 85 100 05/29/23 09:32 82 99 05/29/23 09:27 82 100 05/29/23 09:22 90 100 05/29/23 09:17 102 H 100 05/29/23 09:16 96 H 121/72 05/29/23 09:12 92 H 99 05/29/23 09:07 98 H 100 05/29/23 09:02 98 H 99 05/29/23 08:57 98 H 98 05/29/23 08:52 97 H 98 05/29/23 08:28 94 H 100 05/29/23 08:23 92 H 100 05/29/23 08:18 97 05/29/23 08:18 87 05/29/23 08:18 85 146/68 H 05/29/23 08:13 90 100 05/29/23 08:08 97 H 100 05/29/23 08:04 97 H 85 L 05/29/23 08:03 96 H 99 05/29/23 07:58 91 H 100 05/29/23 07:53 96 H 100 05/29/23 07:48 99 H 100 05/29/23 07:43 89 100 05/29/23 07:38 89 100 05/29/23 07:33 93 H 100 05/29/23 07:30 36.6 C 18 100 Room Air 05/29/23 07:28 90 98 05/29/23 07:23 93 H 98 05/29/23 07:18 94 H 99 05/29/23 07:15 18 05/29/23 07:13 96 H 100 05/29/23 07:08 98 H 100 05/29/23 07:03 91 H 100 05/29/23 06:58 90 98 05/29/23 06:53 89 100 05/29/23 06:48 88 98 05/29/23 06:47 99 H 89 L 05/29/23 06:43 98 H 98 05/29/23 06:41 94 H 87 L 05/29/23 06:40 18 05/29/23 06:38 81 96 05/29/23 06:33 85 95 05/29/23 06:28 78 97 05/29/23 06:23 81 95 05/29/23 06:18 82 96 05/29/23 06:15 97 H 129/71 05/29/23 06:13 81 96 05/29/23 06:08 79 95 05/29/23 06:03 84 94 05/29/23 05:58 90 97 05/29/23 05:53 86 92 05/29/23 05:48 87 93 05/29/23 05:43 90 93 05/29/23 05:38 98 H 93 05/29/23 05:33 96 H 93 05/29/23 05:28 96 H 92 05/29/23 05:23 91 H 94 05/29/23 05:18 89 94 05/29/23 05:15 16 05/29/23 05:15 76 128/65 05/29/23 05:13 85 95 05/29/23 05:08 80 95 05/29/23 05:03 16 05/29/23 05:03 88 93 05/29/23 04:58 83 93 05/29/23 04:53 86 94 05/29/23 04:48 84 93 05/29/23 04:43 86 93 05/29/23 04:38 83 93 05/29/23 04:33 86 92 05/29/23 04:28 85 94 05/29/23 04:23 89 92 05/29/23 04:18 94 H 92 05/29/23 04:15 18 05/29/23 04:15 94 H 130/72 05/29/23 04:13 97 H 91 05/29/23 04:10 95 H 90 05/29/23 04:08 97 H 91 05/29/23 04:03 93 H 92 05/29/23 03:58 96 H 92 05/29/23 03:53 92 H 91 05/29/23 03:50 86 90 05/29/23 03:48 96 H 91 05/29/23 03:45 88 89 L 05/29/23 03:43 87 91 05/29/23 03:38 83 93 05/29/23 03:33 82 93 05/29/23 03:28 101 H 97 05/29/23 03:23 83 93 05/29/23 03:18 83 93 05/29/23 03:15 16 05/29/23 03:15 77 130/69 05/29/23 03:13 85 93 05/29/23 03:08 79 93 05/29/23 03:03 77 94 05/29/23 02:58 79 95 05/29/23 02:53 81 93 05/29/23 02:48 89 98 05/29/23 02:43 84 96 05/29/23 02:40 99 H 86 L 05/29/23 02:38 103 H 99 05/29/23 02:33 90 97 05/29/23 02:28 91 H 98 05/29/23 02:23 87 97 05/29/23 02:18 87 97 05/29/23 02:15 16 05/29/23 02:15 98 H 144/80 H 87 L 05/29/23 02:13 94 H 93 05/29/23 02:08 95 H 94 05/29/23 02:03 100 H 92 05/29/23 01:58 97 H 93 05/29/23 01:53 84 95 05/29/23 01:48 81 96 05/29/23 01:43 80 96 05/29/23 01:38 82 94 05/29/23 01:33 79 94 05/29/23 01:28 79 95 05/29/23 01:23 77 94 05/29/23 01:18 80 93 05/29/23 01:15 16 05/29/23 01:15 116 H 139/76 05/29/23 01:13 86 93 05/29/23 01:08 84 93 05/29/23 01:03 89 91 05/29/23 00:58 85 94 05/29/23 00:53 91 H 92 05/29/23 00:49 97 H 90 05/29/23 00:48 93 H 91 05/29/23 00:43 93 H 91 05/29/23 00:38 102 H 91 05/29/23 00:33 94 H 92 05/29/23 00:28 86 92 05/29/23 00:23 82 91 05/29/23 00:18 81 93 05/29/23 00:15 16 05/29/23 00:15 75 124/74 05/29/23 00:13 75 94 05/29/23 00:08 80 94 05/29/23 00:03 83 95 05/28/23 23:58 81 93 05/28/23 23:53 81 93 05/28/23 23:48 93 H 98 05/28/23 23:43 80 95 05/28/23 23:38 86 94 05/28/23 23:33 80 93 05/28/23 23:28 78 93 05/28/23 23:23 74 93 05/28/23 23:18 75 94 05/28/23 23:15 16 05/28/23 23:15 16 05/28/23 23:15 77 130/71 05/28/23 23:13 81 96 05/28/23 23:08 79 94 05/28/23 23:03 80 93 05/28/23 22:58 80 92 05/28/23 22:53 78 94 05/28/23 22:48 78 94 05/28/23 22:43 78 93 05/28/23 22:38 73 96 05/28/23 22:33 79 94 05/28/23 22:28 95 H 93 05/28/23 22:23 101 H 93 05/28/23 22:18 86 93 05/28/23 22:15 16 05/28/23 22:15 83 132/72 05/28/23 22:13 87 94 05/28/23 22:08 91 H 93 05/28/23 22:03 96 H 92 05/28/23 21:58 100 H 93 05/28/23 21:53 104 H 94 05/28/23 21:51 91 H 94 05/28/23 21:48 85 96 05/28/23 21:43 78 97
[2023-05-30 06:43] LABS: Basophils # (auto) 0.01 K/uL (0.00-0.20); Basophils % (auto) 0.1 %; Eosinophils # (auto) 0.08 K/uL (0.00-0.50); Eosinophils % (auto) 0.9 %; Hematocrit (blood only) 31.2 % (37.0-47.0); Hemoglobin 10.2 g/dl (12.0-16.0); Immature Granulocytes # (auto) 0.08 K/uL (0.01-0.20); Immature Granulocytes % (auto) 0.9 %; Lymphocytes # (auto) 1.69 K/uL (1.20-3.40); Lymphocytes % (auto) 18.6 %; Mean Corpuscular Hemoglobin 30.5 pg (25.0-34.0); Mean Corpuscular Hgb Conc 32.7 g/dL (32.0-36.0); Mean Corpuscular Volume 93.4 fL (80.0-100.0); Mean Platelet Volume 9.7 fL (9.4-12.4); Monocytes # (auto) 0.58 K/uL (0.11-0.59); Monocytes % (auto) 6.4 %; Neutrophils # (auto) 6.65 K/uL (1.40-6.50); Neutrophils % (auto) 73.1 %; Platelet Count 324 K/uL (130-400); RDW Coefficient of Variation 15.9 % (11.5-14.5); RDW Standard Deviation 53.3 fL (36.4-46.3); Red Blood Count 3.34 M/uL (4.20-5.40); White Blood Count 9.09 K/ul (4.8-10.8)
[2023-05-30 07:07] LABS: Albumin Globulin Ratio 1.2 (0.9-2); Albumin Level 3.4 gm/dl (3.4-5.0); BUN Creatinine Ratio 16.7 (10-20); Bilirubin Direct 0.1 mg/dl (0-0.2); Bilirubin,Total 0.5 mg/dl (0.2-1.0); Calcium 7.8 mg/dl (8.6-10.3); Creatinine Clr Calc Pharmacy 147.6 ml/min; Est GFR (African American) 139.8 ml/min; Est GFR (Non-African American) 120.6 ml/min; Globulin 2.9 gm/dl (2.5-4.0); Potassium 3.6 mmol/L (3.5-5.1); Total Protein 6.3 gm/dl (6.0-8.3)
[2023-05-30] MEDS: FERROUS SULFATE 325 MG TAB PO SCH (08:28)
[2023-05-30] MEDS: PROPRANOLOL HCL 20 MG TAB PO SCH (08:28)
[2023-05-30] MEDS: SIMETHICONE 80 MG CHEW PO SCH (08:28)
[2023-05-30] MEDS: DOCUSATE SODIUM 100 MG CAP PO SCH (08:28)
[2023-05-30] MEDS: PRENATAL VITAMIN 1 TAB PO SCH (08:28)
[2023-05-30] MEDS: IBUPROFEN 600 MG TAB PO PRN (08:30)
[2023-05-30 08:32] LABS: INR 0.9 (0.9-1.1); Prothrombin Time 9.9 Seconds (9.0-12.0)
--- NOTE | 2023-05-30 08:49 | Communication Note ---
Date of Service: May 30, 2023 Pt was seen and evaluated, chart reviewed. Feeling well, sitting up in bed, getting ready for breakfast. Denies RUQ pain, nausea/vomiting, black/bloody stools/emesis. Tolerating PO intake. CT with some fatty liver but no acute changes. Transaminases continue to improve. Platelet count stable. Coagulation studies within normal limit as well. PLT 99 --> 108 --> 270 --> 324 INR 0.8 --> 0.9 Tbili 0.5 AST 57 --> 121 --> 55 ALT 56 --> 105 --> 75 ALKP 219 --> 154 --> 147 CTAP 2022: Mildly distended gallbladder. No biliary ductal dilation. Liver measures up to 16.5 cm in length. Equivocal changes of mild hepatic steatosis. No hepatic mass or marginal nodularity. There is patency of the hepatic and portal veins. No ascites. ABD US 2022: Diffuse fatty liver. No gallstones or signs of acute cholecystitis. Remainder of the right upper quadrant ultrasound unremarkable. 32 year old female POD #5 , history of pre-eclampsia - GI asked to evaluate for elevated LFTs, downtrending, liver CT without acute findings Trend LFTs Diet as tolerated Continue supportive measures for now Recall GI as needed DDX discussed including HELLP syndrome, less likely acute fatty liver in . Should patient have significant change in her associated enzymes such as jaundice develop mental status changes or coagulopathy she will need to be referred to a tertiary center with transplant capabilities. Recall GI as needed. The patient's liver Enzymes appear to be improving and she had a negative CT y esterday. I would recommend that she have repeat CMP. 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 Please call with any additional questions or concerns GI to sign off for the present time.
[2023-05-30] MEDS ORDERED: oxyCODONE/ACETAMINOPHEN 5mg/325mg TAB PO PRN (09:54)
--- NOTE | 2023-05-30 09:57 | Obstetrical Progress Note ---
Date of Service May 30, 2023 Subjective Ambulation: ambulating normally Voiding: no voiding problems Passing Gas:: Yes Diet Tolerance:: regular diet Lochia:: Small Feeding Type:: breast feeding Current Pain Level(1-10): 0 doing well. no complaints. wants to go home. Physical Exam Constitutional WD/WN, vitals as above Gastrointestinal (Abdomen) Inspection/Auscultation: abdomen normal to inspection and + abdominal surgical incision Musculoskeletal Extremities: extremities normal to inspection Skin no rashes, warm and dry Neurologic patellar DTR's 2+ bilat, sensation intact Psychiatric A+Ox3, euthymic affect Genitourinary no vaginal lesions, no adnexal mass Results & Data Vital Signs (Past 12 Hours) Vital Signs Temp Pulse Resp BP BP Pulse Ox O2 Del Method 05/30/23 08:20 36.4 C L 93 H 18 133/86 150/94 H 97 Room Air 05/30/23 03:15 36.5 C 76 18 115/76 05/29/23 23:05 36.7 C 87 18 142/84 H 96 Room Air Laboratory Results 05/24/23 05/24/23 05/24/23 09:35 10:03 16:56 WBC 8.18 RBC 3.81 L Hgb 11.7 L Hct 34.4 L MCV 90.3 MCH 30.7 MCHC 34.0 RDW Std Deviation 49.1 H RDW Coeff of Sander 15.1 H Plt Count 99 L MPV 11.8 Immature Gran % (Auto) Neut % (Auto) Lymph % (Auto) [place] % (Auto) Eos % (Auto) Baso % (Auto) Neut # (Auto) Lymph # (Auto) [place] # (Auto) Eos # (Auto) Baso # (Auto) Immature Gran # (Auto) Absolute Nucleated RBC Nucleated RBC % (auto) Platelet Estimate Decreased L Polychromasia PT INR APTT PTT Ratio Fibrinogen Sodium 137 Potassium 3.5 Chloride 107 Carbon Dioxide 21 Anion Gap 9 BUN 11 Creatinine 0.60 Est Cr Clr Drug Dosing Not Reportable Est GFR ( Amer) 139.8 Est GFR (Non-Af Amer) 120.6 BUN/Creatinine Ratio 18.3 Glucose 72 Uric Acid 9.3 H Calcium 8.8 Magnesium (Sulf Ther) 5.3 Total Bilirubin 1.2 H Direct Bilirubin 0.2 AST 60 H ALT 51 Alkaline Phosphatase 175 H Lactate Dehydrogenase 288 H Total Creatine Kinase Total Protein 6.2 Albumin 3.3 L Globulin 2.9 Albumin/Globulin Ratio 1.1 Ur Random Creatinine 57.8 U Random Total Protein 91.8 H Protein/Creatinin Ratio 1.6 H Blood Type A Positive Antibody Screen NEGATIVE Crossmatch See Detail 05/25/23 05/25/23 05/25/23 05:46 12:43 14:38 WBC 7.94 8.83 RBC 3.79 L 3.78 L Hgb 11.6 L 11.5 L Hct 34.3 L 34.5 L MCV 90.5 91.3 MCH 30.6 30.4 MCHC 33.8 33.3 RDW Std Deviation 49.5 H 49.7 H RDW Coeff of Sander 15.1 H 15.1 H Plt Count 99 L 94 L MPV 11.6 12.0 Immature Gran % (Auto) 5.4 5.1 Neut % (Auto) 66.9 70.4 Lymph % (Auto) 20.5 17.2 [place] % (Auto) 6.3 6.5 Eos % (Auto) 0.5 0.3 Baso % (Auto) 0.4 0.5 Neut # (Auto) 5.31 6.22 Lymph # (Auto) 1.63 1.52 [place] # (Auto) 0.50 0.57 Eos # (Auto) 0.04 0.03 Baso # (Auto) 0.03 0.04 Immature Gran # (Auto) 0.43 H 0.45 H Absolute Nucleated RBC 0.03 0.02 Nucleated RBC % (auto) 0.4 0.2 Platelet Estimate Polychromasia 1+ PT 9.3 INR 0.8 L APTT 26.8 PTT Ratio 1.0 Fibrinogen 473 H Sodium 135 L 135 L Potassium 3.4 L 3.3 L Chloride 105 104 Carbon Dioxide 21 23 Anion Gap 9 8 BUN 10 9 Creatinine 0.64 0.69 Est Cr Clr Drug Dosing 138.4 128.4 Est GFR ( Amer) 136.8 133.5 Est GFR (Non-Af Amer) 118.1 115.2 BUN/Creatinine Ratio 15.6 13.0 Glucose 84 82 Uric Acid 9.7 H Calcium 7.4 L 7.3 L Magnesium (Sulf Ther) 7.0 Total Bilirubin 0.8 0.8 Direct Bilirubin 0.1 AST 39 39 ALT 38 38 Alkaline Phosphatase 196 H 219 H Lactate Dehydrogenase 255 H Total Creatine Kinase Total Protein 6.1 6.5 Albumin 3.2 L 3.4 Globulin 2.9 3.1 Albumin/Globulin Ratio 1.1 1.1 Ur Random Creatinine U Random Total Protein Protein/Creatinin Ratio Blood Type Antibody Screen Crossmatch 05/25/23 05/26/23 05/26/23 19:47 05:58 17:22 WBC 12.02 H 11.84 H 11.92 H RBC 3.54 L 3.02 L 3.07 L Hgb 10.9 L 9.1 L 9.4 L Hct 32.7 L 27.4 L 28.2 L MCV 92.4 90.7 91.9 MCH 30.8 30.1 30.6 MCHC 33.3 33.2 33.3 RDW Std Deviation 50.3 H 50.0 H 51.5 H RDW Coeff of Sander 14.9 H 15.2 H 15.7 H Plt Count 108 L 105 L 142 MPV 12.2 12.0 11.8 Immature Gran % (Auto) 2.9 2.6 2.1 Neut % (Auto) 84.1 75.5 70.7 Lymph % (Auto) 9.9 15.0 18.5 [place] % (Auto) 2.8 6.8 8.1 Eos % (Auto) 0.1 0.0 0.3 Baso % (Auto) 0.2 0.1 0.3 Neut # (Auto) 10.11 H 8.94 H 8.44 H Lymph # (Auto) 1.19 L 1.78 2.21 [place] # (Auto) 0.34 0.80 H 0.96 H Eos # (Auto) 0.01 0.00 0.03 Baso # (Auto) 0.02 0.01 0.03 Immature Gran # (Auto) 0.35 H 0.31 H 0.25 H Absolute Nucleated RBC 0.02 0.02 0.02 Nucleated RBC % (auto) 0.2 0.2 0.2 Platelet Estimate Polychromasia PT INR APTT PTT Ratio Fibrinogen Sodium 134 L 133 L 137 Potassium 4.0 D 3.9 3.9 Chloride 104 104 105 Carbon Dioxide 23 24 26 Anion Gap 7 5 6 BUN 10 11 10 Creatinine 0.66 0.64 0.70 Est Cr Clr Drug Dosing 134.2 138.4 126.5 Est GFR ( Amer) 135.5 136.8 132.9 Est GFR (Non-Af Amer) 116.9 118.1 114.6 BUN/Creatinine Ratio 15.2 17.2 14.3 Glucose 110 H 95 80 Uric Acid Calcium 6.7 L 6.7 L 7.0 L Magnesium (Sulf Ther) 5.8 Total Bilirubin 0.6 0.5 0.5 Direct Bilirubin AST 35 26 25 ALT 32 22 20 Alkaline Phosphatase 192 H 151 H 150 H Lactate Dehydrogenase Total Creatine Kinase Total Protein 6.0 5.1 L 5.4 L Albumin 3.2 L 2.7 L 2.9 L Globulin 2.8 2.4 L 2.5 Albumin/Globulin Ratio 1.1 1.1 1.2 Ur Random Creatinine U Random Total Protein Protein/Creatinin Ratio Blood Type Antibody Screen Crossmatch 05/27/23 05/28/23 05/28/23 06:16 07:31 12:18 WBC 11.67 H 13.59 H RBC 2.92 L 3.53 L Hgb 9.0 L 10.7 L Hct 27.1 L 32.2 L MCV 92.8 91.2 MCH 30.8 30.3 MCHC 33.2 33.2 RDW Std Deviation 53.1 H 51.4 H RDW Coeff of Sander 15.9 H 15.8 H Plt Count 165 253 D MPV 11.1 11.0 Immature Gran % (Auto) 2.6 2.5 Neut % (Auto) 68.0 70.9 Lymph % (Auto) 20.7 18.8 [place] % (Auto) 8.0 6.8 Eos % (Auto) 0.5 0.6 Baso % (Auto) 0.2 0.4 Neut # (Auto) 7.95 H 9.65 H Lymph # (Auto) 2.41 2.55 [place] # (Auto) 0.93 H 0.92 H Eos # (Auto) 0.06 0.08 Baso # (Auto) 0.02 0.05 Immature Gran # (Auto) 0.30 H 0.34 H Absolute Nucleated RBC 0.02 0.05 Nucleated RBC % (auto) 0.2 0.4 Platelet Estimate Polychromasia PT INR APTT PTT Ratio Fibrinogen Sodium 139 140 138 Potassium 3.7 3.8 3.9 Chloride 107 106 105 Carbon Dioxide 26 26 25 Anion Gap 6 8 8 BUN 10 8 9 Creatinine 0.64 0.55 L 0.67 Est Cr Clr Drug Dosing 138.4 161.0 132.2 Est GFR ( Amer) 136.8 143.8 134.8 Est GFR (Non-Af Amer) 118.1 124.1 116.3 BUN/Creatinine Ratio 15.6 14.5 13.4 Glucose 75 71 75 Uric Acid 9.6 H Calcium 7.6 L 9.3 9.2 Magnesium (Sulf Ther) Total Bilirubin 0.5 0.6 0.5 Direct Bilirubin AST 24 57 H 76 H ALT 19 42 56 H Alkaline Phosphatase 141 H 168 H 156 H Lactate Dehydrogenase 357 H Total Creatine Kinase Total Protein 5.3 L 6.7 D 6.2 Albumin 2.8 L 3.5 3.3 L Globulin 2.5 3.2 2.9 Albumin/Globulin Ratio 1.1 1.1 1.1 Ur Random Creatinine U Random Total Protein Protein/Creatinin Ratio Blood Type Antibody Screen Crossmatch 05/28/23 05/28/23 05/28/23 14:04 20:32 20:54 WBC 14.89 H 13.25 H RBC 3.44 L 3.41 L Hgb 10.4 L 10.5 L Hct 31.7 L 31.2 L MCV 92.2 91.5 MCH 30.2 30.8 MCHC 32.8 33.7 RDW Std Deviation 51.8 H 51.6 H RDW Coeff of Sander 15.8 H 15.8 H Plt Count 252 260 MPV 10.5 10.2 Immature Gran % (Auto) 2.1 1.7 Neut % (Auto) 69.2 67.6 Lymph % (Auto) 19.8 22.3 [place] % (Auto) 7.9 7.0 Eos % (Auto) 0.7 1.2 Baso % (Auto) 0.3 0.2 Neut # (Auto) 10.29 H 8.95 H Lymph # (Auto) 2.95 2.95 [place] # (Auto) 1.18 H 0.93 H Eos # (Auto) 0.11 0.16 Baso # (Auto) 0.04 0.03 Immature Gran # (Auto) 0.32 H 0.23 H Absolute Nucleated RBC 0.06 0.06 Nucleated RBC % (auto) 0.4 0.5 Platelet Estimate Polychromasia PT INR APTT PTT Ratio Fibrinogen Sodium 135 L Potassium 3.6 Chloride 102 Carbon Dioxide 21 Anion Gap 12 H BUN 8 Creatinine 0.51 L Est Cr Clr Drug Dosing 173.7 Est GFR ( Amer) 147.5 Est GFR (Non-Af Amer) 127.2 BUN/Creatinine Ratio 15.7 Glucose 72 Uric Acid Cancelled Calcium 8.2 L Magnesium (Sulf Ther) Total Bilirubin 0.6 Direct Bilirubin AST 111 H ALT 88 H Alkaline Phosphatase 158 H Lactate Dehydrogenase Cancelled Total Creatine Kinase Total Protein 6.4 Albumin 3.4 Globulin 3.0 Albumin/Globulin Ratio 1.1 Ur Random Creatinine U Random Total Protein Protein/Creatinin Ratio Blood Type Antibody Screen Crossmatch 05/28/23 05/29/23 05/30/23 23:43 05:55 06:05 WBC 10.47 9.09 RBC 3.61 L 3.34 L Hgb 11.2 L 10.2 L Hct 33.3 L 31.2 L MCV 92.2 93.4 MCH 31.0 30.5 MCHC 33.6 32.7 RDW Std Deviation 52.0 H 53.3 H RDW Coeff of Sander 15.8 H 15.9 H Plt Count 270 324 MPV 9.9 9.7 Immature Gran % (Auto) 1.5 0.9 Neut % (Auto) 69.8 73.1 Lymph % (Auto) 20.1 18.6 [place] % (Auto) 6.3 6.4 Eos % (Auto) 2.0 0.9 Baso % (Auto) 0.3 0.1 Neut # (Auto) 7.31 H 6.65 H Lymph # (Auto) 2.10 1.69 [place] # (Auto) 0.66 H 0.58 Eos # (Auto) 0.21 0.08 Baso # (Auto) 0.03 0.01 Immature Gran # (Auto) 0.16 0.08 Absolute Nucleated RBC 0.03 Nucleated RBC % (auto) 0.3 Platelet Estimate Polychromasia PT 9.9 INR 0.9 APTT PTT Ratio Fibrinogen Sodium 135 L 137 Potassium 3.6 3.6 Chloride 101 104 Carbon Dioxide 23 25 Anion Gap 11 8 BUN 8 10 Creatinine 0.51 L 0.60 Est Cr Clr Drug Dosing 173.7 147.6 Est GFR ( Amer) 147.5 139.8 Est GFR (Non-Af Amer) 127.2 120.6 BUN/Creatinine Ratio 15.7 16.7 Glucose 71 81 Uric Acid Calcium 7.1 L 7.8 L Magnesium (Sulf Ther) Total Bilirubin 0.5 0.5 0.5 Direct Bilirubin 0.1 0.1 AST 117 H 121 H 55 H ALT 96 H 105 H 75 H Alkaline Phosphatase 158 H 154 H 147 H Lactate Dehydrogenase 277 H Total Creatine Kinase 61 Total Protein 6.5 6.3 6.3 Albumin 3.3 L 3.3 L 3.4 Globulin 3.0 2.9 Albumin/Globulin Ratio 1.1 1.2 Ur Random Creatinine U Random Total Protein Protein/Creatinin Ratio Blood Type Antibody Screen Crossmatch Diagnostic Findings LFT's are trending down
--- NOTE | 2023-05-30 10:27 | Hospitalist Progress Note ---
Date of Service May 30, 2023 Assessment & Plan (1) Elevated liver enzymes: Plan: 32-year-old female with PMHx significant for Raynaud's phenomenon, migraines, iron deficiency anemia, ADHD, anxiety, preeclampsia with severe features during third-trimester with recent delivery on 05/25 and concerning elevation of LFTs. Elevated liver enzymes , s/p delivery on 05/25 Had preeclampsia third trimester with severe features- On magnesium, propranolol Questionable HELLP, Fatty liver of , Budd Chiari vs other US liver and CT liver suggestive of a fatty liver, no suggestion of Budd Chiari on CT liver (patent hepatic and portal veins) GI consulted, appreciate recs -continue to monitor labs -consider transfer to tertiary care center with significant change in enzymes or develops jaundice, mental status changes or coagulopathy Liver enzymes downtrending on day of discharge 05/30/23 Recommend pcp and outpatient GI followup for continued monitoring after discharge. s/p delivery via Preeclampsia care per primary OB team Continue other home medications as ordered. DVT prophylaxis: ambulation as tolerated Diet: regular Dispo: d/c on 05/30 per primary team CODE STATUS: Full code Thank you for this consultation. We will follow the patient with you during their hospital stay. You can reach a member of the [facility] Hospitalist Team 06/02 via the hospitalist role on tiger text. Admission and Anticipated Discharge Date Admission Date: May 24, 2023 Subjective Pt seen with at bedside. Denied acute concerns. Review of Systems Review of Systems: All systems reviewed & are unremarkable except as noted in Subjective Physical Exam Physical Exam: General: Alert, oriented. No acute distress Skin: No noted rashes or bruises Psych: Appropriate mood and affect Neuro: No gross deficits HEENT: NC/AT Chest: Nontender to palpation. CV: RRR, Normal s1, s2. No murmurs appreciated Resp: Breath sounds clear bilaterally, no increased effort of breathing. No crackles/rhonchi/rales. Abdomen: Soft, nontender in RUQ Results & Data Results & Data Vital Signs (Past 12 Hours) Vital Signs Temp Pulse Resp BP BP Pulse Ox O2 Del Method 05/30/23 10:14 36.4 C L 93 H 18 133/86 150/94 H 97 05/30/23 08:20 36.4 C L 93 H 18 133/86 150/94 H 97 Room Air 05/30/23 03:15 36.5 C 76 18 115/76 05/29/23 23:05 36.7 C 87 18 142/84 H 96 Room Air
[2023-05-31 12:12] LABS: CMV IgG Antibody <0.60 U/mL; CMV IgM Antibody <30.00 AU/mL; EBV Nuclear Ag Antibody <18.00 U/mL; EBV Virus Capsid Ag IgG Ab <18.00 U/mL; Epstein Barr Virus Early Ag Ab <9.00 U/mL
--- NOTE | 2023-06-12 13:57 | Discharge Summary ---
Date of Service June 12, 2023 Admission HPI Per Admitting Provider 32 F P0000 at 37.3 weeks found to have elevated BP today in office for a routine visit and sent to L&D for evaluation. BP remains high and patient meets criteria for pre-eclampsia with sever features. Patient denies headache, visual changes, nausea or vomitting, RUQ pain or any other features. She has 1+ lower extremity edema. GBS is negative. Discharge Data Consultations 05/24/23 09:55 Consult Anesthesiology Stat 05/28/23 21:36 Consult Hospitalist Stat 05/29/23 08:00 Consult Gastroenterology Routine Procedures Performed Operation Date: 05/25/23 14:00 Actual Procedures p Section in LD; Live male child at 1528(Bilateral) - Hillary Hermosillo MD Hospital Course (1) Elevated liver enzymes: (2) delivery delivered: (3) Pre-eclampsia during in third trimester, antepartum: Patient is a 32-year-old G1, P0 at 37 weeks and 3 days of gestation who was admitted by Dr. Bazzi on May 24 for preeclampsia with severe features. She was started on IV magnesium for seizure prophylaxis and started on cervical ripening with Cervidil followed by oral Cytotec. heart heart rate was reassuring and she has not gone into labor with this cervical ripening agents. When I took her over on May 25 morning her cervix was closed thick and high. She had thrombocytopenia at 99,000 on the day of admission which then came down to 94,000 in the afternoon number night. After discussion with preeclampsia with severe features and worsening thrombocytopenia and remote from delivery no response to induction agents decision was made to proceed with delivery via . She was taken to the OR on May 25 afternoon delivered a viable . Her surgery was uncomplicated see op note for details. On postop period, Patient was kept on IV magnesium for 24 hours. Her urine output was good and she was improving clinically with no signs of magnesium toxicity. The headache she had before delivery has resolved soon after C- section. She was on oral labetalol with rescue doses of IV labetalol No. 9 next day she was switched to oral nifedipine XL once a day. Her liver enzymes were initially normal and then started to increase on postop day #2. Hospitalist and then GI was consulted to evaluate liver functions. They ordered CT of abdomen and liver ultrasound and which showed fatty liver and LFTs increased slightly over a day and then started to decline. Patient was doing well and she was discharged home on postop day #5 on May 30. Discharge instructions were given. Prescriptions were written for pain and antihypertensives. She needs to be seen in office in a week for incision check as well as blood pressure check. All questions were answered.
--- OUTSIDE RECORDS SUMMARY | 2023-08-16 13:10 | External Medical Summary | Summary of Care ---
Author Name Unknown Organization [facility] Address [address] [place] [address] Phone [phone] Care Team Providers Care Cast Iron Drain Pipe Layer Name Role Phone Kelechi Vega MD Primary Care Provide r Reason for Visit * Reason Comments Incision check Encounter Details Date Type Department Care Team (Late st Contact Info) Description 06/01/2023 2:15 PM EST Office Visit Gynecology/Obstetric s Terese Isabel [address] [facility] [place] [address] BackerEstefania CRNP [address] [facility] [place] [address] Status post surgery* Allergies No known active allergiesdocumented as of this encounter (statuses as of 06/01/2023) Medications Medication Sig Dispensed Refills Start Date [...] before bedtime. 60 Tablet 3 03/15/2023 Active Ibuprofen 600 MG Oral Tablet (Motrin) 1 Tablet. 0 05/27/2023 Active NIFEdipine ER Osmotic Release 30 MG Oral Tablet Extended Release 24 Hour (Procardia XL) 1 Tablet. 0 05/27/2023 Active Docusate Sodium 100 MG Oral Capsule (Colace) 1 Capsule. 0 05/27/2023 Active documented as of this encounter (statuses as of 06/01/2023) Active Problems Problem Noted Date Diagnosed Date Hypertension in , preeclampsia, severe, delivered 05/26/2023 Overview: Dx at 37 weeks, Plt 99, AST 60. Started on mag and labetalol rescue. IOL: Cervidil, misoprostol. Closed on exam after 36 hrs. C section for worsening labs, severe range BP and remote from delivery Antepartum anemia complicating 023 Overview: Iron infusions [...] phenomenon 08/28/2013 ADHD (attention deficit hyperactivity disorder) documented as of this encounter (statuses as of 06/01/2023) Immunizations Name Administration Dates Next Due COVID-19 [...] money to get more. Never true 10/17/2022 [place] Depression Scale Answer Date Recorded [place] Depression Scale Total 1 05/10/2023 The thought of harming myself has occurred to me . Never 05/10/2023 Sex and Gender Information Value Date Recorded Sex Assigned at Female 10/17/2022 8:48 PM EDT Gender Identity Female 10/17/2022 8:48 PM EDT Sexual Orientation Straight 10/17/2022 8: 48 PM EDT Job Start Date Occupation Industry Not on file Not on file Not on file documented as of this encounter Last Filed Vital Signs Vital Sign Reading Time Taken Comments Blood Pressure 122/86 06/01/2023 1:45 PM EST Pulse - - Temperature - - Respiratory Rate - - Oxygen Saturation - - Inhaled Oxygen Concentration - - Weight 80.3 kg (177 lb) 06/01/2023 1:45 PM EST Height - - Body Mass Index 30.38 05/24/2023 7:52 AM EST documented in this encounter Progress Notes * Estefania Martin CRNP - 06/01/2023 2:03 PM EST Subjective: Brinda Toussaint is a 32 year old year old female here for incision check s/p primary forsevere preE/failure to progress on 05/25/23. No complaints about incision site. Patient denies s/s infection. Pain is well managed. No bowel/bladder concerns. Vaginal bleeding is light. Seeing PCP on Monday to follow up on hospital stay: she had elevated LFTs. Today denies any right sided pain, nausea/vomiting. Bottle feeding, getting rest. Family is helpful. Denies depression/anxiety. Objective: BP 122/86 | Wt 80.3 kg (177 lb) | LMP 09/04/2022 | No | BMI 30.38 kg/m | BSA 1.9 m Physical Exam General: awake, alert, and oriented x 3, NAD Head: normocephalic, atraumatic Abdomen: soft, non-tender Skin: abdominal incision clean, dry, and intact Steri strips reapplied to lateral edges of incision Assessment/Plan: Status post surgery (Primary) Doing well, keep f/u appt with PCP for rechecking liver function. Call OB office with any new pain, increase in bleeding, fever/chills, or mood concerns. Return for 6 wk PP visit. FATOU Gustafson documented in this encounter Nursing Notes * Hazel Archer LPN - 06/01/2023 1:47 PM EST Chief Complaint Patient presents with Incision check Doing well. Denies fevers,chill, redness at incision site, drainage. documented in this encounter Plan of Treatment Upcoming Encounters Date Type Department Care Team (Late st Contact Info) Description 06/05/2023 5:00 PM EST Office Visit Family Medicine [address] [place] [phone] Kelechi Vega MD [address] [place] [address] [place] [phone] 07/11/2023 10:30 AM EST [facility] [address] [place] [phone] Estefania Martin CRNP [address] [place] [address] Health Maintenance Due Date Last Done Comments Depression Screening 04/29/2021 04/29/2020 COVID-19 Vaccine ( season) 2023 08/17/2021, 07/27/2021 Influenza Vaccine (FLU shot) (#1) 2023 GFR 03/14/2024 03/14/2023 Pap Smear 11/02/2025 11/02/2022, 02/2018, 04/06/2015, Additional [...] as of this encounter Visit Diagnoses Diagnosis Status post surgery- Primary documented in this encounter Care Teams Cast Iron Drain Pipe Layer Relationship Specialty Start Date End Date Kelechi Vega MD [address] [place] [address] [place] [id number] PCP - General Family Medicine 12/28/22 documented as of this encounter"
--- OUTSIDE RECORDS SUMMARY | 2023-08-16 13:10 | External Medical Summary | Summary of Care ---
Author Name Unknown Organization [facility] Address [address] [place] [address] Phone [phone] Care Team Providers Care Mixed Crop And Livestock Farmer Name Role Phone Kelechi Vega MD Primary Care Provide r Reason for Visit * Reason Onset Date Comments Eye Problem Eye Problem 07/14/2023 Encounter Details Date Type Department Care Team (Latest Contact Info) Description 07/14/2023 9:30 AM EST Convenient Care Visit [facility] [address] [place] [address] Yash Ambrocio PA-C [address], [place] [id number] Abrasion of right cornea, initial encounter* Allergies No known active allergiesdocumented as of this encounter (statuses as of 07/14/2023) Medications Medication Sig Dispensed Refills Start Date End Date Status Cetirizine HCl 10 MG Oral Tablet Take 1 Tablet by mouth in the morning. 0 Active Ibuprofen 600 MG Oral Tablet (Motrin) 1 Tablet. 0 05/27/2023 Acti ve NIFEdipine ER Osmotic Release 30 MG Oral Tablet Extended Release 24 Hour (Procardia XL) 1 Tablet. 0 05/27/2023 Activ e Docusate Sodium 100 MG Oral Capsule (Colace) 1 Capsule. 0 05/27/2023 Active Norethin Dean-Eth Estrad-FE 1.5-30 MG-MCG Oral Tablet (Microgestin FE 1.5/30)Indications:O ral contraception initiation Take 1 Tablet by mouth daily. 28 Tablet 12 07/11/2023 Active Additional Information Patient not taking.Reported on 07/14/2023 Erythromycin 5 MG/GM Ophthalmic OintmentIndications: Abrasion of right cornea, initial encounter Instill into eye 4 times a day for 7 days. 1/2 inch to the lower lid of affected eye(s). 3.5 g 0 07/14/2023 07/21/2023 Active documented as of this encounter (statuses as of 07/14/2023) Active Problems Problem Noted Date Diagnosed Date Iron deficiency anemia 04/18/2023 Family history of aneurysm 11/02/2022 Overview: Pt's [...] S/p consultation with genetics. Declined MSAFP screen. 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 Started on mag and labetalol rescue. IOL: Cervidil, misoprostol. Closed on exam after 36 hrs. C section for worsening labs, severe range BP and remote from delivery Antepartum anemia complicating 05/03/2023 07/11/2023 Overview: Iron infusions Supervision of high-risk pre gnancy, unspecified trimester 11/02/2022 07/11/2023 Last Assessment & Plan: Reassured patient that all visualized anatomy appears normal. EFW at 91%ile, but dating accurate/appropriate. Fluid appropriate for gestational age. History of migraine during 11/02/2022 07/11/2023 documented as of this encounter (statuses as of 07/14/2023) Immunizations Name Administration Dates Next Due COVID-19 [...] to get more. Never true 10/17/2022 [place] Depression Scale Answer Date Recorded [place] Depression Scale Total 0 07/11/2023 The thought of harming myself has occurred to me . Never 07/11/2023 Sex and Gender Information Value Date Recorded Sex Assigned at Female 10/17/2022 8:48 PM EDT Gender Identity Female 10/17/2022 8:48 PM EDT Sexual Orientation Straight 10/17/2022 8: 48 PM EDT Job Start Date Occupation Industry Not on file Not on file Not on file documented as of this encounter Last Filed Vital Signs Vital Sign Reading Time Taken Comments Blood Pressure 120/70 07/14/2023 9:57 AM EST Pulse 78 07/14/2023 9:57 AM EST Temperature 36.6 C (97.9 F) 07/14/2023 9:57 AM ES T Respiratory Rate 16 07/14/2023 9:57 AM EST Oxygen Saturation 100% 07/14/2023 9:57 AM EST Inhaled Oxygen Concentration - - Weight 78 kg (172 lb) 07/14/2023 9:57 AM EST Height - - Body Mass Index 29.52 07/11/2023 10:19 AM EST documented in this encounter Patient Instructions * Patient Instructions* Yash Ambrocio PA-C - 07/14/2023 10:29 AM EST Warm or cool compresses Erythromycin ointment Tylenol/motrin as needed Eye doc today or tomorrow. Er if acutely worsens documented in this encounter Progress Notes * Yash Ambrocio PA-C - 07/14/2023 10:24 AM EST Nursing Notes: Chio Rubio LPN 07/14/23 1002 Signed 32 yo female presents with right eye irritation x 1 day. Baby hit eye Brinda Hogdes Heuser is a 32 year old female who presents with right eye symptoms for 1 days. Patient was accompanied by Self. Quality (Feels like): red, painful eye. "Like something in it" Severity of Symptoms: Moderate Timing (How often does it occur): constsant Foreign body or trauma? Hit in the eye by infant yesterday Contacts and/or glasses? glasses Visual changes (including diplopia, blurry vision, flashes of light)? Gets blurry or double when goupy, but then wipes her eye and it goes away, back to normal Any OTC medications? N/a Prior history of "pink eye"? N/a Any sick contacts? N/a Any cold symptoms? None Reports photophobia, pain with EOM. ROS EXAM See HPI for pertinent positives and negatives PAST MEDICAL AND SOCIAL HISTORY: Past Medical History: Diagnosis Date ADHD (attention deficit hyperactivity disorder) Anxiety 04/29/2020 Hypertension in , preeclampsia, severe, delivered 05/26/2023 Dx at 37 weeks, Plt 99, AST 60. Started on mag and labetalol rescue. IOL: Cervidil, misoprostol. Closed on exam after 36 hrs. C section for worsening labs, severe rangeBP and remote from delivery Migraine headache with aura 08/28/2013 Raynaud phenomenon 08/28/2013 Past Surgical History: Procedure Laterality Date [place] DELIVERY ONLY N/A 05/25/2023 [facility] Social History Tobacco Use Smoking status: Never Smokeless tobacco: Never Substance Use Topics Alcohol use: No Vaping/E-Cigarette Use Vaping/E-Cigarette Substances Vaping/E-Cigarette Devices Current Outpatient Medications Medication Sig Dispense Refill NIFEdipine ER Osmotic Release 30 MG Oral Tablet Extended Release 24 Hour (Procardia XL) 1 Tablet. Erythromycin 5 MG/GM Ophthalmic Ointment Instill into eye 4 times a day for 7 days. 1/2 inch to thelower lid of affected eye(s). 3.5 g 0 Cetirizine HCl 10 MG Oral Tablet Take 1 Tablet by mouth in the morning. Ibuprofen 600 MG Oral Tablet (Motrin) 1 Tablet. Docusate Sodium 100 MG Oral Capsule (Colace) 1 Capsule. Norethin Dean-Eth Estrad-FE 1.5-30 MG-MCG Oral Tablet (Microgestin FE 1.5/30) Take 1 Tablet by mouthdaily. (Patient not taking: Reported on 07/14/2023) 28 Tablet 12 No current facility-administered medications for this visit. Review of patient's allergies indicates: No Known Allergies OBJECTIVE: BP 120/70 | Pulse 78 | Temp 36.6 C (97.9 F) (Tympanic) | Resp 16 | Wt 78 kg (172 lb) | SpO2 100% | No | BMI 29.52 kg/m | BSA 1.88 m Wt Readings from Last 1 Encounters: 07/14/23 78 kg (172 lb) General appearance: awake, alert, no apparent distress Eyes: PERRL, EOMI with pain of R eye, L is unaffected. Right conjunctiva with injection, with purulent eye drainage. Crusting of right lid is not noted. There is no foreign body noted in right eye(s). ENT: tms - clear, normal light reflex, no erythema oral pharynx clear, mucus membranes moist No sinus tenderness or facial pain to percussion No turbinate engorgment or discharge Neck: normal, supple, no adenopathy Respiratory: clear to auscultation, no rhonchi, no wheezes, and no crackles Heart: regular rate, regular rhythm, no murmurs , no rubs, and no gallops SKIN: skin color, texture, turgor are normal, no rashes or significant lesions Fluorescein eye stain: 2 drops of proparacaine administered to R eye. Fluorescein strip applied to stain eye. Isabel lamp used to examine eye. 1 moderate corneal abrasion noted. No ulcers, dendritic lesions, or other significant uptake. Irrigated with sterile saline. Pt tolerated procedure well. Assessment: Abrasion of right cornea, initial encounter (Primary) - Erythromycin 5 MG/GM Ophthalmic Ointment; Instill into eye 4 times a day for 7 days. 1/2 inch to the lower lid of affected eye(s). Of note, with proparacaine drops, EOM is no longer painful. Borderline red flag of Pain with EOM and blurry vision (suspected to be just with discharge). Will treat with abx ointment and have pt see eye doctor today ER if any changes Pt aware and agreed Follow Up: Return for Patient to follow up with Primary Care Provider as directed. | For: Patient to follow up with Primary Care Provider as directed Warm or cool compresses Erythromycin ointment Tylenol/motrin as needed Eye doc today or tomorrow. Er if acutely worsens Reviewed importance of good handwashing to prevent spread Wash all bedding in hot water as directed, especially pillowcases Change all eye makeup and/or contacts as directed Follow-up with PCP if not improving within 2-3 days, sooner if worsening symptoms Patient goals for plan of care were discussed There are no Patient Instructions on file for this visit. Yash Ambrocio PA-C [address] [address] documented in this encounter Nursing Notes * Chio Rubio LPN - 07/14/2023 9:59 AM EST 32 yo female presents with right eye irritation x 1 day. Baby hit eye documented in this encounter Plan of Treatment Upcoming Encounters Date Type Department Care Team (Late st Contact Info) Description 10/04/2023 8:00 AM EDT Office Visit Family Medicine [address] [place] [phone] Tigist Erickson PA-C [address] [place] [address] [place] [address] Health Maintenance Due Date Last Done Comments [...] as of this encounter Visit Diagnoses Diagnosis Abrasion of right cornea, initial encounter- Primary documented in this encounter Care Teams Mixed Crop And Livestock Farmer Relationship Specialty Start Date End Date Kelechi Vega MD [address] [place] [address] [place] [address] PCP - General Family Medicine 12/28/22 documented as of this encounter
--- OUTSIDE RECORDS SUMMARY | 2023-08-16 13:10 | External Medical Summary | Summary of Care ---
Author Name Unknown Organization [facility] Address [address] Care Team Providers Care Cinnamon Grinder Name Role Phone Kelechi Vega MD Primary Care Provide r Reason for Visit * Reason Onset Date Comments Returning Call 04/18/2023 Encounter Details Date Type Department Care Team (Late st Contact Info) Description 04/18/2023 Telephone Pharmacy, [facility] [place] [address] [facility] [place] [address] Clinic, Anemia [address], [place] [phone] Returning Call (/) Allergies No known active allergiesdocumented as of this encounter (statuses as of 07/18/2023) Medications Medication Sig Dispensed Refills Start Date End Date Status Cetirizine HCl 10 MG Oral Tablet Take 1 Tablet by mouth in the morning. 0 Active documented as of this encounter (statuses as of 07/18/2023) Active Problems Problem Noted Date Diagnosed Date [...] phenomenon 08/28/2013 ADHD (attention deficit hyperactivity disorder) Comments Yes documented as of this encounter (statuses as of 07/18/2023) Resolved Problems Problem Noted Date Diagnosed Date [...] as of this encounter (statuses as of 07/18/2023) Immunizations Name Administration Dates Next Due COVID-19 [...] money to get more. Never true 10/17/2022 [place] Depression Scale Answer Date Recorded [place] Depression Scale Total 0 07/11/2023 The thought of harming myself has occurred to me . Never 07/11/2023 Comments Yes Sex and Gender Information Value Date Recorded Sex Assigned at Female 10/17/2022 8:48 PM EDT Gender Identity Female 10/17/2022 8:48 PM EDT Sexual Orientation Straight 10/17/2022 8: 48 PM EDT Job Start Date Occupation Industry Not on file Not on file Not on file documented as of this encounter Miscellaneous Notes * Telephone Encounter - Johana May, toll collector - 04/18/2023 2:07 PM EDT Caller's name: Brinda Belen call back number(OFFICE NUMBER FOR ): [phone] Reason for call: patient returning your call to schedule her infusion, thank you. Johana May MA [employer] [facility] [phone] [facility] [phone] [place] [address] ext [phone] documented in this encounter Plan of Treatment Upcoming Encounters Date Type Department Care Team (Late st Contact Info) Description 10/04/2023 8:00 AM EDT Office Visit Family Medicine [address] [place] [phone] Tigist Erickson PA-C [address] [place] [address] [place] [address] Health Maintenance Due Date Last Done Comments [...] filedocumented as of this encounter Care Teams Cinnamon Grinder Relationship Specialty Start Date End Date Kelechi Vega MD [address] [place] [address] [place] [address] PCP - General Family Medicine 12/28/22 documented as of this encounter
--- OUTSIDE RECORDS SUMMARY | 2023-08-16 13:10 | External Medical Summary | Summary of Care ---
Author Name Unknown Organization [facility] Address [address] [place] [address] Phone [phone] Care Team Providers Care Nurse Licensed Practical Name Role Phone Kelechi Vega MD Primary Care Provide r Reason for Visit * Reason Comments Clinical Nursing Manager Return Encounter Details Date Type Department Care Team (Late st Contact Info) Description 07/11/2023 10:30 AM EST Office Visit Gynecology/[facility]st[facility] [address] [facility] [place] [address] Estefania Martin CRNP [address] [facility], [place] [address] Routine follow-up*; Oral contraception initiation Allergies No known active allergiesdocumented as of this encounter (statuses as of 07/11/2023) Medications Medication Sig Dispensed Refills Start Date [...] Estrad-FE 1.5-30 MG-MCG Oral Tablet (Microgestin FE 1.5/30)Indications: Oral contraception initiation Take 1 Tablet by mouth daily. 28 Tablet 12 07/11/2023 Active 28-0.8 MG Oral Tablet Take by mouth. 0 3 Discontinued Vitron-C 65-125 MG Oral Tablet (Iron-Vitamin C 65-125 mg per tab) Take 1 Tablet by mouth in the morning and 1 Tablet before bedtime. 60 Tablet 3 03/15/2023 3 Discontinued documented as of this encounter (statuses as of 07/11/2023) Active Problems Problem Noted Date Diagnosed Date [...] as of this encounter (statuses as of 07/11/2023) Resolved Problems Problem Noted Date Diagnosed Date [...] as of this encounter (statuses as of 07/11/2023) Immunizations Name Administration Dates Next Due COVID-19 mRNA, LNP-s, No Pre serve, 2-Dose Series (Pfizer) 08/17/2021,07/27/2021 HIB PRP-T, 4 dose (ActHib) 07/13/1992,,02/14/1991,12/13 HPV Vaccine, 4-Valent 06/01/2007,01/29/2007,03/2007 Hep A - Hepatitis A (ped/ado le, 1-18 Yrs) 06/01/2007,11/22/2006 Hepatitis B, 0-19 yrs 05/19/1998,12/23/1997, MMR - Measles/Mumps/Rubella Vaccine 11/12/1997,1 08/02/1991 Meningococcal [...] money to get more. Never true 10/17/2022 [place] Depression Scale Answer Date Recorded [place] Depression Scale Total 0 07/11/2023 The thought [...] Sign Reading Time Taken Comments Blood Pressure 124/74 07/11/2023 10:19 AM EST Pulse - - Temperature - - Respiratory Rate - - Oxygen Saturation - - Inhaled Oxygen Concentration - - Weight 78.9 kg (174 lb) 07/11/2023 10:19 AM EST Height 162.6 cm (5' 4") 07/11/2023 10:19 AM EST Body Mass Index 29.87 07/11/2023 10:19 AM EST documented in this encounter Progress Notes * Estefania Martin CRNP - 07/11/2023 10:17 AM EST Routine Visit 07/11/2023 HPI: 32 year old year old female doing well. Baby delivered via C/S on 05/25/23 by Lainey - 7lbs 5oz. male, named Gonzalez Patient is bottle feeding and denies concerns in this regard Patient is feeling well rested. Her family is helping her. She has no concerns with depression. [place] Depression Scale: [place] Depression Scale Total: 0 [place] suicide question and score: Score of 3 = Yes, quite often. Score of 2 = Sometimes. Score of 1 = Hardly ever The thought of harming myself has occurred to me.: 0 Her was complicated by severe preeclampsia. Normotensive. Most recent LFTs were normal. She reports her bleeding is light. Menses have not returned. She has not resumed intercourse. Planning to use OCPs - hx of migraines, reports prior DAXA use decreased their frequency. No current migraine concerns. Plans to continue nifedipine for migraine prophylaxis. Last pap smear 10/2022 - NILM, neg HPV ROS: SOB no Chest pain no Fevers no Urinary complaints no Bowel complaints no Deep calf pain no Past Medical History: Diagnosis Date ADHD (attention deficit hyperactivity disorder) Anxiety 04/29/2020 Hypertension in , preeclampsia, severe, delivered 05/26/2023 Dx at 37 weeks, Plt 99, AST 60. Started on mag and labetalol rescue. IOL: Cervidil, misoprostol. Closed on exam after 36 hrs. C section for worsening labs, severe rangeBP and remote from delivery Migraine headache with aura 08/28/2013 Raynaud phenomenon 08/28/2013 Current Outpatient Medications Medication Sig Dispense Refill 28-0.8 MG Oral Tablet Take by mouth. Vitron-C 65-125 MG Oral Tablet (Iron-Vitamin C 65-125 mg per tab) Take 1 Tablet by mouth in the morning and 1 Tablet before bedtime. 60 Tablet 3 NIFEdipine ER Osmotic Release 30 MG Oral Tablet Extended Release 24 Hour (Procardia XL) 1 Tablet. Cetirizine HCl 10 MG Oral Tablet Take 1 Tablet by mouth in the morning. Ibuprofen 600 MG Oral Tablet (Motrin) 1 Tablet. Docusate Sodium 100 MG Oral Capsule (Colace) 1 Capsule. No current facility-administered medications for this visit. PHYSICAL EXAMINATION: BP 124/74 | Ht 1.626 m (5' 4") | Wt 78.9 kg (174 lb) | LMP 09/04/2022 | BMI 29.87 kg/m | BSA 1.89m See PP components. Recreation Instructor Documentation Provider requested railcar mechanic. Name of railcar mechanic: Genna Garcia LPN Assessment/Plan: (Z39.2) Routine follow-up (primary encounter diagnosis) - discussed slowly returning to normal activity at 6 weeks - discussed mood disorders and to call immediately with any concerns - discussed expected bleeding patterns/resolution of lochia and return of menses timeframe (Z30.011) Oral contraception initiation Plan: Norethin Dean-Eth Estrad-FE 1.5-30 MG-MCG Oral Tablet (Microgestin FE 1.5/30) Pt did well on this pill before. Discussed increased risk of stroke w/estrogen and migraines. Pt tocall right away with any new or worsening HAs. RTO 1 yr, sooner prn FATOU Gustafson documented in this encounter Nursing Notes * Genna Garcia LPN - 07/11/2023 10:20 AM EST Date of Delivery: 05/25/23 Delivered by: Lainey Type of Delivery: Emergency Degree of Laceration: na Gender: male Feeding: Bottle Weight: 7lbs 5ozs Sadness or Blues: no Control: pill Last Pap: 11/02/22 documented in this encounter Plan of Treatment Upcoming Encounters Date Type Department Care Team (Late st Contact Info) Description 10/04/2023 8:00 AM EDT Office Visit Family Medicine [address] [place] [phone] Tigist Erickson PA-C [address] [place] [address] [place] [address] Health Maintenance Due Date Last Done Comments [...] as of this encounter Visit Diagnoses Diagnosis Routine follow-up- Primary Oral contraception initiation documented in this encounter Care Teams Nurse Licensed Practical Relationship Specialty Start Date End Date Kelechi Vega MD [address] [place] [address] [place] [phone] PCP - General Family Medicine 12/28/22 documented as of this encounter
--- OUTSIDE RECORDS SUMMARY | 2023-08-16 13:10 | External Medical Summary | Summary of Care ---
Author Name Unknown Organization [facility] Address [address] [place] [address] Phone [phone] Care Team Providers Care Assignment Manager Name Role Phone Kelechi Vega MD Primary Care Provide r Reason for Visit * Reason Onset Date Comments Advice 05/25/2023 Encounter Details Date Type Department Care Team (Late st Contact Info) Description 05/25/2023 Telephone Electric Motor Assembler And Tester Obstetrics [facility], [place] [address] [place], [place] [id number] Stefany Beal, [address], [place] [phone] Advice Allergies No known active allergiesdocumented as of this encounter (statuses as of 05/25/2023) Medications Medication Sig Dispensed Refills Start Date [...] as of this encounter (statuses as of 05/25/2023) Active Problems Problem Noted Date Diagnosed Date [...] as of this encounter (statuses as of 05/25/2023) Immunizations Name Administration Dates Next Due COVID-19 [...] money to get more. Never true 10/17/2022 [place] Depression Scale Answer Date Recorded [place] Depression Scale Total 1 05/10/2023 The thought [...] encounter Miscellaneous Notes * Telephone Encounter - Stefany Beal DO - 05/25/2023 1:50 PM EST Received message from Lainey Aragon regarding patient's IOL. Patient was sent into L&D at [facility] yesterday for pre-eclampsia with severe features. She remains closed/th/high despite multiple misoprostol. Initally AST was elevated to 60 but on repeat was normal. ALT was normal. Cr 0.64. Platelets were 99 and repeat were 94. She has required IV labetalol as rescues and was started on hydralazine PO and blood pressures are now normal. was discussed with the patient who became upset as her mother from ruptured cardiac aneurysm during with the patient. Patient had anEcho which was normal. Question about need for and dexamethatsone for platelets. Recommend continuing to trend labs q6h to make sure labs are not dropping rapidly. If stable, IOL can continue, if dropping, please reach out to M. Recommend shared decision making with the patientto determine induction plan moving forward. documented in this encounter Plan of Treatment Upcoming Encounters Date Type Department Care Team (Late st Contact Info) Description 05/31/2023 8:00 AM EST Office Visit Gynecology/[facility]st[facility]s [facility] [address] [place] [address] Siobhan Duenas CRNP [address] [place] [address] 06/07/2023 8:00 AM EST Office Visit Gynecology/[facility]stetrics [facility] [address] [place] [address] Siobhan Duenas CRNP [address] [place] [address] 06/14/2023 10:30 AM EST Office Visit Gynecology/[facility] [address] [place] [address] Siobhan Duenas CRNP [address] [place] [address] Health Maintenance Due Date Last Done Comments [...] filedocumented as of this encounter Care Teams Assignment Manager Relationship Specialty Start Date End Date Kelechi Vega MD [address] [place] [address] [place] [phone] PCP - General Family Medicine 12/28/22 documented as of this encounter
--- OUTSIDE RECORDS SUMMARY | 2023-08-16 13:10 | External Medical Summary | Summary of Care ---
Author Name Unknown Organization [facility] Address [address] [place] [address] Phone [phone] Care Team Providers Care Credit Collections Analyst Name Role Phone Kelechi Vega MD Primary Care Provide r Encounter Details Date Type Department Care Team (Late st Contact Info) Description 08/03/2023 Refill Gynecology/Obstetrics [facility] [address] [place] [address] BackFiona maldonado CRNP [address] [facility] [place] [address] Oral contraception initiation Allergies No known active allergiesdocumented as of this encounter (statuses as of 08/04/2023) Medications Medication Sig Dispensed Refills Start Date [...] initiation Take 1 Tablet by mouth daily. 84 Tablet 3 08/04/2023 Active Norethin Dean-Eth Estrad-FE 1.5-30 MG-MCG Oral Tablet (Microgestin FE 1.5/30)Indications:O ral contraception initiation Take 1 Tablet by mouth daily. 28 Tablet 12 07/11/2023 08/03/2023 Discontinued (Refill) documented as of this encounter (statuses as of 08/04/2023) Active Problems Problem Noted Date Diagnosed Date [...] as of this encounter (statuses as of 08/04/2023) Resolved Problems Problem Noted Date Diagnosed Date [...] as of this encounter (statuses as of 08/04/2023) Immunizations Name Administration Dates Next Due COVID-19 [...] money to get more. Never true 10/17/2022 [place] Depression Scale Answer Date Recorded [place] Depression Scale Total 0 07/11/2023 The thought [...] encounter Miscellaneous Notes * Telephone Encounter - Fiona Callaway CRNP - 08/04/2023 2:51 PM EST Signed Prescriptions: Disp Refills Norethin Dean-Eth Estrad-FE 1.5-30 MG-MCG O*84 Tab*3 Sig: Take 1 Tablet by mouth daily.Authorizing Provider: FIONA CALLAWAY * Telephone Encounter - Lynne Lopez RN - 08/04/2023 2:49 PM EST Patient still taking. * Telephone Encounter - Kathy Jose LPN - 08/03/2023 9:26 AM EST Pharmacy request for 90 day rx. Med marked no longer taking end june. Sent MyG to patient to confirm. documented in this encounter Plan of Treatment Upcoming Encounters Date Type Department Care Team (Late st Contact Info) Description 08/09/2023 11:00 AM EST Office Visit General Surgery, [address] [place] [address] Yash Geller MD [address] [place] [address] 10/04/2023 8:00 AM EDT Office Visit Family Medicine [address] [place] [phone] Tigist Erickson PA-C [address] [place] [address] [place] [address] Health Maintenance Due Date Last Done Comments [...] as of this encounter Visit Diagnoses Diagnosis Oral contraception initiation documented in this encounter Care Teams Credit Collections Analyst Relationship Specialty Start Date End Date Kelechi Vega MD [address] [place] [address] [place] [address] PCP - General Family Medicine 12/28/22 documented as of this encounter
--- OUTSIDE RECORDS SUMMARY | 2023-08-16 13:10 | External Medical Summary | Summary of Care ---
Author Name Unknown Organization [facility] Address [address] [place] [address] Phone [phone] Care Team Providers Care Canceling Machine Operator Name Role Phone Kelechi Vega MD Primary Care Provide r Reason for Visit * Reason Onset Date Comments Hospital Follow-Up Hospital Follow-Up 06/05/2023 Encounter Details Date Type Department Care Team (Late st Contact Info) Description 06/05/2023 5:00 PM EST Office Visit Family Medicine [address] [phone] Kelechi Vega MD [address] [place] [address] [place], [place] [id number] Hospital discharge follow-up*; Elevated liver enzymes; Hypertension in , preeclampsia, severe, delivered; Migraine with aura and without status migrainosus, not intractable Allergies No known active allergiesdocumented as of this encounter (statuses as of 06/05/2023) Medications Medication Sig Dispensed Refills Start Date [...] as of this encounter (statuses as of 06/05/2023) Active Problems Problem Noted Date Diagnosed Date [...] as of this encounter (statuses as of 06/05/2023) Immunizations Name Administration Dates Next Due COVID-19 [...] money to get more. Never true 10/17/2022 [place] Depression Scale Answer Date Recorded [place] Depression Scale Total 1 05/10/2023 The thought [...] Reading Time Taken Comments Blood Pressure 124/74 06/05/2023 5:02 PM EST Pulse 110 06/05/2023 5:02 PM EST Temperature 36.1 C (97 F) 06/05/2023 5:02 PM EST Respiratory Rate - - Oxygen Saturation 99% 06/05/2023 5:02 PM EST Inhaled Oxygen Concentration - - Weight 78.9 kg (174 lb) 06/05/2023 5:02 PM EST Height - - Body Mass Index 29.87 05/24/2023 7:52 AM EST documented in this encounter Patient Instructions * Patient Instructions* Kelechi Vega MD - 06/05/2023 5:09 PM EST Taking Medicine Safely Medicine is given to help treat or prevent illness. But if you don't take it correctly, it might not help. It might even harm you. Your doctor or pharmacist can help you learn the right way to take your medicine. Listed below are some tips to help you take medicine safely. Safety Tips Have a routine for taking each medicine. Make it part of something you do each day, such as brushing your teeth or eating a meal. When you go to the hospital or your doctor's office, bring all your current medicines in their original boxes or bottles. If you can't do that, bring an up-to-date list of your medicines. Do not stop taking a prescription medicine unless your doctor tells you to. Doing so could make your condition worse. Do not share medicines. Let your doctor and pharmacist know of any allergies you have. Taking prescription medicines with alcohol, street drugs, herbs, supplements, or even some umuk-uzj-kbbkwrn medicines can be harmful. Talk to your doctor or pharmacist before using any of these things while taking a prescription medicine. When filling your prescriptions, try using the same pharmacy for all your medicines. If not, let the pharmacist know what medicines you are already on. Keep medicines out of the reach of children and pets. Do not use medicine that has or that doesn't look or smell right. Get rid of it properly. To find out the right way to get rid of medicine: Call your [facility] government's household trash and recycling service and ask if a drug take-back program is available in your community. Call your local pharmacy and ask the right way to get rid of the medicine. Go to http://www.fda.gov/ForConsumers/ConsumerUpdates/jos352206 to learn how to get rid of medicines safely. Using Generic Medicines Medicines have brand names and generic (chemical) names. When a medicine is first made, it is sold only under its brand name. Later, it can be made and sold as a generic. Generic medicines cost less than brand-name medicines and most work just as well. Most people can use the generic medicine instead of the brand-name medicine, unless their doctor says otherwise. 1474-7777 [facility], [address] [place] [address]. All rights reserved. This information is not intended as a substitute for professional medical care. Always follow your healthcare professional's instructions. Coping with Your Diagnosis of a Chronic Health Condition If you have a chronic health condition, you have a problem that may not go away over time. Heart disease, asthma, arthritis, and diabetes are just a few of the chronic conditions that exist. Right now, these conditions have no known cure. But you can take an active role in managing your health. Coping with Your Diagnosis If you've just learned about your health condition, you may be angry, depressed, or afraid. Or you might feel relieved just to know what's wrong. Even if you've known about your health problem for a while, adjusting to it can be hard. But learning about your condition can help you cope. Look for books at your local library. If you have access to a computer, check the Internet. Or contact a group that focuses on your specific problem. Accepting Change Change is hard for most people. Yet right now you may be facing many changes. What you eat or the way you work may change. Your moods, and even your symptoms, might vary from day to day. Although it isn't easy, learning to accept change can help you feel more in control. Taking Control Feeling you have control can make living with your condition easier. Discuss treatment options withyour health care provider. The more you know, the more active you can be in your care. Moving Forward You may wonder whether you will be able to do the things you've always done. That depends on your age, the condition you have, and your goals. To make the most of each day, try to build caring relationships, be active, and eat right. Also, do your best to keep a sense of humor[place] [address]. All rights reserved. This information is not intended as a substitute for professional medical care. Always follow your healthcare professional's instructions. Taking an Active Role in Your Medicines Take the time to learn about your medicine. For instance, why are you taking it? What does it do? Work with your doctor or other health care providers to get the answers you need. Talk to your pharmacist about how to take each medicine, and ask for a fact sheet on each one. Ask Questions About Your Medicine What is the name of the medicine? Why do I need to take it? When should I take it? How should I take it: with water? with food? on an empty stomach? How much do I take? What do I do if I miss a dose? What side effects could it cause and which ones should I call the doctor about? Are there any foods or medicines I should avoid while taking this medicine? Keeping track of your medications? Name of medicine: Taken for: Dose: Time(s) to take it: Take an Active Role Fill all your prescriptions at the same pharmacy. This keeps your medicine history in one place. Talk to the pharmacist. Make sure you understand how to take each medicine. Ask for a fact sheet about each one. Tell your doctor and pharmacist about all the prescription and wknf-dcr-tkzkilp medicines you take.This includes vitamins and herbal remedies. Tell your doctor and pharmacist if you have any medical conditions or allergies to any medicine or food, or if you are or . Keep a list of all your medicines. Use the sample to the right as a guide for the type of information needed. [place] [id number]. All rights reserved. This information is not intended as a substitute for professional medical care. Always follow your healthcare professional's instructions. documented in this encounter Progress Notes * Kelechi Vega MD - 06/05/2023 5:09 PM EST SUBJECTIVE: Brinda Toussaint is a 32 year old female. Chief Complaint Patient presents with Hospital Follow-Up Hospital Follow-Up Recent Admission: Patient was recently admitted to [facility] 05/24/2023. The date of discharge was 05/30/2023. Discharge report received and reviewed. HPI: Brief Clinical History Ms. Toussaint is a 32 year old woman last seen in Family Medicine 1 year ago (01-27-22). She is not duefor eval of any conditions. Admitted to [facility] 05/24/23 from OB appointment for severe pre-eclampsia. Treated with magnesium and induced. Underwent on 05/25/23 due to failure to progress and severe pre-eclampsia. Patient developed elevated liver enzymes postoperatively as well as headache and admitted for ongoing magnesium infusion. She was seen by GI, who ordered CT of the liver with IV contrast to r/o Budd- Chiari. Hepatic veins were patent and showed equivocal mild fatty liver and otherwise unremarkable. She improved and was discharged on 05/30/23. She remains on nifedipine 30 mg daily for hypertension of . Her propranolol for migraine prophylaxis was discontinued during . Has not had any head aches/migraines since discharge. Patient is feeling well. Had a check with roll weigher on 06/01/23 and blood pressure was normal. Blood pressure normal today. Was recommended to follow-up with PCP for elevated liver enzymes. Bottle feeding. pain improving and getting around well. 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 Cetirizine HCl 10 MG Oral Tablet Take 1 Tablet by mouth in the morning. Vitron-C 65-125 MG Oral Tablet (Iron-Vitamin C 65-125 mg per tab) Take 1 Tablet by mouth in the morning and 1 Tablet before bedtime. 60 Tablet 3 Ibuprofen 600 MG Oral Tablet (Motrin) 1 Tablet. NIFEdipine ER Osmotic Release 30 MG Oral Tablet Extended Release 24 Hour (Procardia XL) 1 Tablet. Docusate Sodium 100 MG Oral Capsule (Colace) 1 Capsule. No current facility-administered medications for this visit. Current and discharge medications have been reconciled. Review of patient's allergies indicates: No Known Allergies OBJECTIVE: BP 124/74 | Pulse 110 | Temp 36.1 C (97 F) (Tympanic) | Wt 78.9 kg (174 lb) | LMP 09/04/2022 | SpO2 99% | BMI 29.87 kg/m | BSA 1.89 m Review Of Systems: Skin: pt denies, new or changing moles, pigmentation change, rash, scaling, itching, bruising, lumps or bumps, hair changes, nail changes Eyes: negative Ears/Nose/Throat: pt denies:, deafness, tinnitus, vertigo, deviated septum, frequent URI's Respiratory: pt denies:, cough, sputum, pneumonia or bronchitis, asthma, wheezing, and dyspnea on exertion Cardiovascular: pt denies:, palpitations, tachycardia, irregular heart beat, chest pain, exertionalchest pain or pressure, paroxysmal nocturnal dyspnea, and +hypertension/pre-eclampsia of . Gastrointestinal: pt. denies:, abdominal pain, bloating or excess gas, dysphagia, nausea, heartburn, blood in stool or black stools, constipation or change in bowel habits, diarrhea, +elevated liver tests after delivery Genitourinary: pt denies:, nocturia, dysuria, and frequency Musculoskeletal: pt denies significant joint pain or stiffness Neurologic: +chronic migraines Psychiatric: pt denies:, sleep disturbance, nervousness, and depression Hematologic/Lymphatic/Immunologic: pt denies:, recurrent infections, immunodeficiency, anemia, bruising, bleeding disorder, fever, night sweats, and chills Endocrine: pt denies:, thyroid disorder, cold intolerance, heat intolerance, and diabetes PHYSICAL EXAM: General: alert, healthy, no distress, well nourished, and well developed Head: Normocephalic, No masses, lesions, tenderness or abnormalities Eye Exam: PERRLA, extraocular movements intact, conjunctiva are pink and non- injected, sclera clear Ears: External ears normal Nose: no mucosal erythema, no mucosal edema, no purulent discharge Oropharynx: no exudate, no erythema, lips, buccal mucosa, and tongue normal, and mucous membranes are moist Neck: supple, no adenopathy Heart: regular rate & rhythm, no murmur, and no gallops Lungs: chest symmetric with normal AP diameter, no chest deformities noted, no chest wall tenderness, lungs clear to auscultation Abdomen: abdomen soft and +healing low transverse incision with edges well approximated. No drainage or redness Extremities: no edema, no clubbing, no cyanosis Neuro Exam: alert & oriented x 3 with fluent speech, no focal motor/sensory deficits ASSESSMENT: Hospital discharge follow-up (Primary) - DISCH MED RECON CUR MED LIS Elevated liver enzymes - COMPREHENSIVE METABOLIC PANEL; Future; Expected date: 06/05/2023 Hypertension in , preeclampsia, severe, delivered Migraine with aura and without status migrainosus, not intractable Follow Up: Return in about 4 months (around 10/04/2023). PLAN: Continue present medication(s): Schedule labs: CMP. Will return in 1 week for follow-up liver enzymes. Consider follow-up imaging if still elevated. Patient education: Dicussed elevated liver enzymes and possible need for f/u ultrasound and/or GI referral if remain elevated. CT liver with IV contrast showed equivocal mild hepatic steatosis and noother abnormalities. Continue nifedipine until seen by OB for post- visit. BP normal today. Would recommend transitioning back to propranolol once nifedipine course complete (for migraine prophylaxis). Follow up in 4 month(s). Kelechi Vega MD documented in this encounter Nursing Notes * Mirna Santana LPN - 06/05/2023 5:01 PM EST Hospital d/c - Elevated LFTs. No concerns today documented in this encounter Plan of Treatment Upcoming Encounters Date Type Department Care Team (Late st Contact Info) Description 07/11/2023 10:30 AM EST Office Visit Gynecology/Obstetrics Terese Isabel [address] [place] [address] Estefania Martin CRNP [address] [place] [address] 10/04/2023 8:00 AM EDT Office Visit Family Medicine [address] [place] [phone] Tigist Erickson PA-C [address] [place] [address] [place] [address] Scheduled Orders Name Type Priority Associated Diagnoses Orde r Schedule COMPREHENSIVE METABOLIC PANEL Lab Routine Elevated liver enzymes Expected: 06/05/2023 (Approximate), Expires: 06/04/2024 Health Maintenance Due Date Last Done Comments [...] as of this encounter Visit Diagnoses Diagnosis Hospital discharge follow-up- Primary Other follow-up examination Elevated liver enzymes Nonspecific elevation of levels of transaminase or lactic acid dehydrogenase (LDH) Hypertension in , preeclampsia, severe, delivered Severe pre-eclampsia, with delivery Migraine with aura and without status migrainosus, not intractable Migraine with aura, without mention of intractable migraine without mention of status migrainosus documented in this encounter Care Teams Canceling Machine Operator Relationship Specialty Start Date End Date Kelechi Vega MD [address] [place] [address] [place] [id number] PCP - General Family Medicine 12/28/22 documented as of this encounter"
--- OUTSIDE RECORDS SUMMARY | 2023-08-16 13:10 | External Medical Summary | Summary of Care ---
Author Name Unknown Organization [facility] Address [address] [place] [address] Phone [phone] Care Team Providers Care Pocket Grinder Operator Name Role Phone Kelechi Vega MD Primary Care Provide r Reason for Visit * Reason Comments NEW PATIENT * Evaluate & Treat - Unlimited Visits (Within 10 days (routine)) - Pending Review Specialty Diagnoses / Procedures Referred By Manish canales Referred To Contact General Surgery Diagnoses Axillary lump Kelechi Vega MD [address] [place] [address] [place] [address] Referral ID Status Reason Start Date Expiration Date Visits Requested Visits Authorized [id number] Pending Review Specialty Services Required 07/24/[phone] Encounter Details Date Type Department Care Team (Late st Contact Info) Description 08/09/2023 11:00 AM EST Office Visit General Surgery, [facility] [address] [place] [address] Yash Geller MD [address] [place] [address] Mass of left axilla* Allergies No known active allergiesdocumented as of this encounter (statuses as of 08/09/2023) Medications Medication Sig Dispensed Refills Start Date End Date Status Cetirizine HCl 10 MG Oral Tablet Take 1 Tablet by mouth in the morning. 0 Active Ibuprofen 600 MG Oral Tablet (Motrin) 1 Tablet. 0 05/27/2023 Active NIFEdipine ER Osmotic Release 30 MG Oral Tablet Extended Release 24 Hour (Procardia XL) 1 Tablet. 0 05/27/2023 Ac tive Docusate Sodium 100 MG Oral Capsule (Colace) 1 Capsule. 0 05/27/2023 Act imelda Norethin Dean-Eth Estrad-FE 1.5-30 MG-MCG Oral Tablet (Microgestin FE 1.5/30)Indications:Oral contraception initiation Take 1 Tablet by mouth daily. 84 Tablet 3 08/04/2023 Active documented as of this encounter (statuses as of 08/09/2023) Active Problems Problem Noted Date Diagnosed Date [...] as of this encounter (statuses as of 08/09/2023) Resolved Problems Problem Noted Date Diagnosed Date [...] as of this encounter (statuses as of 08/09/2023) Immunizations Name Administration Dates Next Due COVID-19 [...] to get more. Never true 10/17/2022 [place] Depression Scale Answer Date Recorded [place] Depression Scale Total 0 07/11/2023 The thought [...] Sign Reading Time Taken Comments Blood Pressure - - Pulse - - Temperature 36.5 C (97.7 F) 08/09/2023 11:[address] Respiratory Rate - - Oxygen Saturation - - Inhaled Oxygen Concentration - - Weight 79.2 kg (174 lb 9.6 oz) 08/09/2023 11:04 AM EST Height - - Body Mass Index 29.97 07/11/2023 10:19 AM EST documented in this encounter Progress Notes * Yash Geller MD - 08/09/2023 2:57 PM EST SUBJECTIVE: Brinda Toussaint is a 32 year old female. Chief Complaint Patient presents with NEW PATIENT HPI: 32-year-old presents with mass of her left axilla. This appeared during her 3-4 months ago. It has not increased in size. It has not cause pain. It does not drain or have redness associated with it. She denies fevers or chills. She denies any other complaints. Past Medical History: Diagnosis Date ADHD (attention [...] 08/28/2013 Past Surgical History: Procedure Laterality Date [place] DELIVERY ONLY N/A 05/25/2023 [facility] Current Outpatient Medications Medication Sig Dispense Refill Cetirizine HCl 10 MG Oral Tablet Take 1 Tablet by mouth in the morning. NIFEdipine ER Osmotic Release 30 MG Oral Tablet Extended Release 24 Hour (Procardia XL) 1 Tablet. Norethin Dean-Eth Estrad-FE 1.5-30 MG-MCG Oral Tablet (Microgestin FE 1.5/30) Take 1 Tablet by mouthdaily. 84 Tablet 3 Ibuprofen 600 MG Oral Tablet (Motrin) 1 Tablet. (Patient not taking: Reported on 08/09/2023) Docusate Sodium 100 MG Oral Capsule (Colace) 1 Capsule. (Patient not taking: Reported on 08/09/2023) No current facility-administered medications for this visit. Review of patient's allergies indicates: No Known Allergies Social History: Social History Tobacco Use Smoking status: Never Smokeless tobacco: Never Substance Use Topics Alcohol use: No Vaping/E-Cigarette Use Vaping/E-Cigarette Substances Vaping/E-Cigarette Devices ROS As per HPI, otherwise negative OBJECTIVE: PHYSICAL EXAM: Temp 36.5 C (97.7 F) (Tympanic) | Wt 79.2 kg (174 lb 9.6 oz) | BMI 29.97 kg/m | BSA 1.89 m General: alert, healthy, and no distress Head: Normocephalic, No masses, lesions, tenderness or abnormalities Eye Exam: conjunctiva are pink and non-injected, sclera clear Heart: regular rate & rhythm, no murmur, and no gallops Lungs: chest symmetric with normal AP diameter, no chest deformities noted, lungs clear to auscultation Abdomen: abdomen soft and non-tender Extremities: no edema, no skin discoloration, no clubbing, no cyanosis Skin: skin color, texture, turgor are normal, no rashes or significant lesions Left axilla with 4 cm soft mobile mass, no tenderness to palpation, no erythema/induration ASSESSMENT: R22.32 Mass of left axilla (primary encounter diagnosis) PLAN: 32-year-old woman with probable lipoma of her left axilla. We discussed lipoma in detail. We will obtain a ultrasound of her left axilla for further evaluation. She will return to clinic once this iscomplete. We will discuss possible surgical excision at that time. Yash Geller MD 08/09/2023 documented in this encounter Nursing Notes * Dolores Siddiqi LPN - 08/09/2023 11:03 AM EST L axillary lump, developed during . Not enlarging, not painful. Patient presents alone. documented in this encounter Plan of Treatment Upcoming Encounters Date Type Department Care Team (Late st Contact Info) Description 08/14/2023 8:30 AM EST [facility] [address] [facility] [place] [address] 08/14/2023 9:00 AM EST Imaging Radiology [address] [place] [address] 08/16/2023 9:30 AM EST Office Visit General Surgery, [facility] [address] [facility] [place] [address] Yash Geller MD 132 [facility] [place] [address] 10/04/2023 8:00 AM EDT Office Visit Family Medicine [address] [place] [phone] Tigist Erickson PA-C [address] [place] [address] [place] [address] Scheduled Orders Name Type Priority Associated Diagnoses Orde r Schedule US BREAST AXILLA LEFT Medical Imaging Routine Mass of left axilla Expected: 08/09/2023, Expires: 09/09/2024 Health Maintenance Due Date Last Done Comments [...] as of this encounter Visit Diagnoses Diagnosis Mass of left axilla- Primary documented in this encounter Care Teams Pocket Grinder Operator Relationship Specialty Start Date End Date Kelechi Vega MD [address] [place] [address] [place] [address] PCP - General Family Medicine 12/28/22 documented as of this encounter"
--- OUTSIDE RECORDS SUMMARY | 2023-08-16 13:10 | External Medical Summary | Summary of Care ---
Author Name Unknown Organization [facility] Address [address] [place] [address] Phone [phone] Care Team Providers Care Thread Puller Name Role Phone Kelechi Vega MD Primary Care Provide r Encounter Details Date Type Department Care Team (Late st Contact Info) Description 05/29/2023 Result Scan Unspecified Department [facility] Per[facility] [address] [facility] [address] <No scans attached> Allergies No known active allergiesdocumented as of this encounter (statuses as of 05/30/2023) Medications Medication Sig Dispensed Refills Start Date [...] as of this encounter (statuses as of 05/30/2023) Active Problems Problem Noted Date Diagnosed Date [...] as of this encounter (statuses as of 05/30/2023) Immunizations Name Administration Dates Next Due COVID-19 [...] money to get more. Never true 10/17/2022 [place] Depression Scale Answer Date Recorded [place] Depression Scale Total 1 05/10/2023 The thought [...] Description 06/01/2023 2:15 PM EST [facility] [address] [place] [address] Estefania Martin CRNP [address] [place] [address] 07/11/2023 10:30 AM EST Office Visit Gynecology/Obstetrics Terese Isabel [address] [place] [address] Estefania Martin CRNP [address] [place] [address] Health Maintenance Due Date Last Done Comments [...] Procedure Name Priority Date/Time Associated Diagnosis Comments RADIOLOGY SCANNED RESULT 05/29/2023 documented in this encounter Results * RADIOLOGY SCANNED RESULT (05/29/2023) 05/29/2023 [facility] documented in this encounter Care Teams Thread Puller Relationship Specialty Start Date End Date Kelechi Vega MD [address] [place] [address] [place] [phone] PCP - General Family Medicine 12/28/22 documented as of this encounter
--- OUTSIDE RECORDS SUMMARY | 2023-08-16 13:10 | External Medical Summary | Summary of Care ---
Author Name Unknown Organization [facility] Address [address] [place] [address] Phone [phone] Care Team Providers Care Reinforcing Metal Worker Name Role Phone Kelechi Vega MD Primary Care Provide r Reason for Visit * Reason Comments Outpatient Testing Encounter Details Date Type Department Care Team (Late st Contact Info) Description 06/12/2023 12:40 PM EST Laboratory Laboratory [address] [place] [phone] [place] [address] Elevated liver enzymes Allergies No known active allergiesdocumented as of this encounter (statuses as of 06/12/2023) Medications Medication Sig Dispensed Refills Start Date [...] as of this encounter (statuses as of 06/12/2023) Active Problems Problem Noted Date Diagnosed Date [...] as of this encounter (statuses as of 06/12/2023) Immunizations Name Administration Dates Next Due COVID-19 mRNA, LNP-s, No Pre serve, 2-Dose Series (Pfizer) 08/17/2021,07/27/2021 HIB PRP-T, 4 dose (ActHib) 07/13/1992,,02/14/1991,12/13 HPV Vaccine, 4-Valent 06/01/2007,01/29/2007,0503/2007 Hep A - Hepatitis A (ped/ado le, 1-18 Yrs) 06/01/2007,11/22/2006 Hepatitis B, 0-19 yrs 05/19/1998,12/23/1997,0403/1998 MMR - Measles/Mumps/Rubella Vaccine 11/12/1997,1 08/02/1991 Meningococcal [...] money to get more. Never true 10/17/2022 [place] Depression Scale Answer Date Recorded [place] Depression Scale Total 1 05/10/2023 The thought [...] Terese Isabel [address] [place] [address] Estefania Martin CRNP [address] [place] [address] 10/04/2023 8:00 AM EDT Office Visit Family Medicine [address] [place] [phone] Tigist Erickson PA-C [address] [place] [address] [place] [address] Pending Results Name Type Priority Associated Diagnoses Date /Time COMPREHENSIVE METABOLIC PANEL Lab Routine Elevated liver enzymes 06/12/2023 12:29 PM EST Health Maintenance Due Date Last Done Comments [...] as of this encounter Visit Diagnoses Diagnosis Elevated liver enzymes Nonspecific elevation of levels of transaminase or lactic acid dehydrogenase (LDH) documented in this encounter Care Teams Reinforcing Metal Worker Relationship Specialty Start Date End Date Kelechi Vega MD [address] [place] [address] [place] [address] PCP - General Family Medicine 12/28/22 documented as of this encounter
--- OUTSIDE RECORDS SUMMARY | 2023-08-16 13:10 | External Medical Summary ---
Author Name Unknown Address Unknown Organization [id number]:[facility] [place] [address] [facility] [place] [address] Laboratory Report Ordering Provider Test Date Status LISETTE MCFARLAND 06/12/2023 12:29:21 Final Observation Date Value Abnormality Reference (Units ) Status BUN 06/12/2023 12:29:21 15 6-20 (mg/dL) Final Creatinine 06/12/2023 12:29:21 0.6 0.5-1.0 (mg/dL) Final Glomerular filtration rate/1.73 sq M.predicted [Volume Rate/Area] in Serum, Plasma or Blood by Creatinine-based formula (CKD-EPI) 06/12/2023 12:29:21 >90 >=60 (mL/min) Final eGFR is calculated based on the CKD-EPI 2020 equation SODIUM 06/12/2023 12:29:21 143 135-146 (m mol/L) Final Potassium 06/12/2023 12:29:21 3.8 3.5-5.1 (m mol/L) Final Cl 06/12/2023 12:29:21 106 98-107 (mm ol/L) Final CO2 06/12/2023 12:29:21 24 22-32 (mmo l/L) Final Anion gap 06/12/2023 12:29:21 13 7-15 (mmol /L) Final Glucose 06/12/2023 12:29:21 80 70-120 (mg /dL) Final Albumin 06/12/2023 12:29:21 4.4 3.8-5.0 (g /dL) Final AST (Aspartate aminotransferase) 06/12/2023 12:29:21 22 10-35 (U/L) Final Alk Phos 06/12/2023 12:29:21 122 35-130 (U/ L) Final Bilirubin, Total 06/12/2023 12:29:21 0.4 <=1 .2 (mg/dL) Final Calcium 06/12/2023 12:29:21 9.5 8.4-10.2 ( mg/dL) Final Protein 06/12/2023 12:29:21 6.5 6.0-8.3 (g /dL) Final ALT (Alanine aminotransferase) 06/12/2023 12:29:21 28 10-35 (U/L) Final Performing Location [facility] [place] [facility] [address] [facility] [id number]
--- OUTSIDE RECORDS SUMMARY | 2023-08-16 13:10 | External Medical Summary | Summary of Care ---
Author Name Unknown Organization [facility] Address [address] [place] [address] Phone [phone] Care Team Providers Care Bag End Sewer Name Role Phone Kelechi Vega MD Primary Care Provide r Encounter Details Date Type Department Care Team (Late st Contact Info) Description 05/24/2023 Result Scan Unspecified Department Hillary Mccullough MD [address] [place] [address] <No scans attached> Allergies No known active [...] money to get more. Never true 10/17/2022 [place] Depression Scale Answer Date Recorded [place] Depression Scale Total 1 05/10/2023 The thought [...] 05/31/2023 8:00 AM EST [facility] [address] [place] [address] Siobhan Duenas CRNP [address] [place] [address] 06/07/2023 8:00 AM EST Office Visit Gynecology/Obstetrics [facility] [address] [place] [address] Siobhan Duenas CRNP [address] [place] [address] 06/14/2023 10:30 AM EST Office Visit Gynecology/Obstetrics Terese Warrens [address] [place] [address] Siobhan Duenas CRNP [address] [place] [address] Health Maintenance Due Date Last Done Comments [...] Date/Time Associated Diagnosis Comments RADIOLOGY SCANNED RESULT 05/24/2023 documented in this encounter Results * RADIOLOGY SCANNED RESULT (05/24/2023) 05/24/2023 Hillary Hermosillo MD DIAGNOSTIC RADIO LOGY SERVICES documented in this encounter Care Teams Bag End Sewer Relationship Specialty Start Date End Date Kelechi Vega MD [address] [place] [address] [place] [address] PCP - General Family Medicine 12/28/22 documented as of this encounter
== END 2023-05-30 11:55 | disposition home or self-care (01) | DRG 787 ==
LOC: OPB 08:53 → 4S1 08:59 → OBSVTOIN 09:55 → INTOOBSV 09:55 → 4S1 11:26 → 4E2 05-26 16:19 → 4S1 05-28 16:01 → 4E2 05-29 16:45